=== PATIENT | male | born 1935 | race Caucasian/White ===

== ENCOUNTER → 2016-11-14 | Outpatient (CLI) | payer OTHER ==
[2016-11-14 12:20] LABS: HEMATOCRIT 32.1 % (42-52); MEAN CELL VOLUME 99.1 fL (80-100); MEAN CORPUSCULAR HEMOGLOBIN 32.1 pg (25-34); MEAN CORPUSCULAR HGB CONC 32.4 g/dl (32-36); PLATELET COUNT 110 K/uL (130-400); RED BLOOD COUNT 3.24 M/uL (4.7-6.1); WHITE BLOOD COUNT 4.08 K/uL (4.8-10.8)
[2016-11-14 12:29] LABS: BLOOD UREA NITROGEN 24 mg/dl (7-18); BUN/CREATININE RATIO 16.1 (10-20); CALCIUM 9.3 mg/dl (8.5-10.1); CARBON DIOXIDE 28 mmol/L (21-32); CHLORIDE 106 mmol/L (98-107); GLUCOSE 85 mg/dl (70-99); POTASSIUM 4.7 mmol/L (3.5-5.1); SODIUM 139 mmol/L (136-145)
== END | disposition home or self-care (01) ==
LOC: C.LAB 10:05
PROVIDERS: ATTEND Internal Medicine
DX: N18.9 Chronic kidney disease, unspecified (principal); D61.818 Other pancytopenia

== ENCOUNTER 2016-12-13 19:00 | Emergency (ER) | payer OTHER ==
[~2016-12-13] VITALS: Ht 172.7 cm; Wt 84.0 kg
[2016-12-13 19:04] VITALS: TEMP 36.8; Ht 172.7 cm; Wt 84.0 kg
[2016-12-13] MEDS ORDERED: ONDANSETRON INJ 2 MG/ML 2 ML VIAL IV STA (20:17)
[2016-12-13] MEDS ORDERED: MoRPHine SULFATE 4 MG/ML 1 ML CARP\\VIAL IV PRN (20:30)
[2016-12-13 20:33] LABS: URINE APPEARANCE CLEAR (CLEAR); URINE BILIRUBIN NEG (NEG); URINE COLOR YELLOW; URINE NITRITE NEG (NEG); URINE SPECIFIC GRAVITY 1.012 (1.000-1.030); UROBILINOGEN NEG (NEG)
[2016-12-13 20:42] LABS: MANUAL MICROSCOPIC REQUIRED? NO; REVIEW REQ? NO
[2016-12-13 20:43] LABS: HEMATOCRIT 29.3 % (42-52); MEAN CELL VOLUME 96.7 fL (80-100); MEAN CORPUSCULAR HEMOGLOBIN 32.7 pg (25-34); MEAN CORPUSCULAR HGB CONC 33.8 g/dl (32-36); RED BLOOD COUNT 3.03 M/uL (4.7-6.1); WHITE BLOOD COUNT 3.53 K/uL (4.8-10.8)
--- NOTE | 2016-12-13 20:50 | EMERGENCY ROOM VISIT NOTE ---
History Report prepared by Desmond: Sudeep lCoud Under the Supervision of: Dr. Flynn Atkinson D.O. First contact with patient: 19:53 Chief Complaint: ABDOMINAL PAIN Stated Complaint: SEVERE ABDOMINAL PAIN Nursing Triage Summary: Patient presents to triage via wheelchair, states "I have abdominal pain on the left side that started at 0300 this morning. I saw my PCP this morning. He sent me here for blood work, an xray and a CT scan. I have been constipated for three days until today. I have had two BMs since the CT scan. My pain has gotten worse since then. My doctor called and said that the xrays showed constipation." History of Present Illness The patient is a 81 year old male who presents to the Emergency Room with complaints of constant left lower quadrant abdominal pain that started at 0300. He rates his pain as a 7/10 in severity. He admits that the pain is worsened with movement. The patient states that he has been constipated for three days. He reports that he woke up with his abdominal pain, which caused him to go to his doctors today. The patient states that he had blood work, an x-ray, and a CT scan done. He reports that the results showed a lot of fecal matter and historic diverticulitis. He states that his doctor told him that he had retention of fluid in his ankles and diagnosed him with constipation. The patient states that since his appointment he had three small bowel movements. He admits that he had soup tonight and has not eaten since yesterday. The patient states that he has a history of stents, bypass surgery, A-fib, CHF, a hernia, a back surgery, and prostate cancer. He denies nausea, vomiting, back pain, tobacco or alcohol use in the last 15 years, and a history of shingles. Source of History: patient Onset: 0300 Position: abdomen (LLQ) Symptom Intensity: 7/10 Timing: constant Modifying Factors (Worsening): movement Associated Symptoms: No nausea, No vomiting, No back pain Review of Systems See HPI for pertinent positives & negatives. A total of 10 systems reviewed and were otherwise negative. Past Medical & Surgical Medical Problems: (1) CHF (congestive heart failure) (2) Hernia Surgical Problems: (1) Stented coronary artery Family History Patient reports no known family medical history. Social History Smoking Status: Former Smoker Smokeless Tobacco Use: No Alcohol Use: none Drug Use: none Occupation Status: retired Current/Historical Medications Scheduled Aspirin (Aspirin Ec), 81 MG PO DAILY Carvedilol (Coreg), 3.125 MG PO BID Niacin Ext Rel (Niaspan Ext Rel), 1,000 MG PO QPM Pravastatin Sodium (Pravastatin Sodium), 1 TAB PO DAILY Ramipril (Ramipril), 1 CAP PO QPM Tamsulosin Hcl (Flomax), 0.4 MG PO DAILY Warfarin Sod (Jantoven), 2 MG PO 4XWK Warfarin Sod (Jantoven), 1 MG PO 3XWK Allergies Coded Allergies: No Known Allergies (Unverified , 12/13/16) Physical Exam Vital Signs Date Time Temp Pulse Resp B/P (MAP) Pulse Ox O2 Delivery O2 Flow Rate FiO2 12/13/16 22:21 59 16 136/69 95 Room Air 12/13/16 21:18 58 16 107/63 94 Room Air 12/13/16 20:43 64 16 148/71 97 Room Air 12/13/16 20:36 58 12/13/16 19:04 36.8 70 20 145/66 96 Room Air Physical Exam GENERAL: Patient is awake, alert, and in no acute distress. Patient is resting comfortably and showing no signs of anxiety EYES: The conjunctivae are clear. The pupils are round and reactive. EARS, NOSE, MOUTH AND THROAT: The nose is without any evidence of any deformity. Mucous membranes are moist tongue is midline NECK: The neck is nontender and supple. RESPIRATORY: Normal respiratory effort is noted there is no evidence of wheezing rhonchi or rales CARDIOVASCULAR: Regular rate and rhythm with a systolic murmur suggested. GASTROINTESTINAL: The abdomen is mildly distended with tenderness to left lower quadrant. PELVIS: The Pelvis is stable. No tenderness to palpation is noted. BACK: No midline tenderness or or step-off noted range of motion in flexion extension as well as rotation no signs of muscle spasm noted MUSCULOSKELETAL/EXTREMITIES: There is no evidence of gross deformity full range of motion is noted in the hips and shoulders SKIN: There is no obvious evidence of any rash. There are no petechiae, pallor or cyanosis noted. NEUROLOGIC: Patient is awake alert and oriented x3. Medical Decision & Procedures Laboratory Results 12/13/16 20:37 Red Blood Count 3.03, Mean Corpuscular Volume 96.7, Mean Corpuscular Hemoglobin 32.7, Mean Corpuscular Hemoglobin Concent 33.8, Mean Platelet Volume 10.9, Neutrophils (%) (Auto) 66.6, Lymphocytes (%) (Auto) 21.2, Monocytes (%) (Auto) 8.8, Eosinophils (%) (Auto) 3.1, Basophils (%) (Auto) 0.3, Neutrophils # (Auto) 2.35, Lymphocytes # (Auto) 0.75, Monocytes # (Auto) 0.31, Eosinophils # (Auto) 0.11, Basophils # (Auto) 0.01 12/13/16 20:37 Test 12/13/16 20:00 12/13/16 20:37 Urine Color YELLOW Urine Appearance CLEAR (CLEAR) Urine pH 7.0 (4.5-7.5) Urine Specific Dumas 1.012 (1.000-1.030) Urine Protein NEG (NEG) Urine Glucose (UA) NEG (NEG) Urine Ketones NEG (NEG) Urine Occult Blood NEG (NEG) Urine Nitrite NEG (NEG) Urine Bilirubin NEG (NEG) Urine Urobilinogen NEG (NEG) Urine Leukocyte Esterase NEG (NEG) White Blood Count 3.53 K/uL (4.8-10.8) Red Blood Count 3.03 M/uL (4.7-6.1) Hemoglobin 9.9 g/dL (14.0-18.0) Hematocrit 29.3 % (42-52) Mean Corpuscular Volume 96.7 fL (80-100) Mean Corpuscular Hemoglobin 32.7 pg (25-34) Mean Corpuscular Hemoglobin Concent 33.8 g/dl (32-36) Platelet Count 75 K/uL (130-400) Mean Platelet Volume 10.9 fL (7.4-10.4) Neutrophils (%) (Auto) 66.6 % Lymphocytes (%) (Auto) 21.2 % Monocytes (%) (Auto) 8.8 % Eosinophils (%) (Auto) 3.1 % Basophils (%) (Auto) 0.3 % Neutrophils # (Auto) 2.35 K/uL (1.4-6.5) Lymphocytes # (Auto) 0.75 K/uL (1.2-3.4) Monocytes # (Auto) 0.31 K/uL (0.11-0.59) Eosinophils # (Auto) 0.11 K/uL (0-0.5) Basophils # (Auto) 0.01 K/uL (0-0.2) RDW Standard Deviation 52.0 fL (36.4-46.3) RDW Coefficient of Variation 14.8 % (11.5-14.5) Immature Granulocyte % (Auto) 0.0 % Immature Granulocyte # (Auto) 0.00 K/uL (0.00-0.02) Platelet Estimate DECREASED Prothrombin Time 34.9 SECONDS (9.0-12.0) Prothromb Time International Ratio 3.1 (0.9-1.1) Activated Partial Thromboplast Time 48.7 SECONDS (21.0-31.0) Partial Thromboplastin Ratio 1.9 Anion Gap 5.0 mmol/L (3-11) Est Creatinine Clear Calc Drug Dose 46.8 ml/min Estimated GFR () 58.1 Estimated GFR (Non- 50.1 BUN/Creatinine Ratio 15.5 (10-20) Calcium Level 8.6 mg/dl (8.5-10.1) Total Bilirubin 1.2 mg/dl (0.2-1) Direct Bilirubin 0.3 mg/dl (0-0.2) Aspartate Amino Transf (AST/SGOT) 17 U/L (15-37) Alanine Aminotransferase (ALT/SGPT) 28 U/L (12-78) Alkaline Phosphatase 90 U/L (45-117) Total Protein 7.2 gm/dl (6.4-8.2) Albumin 4.0 gm/dl (3.4-5.0) Lipase 81 U/L (73-393) Laboratory results per my review. Medications Administered Medications (Trade) Dose Ordered Sig/Cezar Route Start Time Stop Time Status Last Admin Dose Admin Ondansetron HCl (Zofran Inj) 4 mg NOW STAT IV 12/13/16 20:17 12/13/16 20:19 DC 12/13/16 20:42 4 MG Morphine Sulfate (MoRPHine SULFATE INJ) 4 mg Q15M PRN IV 12/13/16 20:30 12/13/16 23:18 DC 12/13/16 20:43 4 MG Oxycodone HCl (Roxicodone Immediate Rel 5MG Home Pack) 1 homepack UD ONCE PO 12/13/16 22:45 12/13/16 22:46 DC 12/13/16 22:48 1 [facility] ED Course 2011: The patient was evaluated in room A10. A complete history and physical examination were performed. 2017: Ordered Zofran Injection 4 mg IV. 2029: Ordered Morphine Sulfate 4 mg IV. 2233: Upon reevaluation, the patient is resting comfortably. I discussed the results and treatment plan with him. The patient verbalized agreement of the treatment plan. He was discharged home. 2244: Ordered Oxycodone HCl 1 [facility] PO Medical Decision Prior records/ancillary studies reviewed. Triage Nursing notes reviewed. Additional history obtained from patient. The patient's history was concerning for abdominal pain. Differential diagnosis: Etiologies such as appendicitis, diverticulitis, PUD, biliary pathology, UTI, pancreatitis, obstruction, mesenteric ischemia, aortic pathology, infections, inflammatory bowel disease, renal colic, as well as others were entertained. The patient is an 81-year-old male who presented to the emergency department for an evaluation of left-sided abdominal pain. The patient was noted to have left-sided abdominal pain with even light touch. He was sent to the hospital for outpatient testing by his family doctor. He had a CT scan of the abdomen which did not show any acute intra-abdominal pathology but did show a large amount of diverticulosis without diverticulitis. Given the patient's pain it would correlate with diverticulitis but without radiographic findings for fever I would be reluctant to treat him for diverticulitis at this time. He had a KUB that showed a moderate amount of stool earlier in the day but he did not have any signs of constipation on the CT. I discussed the patient's laboratory radiographic studies with him and his daughter. My other thought with this patient could be early shingles given the amount of pain with even light touch. He was encouraged to call his family doctor to schedule follow-up appointment. He was also encouraged to rest and avoid any strenuous activity. He was also encouraged to drink plenty clear liquids and follow-up with his family doctor within the next couple days. Otherwise she was encouraged to return to the emergency department immediately if symptoms change worsen or the need arises. Medication Reconcilliation Current Medication List: was personally reviewed by me Blood Pressure Screening Patient's blood pressure: Elevated blood pressure Blood pressure disposition: Elevated BP felt to be situational Impression Primary Impression: LLQ abdominal pain Additional Impression: Diverticulosis Scribe Attestation The scribe's documentation has been prepared under my direction and personally reviewed by me in its entirety. I confirm that the note above accurately reflects all work, treatment, procedures, and medical decision making performed by me. Departure Information Dispostion Home / Self-Care Referrals Yonny Carvalho D.O. (PCP) Forms Call Back Authorization, HOME CARE DOCUMENTATION FORM, IMPORTANT VISIT INFORMATION Patient Instructions ED Abdominal Pain Unkn Cause Male, My [facility] Additional Instructions Call your family doctor in the morning to schedule a follow-up appointment. Continue all medications as prescribed. Rest and avoid any strenuous activity. Return to the emergency department immediately if symptoms change worsen or if the need arises. Problem Qualifiers Additional Impression: Diverticulosis Diverticulosis site: unspecified location Diverticulosis bleeding: diverticulosis without bleeding Qualified Codes: K57.90 - Diverticulosis of intestine, part unspecified, without perforation or abscess without bleeding
[2016-12-13 21:02] LABS: INR 3.1 (0.9-1.1); PARTIAL THROMBOPLASTIN RATIO 1.9; PROTHROMBIN TIME (PATIENT) 34.9 SECONDS (9.0-12.0)
[2016-12-13 21:04] LABS: BASO % 0.3 %; BASO ABS # 0.01 K/uL (0-0.2); COMPLETE YES; EOS % 3.1 %; LYMPH % 21.2 %; LYMPH ABS # 0.75 K/uL (1.2-3.4); MEAN PLATELET VOLUME 10.9 fL (7.4-10.4); MONO % 8.8 %; NEUT % 66.6 %; PLATELET COUNT 75 K/uL (130-400); PLT ESTIMATE DECREASED
[2016-12-13] MEDS ORDERED: RAMI2.5C PO (21:05)
[2016-12-13] MEDS ORDERED: CARV3.122 PO (21:05)
[2016-12-13] MEDS ORDERED: NSP500 PO (21:05)
[2016-12-13] MEDS ORDERED: TAMS0.4C38 PO (21:05)
[2016-12-13] MEDS ORDERED: ASPI81TA28 PO (21:05)
[2016-12-13] MEDS ORDERED: WARF2TAB8 PO ×2 (21:05)
[2016-12-13] MEDS ORDERED: PRAV40TA2 PO (21:05)
[2016-12-13 21:14] LABS: BUN/CREATININE RATIO 15.5 (10-20); CALCIUM 8.6 mg/dl (8.5-10.1); CREATININE 1.33 mg/dl (0.60-1.40); POTASSIUM 4.1 mmol/L (3.5-5.1)
[2016-12-13 22:21] VITALS: BP 136/69; PULSE 59; O2SAT 95
[2016-12-13] MEDS ORDERED: OXYCODONE IR HOME PACK PO ONE (22:45)
== END 2016-12-13 23:00 | disposition home or self-care (01) ==
LOC: C.EDB 19:02 → C.EDA 23:00
DX: R10.32 Left lower quadrant pain (principal); K57.90 Diverticulosis of intestine, part unspecified, without perforation or abscess without bleeding; I48.91 Unspecified atrial fibrillation; I50.9 Heart failure, unspecified; Z95.1 Presence of aortocoronary bypass graft; Z95.5 Presence of coronary angioplasty implant and graft; Z85.46 Personal history of malignant neoplasm of prostate; Z79.82 Long term (current) use of aspirin; Z79.01 Long term (current) use of anticoagulants; Z87.891 Personal history of nicotine dependence

== ENCOUNTER → 2016-12-13 | Outpatient (CLI) | payer OTHER ==
[~2016-12-13] MED LIST: ASPI81TA28 PO; CARV3.122 PO; NSP500 PO; PRAV40TA2 PO; RAMI2.5C PO; TAMS0.4C38 PO; WARF2TAB8 PO
--- NOTE | 2016-12-13 11:49 | DIAGNOSTIC IMAGING REPORT ---
CT SCAN OF THE ABDOMEN AND PELVIS WITHOUT CONTRAST CLINICAL HISTORY: Left-sided abdominal pain. Possible diverticulitis. COMPARISON STUDY: No previous studies for comparison. TECHNIQUE: CT scan of the abdomen and pelvis was performed from the lung bases to the proximal femurs. Images are reviewed in the axial, sagittal, and coronal planes. IV contrast was not administered for this examination. A dose lowering technique was utilized adhering to the principles of ALARA. CT DOSE: 854.62 mGycm FINDINGS: Lower chest: There are pericardial calcifications present. There are coronary artery calcifications. There is mild basilar interstitial thickening. Liver: The unenhanced liver is normal in size, contour, and attenuation. There is no intrahepatic biliary ductal dilatation. Gallbladder: Unremarkable. Spleen: Top normal in size Pancreas: Unremarkable. Adrenal glands: Unremarkable. Kidneys: The unenhanced kidneys are normal in size without hydronephrosis. There is no contour deforming renal mass lesion. No renal calculi are identified. Bowel: There are no transition zones indicate bowel obstruction. There is pandiverticulosis. There are no acute peridiverticular inflammatory changes. There is no evidence of acute appendicitis. Peritoneum: There is no intraperitoneal free air or abdominal ascites. 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 Adenopathy: None. Pelvic viscera: Prostate patient therapy implant seeds are visualized. Skeletal structures: There are bilateral L5 pars defects. There is a grade 2/4 spondylolisthesis of L5 on S1. IMPRESSION: 1. No acute intra-abdominal or pelvic findings 2. Moderately extensive pandiverticulosis. No evidence of acute peridiverticular inflammatory change 3. No evidence of acute appendicitis 4. No evidence of bowel obstruction. No evidence of free air Electronically signed by: Vj Gutierrez M.D. 12/13/2016 11:47 AM Dictated Date/Time: 12/13/2016 11:43 AM
[2016-12-13 12:18] LABS: HEMATOCRIT 30.6 % (42-52); MEAN CELL VOLUME 98.4 fL (80-100); MEAN CORPUSCULAR HEMOGLOBIN 32.5 pg (25-34); RED BLOOD COUNT 3.11 M/uL (4.7-6.1); WHITE BLOOD COUNT 4.17 K/uL (4.8-10.8)
--- NOTE | 2016-12-13 12:30 | DIAGNOSTIC IMAGING REPORT ---
KUB HISTORY: Acute left upper quadrant pain with history of diverticulitis. Constipation for 3 days. LUQ PAIN,LLQ PAIN COMPARISON: CT 12/13/2016. FINDINGS: The bowel gas pattern is non-obstructive. Moderate stool burden suggests constipation. There is no organomegaly. No renal calculi. No ureteral calculi. Calcifications of the upper abdomen are compatible with renal vascular calcifications as noted on comparison CT. No pneumoperitoneum or pneumatosis. No fracture. Brachytherapy seeding of the prostate. Prior median sternotomy. Moderate osteoarthritis of the bilateral hips. IMPRESSION: 1. Moderate stool burden suggests constipation. Bowel gas pattern is nonobstructive. Electronically signed by: Abel Peoples M.D. 12/13/2016 12:29 PM Dictated Date/Time: 12/13/2016 12:26 PM
[2016-12-13 12:37] LABS: MEAN PLATELET VOLUME 11.4 fL (7.4-10.4); PLATELET COUNT 81 K/uL (130-400); PLT ESTIMATE DECREASED
== END | disposition home or self-care (01) ==
LOC: C.CTS 11:14
PROVIDERS: ATTEND Internal Medicine
DX: K57.90 Diverticulosis of intestine, part unspecified, without perforation or abscess without bleeding (principal)

== ENCOUNTER 2023-04-06 12:03 | Observation (INO) ==
--- NOTE | 2023-04-06 13:50 | XRay Report ---
SINGLE VIEW CHEST CLINICAL HISTORY: Atypical chest pain. FINDINGS: A PA chest radiograph is compared to study dated 03/22/2023. The patient is status post midl ine sternotomy. Pericardial calcifications are again noted. The heart is enlarged noting atherosclero tic calcification of the thoracic aorta. There is pulmonary vascular congestion. Chronic interstitial thickening is similar to previous. There is bibasilar scarring/atelectasis. No large pleural effusio n or pneumothorax is seen. The bony thorax is grossly intact. IMPRESSION: Cardiomegaly with evidence of congestive failure. Radiographic follow-up to resolution is recommended. ACT 112: Negative or not required by law. Electronically signed by: Elvin Young M.D. 04/06/2023 1:49 PM
--- NOTE | 2023-04-06 14:01 | Emergency Department Note ---
History of Present Illness General Chief complaint: Shortness of Breath/Dyspnea Stated complaint: DIFFICULTY BREATHING, EXHAUSTION - S/P SURGERY Time Seen by Provider: 04/06/23 13:50 History of Present Illness 88-year-old male presents emergency department complaint of shortness of breath for the past 2 days. Patient states dyspnea on exertion. Patient states orthopnea. Patient of note had a urethral stricture surgery on Saturday with Dr. Kendrick. Patient had been doing well he had a Laureano catheter removed yesterday in the office. At the time he stated to Dr. Kendrick that he was feeling short of breath. Dr. Kendrick wanted this complaint to be monitored for 24 hours. Patient has increased shortness of breath currently complains of dyspnea on exertion states that he has not been able to urinate since 10 AM this morning. Patient denies any chest pain. Patient had a prior history of CHF was on a diuretic until last fall 2022 in which that was discontinued. Patient has no other complaints. There are no other mitigating or alleviating factors Home Medications Medication Instructions Recorded Confirmed Type acetaminophen 650 mg 650 mg PO Q8H PRN Pain 06/26/22 04/06/23 History tablet,extended release (Tylenol 8 Hour) aspirin 81 mg tablet,delayed 81 mg PO QAM 06/26/22 04/06/23 History release meclizine 25 mg tablet (Dramamine 25 mg PO TID PRN Vertigo 06/26/22 04/06/23 History (meclizine)) mecobalamin (vitamin B12) 500 mcg 500 mcg PO QAM 06/26/22 04/06/23 History chewable tablet nitroglycerin 0.4 mg sublingual 0.4 mg sublingual Q5M PRN Chest 06/26/22 04/06/23 History tablet Pain buspirone 10 mg tablet 10 mg PO BID PRN anxiety 07/03/22 04/06/23 History clonazepam 1 mg tablet 1 mg PO HS 03/27/23 04/06/23 History pantoprazole 40 mg tablet,delayed 40 mg PO QAM 03/27/23 04/06/23 History release pravastatin 40 mg tablet 40 mg PO HS 03/27/23 04/06/23 History spironolactone 25 mg tablet 12.5 mg PO HS 03/27/23 04/06/23 History tamsulosin 0.4 mg capsule 0.4 mg PO HS 03/27/23 04/06/23 History oxybutynin chloride 5 mg tablet 5 mg PO BID #180 tabs 04/02/23 04/06/23 Rx sulfamethoxazole 800 1 tab PO BID #6 tabs 04/02/23 04/06/23 Rx mg-trimethoprim 160 mg tablet (Bactrim DS) Allergies Allergy/AdvReac Type Severity Reaction Status Date / Time doxycycline Allergy Vomiting Verified 04/05/23 11:37 pregabalin Allergy Vomiting Verified 04/05/23 11:37 Past Med/Surg History Medical History Hx of brachytherapy initial tx for prostate ca Hyperlipidemia GERD (gastroesophageal reflux disease) 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 Vitamin D deficiency History of prostate cancer 1999, brachy therapy and sx tx Chronic diastolic heart failure Persistent atrial fibrillation Coronary artery disease s/p 2 stents in 1999 and CABG x 1 1978 Surgical History History of esophagogastroduodenoscopy (EGD) Hx of colonoscopy Hx of tonsillectomy Hx of bilateral cataract extraction History of coronary artery bypass graft 1978, single bypass, [facility] in [place] History of heart artery stent ~1999, angina, [place], [place]; x2 stents; f/u amy huerta History of cardiac cath ~1999, ang[place], [place]; x2 stents; f/u amy huerta S/P TURP Family History Father Heart disease Hypertension Mother Seizure Denies family history of Ovarian cancer Prostate cancer Myocardial infarction Breast cancer Colorectal cancer Social History Smoking Status: Former smoker Tobacco Type: Cigarettes Age Started Using Tobacco: 26; Age Quit Using Tobacco: 61; packs per day: 1; Second Hand Exposure: No; Do You Dip or Chew Tobacco: No; Hx Alcohol Use: Yes Alcohol type: beer, wine and hard liquor Alcohol Intake Frequency: Monthly or Less Hx Substance Use: No Preferred Language: Montenegrin Communication Ability: Effective Visual Impairment: No Limitations Hearing Ability: Normal Medical Claims Representative Required: No Beliefs That Will Affect Care: None marital status: / marital status details: LIVES WITH FREDI AND SON IN LAW Current Living Situation: Family current occupational status: retired How many Children do You have: 3 Feels Safe at Home: Yes Childhood Exposure to Second-Hand Smoke: No Diet: regular caffeine: Yes during the past year weight has: remained stable Dental Care, Regularly: No Physical Activity Frequency: 1-2 Times per Week Seatbelt Use: always Sunscreen Use: Yes Assistive Devices: Denture - Upper and Denture - Lower Review of Systems A total of 10 systems reviewed and were otherwise negative Cardiovascular: + dyspnea and + orthopnea Physical Exam Vital Signs Vital Signs - 24 hr 04/06/23 12:39 04/06/23 13:40 04/06/23 14:15 Temperature 36.5 C Temperature Source Temporal Artery Scan Pulse Rate 68 59 L Pulse Rate [Left Finger] Pulse Rhythm Regular Pulse Strength Normal Respiratory Rate 22 Respiratory Effort / Characteristics Non-Labored Spontaneous Respiratory Depth Normal Respiratory Pattern Regular Blood Pressure 111/66 Blood Pressure [Right Arm] Blood Pressure Mean 81 Blood Pressure Mean [Right Arm] Blood Pressure Position Sitting Blood Pressure Position [Right Arm] Pulse Oximetry 98 99 Oxygen Delivery Method Room Air Room Air Sepsis Recent Fever Within 48 Hours No Sepsis New/Unexplained Change in Mental Status No Sepsis Action Taken by Nursing No Action Required 04/06/23 14:35 04/06/23 15:21 04/06/23 15:21 Temperature Temperature Source Pulse Rate Pulse Rate [Left Finger] 77 Pulse Rhythm Pulse Strength Respiratory Rate 20 Respiratory Effort / Characteristics Respiratory Depth Respiratory Pattern Blood Pressure Blood Pressure [Right Arm] 155/57 H Blood Pressure Mean Blood Pressure Mean [Right Arm] 89 Blood Pressure Position Blood Pressure Position [Right Arm] Sitting Pulse Oximetry 98 97 Oxygen Delivery Method Room Air Room Air Sepsis Recent Fever Within 48 Hours Sepsis New/Unexplained Change in Mental Status Sepsis Action Taken by Nursing GENERAL: Patient is awake alert in no acute distress patient is resting comfortably and showing no signs of anxiety EYES: The conjunctivae are clear. The pupils are round and reactive. EARS, NOSE, MOUTH AND THROAT: The nose is without any evidence of any deformity. Mucous membranes are moist. Tongue is midline. NECK: The neck is nontender and supple. RESPIRATORY: Normal respiratory effort is noted there is crackles noted bilaterally CARDIOVASCULAR: Regular rate and rhythm noted there no murmurs rubs or gallops normal S1 normal S2. GASTROINTESTINAL: The abdomen is soft. Abdomen is nontender. Nondistended nontender over the suprapubic region BACK: No midline tenderness or or step-off noted range of motion in flexion extension as well as rotation no signs of muscle spasm noted MUSCULOSKELETAL/EXTREMITIES: There is no evidence of gross deformity full range of motion is noted in the hips and shoulders. SKIN: There is no obvious evidence of any rash. There are no petechiae, pallor or cyanosis noted. NEUROLOGIC: Patient is awake alert and oriented x3 strength is symmetric Course Reevaluation(s) Reevaluation #1: Patient was started on IV Lasix. Patient had 78 mL on bladder scanner and his bladder Time: 14:18 Consultations Consultation #1: Case was discussed with Dr. Harrington from [facility] for admission for CHF Time: 14:19 Administered Medications Discontinued Medications Furosemide (Furosemide 40 Mg/4 Ml Vial) 40 mg IV ONE ONE Stop: 04/06/23 13:59 Last Admin: 04/06/23 14:14 Dose: 40 mg Documented By: CHAD Medical Decision Making Medical Records Attestation: I reviewed the patient's medical records. Home Medications Current Medication List: was personally reviewed by me Laboratory Data Attestation: I reviewed the patient's lab results. 04/06/23 13:28 04/06/23 13:28 Lab Results 04/06/23 Range/Units 13:28 WBC 2.59 L (4.8-10.8) K/ul RBC 2.58 L (4.70-6.10) M/uL Hgb 8.7 L (14.0-18.0) g/dl Hct 27.2 L (42.0-52.0) % MCV 105.4 H (80.0-100.0) fL MCH 33.7 (25.0-34.0) pg MCHC 32.0 (32.0-36.0) g/dL RDW Std Deviation 56.4 H (36.4-46.3) fL RDW Coeff of Salena 14.6 H (11.5-14.5) % Plt Count 66 L (130-400) K/uL MPV 11.8 (9.4-12.4) fL Immature Gran % (Auto) 0.4 % Neut % (Auto) 83.4 % Lymph % (Auto) 8.9 % Person % (Auto) 4.6 % Eos % (Auto) 1.9 % Baso % (Auto) 0.8 % Neut # (Auto) 2.16 (1.40-6.50) K/uL Lymph # (Auto) 0.23 L (1.20-3.40) K/uL Person # (Auto) 0.12 (0.11-0.59) K/uL Eos # (Auto) 0.05 (0.00-0.50) K/uL Baso # (Auto) 0.02 (0.00-0.20) K/uL Immature Gran # (Auto) 0.01 (0.01-0.20) K/uL PT 11.8 (9.0-12.0) Seconds INR 1.1 (0.9-1.1) APTT 30 (21-31) Seconds PTT Ratio 1.1 Sodium 137 (136-145) mmol/L Potassium 4.4 (3.5-5.1) mmol/L Chloride 107 (98-107) mmol/L Carbon Dioxide 25 (21-32) mmol/L Anion Gap 5 (3-11) BUN 31 H (6-23) mg/dl Creatinine 2.24 H (0.6-1.4) mg/dl Est Cr Clr Drug Dosing 23.6 ml/min Est GFR ( Amer) 29.5 ml/min Est GFR (Non-Af Amer) 25.4 ml/min BUN/Creatinine Ratio 13.8 (10-20) Glucose 106 H (70-99(Fasting)) mg/dl Calcium 8.9 (8.6-10.3) mg/dl Total Bilirubin 1.0 (0.2-1.0) mg/dl AST 11 L (13-39) U/L ALT 9 (7-52) U/L Alkaline Phosphatase 107 H (34-104) U/L Troponin I High Sens 17.1 (0-20) pg/ml B-Natriuretic Peptide 216 H (0-100) pg/ml Total Protein 6.7 (6.0-8.3) gm/dl Albumin 4.4 (3.4-5.0) gm/dl Globulin 2.3 L (2.5-4.0) gm/dl Albumin/Globulin Ratio 1.9 (0.9-2) Adenovirus (PCR) Not Detected (NotDetected) B. pertussis DNA (PCR) Not Detected (NotDetected) B.parapertussis DNA PCR Not Detected (NotDetected) C. pneumoniae DNA (PCR) Not Detected (NotDetected) Coronavirus OC43 (PCR) Not Detected (NotDetected) Coronavirus HKU1 (PCR) Not Detected (NotDetected) Coronavirus 229E (PCR) Not Detected (NotDetected) SARS-CoV-2 (PCR) Not Detected (NotDetected) Coronavirus NL63 (PCR) Not Detected (NotDetected) Human Metapneumovir PCR Not Detected (NotDetected) Influenza Type A (PCR) Not Detected (NotDetected) Influenza Type B (PCR) Not Detected (NotDetected) M. pneumoniae (PCR) Not Detected (NotDetected) Parainfluenza 1 (PCR) Not Detected (NotDetected) Parainfluenza 2 (PCR) Not Detected (NotDetected) Parainfluenza 3 (PCR) Not Detected (NotDetected) Parainfluenza 4 (PCR) Not Detected (NotDetected) RSV (PCR) Not Detected (NotDetected) Entero/Rhino (PCR) Not Detected (NotDetected) Imaging Data Attestation: I personally reviewed and interpreted this imaging study as follows: My Impression: Chest x-ray interpreted by wv calckwasi aorta, CHF Radiologist's Impression: Chest X-Ray 04/06/23 12:44 SINGLE VIEW CHEST CLINICAL HISTORY: Atypical chest pain. FINDINGS: A PA chest radiograph is compared to study dated 03/22/2023. The patient is status post midline sternotomy. Pericardial calcifications are again noted. The heart is enlarged noting atherosclerotic calcification of the thoracic aorta. There is pulmonary vascular congestion. Chronic interstitial thickening is similar to previous. There is bibasilar scarring/atelectasis. No large pleural effusion or pneumothorax is seen. The bony thorax is grossly intact. IMPRESSION: Cardiomegaly with evidence of congestive failure. Radiographic follow-up to resolution is recommended. ACT 112: Negative or not required by law. Electronically signed by: Elvin Young M.D. 04/06/2023 1:49 PM ECG Data Attestation: I personally reviewed and interpreted this ECG as follows: Additional Comments: EKG interpreted by me atrial fibrillation rate of 59, poor R wave progression the precordium, nonspecific ST-T change poor baseline in the lateral leads no obvious ST segment elevation or depression Telemetry was ordered by me, interpreted as atrial fibrillation rate of 59 MDM Narrative Medical decision making differential diagnosis includes CHF, pneumonia, upper respiratory tract infection, cardiac dysrhythmia, urinary retention Plan is to check labs, EKG, chest x-ray, COVID swab. These labs were initiated and the provider in triage process prior to me evaluating the patient Patient's family at bedside is provided me history of him having a prior history of CHF off of diuretics since fall 2022 and a recent surgery with urology. Impression & Plan CHF (congestive heart failure) Discharge Plan Visit Data Chief Complaint: Shortness of Breath/Dyspnea Stated Complaint: DIFFICULTY BREATHING, EXHAUSTION - S/P SURGERY ED Provider: Mando Sierra Discharge Problem: CHF (congestive heart failure) Patient Disposition: Admitted As Inpatient Forms Stand Alone Forms: My [facility] [employer] Prescriptions Prescriptions: No Action oxybutynin chloride 5 mg tablet 5 mg PO BID Qty: 180 3RF buspirone 10 mg tablet 10 mg PO BID PRN (Reason: anxiety) acetaminophen [Tylenol 8 Hour] 650 mg tablet extended release 650 mg PO Q8H PRN (Reason: Pain) aspirin 81 mg tablet,delayed release (DR/EC) 81 mg PO QAM mecobalamin (vitamin B12) 500 mcg tablet,chewable 500 mcg PO QAM meclizine [Dramamine (meclizine)] 25 mg tablet 25 mg PO TID PRN (Reason: Vertigo) nitroglycerin 0.4 mg tablet, sublingual 0.4 mg sublingual Q5M PRN (Reason: Chest Pain) Patient Comments: has not used any for 20 years Rx Instructions: do not exceed 3 doses per episode pravastatin 40 mg tablet 40 mg PO HS clonazepam 1 mg tablet 1 mg PO HS spironolactone 25 mg tablet 12.5 mg PO HS tamsulosin 0.4 mg capsule 0.4 mg PO HS pantoprazole 40 mg tablet,delayed release (DR/EC) 40 mg PO QAM sulfamethoxazole-trimethoprim [Bactrim DS] 800-160 mg tablet 1 tab PO BID Qty: 6 0RF Referrals Referrals: Osbaldo Sellers DO [Primary Care Provider] -
[2023-04-06 14:02] LABS: Basophils # (auto) 0.02 K/uL (0.00-0.20); Basophils % (auto) 0.8 %; Eosinophils # (auto) 0.05 K/uL (0.00-0.50); Eosinophils % (auto) 1.9 %; Hematocrit (blood only) 27.2 % (42.0-52.0); Hemoglobin 8.7 g/dl (14.0-18.0); Immature Granulocytes # (auto) 0.01 K/uL (0.01-0.20); Immature Granulocytes % (auto) 0.4 %; Lymphocytes # (auto) 0.23 K/uL (1.20-3.40); Lymphocytes % (auto) 8.9 %; Mean Corpuscular Hemoglobin 33.7 pg (25.0-34.0); Mean Corpuscular Volume 105.4 fL (80.0-100.0); Mean Platelet Volume 11.8 fL (9.4-12.4); Monocytes # (auto) 0.12 K/uL (0.11-0.59); Monocytes % (auto) 4.6 %; Neutrophils # (auto) 2.16 K/uL (1.40-6.50); Neutrophils % (auto) 83.4 %; Platelet Count 66 K/uL (130-400); RDW Coefficient of Variation 14.6 % (11.5-14.5); RDW Standard Deviation 56.4 fL (36.4-46.3); Red Blood Count 2.58 M/uL (4.70-6.10); White Blood Count 2.59 K/ul (4.8-10.8)
[2023-04-06 14:08] LABS: Albumin Globulin Ratio 1.9 (0.9-2); Albumin Level 4.4 gm/dl (3.4-5.0); BUN Creatinine Ratio 13.8 (10-20); Calcium 8.9 mg/dl (8.6-10.3); Creatinine Clr Calc Pharmacy 23.6 ml/min; Est GFR (African American) 29.5 ml/min; Est GFR (Non-African American) 25.4 ml/min; Globulin 2.3 gm/dl (2.5-4.0); Potassium 4.4 mmol/L (3.5-5.1); Total Protein 6.7 gm/dl (6.0-8.3)
[2023-04-06 14:14] LABS: Troponin I High Sensitivity 17.1 pg/ml (0-20)
[2023-04-06] MEDS: FUROSEMIDE 40 MG/4 ML VIAL IV ONE (14:14)
[2023-04-06 14:29] LABS: INR 1.1 (0.9-1.1); Partial Thromboplastin Ratio 1.1; Partial Thromboplastin Time 30 Seconds (21-31); Prothrombin Time 11.8 Seconds (9.0-12.0)
--- NOTE | 2023-04-06 14:35 | History & Physical Report ---
Date of Service April 06, 2023 Assessment & Plan (1) Acute heart failure: Plan: Unknown ejection fraction Suspect chronic kidney disease also contributing towards hypervolemic state - awaiting urinalysis to assess proteinuria Possibly exacerbated by temporary urine retention following surgery (current bladder scan normal) +/- IV fluids during operation - suspect he may only need PRN dosing at home Lasix 40mg IV, ordered daily but given significant urine output since given this may need to reduce tomorrows dose depending on I&Os I&Os Daily weight Low Na diet TTE (2) Urethral stricture: Plan: s/p Cystoscopy, Urethral Dilation 04/02/[address] Kendrick Bladder scan unremarkable Finished Bactrim prophylaxis - can discontinue this, of note probably not the best choice for prophylaxis with his CKD Ua to assess for infection (3) Kidney disease, chronic, stage IV (GFR 15-29 ml/min): Plan: UA pending to assess for proteinuria Monitor Cr with AM labs (4) GERD (gastroesophageal reflux disease): Plan: Continue pantoprazole (5) Myelodysplastic syndrome: Plan: Noted reason for anemia, elevated MCV, thrombocytopenia and leukopenia - stable Consider giving his usual procrit if dose can be confirmed with hematology since he missed this weeks (6) Benign essential hypertension: Plan: Continue spironolactone with additional lasix as above (7) Coronary artery disease: Plan: Continue aspirin, pravastatin (8) Persistent atrial fibrillation: Plan: No anticoagulation due to watchman Rate controlled without AV radha blockers Plan VTE Prophylaxis - low risk Diet - low Na, heart healthy Disposition - observation to med/tele Admission and Anticipated Discharge Date Admission Date: Apr 06, 2023 History of Present Illness Chief Complaint: Shortness of breath Primary Care Provider: DO Maged Garsia Star is an 88 year old male who presents to the ER with shortness of breath for the last 2 days. Worse on lying down and similar to prior hospitalization when he was admitted for congestive heart failure 2 years ago in [place]. He does not routinely make Lasix but is on spironolactone at night. This started after cystoscopy and urethral dilation performed by Dr Kendrick 2 days ago. He felt well prior ot this procedure and afterwards he went home and could not urinate for a long time as well as it was painful. He was given a 3 day course of Bactrim for prophyalxis. He felt generally weak initially which started to improved. His urinary flow today significantly improved but he felt weak again and was short of breath on minimal movements therefore decided to come to the ER. He denies any chest pain, presyncope, leg swelling or palpitations. 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 He thinks he gets 40,000 units. Missed this weeks dose due to the operation. Allergies Allergy/AdvReac Type Severity Reaction Status Date / Time doxycycline Allergy Vomiting Verified 04/05/23 11:37 pregabalin Allergy Vomiting Verified 04/05/23 11:37 Home Medications Medication Instructions Recorded Confirmed Type acetaminophen 650 mg 650 mg PO Q8H PRN Pain 06/26/22 04/06/23 History tablet,extended release (Tylenol 8 Hour) aspirin 81 mg tablet,delayed 81 mg PO QAM 06/26/22 04/06/23 History release meclizine 25 mg tablet (Dramamine 25 mg PO TID PRN Vertigo 06/26/22 04/06/23 History (meclizine)) mecobalamin (vitamin B12) 500 mcg 500 mcg PO QAM 06/26/22 04/06/23 History chewable tablet nitroglycerin 0.4 mg sublingual 0.4 mg sublingual Q5M PRN Chest 06/26/22 0 04/06/23 History tablet Pain buspirone 10 mg tablet 10 mg PO BID PRN anxiety 07/03/22 04/06/23 History clonazepam 1 mg tablet 1 mg PO HS 03/27/23 04/06/23 History pantoprazole 40 mg tablet,delayed 40 mg PO QAM 03/27/23 04/06/23 History release pravastatin 40 mg tablet 40 mg PO HS 03/27/23 04/06/23 History spironolactone 25 mg tablet 12.5 mg PO HS 03/27/23 04/06/23 History tamsulosin 0.4 mg capsule 0.4 mg PO HS 03/27/23 04/06/23 History oxybutynin chloride 5 mg tablet 5 mg PO BID #180 tabs 04/02/23 04/06/23 Rx sulfamethoxazole 800 1 tab PO BID #6 tabs 04/02/23 04/06/23 Rx mg-trimethoprim 160 mg tablet (Bactrim DS) Past Med/Surg History Medical History Hx of brachytherapy initial tx for prostate ca Hyperlipidemia GERD (gastroesophageal reflux disease) 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 Vitamin D deficiency History of prostate cancer 1999, brachy therapy and sx tx Chronic diastolic heart failure Persistent atrial fibrillation Coronary artery disease s/p 2 stents in 1999 and CABG x 1 1978 Surgical History History of esophagogastroduodenoscopy (EGD) Hx of colonoscopy Hx of tonsillectomy Hx of bilateral cataract extraction History of coronary artery bypass graft 1978, single bypass, [facility] in [place] History of heart artery stent ~1999, [place], [place]; x2 stents; f/u amy huerta History of cardiac cath ~1999, [facility], [place], [place]; x2 stents; f/u amy huerta S/P TURP Family History Father Heart disease Hypertension Mother Seizure Denies family history of Ovarian cancer Prostate cancer Myocardial infarction Breast cancer Colorectal cancer Social History Smoking Status: Never smoker Tobacco Type: Cigarettes Age Started Using Tobacco: 26; Age Quit Using Tobacco: 61; packs per day: 1; Second Hand Exposure: No; Do You Dip or Chew Tobacco: No; Hx Alcohol Use: Yes Alcohol type: beer, wine and hard liquor Alcohol Intake Frequency: Monthly or Less Hx Substance Use: No Preferred Language: [place]guill[place] Communication Ability: Effective Visual Impairment: No Limitations Hearing Ability: Normal Master Ship Required: No Beliefs That Will Affect Care: None marital status: / marital status details: LIVES WITH DAUTHER AND SON IN LAW Current Living Situation: Family current occupational status: retired How many Children do You have: 3 Other Information That Helps Us Care for You: No Feels Safe at Home: Yes Childhood Exposure to Second-Hand Smoke: No Diet: regular caffeine: Yes during the past year weight has: remained stable Dental Care, Regularly: No Physical Activity Frequency: 1-2 Times per Week Seatbelt Use: always Sunscreen Use: Yes Assistive Devices: Denture - Upper and Denture - Lower Review of Systems Review of Systems: All systems reviewed & are unremarkable except as noted in HPI & below Physical Exam Constitutional: WD/WN, vitals as above Eyes: + anicteric sclerae; normal pupil size ENMT: external ear and nose normal, oropharynx normal Respiratory: normal respiratory effort; no respiratory distress Auscultation: + diminished lung sounds (bibasal); no crackles, no rales and no rhonchi Cardiovascular: Rate/Rhythm: regular rate and + irregularly irregular Heart Sounds: no murmur Extremities: normal capillary refill and + pedal edema (trace); no calf tenderness Gastrointestinal (Abdomen): normal bowel sounds, soft, nontender, no hepatosplenomegaly Skin: no rashes, warm and dry Neurologic: moves all extremities and awake; not confused Psychiatric: A+Ox3, euthymic affect Genitourinary: no CVA tenderness Results & Data Results & Data Vital Signs (Past 12 Hours) Vital Signs Temp Pulse Resp BP Pulse Ox O2 Del Method 04/06/23 14:15 59 L 04/06/23 13:40 99 Room Air 04/06/23 12:39 36.5 C 68 22 111/66 98 Room Air Laboratory Results Abnormal lab results 04/06/23 Range/Units 13:28 WBC 2.59 L (4.8-10.8) K/ul RBC 2.58 L (4.70-6.10) M/uL Hgb 8.7 L (14.0-18.0) g/dl Hct 27.2 L (42.0-52.0) % MCV 105.4 H (80.0-100.0) fL RDW Std Deviation 56.4 H (36.4-46.3) fL RDW Coeff of Salena 14.6 H (11.5-14.5) % Plt Count 66 L (130-400) K/uL Lymph # (Auto) 0.23 L (1.20-3.40) K/uL BUN 31 H (6-23) mg/dl Creatinine 2.24 H (0.6-1.4) mg/dl Glucose 106 H (70-99(Fasting)) mg/dl AST 11 L (13-39) U/L Alkaline Phosphatase 107 H (34-104) U/L Globulin 2.3 L (2.5-4.0) gm/dl Diagnostic Findings SINGLE VIEW CHEST CLINICAL HISTORY: Atypical chest pain. FINDINGS: A PA chest radiograph is compared to study dated 03/22/2023. The patient is status post midline sternotomy. Pericardial calcifications are again noted. The heart is enlarged noting atherosclerotic calcification of the thoracic aorta. There is pulmonary vascular congestion. Chronic interstitial thickening is similar to previous. There is bibasilar scarring/atelectasis. No large pleural effusion or pneumothorax is seen. The bony thorax is grossly intact. IMPRESSION: Cardiomegaly with evidence of congestive failure. Radiographic follow-up to resolution is recommended. Medications Administered ER Medications Given: Lasix 40mg IV ECG Rate (beats per minute): 59 Rhythm: atrial fibrillation Findings: + nonspecific-ST abn (Lateral) Comparison ECG Date: from (July 03, 2022) Change: the following changes noted (T wave flattening now presents in inferior leads) Code Status & VTE Plan Code Status Full VTE Prophylaxis Plan VTE Prophylaxis will be ordered: No PG Care Time/CCT Total # of Minutes Spent Total Time Spent with Patient: Total time spent is greater than 50% in coordination of care (as documented) at patient's floor/unit and/or counseling patient: Coding Level of Care Code 59061 INT INP/OBS CARE 3/75MIN Diagnoses Acute heart failure I50.9 Urethral stricture N35.919 Kidney disease, chronic, stage IV (GFR 15-29 ml/min) N18.4 GERD (gastroesophageal reflux disease) K21.9 Myelodysplastic syndrome D46.9 Benign essential hypertension I10 Coronary artery disease I25.10 Persistent atrial fibrillation I48.19
[2023-04-06 14:41] LABS: Adenovirus PCR Not Detected (NotDetected); Bordetella parapertussis PCR Not Detected (NotDetected); Bordetella pertussis PCR Not Detected (NotDetected); Chlamydia pneumoniae PCR Not Detected (NotDetected); Coronavirus 229E PCR Not Detected (NotDetected); Coronavirus CoV-2 (COVID19)PCR Not Detected (NotDetected); Coronavirus HKU1 PCR Not Detected (NotDetected); Coronavirus NL63 PCR Not Detected (NotDetected); Coronavirus OC43PCR Not Detected (NotDetected); Human Metapneumovirus PCR Not Detected (NotDetected); Influenza A PCR Not Detected (NotDetected); Influenza B PCR Not Detected (NotDetected); Mycoplasma pneumoniae PCR Not Detected (NotDetected); Parainfluenza Virus 1 PCR Not Detected (NotDetected); Parainfluenza Virus 2 PCR Not Detected (NotDetected); Parainfluenza Virus 3 PCR Not Detected (NotDetected); Parainfluenza Virus 4 PCR Not Detected (NotDetected); Respiratory Syncytial VirusPCR Not Detected (NotDetected); Rhinovirus/Enterovirus PCR Not Detected (NotDetected)
[2023-04-06 17:22] LABS: Appearance Urine Clear (Clear); Bacteria Urine Automated Negative (Negative); Bilirubin Urine Negative (Negative); Blood Urine Trace (Negative); Cast Urine Automated 0 /lpf (0-5); Color Urine Yellow; Epithelial Cell Urine Auto 0-5 /lpf (0-5); Glucose Urine UA Negative (Negative); Ketones Urine Negative (Negative); Leukocyte Esterase Urine Negative (Negative); Nitrite Urine Negative (Negative); Protein Urine Negative (Negative); RBC Urine Automated 0-4 /hpf (0-4); Specific Gravity Urine 1.008 (1.000-1.030); Urobilinogen Urine Negative (Negative); WBC Urine Automated 0 /hpf (0-5); pH Urine 6.5 (4.5-7.5)
[2023-04-06] MEDS ORDERED: busPIRone 5 MG TAB PO PRN (17:47)
[2023-04-06] MEDS: TAMSULOSIN HCL 0.4 MG CAP PO SCH (20:59)
[2023-04-06] MEDS: SPIRONOLACTONE 12.5 MG TAB PO SCH (20:59)
[2023-04-06] MEDS: clonazePAM 1 MG TAB PO SCH (20:59)
[2023-04-06] MEDS: oxyBUTYnin chloride 5 MG TAB PO SCH (21:00)
[2023-04-06] MEDS: PRAVASTATIN SOD 40 MG TAB PO SCH (21:00)
[2023-04-06] MEDS ORDERED: SULFAMETHOXAZOLE/TRIMETHOPRIM DS 800/160MG TAB PO SCH (21:00)
--- NOTE | 2023-04-07 07:06 | Electrocardiogram Report ---
Test Reason : Blood Pressure : / mmHG Vent. Rate : 059 BPM Atrial Rate : 000 BPM P-R Int : 000 ms QRS Dur : 090 ms QT Int : 416 ms P-R-T Axes : 000 056 185 degrees QTc Int : 411 ms Atrial fibrillation with slow ventricular response Cannot rule out Anterior infarct (cited on or before 03-JUL-2022) Abnormal ECG When compared with ECG of 03-JUL-2022 09:38, (unconfirmed) Nonspecific T wave abnormality now evident in Inferior leads Confirmed by Frederick Mckeon ([id number]) on 04/07/2023 7:06:15 AM Referred By: Confirmed By:Lalit Mckeon
[2023-04-07] MEDS: FUROSEMIDE 40 MG/4 ML VIAL IV SCH (08:40)
[2023-04-07] MEDS: CYANOCOBALAMIN (B-12) 500 MCG TABLET PO SCH (08:40)
[2023-04-07] MEDS: ASPIRIN 81 MG ECTAB PO SCH (08:40)
[2023-04-07] MEDS: PANTOprazole 40 MG TAB PO SCH (08:40)
--- NOTE | 2023-04-07 13:55 | Discharge Summary ---
Date of Service April 07, 2023 Admission HPI Per Admitting Provider Maged Graves is an 88 year old male who presents to the ER with shortness of breath for the last 2 days. Worse on lying down and similar to prior hospitalization when he was admitted for congestive heart failure 2 years ago in [place]. He does not routinely make Lasix but is on spironolactone at night. This started after cystoscopy and urethral dilation performed by Dr Kendrick 2 days ago. He felt well prior ot this procedure and afterwards he went home and could not urinate for a long time as well as it was painful. He was given a 3 day course of Bactrim for prophyalxis. He felt generally weak initially which started to improved. His urinary flow today significantly improved but he felt weak again and was short of breath on minimal movements therefore decided to come to the ER. He denies any chest pain, presyncope, leg swelling or palpitations. 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 He thinks he gets 40,000 units. Missed this weeks dose due to the operation. Discharge Data Allergies Allergy/AdvReac Type Severity Reaction Status Date / Time doxycycline Allergy Vomiting Verified 04/05/23 11:37 pregabalin Allergy Vomiting Verified 04/05/23 11:37 Consultations 04/06/23 14:17 ED Decision to Admit Stat Hospital Course (1) Acute heart failure: Unknown ejection fraction Suspect chronic kidney disease also contributing towards hypervolemic state - awaiting urinalysis to assess proteinuria Possibly exacerbated by temporary urine retention following surgery (current bladder scan normal) +/- IV fluids during operation - suspect he may only need PRN dosing at home Lasix 40mg IV, ordered daily but given significant urine output since given this may need to reduce tomorrows dose depending on I&Os I&Os Daily weight Low Na diet TTE (2) Urethral stricture: s/p Cystoscopy, Urethral Dilation 04/02/[address] Kendrick Bladder scan unremarkable Finished Bactrim prophylaxis - can discontinue this, of note probably not the best choice for prophylaxis with his CKD Ua to assess for infection (3) Kidney disease, chronic, stage IV (GFR 15-29 ml/min): UA pending to assess for proteinuria Monitor Cr with AM labs (4) GERD (gastroesophageal reflux disease): Continue pantoprazole (5) Myelodysplastic syndrome: Noted reason for anemia, elevated MCV, thrombocytopenia and leukopenia - stable Consider giving his usual procrit if dose can be confirmed with hematology since he missed this weeks (6) Benign essential hypertension: Continue spironolactone with additional lasix as above (7) Coronary artery disease: Continue aspirin, pravastatin (8) Persistent atrial fibrillation: No anticoagulation due to watchman Rate controlled without AV radha blockers Plan VTE Prophylaxis - low risk Diet - low Na, heart healthy Disposition - observation to med/tele Discharge Plan Discharge Items Reason For Visit: ACUTE CHF Follow-up/Referrals: Osbaldo Sellers, [Primary Care Provider] - Medications and DC Order Prescriptions: No Action oxybutynin chloride 5 mg tablet 5 mg PO BID Qty: 180 3RF buspirone 10 mg tablet 10 mg PO BID PRN (Reason: anxiety) acetaminophen [Tylenol 8 Hour] 650 mg tablet extended release 650 mg PO Q8H PRN (Reason: Pain) aspirin 81 mg tablet,delayed release (DR/EC) 81 mg PO QAM mecobalamin (vitamin B12) 500 mcg tablet,chewable 500 mcg PO QAM meclizine [Dramamine (meclizine)] 25 mg tablet 25 mg PO TID PRN (Reason: Vertigo) nitroglycerin 0.4 mg tablet, sublingual 0.4 mg sublingual Q5M PRN (Reason: Chest Pain) Patient Comments: has not used any for 20 years Rx Instructions: do not exceed 3 doses per episode pravastatin 40 mg tablet 40 mg PO HS clonazepam 1 mg tablet 1 mg PO HS spironolactone 25 mg tablet 12.5 mg PO HS tamsulosin 0.4 mg capsule 0.4 mg PO HS pantoprazole 40 mg tablet,delayed release (DR/EC) 40 mg PO QAM sulfamethoxazole-trimethoprim [Bactrim DS] 800-160 mg tablet 1 tab PO BID Qty: 6 0RF Admission Data Admit Date/Time: 04/06/23 14:33 Attending Provider: Umair Schmid Admit Provider: Jeet Harrington Primary Care Provider: Osbaldo Sellers Other Providers: Jeet Harrington Coding Diagnoses Acute heart failure I50.9 Urethral stricture N35.919 Kidney disease, chronic, stage IV (GFR 15-29 ml/min) N18.4 GERD (gastroesophageal reflux disease) K21.9 Myelodysplastic syndrome D46.9 Benign essential hypertension I10 Coronary artery disease I25.10 Persistent atrial fibrillation I48.19
--- NOTE | 2023-04-07 14:03 | XCELERA ---
[id number]
[2023-04-07 14:30] LABS: Hematocrit (blood only) 27.6 % (42.0-52.0); Hemoglobin 8.9 g/dl (14.0-18.0); Mean Corpuscular Hemoglobin 33.8 pg (25.0-34.0); Mean Corpuscular Hgb Conc 32.2 g/dL (32.0-36.0); Mean Corpuscular Volume 104.9 fL (80.0-100.0); Mean Platelet Volume 11.9 fL (9.4-12.4); Platelet Count 71 K/uL (130-400); RDW Coefficient of Variation 14.6 % (11.5-14.5); RDW Standard Deviation 55.9 fL (36.4-46.3); Red Blood Count 2.63 M/uL (4.70-6.10); White Blood Count 2.18 K/ul (4.8-10.8)
[2023-04-07 14:50] LABS: BUN Creatinine Ratio 15.7 (10-20); Calcium 9.2 mg/dl (8.6-10.3); Creatinine Clr Calc Pharmacy 23.4 ml/min; Est GFR (African American) 29.6 ml/min; Est GFR (Non-African American) 25.6 ml/min; Potassium 4.2 mmol/L (3.5-5.1)
== END 2023-04-07 15:38 | disposition home or self-care (01) ==
LOC: 2W 12:03 → ED 12:03 → SUATTDRO 14:33 → 2W 17:37

== ENCOUNTER 2023-11-15 12:05 | Observation (INO) ==
[2023-11-15] MEDS ORDERED: SODIUM CHLORIDE 0.9% 250 ML IV PRN ×2 (12:32→18:17)
[2023-11-15 12:43] LABS: Basophils # (auto) 0.03 K/uL (0.00-0.20); Basophils % (auto) 0.6 %; Eosinophils # (auto) 0.06 K/uL (0.00-0.50); Eosinophils % (auto) 1.1 %; Hemoglobin 8.1 g/dl (14.0-18.0); Immature Granulocytes # (auto) 0.03 K/uL (0.01-0.20); Immature Granulocytes % (auto) 0.6 %; Lymphocytes # (auto) 0.37 K/uL (1.20-3.40); Lymphocytes % (auto) 6.8 %; Mean Corpuscular Hemoglobin 33.5 pg (25.0-34.0); Mean Corpuscular Hgb Conc 32.4 g/dL (32.0-36.0); Mean Corpuscular Volume 103.3 fL (80.0-100.0); Mean Platelet Volume 11.3 fL (9.4-12.4); Monocytes # (auto) 0.38 K/uL (0.11-0.59); Neutrophils # (auto) 4.55 K/uL (1.40-6.50); Neutrophils % (auto) 83.9 %; Platelet Count 124 K/uL (130-400); RDW Coefficient of Variation 14.1 % (11.5-14.5); RDW Standard Deviation 53.5 fL (36.4-46.3); Red Blood Count 2.42 M/uL (4.70-6.10); White Blood Count 5.42 K/ul (4.8-10.8)
[2023-11-15 12:57] LABS: Albumin Globulin Ratio 1.4 (0.9-2); Albumin Level 4.2 gm/dl (3.4-5.0); BUN Creatinine Ratio 14.6 (10-20); Bilirubin,Total 1.4 mg/dl (0.2-1.0); Calcium 9.1 mg/dl (8.6-10.3); Creatinine Clr Calc Pharmacy 24.1 ml/min; Est GFR (African American) 31.5 ml/min; Est GFR (Non-African American) 27.2 ml/min; Globulin 3.1 gm/dl (2.5-4.0); Potassium 3.9 mmol/L (3.5-5.1); Total Protein 7.3 gm/dl (6.0-8.3)
[2023-11-15 13:09] LABS: INR 1.1 (0.9-1.1); Partial Thromboplastin Ratio 1.3; Partial Thromboplastin Time 35 Seconds (21-31); Prothrombin Time 12.1 Seconds (9.0-12.0)
--- NOTE | 2023-11-15 13:23 | Electrocardiogram Report ---
Test Reason : Blood Pressure : */* mmHG Vent. Rate : 75 BPM Atrial Rate : * BPM P-R Int : * ms QRS Dur : 92 ms QT Int : 384 ms P-R-T Axes : * 14 167 degrees QTcB Int : 428 ms Atrial fibrillation Cannot rule out Anterior infarct (cited on or before 03-Jul-2022) Abnormal ECG When compared with ECG of 06-Apr-2023 13:22, No significant change was found Confirmed by Genaro Welsh ([id number]) on 11/15/2023 1:22:48 PM Referred By: Confirmed By: Genaro Welsh
[2023-11-15 13:50] LABS: Troponin I High Sensitivity 120.2 pg/ml (0-20)
--- NOTE | 2023-11-15 13:54 | Emergency Department Note ---
Impression & Plan Weakness, CHF (congestive heart failure), MDS (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), Anemia, SOB (shortness of breath), Elevated troponin ED Provider Note NAME: NORA HARRELL AGE: 88 SEX: M : 1935 ARRIVES VIA: Walk-In INFORMANT: [Patient][family] ED PROVIDER(S): [Elvin St MD] CHIEF COMPLAINT: Dr. Referred HISTORY OF PRESENT ILLNESS: The patient is an 88-year-old male who was referred from the cancer center for a low hemoglobin. His value was around 7. He typically runs around 9. He last received a packed red blood cell transfusion around 6 months ago. He has a 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. Patient has noticed some increasing shortness of breath and fatigue. He is weaker. He is coughing up more phlegm. There has been no fever, no chest pain, no abdominal pain. Of note, the patient did receive a Procrit shot today at the [facility] before arriving at this ER. PMHx/PSHx/Social Hx: See Below PHYSICAL EXAM: GENERAL: Patient is in no acute distress. HEENT: No acute trauma, normocephalic atraumatic, mucous membranes moist, no nasal congestion. NECK: No stridor, no adenopathy, no meningismus, trachea is midline. LUNGS: Clear to auscultation bilaterally, no wheeze, no rhonchi, breath sounds equal. HEART: Irregular rhythm, subtle systolic murmur. Normal rate. ABDOMEN: Soft, nontender, no peritonitis. EXTREMITIES: No cyanosis, full range of motion of all the joints without pain or difficulty. NEUROLOGIC: Oriented x 3, no acute motor or sensory deficits, no focal weakness. SKIN: No jaundice, no diaphoresis. Pale. DIFFERENTIAL DIAGNOSIS: Anemia, CHF, KS, electrolyte imbalance, viral illness, among others. EMERGENCY DEPARTMENT PROCEDURES: MEDICAL DECISION MAKING: There is no leukocytosis. The patient is anemic with a hemoglobin of 8.1. This is below his typical baseline. Platelet count was low at 124. No concerning coagulopathy. Creatinine was elevated, this is baseline looking back at previous testing. No electrolyte abnormality in need of emergent correction. There were some subtle liver enzyme elevations. Chest x-ray does suggest heart failure, no pneumonia. BNP is elevated consistent with fluid overload. ECG shows atrial fibrillation, no obvious acute ischemia. Cardiac enzyme testing x 1 is elevated at 120. This troponin elevation could be secondary to cardiac injury or just mismatch from his anemia and weakness. Urinalysis did not show infection. Respiratory bio fire was negative. On exam, the patient appeared pale, he was not toxic or febrile. I did speak with hematology, the patient is being hospitalized for his dyspnea and weakness. He will likely be transfused slowly as the transfusion could worsen his heart failure. I spoke with the patient, I did speak with case management, the on-call hospitalist was consulted. Prior/Outside records/notes reviewed: None ECG per my interpretation: Indication was weakness. The ECG shows atrial fibrillation with a rate of 75. There are some ST depressions laterally. No acute ST elevation. There is an old anterior infarct. No PVCs. The QTc is 428. Continuous Cardiac Monitoring per my interpretation: An order was placed for continuous cardiac monitoring. The monitor shows a rate of 73 with atrial fibrillation. Imaging/x-ray results per my interpretation: Chest x-ray shows some potential CHF. There is no pneumonia. Chronic Medical/Social conditions affecting care: Advanced age. Care/Management discussed with: Case management, the on-call hospitalist. Hematology-Dr. Mendoza. Level of care consideration(s): After review of the information above and other included data: --I believe the patient requires escalation of care to admission DISPOSITION: Admission Past Med/Surg History Problem List (Updated 11/15/23 @ 20:[address] MD) Elevated troponin (Acute) SOB (shortness of breath) (Acute) Anemia (Acute) MDS (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) (Acute) CHF (congestive heart failure) (Acute) Weakness (Acute) Anemia Acute on chronic heart failure with preserved ejection fraction Acute heart failure 04/06/23 Encounter for pre-operative examination Urethral 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 Prostate cancer Stage 3b chronic kidney disease Vitamin D deficiency Acute kidney injury 08/08/22 Kidney disease, chronic, stage IV (GFR 15-29 ml/min) (Acute) GERD (gastroesophageal reflux disease) Peripheral vascular disease Myelodysplastic syndrome (Acute) Atherogenic dyslipidemia Benign essential hypertension Chronic diastolic heart failure Persistent atrial fibrillation Coronary artery disease s/p 2 stents in 1999 and CABG x 1 1978 LLQ abdominal pain (Acute) 12/14/16 Diverticulosis (Acute) Stented coronary artery TWO PER PT Hernia CHF (congestive heart failure) (Acute) Medical History History of recent blood transfusion (08/2023) [facility] Kidney disease, chronic, stage IV (GFR 15-29 ml/min) Diverticulosis CAD (coronary artery disease) s/p 2 stents in 1999 and CABG x 1 1978 Chronic diastolic heart failure HTN (hypertension) Dyslipidemia PVD (peripheral vascular disease) Chronic cough History of Mohs micrographic surgery for skin cancer nose History of skin cancer Presence of Watchman left atrial appendage closure device (2020) Atrial fibrillation follows w/ Dr Shravan Huerta Hx of brachytherapy initial tx for prostate ca Hyperlipidemia GERD (gastroesophageal reflux disease) MDS (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) f/u negative cutter, [facility] History of prostate cancer 1999, brachy therapy and sx tx Surgical History History of cardiac cath ~1999, [place], [place]; x2 stents; f/u shravan huerat History of coronary artery bypass graft 1978, single bypass, [facility] in [place] History of esophagogastroduodenoscopy (EGD) History of heart artery stent ~1999, [place], [place]; x2 stents; f/u shravan huerta Hx of bilateral cataract extraction Hx of colonoscopy Hx of tonsillectomy S/P TURP Family History Father Heart disease Hypertension Mother Seizure Denies family history of Ovarian cancer Prostate cancer Myocardial infarction Breast cancer Colorectal cancer Social History Smoking Status: Never smoker Tobacco Type: Cigarettes Age Started Using Tobacco: 26; Age Quit Using Tobacco: 61; packs per day: 1; Second Hand Exposure: No; Do You Dip or Chew Tobacco: No; Hx Alcohol Use: Yes Alcohol type: beer, wine and hard liquor Alcohol Intake Frequency: Monthly or Less Hx Substance Use: No Preferred Language: Nicaraguan Communication Ability: Effective Communication Ability Comment: short term memory impairment Visual Impairment: No Limitations Hearing Ability: Normal Locomotive Mechanic Required: No Beliefs That Will Affect Care: None marital status: / marital status details: LIVES WITH FREDI AND SON IN LAW Current Living Situation: Family Current Living Situation Comment: lives with daughter Becca current occupational status: retired How many Children do You have: 3 Feels Safe at Home: Yes Childhood Exposure to Second-Hand Smoke: No Diet: regular caffeine: Yes during the past year weight has: remained stable Dental Care, Regularly: No Physical Activity Frequency: 1-2 Times per Week Seatbelt Use: always Sunscreen Use: Yes Assistive Devices: Denture - Upper and Denture - Lower Allergies Allergies Allergy/AdvReac Type Severity Reaction Status Date / Time doxycycline AdvReac Vomiting Verified 11/15/23 15:16 pregabalin AdvReac Vomiting Verified 11/15/23 15:16 Home Meds Home Medications Medication Instructions Recorded Confirmed acetaminophen 650 mg 650 mg PO Q8H PRN Pain 06/26/22 11/15/23 tablet,extended release (Tylenol 8 Hour) aspirin 81 mg tablet,delayed 81 mg PO QAM 06/26/22 11/15/23 release meclizine 25 mg tablet (Dramamine 25 mg PO TID PRN Vertigo 06/26/22 11/15/23 (meclizine)) mecobalamin (vitamin B12) 500 mcg 500 mcg PO QAM 06/26/22 11/15/23 chewable tablet buspirone 10 mg tablet 0 mg PO TID anxiety 11/15/23 11/15/23 clonazepam 0.5 mg tablet 0.5 mg PO HS 11/15/23 11/15/23 Previous Rx's Medication Instructions Recorded pantoprazole 40 mg tablet,delayed 40 mg PO QAM #90 tabs 05/17/23 release pravastatin 40 mg tablet 40 mg PO HS #90 tabs 05/31/23 furosemide 20 mg tablet 40 mg (2 x 20 mg) PO Q OTHER DAY 07/16/23 #90 tabs vibegron 75 mg tablet (Gemtesa) 75 mg PO DAILY #90 tabs 07/28/23 nitroglycerin 0.4 mg sublingual 0.4 mg sublingual Q5M PRN Chest 08/19/23 tablet Pain #25 tabs spironolactone 25 mg tablet 12.5 mg (1/2 x 25 mg) PO HS #45 09/10/23 tabs oxybutynin chloride 5 mg tablet 5 mg PO BID #180 tabs 11/12/23 tamsulosin 0.4 mg capsule 0.4 mg PO HS #90 caps 11/12/23 Results & Data (ED) Vital Signs Vital Signs - 24 hr 11/15/23 12:08 11/15/23 12:55 11/15/23 13:00 Temperature 36.7 C Temperature Source Temporal Artery Scan Pulse Rate 86 73 Pulse Rate from SpO2 Sensor Respiratory Rate 16 Respiratory Effort / Characteristics Non-Labored Spontaneous Respiratory Depth Normal Respiratory Pattern Regular Blood Pressure 101/60 109/50 L Blood Pressure Mean 73 72 Blood Pressure Position Sitting Pulse Oximetry 94 Oxygen Delivery Method Room Air Sepsis Recent Fever Within 48 Hours No Sepsis New/Unexplained Change in Mental Status N/A Sepsis Action Taken by Nursing No Action Required 11/15/23 13:03 11/15/23 13:15 11/15/23 13:30 Temperature Temperature Source Pulse Rate 73 72 Pulse Rate from SpO2 Sensor 73 70 Respiratory Rate 14 17 Respiratory Effort / Characteristics Respiratory Depth Respiratory Pattern Blood Pressure 116/50 L Blood Pressure Mean 82 Blood Pressure Position Pulse Oximetry 99 95 Oxygen Delivery Method Sepsis Recent Fever Within 48 Hours Sepsis New/Unexplained Change in Mental Status Sepsis Action Taken by Nursing 11/15/23 13:39 11/15/23 14:00 11/15/23 14:00 Temperature Temperature Source Pulse Rate 70 72 Pulse Rate from SpO2 Sensor 68 72 Respiratory Rate 16 22 Respiratory Effort / Characteristics Respiratory Depth Respiratory Pattern Blood Pressure 121/62 Blood Pressure Mean 93 Blood Pressure Position Pulse Oximetry 96 97 Oxygen Delivery Method Sepsis Recent Fever Within 48 Hours Sepsis New/Unexplained Change in Mental Status Sepsis Action Taken by Nursing 11/15/23 14:30 11/15/23 14:30 11/15/23 14:30 Temperature Temperature Source Pulse Rate 70 Pulse Rate from SpO2 Sensor 66 Respiratory Rate 22 Respiratory Effort / Characteristics Respiratory Depth Respiratory Pattern Blood Pressure 113/55 L 113/55 L Blood Pressure Mean 62 62 Blood Pressure Position Pulse Oximetry 94 Oxygen Delivery Method Sepsis Recent Fever Within 48 Hours Sepsis New/Unexplained Change in Mental Status Sepsis Action Taken by Prison Medications Current Medication List: was personally reviewed by me Laboratory Data Attestation: I reviewed the patient's lab results. 11/15/23 12:20 11/15/23 12:20 Lab Results 11/15/23 11/15/23 11/15/23 Range/Units 12:20 12:25 12:28 WBC 5.42 (4.8-10.8) K/ul RBC 2.42 L (4.70-6.10) M/uL Hgb 8.1 L (14.0-18.0) g/dl Hct 25.0 L (42.0-52.0) % MCV 103.3 H (80.0-100.0) fL MCH 33.5 (25.0-34.0) pg MCHC 32.4 (32.0-36.0) g/dL RDW Std Deviation 53.5 H (36.4-46.3) fL RDW Coeff of Salena 14.1 (11.5-14.5) % Plt Count 124 L (130-400) K/uL MPV 11.3 (9.4-12.4) fL Immature Gran % (Auto) 0.6 % Neut % (Auto) 83.9 % Lymph % (Auto) 6.8 % [place] % (Auto) 7.0 % Eos % (Auto) 1.1 % Baso % (Auto) 0.6 % Neut # (Auto) 4.55 (1.40-6.50) K/uL Lymph # (Auto) 0.37 L (1.20-3.40) K/uL [place] # (Auto) 0.38 (0.11-0.59) K/uL Eos # (Auto) 0.06 (0.00-0.50) K/uL Baso # (Auto) 0.03 (0.00-0.20) K/uL Immature Gran # (Auto) 0.03 (0.01-0.20) K/uL PT 12.1 H (9.0-12.0) Seconds INR 1.1 (0.9-1.1) APTT 35 H (21-31) Seconds PTT Ratio 1.3 Sodium 134 L (136-145) mmol/L Potassium 3.9 (3.5-5.1) mmol/L Chloride 101 (98-107) mmol/L Carbon Dioxide 24 (21-32) mmol/L Anion Gap 9 (3-11) BUN 31 H (6-23) mg/dl Creatinine 2.12 H (0.6-1.4) mg/dl Est Cr Clr Drug Dosing 24.1 ml/min Est GFR ( Amer) 31.5 ml/min Est GFR (Non-Af Amer) 27.2 ml/min BUN/Creatinine Ratio 14.6 (10-20) Glucose 122 H (70-99(Fasting)) mg/dl Calcium 9.1 (8.6-10.3) mg/dl Magnesium 2.0 (1.7-2.4) mg/dl Total Bilirubin 1.4 H (0.2-1.0) mg/dl AST 18 (13-39) U/L ALT 26 (7-52) U/L Alkaline Phosphatase 195 H (34-104) U/L Troponin I High Sens 120.2 H* (0-20) pg/ml B-Natriuretic Peptide 402 H (0-100) pg/ml Total Protein 7.3 (6.0-8.3) gm/dl Albumin 4.2 (3.4-5.0) gm/dl Globulin 3.1 (2.5-4.0) gm/dl Albumin/Globulin Ratio 1.4 (0.9-2) Urine Color Yellow Urine Appearance Clear (Clear) Urine pH 5.0 (4.5-7.5) Ur Specific [place] 1.010 (1.000-1.030) Urine Protein Negative (Negative) Urine Glucose (UA) Negative (Negative) Urine Ketones Negative (Negative) Urine Blood Negative (Negative) Urine Nitrite Negative (Negative) Urine Bilirubin Negative (Negative) Urine Urobilinogen Negative (Negative) Ur Leukocyte Esterase Negative (Negative) Adenovirus (PCR) (NotDetected) B. pertussis DNA (PCR) (NotDetected) B.parapertussis DNA PCR (NotDetected) C. pneumoniae DNA (PCR) (NotDetected) Coronavirus OC43 (PCR) (NotDetected) Coronavirus HKU1 (PCR) (NotDetected) Coronavirus 229E (PCR) (NotDetected) SARS-CoV-2 (PCR) (NotDetected) Coronavirus NL63 (PCR) (NotDetected) Human Metapneumovir PCR (NotDetected) Influenza Type A (PCR) (NotDetected) Influenza Type B (PCR) (NotDetected) M. pneumoniae (PCR) (NotDetected) Parainfluenza 1 (PCR) (NotDetected) Parainfluenza 2 (PCR) (NotDetected) Parainfluenza 3 (PCR) (NotDetected) Parainfluenza 4 (PCR) (NotDetected) RSV (PCR) (NotDetected) Entero/Rhino (PCR) (NotDetected) Blood Type O Positive Antibody Screen NEGATIVE Crossmatch See Detail 11/15/23 Range/Units 13:23 WBC (4.8-10.8) K/ul RBC (4.70-6.10) M/uL Hgb (14.0-18.0) g/dl Hct (42.0-52.0) % MCV (80.0-100.0) fL MCH (25.0-34.0) pg MCHC (32.0-36.0) g/dL RDW Std Deviation (36.4-46.3) fL RDW Coeff of Salena (11.5-14.5) % Plt Count (130-400) K/uL MPV (9.4-12.4) fL Immature Gran % (Auto) % Neut % (Auto) % Lymph % (Auto) % [place] % (Auto) % Eos % (Auto) % Baso % (Auto) % Neut # (Auto) (1.40-6.50) K/uL Lymph # (Auto) (1.20-3.40) K/uL [place] # (Auto) (0.11-0.59) K/uL Eos # (Auto) (0.00-0.50) K/uL Baso # (Auto) (0.00-0.20) K/uL Immature Gran # (Auto) (0.01-0.20) K/uL PT (9.0-12.0) Seconds INR (0.9-1.1) APTT (21-31) Seconds PTT Ratio Sodium (136-145) mmol/L Potassium (3.5-5.1) mmol/L Chloride (98-107) mmol/L Carbon Dioxide (21-32) mmol/L Anion Gap (3-11) BUN (6-23) mg/dl Creatinine (0.6-1.4) mg/dl Est Cr Clr Drug Dosing ml/min Est GFR ( Amer) ml/min Est GFR (Non-Af Amer) ml/min BUN/Creatinine Ratio (10-20) Glucose (70-99(Fasting)) mg/dl Calcium (8.6-10.3) mg/dl Magnesium (1.7-2.4) mg/dl Total Bilirubin (0.2-1.0) mg/dl AST (13-39) U/L ALT (7-52) U/L Alkaline Phosphatase (34-104) U/L Troponin I High Sens (0-20) pg/ml B-Natriuretic Peptide (0-100) pg/ml Total Protein (6.0-8.3) gm/dl Albumin (3.4-5.0) gm/dl Globulin (2.5-4.0) gm/dl Albumin/Globulin Ratio (0.9-2) Urine Color Urine Appearance (Clear) Urine pH (4.5-7.5) Ur Specific [place] (1.000-1.030) Urine Protein (Negative) Urine Glucose (UA) (Negative) Urine Ketones (Negative) Urine Blood (Negative) Urine Nitrite (Negative) Urine Bilirubin (Negative) Urine Urobilinogen (Negative) Ur Leukocyte Esterase (Negative) Adenovirus (PCR) Not Detected (NotDetected) B. pertussis DNA (PCR) Not Detected (NotDetected) B.parapertussis DNA PCR Not Detected (NotDetected) C. pneumoniae DNA (PCR) Not Detected (NotDetected) Coronavirus OC43 (PCR) Not Detected (NotDetected) Coronavirus HKU1 (PCR) Not Detected (NotDetected) Coronavirus 229E (PCR) Not Detected (NotDetected) SARS-CoV-2 (PCR) Not Detected (NotDetected) Coronavirus NL63 (PCR) Not Detected (NotDetected) Human Metapneumovir PCR Not Detected (NotDetected) Influenza Type A (PCR) Not Detected (NotDetected) Influenza Type B (PCR) Not Detected (NotDetected) M. pneumoniae (PCR) Not Detected (NotDetected) Parainfluenza 1 (PCR) Not Detected (NotDetected) Parainfluenza 2 (PCR) Not Detected (NotDetected) Parainfluenza 3 (PCR) Not Detected (NotDetected) Parainfluenza 4 (PCR) Not Detected (NotDetected) RSV (PCR) Not Detected (NotDetected) Entero/Rhino (PCR) Not Detected (NotDetected) Blood Type Antibody Screen Crossmatch Administered Medications Buspirone HCl (Buspirone 5 Mg Tab) 10 mg PO DAILY NORAH Stop: 12/15/23 20:59 Last Admin: 11/15/23 20:22 Dose: Not Given Documented By: ЮЛИЯ Oxybutynin Chloride (Oxybutynin Chloride 5 Mg Tab) 5 mg PO BID NORAH Stop: 12/15/23 20:59 Last Admin: 11/15/23 20:21 Dose: 5 mg Documented By: ЮЛИЯ Pravastatin Sodium (Pravastatin Sod 40 Mg Tab) 40 mg PO HS NORAH Stop: 12/15/23 20:59 Last Admin: 11/15/23 20:21 Dose: 40 mg Documented By: ЮЛИЯ Spironolactone (Spironolactone 12.5 Mg Tab) 12.5 mg PO HS NORAH Stop: 12/15/23 20:59 Last Admin: 11/15/23 20:21 Dose: 12.5 mg Documented By: ЮЛИЯ Tamsulosin HCl (Tamsulosin Hcl 0.4 Mg Cap) 0.4 mg PO HS NORAH Stop: 12/15/23 20:59 Last Admin: 11/15/23 20:21 Dose: 0.4 mg Documented By: ЮЛИЯ Discontinued Medications Furosemide (Furosemide 40 Mg/4 Ml Vial) 40 mg IV ONE STA Stop: 11/15/23 14:52 Last Admin: 11/15/23 15:15 Dose: 40 mg Documented By: AY Imaging Data Radiologist's Impression: Chest X-Ray 11/15/23 13:11 XR chest 1V portable HISTORY: 88 years-old Male sob acute shortness of breath COMPARISON: 04/06/2023 TECHNIQUE: AP view of the chest FINDINGS: Cardiac silhouette is enlarged. Pulmonary vascular congestion with interstitial coarsening. Atherosclerosis of the aorta. Small pleural effusions with mild bibasilar atelectasis. No pneumothorax. Bones are grossly intact. IMPRESSION: 1. Cardiomegaly with interstitial pulmonary edema. 2. Small pleural effusions with mild bibasilar atelectasis. ACT 112: Negative or not required by law. The above report was generated using voice recognition software. It may contain grammatical, syntax or spelling errors. Electronically signed by: Rd Peoples M.D. 11/15/2023 1:59 PM Discharge Plan Visit Data Chief Complaint: Referred by Doctor Stated Complaint: BLOOD TRANSFUSION, [facility] Provider: Elvin St Discharge Problem: Weakness, CHF (congestive heart failure), MDS (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), Anemia, SOB (shortness of breath), Elevated troponin Patient Disposition: Admitted As Inpatient Condition: Fair Discharge Instructions Interventions: ED Discharge Assessment Last Done: 11/15/23 17:17 Discharge Problem: CHF (congestive heart failure) Qualifiers: Heart failure type: unspecified Heart failure chronicity: acute on chronic Q ualified Code(s): I50.9 - Heart failure, unspecified Anemia Qualifiers: Anemia type: unspecified type Qualified Code(s): D64.9 - Anemia, unspecified
--- NOTE | 2023-11-15 14:01 | XRay Report ---
XR chest 1V portable HISTORY: 88 years-old Male sob acute shortness of breath COMPARISON: 04/06/2023 TECHNIQUE: AP view of the chest FINDINGS: Cardiac silhouette is enlarged. Pulmonary vascular congestion with interstitial coarsening. Atheroscl erosis of the aorta. Small pleural effusions with mild bibasilar atelectasis. No pneumothorax. Bones are grossly intact. IMPRESSION: 1. Cardiomegaly with interstitial pulmonary edema. 2. Small pleural effusions with mild bibasilar atelectasis. ACT 112: Negative or not required by law. The above report was generated using voice recognition software. It may contain grammatical, syntax o r spelling errors. Electronically signed by: Rd Peoples M.D. 11/15/2023 1:59 PM
[2023-11-15 14:44] LABS: Adenovirus PCR Not Detected (NotDetected); Bordetella parapertussis PCR Not Detected (NotDetected); Bordetella pertussis PCR Not Detected (NotDetected); Chlamydia pneumoniae PCR Not Detected (NotDetected); Coronavirus 229E PCR Not Detected (NotDetected); Coronavirus CoV-2 (COVID19)PCR Not Detected (NotDetected); Coronavirus HKU1 PCR Not Detected (NotDetected); Coronavirus NL63 PCR Not Detected (NotDetected); Coronavirus OC43PCR Not Detected (NotDetected); Human Metapneumovirus PCR Not Detected (NotDetected); Influenza A PCR Not Detected (NotDetected); Influenza B PCR Not Detected (NotDetected); Mycoplasma pneumoniae PCR Not Detected (NotDetected); Parainfluenza Virus 1 PCR Not Detected (NotDetected); Parainfluenza Virus 2 PCR Not Detected (NotDetected); Parainfluenza Virus 3 PCR Not Detected (NotDetected); Parainfluenza Virus 4 PCR Not Detected (NotDetected); Respiratory Syncytial VirusPCR Not Detected (NotDetected); Rhinovirus/Enterovirus PCR Not Detected (NotDetected)
--- NOTE | 2023-11-15 15:02 | History & Physical Report ---
Date of Service November 15, 2023 Assessment & Plan (1) Acute on chronic heart failure with preserved ejection fraction: Plan: Exacerbation likely from diet with eating out over the last 3 weeks No urine retention on bladder scan POCUS Lung US with diffuse B lines except in RUL Lasix 40mg IV now, repeat doses depending on clinical course Strict I&Os Daily weights (2) Elevated troponin: Plan: Very low suspicion of ACS give lack of chest pain or any symptoms at rest or EKG changes Trend troponin (3) Anemia: Plan: Secondary to myelodysplasia - plan to transfuse 1 unit and reassess although symptoms appear much more likely HF related (4) MDS (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): (5) Persistent atrial fibrillation: Plan: No anticoagulation due to watchman Rate controlled without AV radha blockers Plan VTE prophylaxis - low risk for suspected overnight admission, consider if patient stays longer Diet - low Na, heart healthy Disposition - observation to med/tele Admission and Anticipated Discharge Date Admission Date: November 15, 2023 History of Present Illness Chief Complaint: Anemia Primary Care Provider: DO Maged Garsia Star is an 88 year old male who presents to the ER referred from the cancer care center due to low hemoglobin of 7 with shortness of breath on exertion for the last 3-4 days - 2 weeks. Associated productive cough and generalized fatigue. No hematemesis, hematuria, melena or hematochezia. He has known MDS with last transfusion in July. Further workup in the ER was concerning for acute on chronic congestive heart failure. He reports eating in restaurants a lot the last 3 weeks. No recent changes to his medications. No recent or current chest pains, leg swelling or known weight gain. No fever, or chills. Allergies Allergy/AdvReac Type Severity Reaction Status Date / Time doxycycline AdvReac Vomiting Verified 11/15/23 15:16 pregabalin AdvReac Vomiting Verified 11/15/23 15:16 Home Medications Medication Instructions Recorded Confirmed Type acetaminophen 650 mg 650 mg PO Q8H PRN Pain 06/26/22 11/15/23 History tablet,extended release (Tylenol 8 Hour) aspirin 81 mg tablet,delayed 81 mg PO QAM 06/26/22 11/15/23 History release meclizine 25 mg tablet (Dramamine 25 mg PO TID PRN Vertigo 06/26/22 11/15/23 History (meclizine)) mecobalamin (vitamin B12) 500 mcg 500 mcg PO QAM 06/26/22 11/15/23 History chewable tablet pantoprazole 40 mg tablet,delayed 40 mg PO QAM #90 tabs 05/17/23 11/15/23 Rx release pravastatin 40 mg tablet 40 mg PO HS #90 tabs 05/31/23 11/15/23 Rx furosemide 20 mg tablet 40 mg (2 x 20 mg) PO Q OTHER DAY 07/16/23 11/15/23 Rx #90 tabs vibegron 75 mg tablet (Gemtesa) 75 mg PO DAILY #90 tabs 07/28/23 11/15/23 Rx nitroglycerin 0.4 mg sublingual 0.4 mg sublingual Q5M PRN Chest 08/19/23 11/15/23 Rx tablet Pain #25 tabs spironolactone 25 mg tablet 12.5 mg (1/2 x 25 mg) PO HS #45 09/10/23 11/15/23 Rx tabs oxybutynin chloride 5 mg tablet 5 mg PO BID #180 tabs 11/12/23 11/15/23 Rx tamsulosin 0.4 mg capsule 0.4 mg PO HS #90 caps 11/12/23 11/15/23 Rx buspirone 10 mg tablet 0 mg PO TID anxiety 11/15/23 11/15/23 History clonazepam 0.5 mg tablet 0.5 mg PO HS 11/15/23 11/15/23 History Past Med/Surg History Problem List (Updated 11/16/23 @ 00:04 by Jeet Harrington MD) Elevated troponin (Acute) SOB (shortness of breath) (Acute) Anemia (Acute) MDS (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) (Acute) Weakness (Acute) Anemia Acute on chronic heart failure with preserved ejection fraction Urethral 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 Prostate cancer Stage 3b chronic kidney disease Vitamin D deficiency Acute kidney injury 08/08/22 Kidney disease, chronic, stage IV (GFR 15-29 ml/min) (Acute) GERD (gastroesophageal reflux disease) Peripheral vascular disease Myelodysplastic syndrome (Acute) Atherogenic dyslipidemia Benign essential hypertension Chronic diastolic heart failure Persistent atrial fibrillation Coronary artery disease s/p 2 stents in 1999 and CABG x 1 1978 LLQ abdominal pain (Acute) 12/14/16 Diverticulosis (Acute) Stented coronary artery TWO PER PT Hernia CHF (congestive heart failure) (Acute) Medical History History of recent blood transfusion (08/2023) [facility] Kidney disease, chronic, stage IV (GFR 15-29 ml/min) Diverticulosis CAD (coronary artery disease) s/p 2 stents in 1999 and CABG x 1 1978 Chronic diastolic heart failure HTN (hypertension) Dyslipidemia PVD (peripheral vascular disease) Chronic cough History of Mohs micrographic surgery for skin cancer nose History of skin cancer Presence of Watchman left atrial appendage closure device (2020) Atrial fibrillation follows w/ Dr Shravan Huerta Hx of brachytherapy initial tx for prostate ca Hyperlipidemia GERD (gastroesophageal reflux disease) 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, [facility] History of prostate cancer 1999, brachy therapy and sx tx Surgical History History of cardiac cath ~1999, [place], [place]; x2 stents; f/u shravan huerta History of coronary artery bypass graft 1978, single bypass, [facility] in [place] History of esophagogastroduodenoscopy (EGD) History of heart artery stent ~1999, [place]; x2 stents; f/u shravan huerta Hx of bilateral cataract extraction Hx of colonoscopy Hx of tonsillectomy S/P TURP Family History Father Heart disease Hypertension Mother Seizure Denies family history of Ovarian cancer Prostate cancer Myocardial infarction Breast cancer Colorectal cancer Social History Smoking Status: Never smoker Tobacco Type: Cigarettes Age Started Using Tobacco: 26; Age Quit Using Tobacco: 61; packs per day: 1; Second Hand Exposure: No; Do You Dip or Chew Tobacco: No; Hx Alcohol Use: Yes Alcohol type: beer, wine and hard liquor Alcohol Intake Frequency: Monthly or Less Hx Substance Use: No Preferred Language: Finnish Communication Ability: Effective Communication Ability Comment: short term memory impairment Visual Impairment: No Limitations Hearing Ability: Normal Post Acute Care Nurse Required: No Beliefs That Will Affect Care: None marital status: / marital status details: LIVES WITH FREDI AND SON IN LAW Current Living Situation: Family Current Living Situation Comment: lives with daughter Becca current occupational status: retired How many Children do You have: 3 Feels Safe at Home: Yes Childhood Exposure to Second-Hand Smoke: No Diet: regular caffeine: Yes during the past year weight has: remained stable Dental Care, Regularly: No Physical Activity Frequency: 1-2 Times per Week Seatbelt Use: always Sunscreen Use: Yes Assistive Devices: Denture - Upper and Denture - Lower Review of Systems Review of Systems: All systems reviewed & are unremarkable except as noted in HPI & below Physical Exam Constitutional: WD/WN, vitals as above ENMT: Mouth: oral mucous membranes not dry Respiratory: normal respiratory effort; no respiratory distress Auscultation: lungs clear to auscultation bilaterally and + crackles (bibasal) Cardiovascular: Rate/Rhythm: regular rate and + irregularly irregular Heart Sounds: no murmur Extremities: normal capillary refill and + pedal edema (trace b/l equal); no calf tenderness Gastrointestinal (Abdomen): normal bowel sounds, soft, nontender, no hepatosplenomegaly Skin: no rashes, warm and dry Neurologic: moves all extremities and awake; not confused Psychiatric: A+Ox3, euthymic affect Results & Data Results & Data Vital Signs (Past 12 Hours) Vital Signs Temp Pulse Resp BP Pulse Ox O2 Del Method 11/15/23 14:30 113/55 L 11/15/23 14:30 70 22 94 11/15/23 14:00 121/62 11/15/23 14:00 72 22 97 11/15/23 13:39 70 16 96 11/15/23 13:30 116/50 L 11/15/23 13:15 72 17 95 11/15/23 13:03 73 14 99 11/15/23 13:00 109/50 L 11/15/23 12:55 73 11/15/23 12:08 36.7 C 86 16 101/60 94 Room Air Laboratory Results Abnormal lab results 11/15/23 11/15/23 Range/Units 12:20 12:25 RBC 2.42 L (4.70-6.10) M/uL Hgb 8.1 L (14.0-18.0) g/dl Hct 25.0 L (42.0-52.0) % MCV 103.3 H (80.0-100.0) fL RDW Std Deviation 53.5 H (36.4-46.3) fL Plt Count 124 L (130-400) K/uL Lymph # (Auto) 0.37 L (1.20-3.40) K/uL PT 12.1 H (9.0-12.0) Seconds APTT 35 H (21-31) Seconds Sodium 134 L (136-145) mmol/L BUN 31 H (6-23) mg/dl Creatinine 2.12 H (0.6-1.4) mg/dl Glucose 122 H (70-99(Fasting)) mg/dl Total Bilirubin 1.4 H (0.2-1.0) mg/dl Alkaline Phosphatase 195 H (34-104) U/L Troponin I High Sens 120.2 H* (0-20) pg/ml B-Natriuretic Peptide 402 H (0-100) pg/ml Crossmatch See Detail Diagnostic Findings XR chest 1V portable HISTORY: 88 years-old Male sob acute shortness of breath COMPARISON: 04/06/2023 TECHNIQUE: AP view of the chest FINDINGS: Cardiac silhouette is enlarged. Pulmonary vascular congestion with interstitial coarsening. Atherosclerosis of the aorta. Small pleural effusions with mild bibasilar atelectasis. No pneumothorax. Bones are grossly intact. IMPRESSION: 1. Cardiomegaly with interstitial pulmonary edema. 2. Small pleural effusions with mild bibasilar atelectasis. Medications Administered ER medications given: None ECG Rate (beats per minute): 75 Rhythm: atrial fibrillation Findings: no acute ischemic change Comparison ECG Date: from (Apr 06, 2023) Change: no significant change Code Status & VTE Plan Code Status DNR - all other treatment requested outside of a cardiac arrest including intubation and artificial ventilation VTE Prophylaxis Plan VTE Prophylaxis will be ordered: Yes PG Care Time/CCT Total # of Minutes Spent Total Time Spent with Patient: Total time spent is greater than 50% in coordination of care (as documented) at patient's floor/unit and/or counseling patient: Coding Level of Care Code 80900 INT INP/OBS CARE 3/75MIN Diagnoses Acute on chronic heart failure with preserved ejection fraction I50.33 Elevated troponin R79.89 Anemia D64.9 MDS (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) D46.9 Persistent atrial fibrillation I48.19
[2023-11-15] MEDS: FUROSEMIDE 40 MG/4 ML VIAL IV STA (15:15)
[2023-11-15 16:54] LABS: Appearance Urine Clear (Clear); Bilirubin Urine Negative (Negative); Blood Urine Negative (Negative); Color Urine Yellow; Glucose Urine UA Negative (Negative); Ketones Urine Negative (Negative); Leukocyte Esterase Urine Negative (Negative); Nitrite Urine Negative (Negative); Protein Urine Negative (Negative); Urobilinogen Urine Negative (Negative)
[2023-11-15] MEDS ORDERED: busPIRone 5 MG TAB PO PRN (18:55)
[2023-11-15] MEDS: SPIRONOLACTONE 12.5 MG TAB PO SCH (20:21)
[2023-11-15] MEDS: TAMSULOSIN HCL 0.4 MG CAP PO SCH (20:21)
[2023-11-15] MEDS: PRAVASTATIN SOD 40 MG TAB PO SCH (20:21)
[2023-11-15] MEDS: oxyBUTYnin chloride 5 MG TAB PO SCH (20:21)
[2023-11-15] MEDS: busPIRone 5 MG TAB PO SCH (20:22)
[2023-11-15] MEDS: clonazePAM 0.5 MG TAB PO SCH (23:22)
[2023-11-16] MEDS: PANTOprazole 40 MG TAB PO SCH (08:43)
[2023-11-16] MEDS: CYANOCOBALAMIN (B-12) 500 MCG TABLET PO SCH (08:43)
[2023-11-16] MEDS: VIBEGRON 75 MG TAB PO SCH (08:44)
[2023-11-16 08:55] LABS: BUN Creatinine Ratio 16.6 (10-20); Calcium 8.6 mg/dl (8.6-10.3); Creatinine Clr Calc Pharmacy 21.6 ml/min; Est GFR (African American) 30.6 ml/min; Est GFR (Non-African American) 26.4 ml/min; Potassium 3.8 mmol/L (3.5-5.1)
[2023-11-16 08:56] LABS: Hematocrit (blood only) 25.5 % (42.0-52.0); Mean Corpuscular Hemoglobin 31.7 pg (25.0-34.0); Mean Corpuscular Hgb Conc 31.4 g/dL (32.0-36.0); Mean Corpuscular Volume 101.2 fL (80.0-100.0); Mean Platelet Volume 11.6 fL (9.4-12.4); Platelet Count 101 K/uL (130-400); RDW Standard Deviation 59.4 fL (36.4-46.3); Red Blood Count 2.52 M/uL (4.70-6.10)
--- NOTE | 2023-11-16 10:45 | XCELERA ---
[id number]
[2023-11-16] MEDS: POTASSIUM CHLORIDE CRTAB 20 MEQ TABCR PO ONE (11:43)
[2023-11-16] MEDS: FUROSEMIDE 40 MG/4 ML VIAL IV ONE (11:43)
--- NOTE | 2023-11-16 16:45 | Hospitalist Progress Note ---
<Statement entered by Siobhan Cochran MD - 11/16/23 16:56> I have reviewed vital signs, chart notes, labs and imaging. I have personally seen, evaluated and examined the patient. I have also discussed the management of the patient with the MISHEL and I agree with the exam findings documented in the history and physical examination and the documented assessment and plan unless otherwise stated below. I saw Mr. Graves this afternoon after second dose of Lasix 40 mg IV. Currently he appears euvolemic JVP is between 5 and 8 his lungs are clear no peripheral edema he does appear to have slightly increased work of breathing with talking. his hemoglobin increased appropriately after transfusion is now around 8. He has not been out of bed yet we will evaluate his response to diuresis and PT and OT I anticipate he may be able to return home tomorrow morning he has mild troponin elevation with flat trend, no chest pain and no acute EKG changes not consistent with acute coronary syndrome rather this is myocardial demand ischemia related to acute on chronic HFpEF Date of Service November 16, 2023 Assessment & Plan (1) Acute on chronic heart failure with preserved ejection fraction: Plan: Exacerbation likely from diet with eating out over the last 6 weeks POCUS Lung US with diffuse B lines except in RUL in ER Will dose with another 40mg Lasix IV due to continued dyspnea on exertion. ECHO not showing fluid overload. Will re-assess after lasix dose. Strict I&Os Daily weights BMP tomorrow. (2) Elevated troponin: Plan: Very low suspicion of ACS give lack of chest pain or any symptoms at rest or EKG changes Troponin 120.2 --> 162.6 --> 120 BNP 402 (3) Anemia: Plan: Secondary to myelodysplasia - Transfused 1 unit HGB 7.3 --> 8.1 --> 8.0. His HGB is generally 7-9. Repeat CBC tomorrow (4) MDS (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): Plan: See Above (5) Persistent atrial fibrillation: Plan: No anticoagulation due to watchman Rate controlled without AV radha blockers Plan If he is not discharged tomorrow, would consider starting VTE prophylaxis. Diet - low Na, heart healthy Disposition - observation to med/tele Admission and Anticipated Discharge Date Admission Date: November 15, 2023 Maria Del Carmen Graves is an 88 year old male who presented to the ER referred from the cancer care center due to low hemoglobin of 7 with shortness of breath on exertion for the last 3-4 days - 2 weeks. Associated productive cough and generalized fatigue. No hematemesis, hematuria, melena or hematochezia. He has known MDS with last transfusion in July. Further workup in the ER was concerning for acute on chronic congestive heart failure. He reports eating in restaurants a lot the last 6 weeks. No recent changes to his medications. No recent or current chest pains, leg swelling or known weight gain. No fever, or chills. Maged got one dose of Lasix 40mg yesterday. He is on spironolactone and Lasix (q other day) outpatient. ECHO performed today - shows EF of 55-60% and no sign ificant change since his last one in 03/2023. Hx of Afib but not currently on any blood thinners, has watchman. He is resting in bed comfortably. Reports improvement of SOB, but daughter at the bedside reports that he was getting SOB with movement in the bed (which is not his normal). He states that he was out of town visiting his other daughter for the last 6 weeks and that they ate out every evening. He weighs himself daily at home. Denies any swelling in his lower extremities and abdomen. States he only noticed that his SOB was worsening. He used to follow with the outpatient CHF clinic, but stopped in Mar 2023 because he felt his CHF was well controlled. He expresses and interest of re- establishing with the CHF clinic. He would like to get out of bed today. Review of Systems Constitutional: no fever, no chills and no fatigue Respiratory: + dyspnea on exertion; no cough, no ches t congestion and no change in sputum Cardiovascular: + dyspnea on exertion; no chest pain and no dyspnea at rest Gastrointestinal: no abdominal pain, no nausea and no vomiting Genitourinary: no dysuria Musculoskeletal: no back pain Integumentary: no rash Neurologic: no falls Psychiatric: no behavioral changes and no confusion Physical Exam Constitutional: WD/WN, vitals as above Eyes: PERRL, conjunctivae normal, anicteric sclerae Neck: normal visual inspection and trachea midline Respiratory: normal respiratory effort (Mild Bilateral Lower Lobe crackles noted); no respiratory distress and no labored breathing Cardiovascular: Rate/Rhythm: regular rate and + irregularly irregular Gastrointestinal (Abdomen): normal bowel sounds, soft, nontender, no hepatosplenomegaly Skin: no rashes, warm and dry Neurologic: awake Psychiatric: A+Ox3, euthymic affect Results & Data Results & Data Vital Signs (Past 12 Hours) Vital Signs Temp Pulse Pulse Resp BP Pulse Ox O2 Del Method 11/16/23 15:45 91 H 11/16/23 15:28 36.8 C 77 18 134/65 91 Room Air 11/16/23 11:34 37.2 C 89 20 111/63 95 Room Air 11/16/23 08:10 37.3 C 75 20 121/66 91 Room Air 11/16/23 07:15 68 Laboratory Results 11/16/23 11/16/23 11/16/23 Range/Units 06:10 06:07 00:35 WBC 3.80 L (4.8-10.8) K/ul RBC 2.52 L (4.70-6.10) M/uL Hgb 8.0 L (14.0-18.0) g/dl Hct 25.5 L (42.0-52.0) % MCV 101.2 H (80.0-100.0) fL MCH 31.7 (25.0-34.0) pg MCHC 31.4 L (32.0-36.0) g/dL RDW Std Deviation 59.4 H (36.4-46.3) fL RDW Coeff of Salena 16.0 H (11.5-14.5) % Plt Count 101 L (130-400) K/uL MPV 11.6 (9.4-12.4) fL Sodium 136 (136-145) mmol/L Potassium 3.8 (3.5-5.1) mmol/L Chloride 103 (98-107) mmol/L Carbon Dioxide 20 L (21-32) mmol/L Anion Gap 13 H (3-11) BUN 36 H (6-23) mg/dl Creatinine 2.17 H (0.6-1.4) mg/dl Est Cr Clr Drug Dosing 21.6 ml/min Est GFR ( Amer) 30.6 ml/min Est GFR (Non-Af Amer) 26.4 ml/min BUN/Creatinine Ratio 16.6 (10-20) Glucose 95 (70-99(Fasting)) mg/dl Calcium 8.6 (8.6-10.3) mg/dl Magnesium 2.0 (1.7-2.4) mg/dl Troponin I High Sens 120.0 H* D 162.6 H* D (0-20) pg/ml Urine Color Urine Appearance (Clear) Urine pH (4.5-7.5) Ur Specific [place] (1.000-1.030) Urine Protein (Negative) Urine Glucose (UA) (Negative) Urine Ketones (Negative) Urine Blood (Negative) Urine Nitrite (Negative) Urine Bilirubin (Negative) Urine Urobilinogen (Negative) Ur Leukocyte Esterase (Negative) Blood Type Antibody Screen Crossmatch 11/15/23 11/15/23 Range/Units 12:28 12:25 WBC (4.8-10.8) K/ul RBC (4.70-6.10) M/uL Hgb (14.0-18.0) g/dl Hct (42.0-52.0) % MCV (80.0-100.0) fL MCH (25.0-34.0) pg MCHC (32.0-36.0) g/dL RDW Std Deviation (36.4-46.3) fL RDW Coeff of Salena (11.5-14.5) % Plt Count (130-400) K/uL MPV (9.4-12.4) fL Sodium (136-145) mmol/L Potassium (3.5-5.1) mmol/L Chloride (98-107) mmol/L Carbon Dioxide (21-32) mmol/L Anion Gap (3-11) BUN (6-23) mg/dl Creatinine (0.6-1.4) mg/dl Est Cr Clr Drug Dosing ml/min Est GFR ( Amer) ml/min Est GFR (Non-Af Amer) ml/min BUN/Creatinine Ratio (10-20) Glucose (70-99(Fasting)) mg/dl Calcium (8.6-10.3) mg/dl Magnesium (1.7-2.4) mg/dl Troponin I High Sens (0-20) pg/ml Urine Color Yellow Urine Appearance Clear (Clear) Urine pH 5.0 (4.5-7.5) Ur Specific [place] 1.010 (1.000-1.030) Urine Protein Negative (Negative) Urine Glucose (UA) Negative (Negative) Urine Ketones Negative (Negative) Urine Blood Negative (Negative) Urine Nitrite Negative (Negative) Urine Bilirubin Negative (Negative) Urine Urobilinogen Negative (Negative) Ur Leukocyte Esterase Negative (Negative) Blood Type O Positive Antibody Screen NEGATIVE Crossmatch See Detail PG Care Time/CCT Total # of Minutes Spent Total Time Spent with Patient: Total time spent is greater than 50% in coordination of care (as documented) at patient's floor/unit and/or counseling patient: Coding [place] [address] SUB INP/OBS CARE 2/35MIN Patient Type Established History Expanded Problem Focused Exam Expanded Problem Focused Medical Decision Making Moderate Complexity Diagnoses Acute on chronic heart failure with preserved ejection fraction I50.33 Elevated troponin R79.89 Anemia D64.9 MDS (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) D46.9 Persistent atrial fibrillation I48.19
[2023-11-16] MEDS: SENNA 8.6 MG TAB PO PRN (20:08)
[2023-11-17 07:03] LABS: Basophils # (auto) 0.02 K/uL (0.00-0.20); Basophils % (auto) 0.6 %; Eosinophils # (auto) 0.14 K/uL (0.00-0.50); Eosinophils % (auto) 4.1 %; Hematocrit (blood only) 23.8 % (42.0-52.0); Hemoglobin 7.8 g/dl (14.0-18.0); Immature Granulocytes # (auto) 0.02 K/uL (0.01-0.20); Immature Granulocytes % (auto) 0.6 %; Lymphocytes % (auto) 8.7 %; Mean Corpuscular Hemoglobin 31.7 pg (25.0-34.0); Mean Corpuscular Hgb Conc 32.8 g/dL (32.0-36.0); Mean Corpuscular Volume 96.7 fL (80.0-100.0); Mean Platelet Volume 11.5 fL (9.4-12.4); Monocytes # (auto) 0.29 K/uL (0.11-0.59); Monocytes % (auto) 8.5 %; Neutrophils # (auto) 2.66 K/uL (1.40-6.50); Neutrophils % (auto) 77.5 %; Platelet Count 111 K/uL (130-400); RDW Coefficient of Variation 15.8 % (11.5-14.5); RDW Standard Deviation 55.9 fL (36.4-46.3); Red Blood Count 2.46 M/uL (4.70-6.10); White Blood Count 3.43 K/ul (4.8-10.8)
[2023-11-17 07:23] LABS: Polychromasia 1+; Tear Drop Cells 1+
[2023-11-17 07:25] LABS: BUN Creatinine Ratio 18.6 (10-20); Calcium 8.6 mg/dl (8.6-10.3); Creatinine Clr Calc Pharmacy 22.4 ml/min; Est GFR (African American) 31.8 ml/min; Est GFR (Non-African American) 27.5 ml/min; Potassium 3.7 mmol/L (3.5-5.1)
[2023-11-17] MEDS: AZITHROMYCIN 250 MG TAB PO SCH (08:54)
[2023-11-17] MEDS ORDERED: SODIUM CHLORIDE 0.9% 250 ML IV PRN (10:14)
[2023-11-17] MEDS: POTASSIUM CHLORIDE CRTAB 20 MEQ TABCR PO STA (10:30)
[2023-11-17] MEDS: FUROSEMIDE INJ 20 MG/2 ML VIAL IV ONE (10:30)
[2023-11-17] MEDS: ACETAMINOPHEN 325 MG TAB PO PRN (11:43)
[2023-11-17 12:12] VITALS: RESP 16
[2023-11-17 13:56] VITALS: O2SAT 96
[2023-11-17 14:22] VITALS: TEMP 98.8
--- NOTE | 2023-11-17 14:25 | Hospitalist Progress Note ---
Date of Service November 17, 2023 Assessment & Plan (1) Acute on chronic heart failure with preserved ejection fraction: Plan: Exacerbation likely from diet with eating out over the last 6 weeks POCUS Lung US with diffuse B lines except in RUL in ER ECHO not showing fluid overload. Strict I&Os Daily weights One dose Lasix with K replacement given today d/t 1unit PRBC transfusion. 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 Lasix and potassium supplmentation given as well. HGB 7.3 --> 8.1 --> 8.0 --> 7.8. Per his cancer physician, Dr. Mendoza, recommend HGB be above 8. Repeat CBC once transfusion complete. Will try to discharge patient today if able, if not today probably tomorrow. (4) MDS (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): Plan: See Above (5) Persistent atrial fibrillation: Plan: No anticoagulation due to watchman Rate controlled without AV radha blockers (6) Bronchitis: Plan: - Azithromycin 500 x 3 days. Plan PT Diet - low Na, heart healthy Disposition - observation to med/tele Daughter at the bedside. Discussed labs and plan for today. Admission and Anticipated Discharge Date Admission Date: November 15, 2023 Maria Del Carmen Graves is an 88 year old male who presented to the ER referred from the cancer care center due to low hemoglobin of 7 with shortness of breath on exertion for the last 3-4 days - 2 weeks. Associated productive cough and generalized fatigue. No hematemesis, hematuria, melena or hematochezia. He has known MDS with last transfusion in July. Further workup in the ER was concerning for acute on chronic congestive heart failure. He reports eating in restaurants a lot the last 6 weeks. No recent changes to his medications. No recent or current chest pains, leg swelling or known weight gain. No fever, or chills. e is on spironolactone and Lasix (q other day) outpatient. ECHO performed today - shows EF of 55-60% and no significant change since his last one in 03/2023. Hx of Afib but not currently on any blood thinners, has watchman. He is resting in bed comfortably. Reports improvement of SOB. Daughter at the bedside. He weighs himself daily at home. Denies any swelling in his lower extremities and abdomen. States he only noticed that his SOB was worsening. He used to follow with the outpatient CHF clinic, but stopped in Mar 2023 because he felt his CHF was well controlled. He expresses and interest of re-establishing with the CHF clinic. He was able to get out of bed to the chair yesterday. He expresses an interest in trying to walk today. PT has been consulted. Hgb dropped from 8 --> 7.8. Per Dr. Mendoza, would like to keep his hemoglobin >8. Daughter reported that patient has had a cough over the past couple of days. Review of Systems Constitutional: no fever, no chills and no fatigue Respiratory: + dyspnea on exertion (Improved); no cou gh, no chest congestion and no change in sputum Cardiovascular: no chest pain and no dyspnea at rest Gastrointestinal: no abdominal pain, no nausea and no vomiting Genitourinary: no dysuria Musculoskeletal: no back pain Integumentary: no rash Neurologic: no falls Psychiatric: no behavioral changes and no confusion Physical Exam Constitutional: WD/WN, vitals as above Eyes: PERRL, conjunctivae normal, anicteric sclerae Neck: normal visual inspection and trachea midline Respiratory: normal respiratory effort; no respiratory distress and no labored breathing Auscultation: lungs clear to auscultation bilaterally Cardiovascular: RRR, no murmur, no edema Rate/Rhythm: regular rate and + irregularly irregular Gastrointestinal (Abdomen): normal bowel sounds, soft, nontender, no hepatosplenomegaly Skin: no rashes, warm and dry Neurologic: awake Psychiatric: A+Ox3, euthymic affect Results & Data Results & Data Vital Signs (Past 12 Hours) Vital Signs Temp Pulse Pulse Resp BP BP BP 11/17/23 13:55 36.6 C 81 16 110/68 11/17/23 13:41 84 11/17/23 12:55 37.2 C 80 16 121/64 11/17/23 12:25 37.3 C 85 16 114/64 11/17/23 12:15 11/17/23 12:10 37.1 C 87 16 114/67 11/17/23 11:54 37.6 C H 89 107/63 11/17/23 11:42 37.7 C H 85 107/63 11/17/23 11:31 36.9 C 88 17 111/67 11/17/23 09:18 63 11/17/23 08:20 11/17/23 08:17 37.1 C 84 16 102/63 11/17/23 05:00 82 11/17/23 02:55 36.7 C 106 H 18 108/49 L Pulse Ox O2 Del Method O2 Flow Rate 11/17/23 13:55 96 2 11/17/23 13:41 11/17/23 12:55 95 11/17/23 12:25 95 1 11/17/23 12:15 95 1 11/17/23 12:10 91 11/17/23 11:54 91 11/17/23 11:42 90 Room Air 11/17/23 11:31 92 Room Air 11/17/23 09:18 11/17/23 08:20 Room Air 11/17/23 08:17 93 Room Air 11/17/23 05:00 11/17/23 02:55 91 Room Air PG Care Time/CCT Total # of Minutes Spent Total Time Spent with Patient: Total time spent is greater than 50% in coordination of care (as documented) at patient's floor/unit and/or counseling patient: C[place] [address] SUB INP/OBS CARE 2/35MIN Patient Type Established History Expanded Problem Focused Exam Expanded Problem Focused Medical Decision Making Moderate Complexity Diagnoses Acute on chronic heart failure with preserved ejection fraction I50.33 Elevated troponin R79.89 Anemia D64.9 MDS (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) D46.9 Persistent atrial fibrillation I48.19 Bronchitis J40
[2023-11-17 15:08] LABS: Hematocrit (blood only) 26.7 % (42.0-52.0); Hemoglobin 8.8 g/dl (14.0-18.0); Mean Corpuscular Hemoglobin 31.7 pg (25.0-34.0); Mean Platelet Volume 11.2 fL (9.4-12.4); Platelet Count 115 K/uL (130-400); RDW Coefficient of Variation 16.2 % (11.5-14.5); RDW Standard Deviation 57.5 fL (36.4-46.3); Red Blood Count 2.78 M/uL (4.70-6.10); White Blood Count 3.11 K/ul (4.8-10.8)
--- NOTE | 2023-11-17 15:17 | Discharge Summary ---
<Statement entered by Siobhan Cochran MD - 11/17/23 15:21> Diuresed with IV lasix now euvolemic. Continue same diuretics on discharge as he's back home on his daughter's healthy diet. Transfused a second unit today for Hg<8 patient with MDS and cardiac disease. Post-transfusion Hg close to 9. Home with home health PT and OT Made referral for follow up in heart failure clinic I updated his daughter by phone last night Discharge Summary Date of Service November 17, 2023 Principal Dx & Hospital Course #1 = Principal Diagnosis (1) Acute on chronic heart failure with preserved ejection fraction: Exacerbation likely from diet with eating out over the last 6 weeks POCUS Lung US with diffuse B lines except in RUL in ER ECHO not showing fluid overload. Strict I&Os Daily weights One dose Lasix with K replacement given today d/t 1unit PRBC transfusion. Continue previous HF regimen. Referral for outpatient HF clinic placed. (2) Elevated troponin: Very low suspicion of ACS give lack of chest pain or any symptoms at rest or EKG changes Troponin 120.2 --> 162.6 --> 120 BNP 402 (3) Anemia: Secondary to myelodysplasia - Transfused 1 unit on 11/14, will transfuse an additional unit today. Lasix and potassium supplmentation given as well. HGB 7.3 --> 8.1 --> 8.0 --> 7.8. Per his cancer physician, Dr. Mendoza, recommend HGB be above 8. Repeat CBC once transfusion complete. Will try to discharge patient today (4) MDS (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): See Above (5) Persistent atrial fibrillation: No anticoagulation due to watchman Rate controlled without AV radha blockers (6) Bronchitis: - Azithromycin 500 x 3 days. Plan PT Diet - low Na, heart healthy Disposition - observation to med/tele Daughter at the bedside. Discussed labs and plan for today. Admission HPI Per Admitting Provider Maged Graves is an 88 year old male who presents to the ER referred from the cancer care center due to low hemoglobin of 7 with shortness of breath on exertion for the last 3-4 days - 2 weeks. Associated productive cough and generalized fatigue. No hematemesis, hematuria, melena or hematochezia. He has known MDS with last transfusion in July. Further workup in the ER was concerning for acute on chronic congestive heart failure. He reports eating in restaurants a lot the last 3 weeks. No recent changes to his medications. No recent or current chest pains, leg swelling or known weight gain. No fever, or chills. Discharge Exam Constitutional WD/WN, vitals as above Eyes PERRL, conjunctivae normal, anicteric sclerae Neck normal visual inspection and trachea midline Respiratory normal respiratory effort; no respiratory distress and no labored breathing Auscultation: lungs clear to auscultation bilaterally Cardiovascular RRR, no murmur, no edema Rate/Rhythm: regular rate and + irregularly irregular Gastrointestinal (Abdomen) normal bowel sounds, soft, nontender, no hepatosplenomegaly Skin no rashes, warm and dry Neurologic awake Psychiatric A+Ox3, euthymic affect Discharge Plan Discharge Items Patient Disposition: Home - Home Health Services Reason For Visit: Heart Failure Discharge Diagnosis: Heart Failure Activity: Resume your previous activity Non-emergency contact: Primary Care Provider Call non-emergency contact if: your symptoms worsen Follow-up/Referrals: Osbaldo Sellers DO [Primary Care Provider] - Valentina Caldera PA-C [Physician [employer]] - Diet: Low Sodium (2gm) Addtl Attending Provider Instructions: Call 911 and go to the Emergency Room if: * You have tightness or pain in your chest that does not go away with rest or Nitroglycerin * You are very short of breath even with rest Call your doctor if any of the following symptoms or problems start or get worse: * Shortness of breath or difficulty breathing * Wake up at night short of breath * Chest pain * Cough * Swelling of your hands, fee, or legs * More fatigued or tired with your normal activity * Palpitations - sudden fast heart beats WEIGHT * Weigh yourself every morning after using the bathroom. * Use the same scale. * Wear the same amount of clothing. * Write your weight down on your chart. * Call your doctor if you gain more than 2-3 pounds in 1-2 days. MEDICATIONS * Use this discharge instruction sheet for instructions. * Take your medications at the time your doctor ordered. * Do not skip a dose of your medicines. * If you miss a dose of medicine, take as soon as possible, but DO NOT DOUBLE A DOSE. * Read your medicine information when you get home. * Know all of the side effects of your medicine. * Call your doctor's office if you have any side effects. * Be sure all of your doctors know what medicine and herbs you take (including cold, flu, and herbal medicine). * Pain Medicine: If you do not get relief from your pain, please call your doctor for help. Take the following with you to your follow-up doctor appointments: * Weight Chart * Medication List * List of questions Do not drink excessive alcohol, beer or wine. Pending Studies at Discharge: No Stand-Alone Forms: [facility], Smoking Cessation Medications and DC Order Prescriptions: New azithromycin 250 mg Tablet 500 mg PO QAM Qty: 4 0RF Continued pantoprazole 40 mg tablet,delayed release (DR/EC) 40 mg PO QAM Qty: 90 3RF pravastatin 40 mg tablet 40 mg PO HS Qty: 90 3RF furosemide 20 mg tablet 40 mg PO Q OTHER DAY Qty: 90 3RF Rx Instructions: May increase to 40 mg as needed for weight gain, shortness of breath, or edema. - Pt unable to confirm how he takes this medication. Called pharmacy and directions listed is what they have. Gemtesa 75 mg tablet 75 mg PO DAILY Qty: 90 3RF spironolactone 25 mg tablet 12.5 mg PO HS Qty: 45 3RF oxybutynin chloride 5 mg tablet 5 mg PO BID Qty: 180 3RF tamsulosin 0.4 mg capsule 0.4 mg PO HS Qty: 90 3RF nitroglycerin 0.4 mg tablet, sublingual 0.4 mg sublingual Q5M PRN (Reason: Chest Pain) Qty: 25 5RF Rx Instructions: do not exceed 3 doses per episode acetaminophen [Tylenol 8 Hour] 650 mg tablet extended release 650 mg PO Q8H PRN (Reason: Pain) aspirin 81 mg tablet,delayed release (DR/EC) 81 mg PO QAM mecobalamin (vitamin B12) 500 mcg tablet,chewable 500 mcg PO QAM meclizine [Dramamine (meclizine)] 25 mg tablet 25 mg PO TID PRN (Reason: Vertigo) clonazepam 0.5 mg tablet 0.5 mg PO HS buspirone 10 mg tablet 0 mg PO TID Rx Instructions: Per patient: Takes 10mg by mouth once daily but can take 20mg by mouth 3 Times a day Admission Data Admit Date/Time: 11/15/23 15:00 Attending Provider: Siobhan Cochran Admit Provider: Jeet Harrington Primary Care Provider: Osbaldo Sellers Other Providers: Jeet Harrington; Valentina Caldera Hospital Stay Data Consultations 11/15/23 14:33 ED Decision to Admit Stat 11/16/23 11:42 [facility] Referral Routine Pending Results Patient Have Any Pending Studies at Discharge: No Discharge Instructions Given to Patient (Per Discharging Provider) Call 911 and go to the Emergency Room if: * You have tightness or pain in your chest that does not go away with rest or Nitroglycerin * You are very short of breath even with rest Call your doctor if any of the following symptoms or problems start or get worse: * Shortness of breath or difficulty breathing * Wake up at night short of breath * Chest pain * Cough * Swelling of your hands, fee, or legs * More fatigued or tired with your normal activity * Palpitations - sudden fast heart beats WEIGHT * Weigh yourself every morning after using the bathroom. * Use the same scale. * Wear the same amount of clothing. * Write your weight down on your chart. * Call your doctor if you gain more than 2-3 pounds in 1-2 days. MEDICATIONS * Use this discharge instruction sheet for instructions. * Take your medications at the time your doctor ordered. * Do not skip a dose of your medicines. * If you miss a dose of medicine, take as soon as possible, but DO NOT DOUBLE A DOSE. * Read your medicine information when you get home. * Know all of the side effects of your medicine. * Call your doctor's office if you have any side effects. * Be sure all of your doctors know what medicine and herbs you take (including cold, flu, and herbal medicine). * Pain Medicine: If you do not get relief from your pain, please call your doctor for help. Take the following with you to your follow-up doctor appointments: * Weight Chart * Medication List * List of questions Do not drink excessive alcohol, beer or wine. Total Time Total Time Spent Total Time Spent (In Minutes): 30 C[place] [address] IN/OBS DISCH 30 MIN/LESS Patient Type Established History Expanded Problem Focused Exam Expanded Problem Focused Diagnoses Acute on chronic heart failure with preserved ejection fraction I50.33 Elevated troponin R79.89 Anemia D64.9 MDS (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) D46.9 Persistent atrial fibrillation I48.19 Bronchitis J40
[2023-11-17 15:36] VITALS: BP 111/67; PULSE 85
== END 2023-11-17 16:44 | disposition home health service (06) ==
LOC: 2N 12:05 → ED 12:05 → SUATTDRO 15:00 → 2N 17:17

== ENCOUNTER 2024-05-02 13:39 | Observation (INO) ==
[2024-05-02] MEDS: ASPIRIN CHEW 324 MG PO STA (13:59)
[2024-05-02 14:10] LABS: Basophils # (auto) 0.03 K/uL (0.00-0.20); Basophils % (auto) 0.6 %; Eosinophils # (auto) 0.07 K/uL (0.00-0.50); Eosinophils % (auto) 1.5 %; Hematocrit (blood only) 30.5 % (42.0-52.0); Hemoglobin 9.5 g/dl (14.0-18.0); Immature Granulocytes # (auto) 0.03 K/uL (0.01-0.20); Immature Granulocytes % (auto) 0.6 %; Lymphocytes % (auto) 6.4 %; Mean Corpuscular Hemoglobin 32.1 pg (25.0-34.0); Mean Corpuscular Hgb Conc 31.1 g/dL (32.0-36.0); Monocytes # (auto) 0.21 K/uL (0.11-0.59); Monocytes % (auto) 4.5 %; Neutrophils # (auto) 4.06 K/uL (1.40-6.50); Neutrophils % (auto) 86.4 %; Platelet Count 76 K/uL (130-400); RDW Coefficient of Variation 14.3 % (11.5-14.5); RDW Standard Deviation 53.4 fL (36.4-46.3); Red Blood Count 2.96 M/uL (4.70-6.10)
--- NOTE | 2024-05-02 14:19 | XRay Report ---
HISTORY: Chest pain TECHNIQUE: Portable AP radiograph of the chest. COMPARISON: Chest radiograph dated 11/15/2023. FINDINGS: Small right pleural effusion. Pulmonary vascular congestion. Right basilar airspace opacity. No pneumothorax. Cardiomegaly. 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 Left-sided aortic arch contains atherosclerotic calcification. Midline trachea. Degenerative changes of the spine and shoulders. The included upper abdomen is unremarkable. IMPRESSION: 1. Findings of CHF with cardiomegaly, pulmonary vascular congestion, and mild interstitial pulmonary edema. 2. Small right pleural effusion with adjacent right basilar opacity, which could represent compressive atelectasis or pneumonia. Electronically signed by Jose Claros 05-02-2024 2:18 PM
[2024-05-02 14:22] LABS: BUN Creatinine Ratio 17.5 (10-20); Calcium 9.3 mg/dl (8.6-10.3); Creatinine Clr Calc Pharmacy 27.8 ml/min; Potassium 4.3 mmol/L (3.5-5.1)
[2024-05-02 14:29] LABS: Troponin I High Sensitivity 10.1 pg/ml (0-20)
[2024-05-02 14:34] LABS: INR 1.1 (0.9-1.1); Partial Thromboplastin Time 26 Seconds (21-31); Prothrombin Time 11.4 Seconds (9.0-12.0)
[2024-05-02] MEDS: FUROSEMIDE 40 MG/4 ML VIAL IV ONE (15:22)
[2024-05-02] MEDS ORDERED: ONDANSETRON INJ 2 MG/ML 2 ML VIAL IV PRN (15:53)
[2024-05-02] MEDS ORDERED: POLYETHYLENE (MIRALAX) 17 GM PACK PO PRN (15:53)
[2024-05-02] MEDS ORDERED: ACETAMINOPHEN 325 MG TAB PO PRN (15:53)
[2024-05-02] MEDS ORDERED: ALUMINUM/MAGNESIUM SUSP 30 ML UDC PO PRN (15:53)
--- NOTE | 2024-05-02 16:10 | History & Physical Report ---
Date of Service May 02, 2024 Assessment & Plan (1) Acute on chronic heart failure with preserved ejection fraction: (2) Anemia due to chronic kidney disease: (3) Persistent atrial fibrillation: (4) Chronic diastolic heart failure: (5) Chest pain: Plan This is an 89 year old pleasant gentleman with past medical history of HTN, MDS, PVD, GERD, CKD stage IV, CHF who presented to the ED on 05/02 for a chief complaint of chest pain. #Chest pain/acute on chronic diastolic CHF. 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 s/p nitro and went down to 5/10. At time of admission no CP. Episode was associated w/ nausea but no vomiting. Patient has been off Lasix for ~ 3 months due to continued wt loss. Daughter reports baseline wt ~150. On admission 158. CXR: CHF w/ cardiomegaly, pulmonary vascular congestion & mild interstitial pulmonary edema. Small R pleural effusion w/ adjacent right basilar opacity which could represent compressive atelectasis vs pneumonia. EKG w/ bradycardic, a fib unchanged from previous. Repeat prn if CP reoccurs. Troponin 10, repeat pending - addendum, negative at 12 BNP 145 Procal added - normal. Recheck in AM, doubt pneumonia, possible RLL infiltrate vs atelectasis on CXR s/p 40mg IV Lasix in ED -> monitor pt response. Daily weights, monitor I&O's. Continue PPI in the event this was related to an esophageal spasm. Continue ASA. #CKD stage IV Follows w/ nephrology outpatient. Creatinine @ baseline 1.66 (range 1.5-1.7) Electrolytes stable. AM BMP #Anemia Anemia of Chronic disease secondary to CKD, also pancytopenia due to 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 followed by [facility] with weekly epo Hgb 9.5 @ baseline. (range 9-10) AM CBC Chronic conditions: BPH: Tamsulosin, Oxybutynin HLD: statin Mental Health: Buspirone, Clonazepam DVT prophylaxis: hold in setting of thrombocytopenia. SCD's Code: DNR/DNI Anticipate discharge home 05/03 pending patient continues w/o CP overnight. Updated daughter at bedside 05/02. Case discussed w/ Dr. Cochran at time of admission. History of Present Illness Primary Care Provider: Osbaldo Sellers DO This is an 89 year old pleasant gentleman with past medical history of HTN, MDS, PVD, GERD, CKD stage IV, CHF who presented to the ED on 05/02 for a chief complaint of chest pain. Patient seen and examined this afternoon w/ his daughter at bedside. Patient reports that earlier today he experienced a sudden onset of chest pain that was 8/10 in nature. It was associated with nausea but denied vomiting. Patient's daughter reports her said patient was gasping for air but the patient denied SOB, dizziness, or weakness at time of encounter. He had taken a prn dose of nitro and it reduced the CP to 5/10. Episode lasted apx 90 minutes, resolved by time in ED. Presently he is without symptoms. He reported earlier he was experiencing tenderness to palpation of his abdomen when he felt his abdomen. Daughter reports that over the last few weeks up to a month patient has been having a cough, she says it can be exertional. patient reports he will get into coughing spells because he is unable to get his mucus up. He has been off his Lasix for ~3 months as recommended by the HF clinic because he was losing too much weight. Patient's daughter reports he has little appetite and his recent weight has been around ~150-153. Patient denied any lower extremity edema. He does have a hx of GERD for which he takes pantoprazole for. Denies any indigestion type symptoms. He is compliant with his medications at home and follows a strict diet for his medical comorbidities. No LE pain or swelling, no hx DVT/PE, no pain in midback Code discussion w/ patient and he is a DNR/DNI. Allergies Allergy/AdvReac Type Severity Reaction Status Date / Time doxycycline AdvReac Vomiting Verified 05/02/24 16:46 pregabalin AdvReac Vomiting Verified 05/02/24 16:46 Home Medications Medication Instructions Recorded Confirmed Type acetaminophen 650 mg 650 mg PO Q8H PRN Pain 06/26/22 05/02/24 History tablet,extended release (Tylenol 8 Hour) aspirin 81 mg tablet,delayed 81 mg PO QAM 06/26/22 05/02/24 History release mecobalamin (vitamin B12) 500 mcg 500 mcg PO QAM 06/26/22 05/02/24 History chewable tablet oxybutynin chloride 5 mg tablet 5 mg PO BID #180 tabs 02/17/24 05/02/24 Rx tamsulosin 0.4 mg capsule 0.4 mg PO HS #90 caps 02/17/24 05/02/24 Rx buspirone 10 mg tablet 10 mg PO TID PRN anxiety 02/24/24 05/02/24 History nitroglycerin 0.4 mg sublingual 0.4 mg sublingual Q5M PRN Chest 03/10/24 05/02/24 Rx tablet Pain #25 tabs pravastatin 40 mg tablet 40 mg PO HS #90 tabs 04/06/24 05/02/24 Rx clonazepam 0.5 mg tablet 0.5 mg PO HS #30 tabs 04/17/24 05/02/24 Rx pantoprazole 40 mg tablet,delayed 40 mg PO QAM #90 tabs 04/17/24 05/02/24 Rx release epoetin ilana-epbx 2,000 unit/mL 0 unit IV .Q2W PRN .ANEMIA 05/02/24 05/02/24 History injection solution (Retacrit) Past Med/Surg History Problem List (Updated 05/02/24 @ 16:08 by Lizzy Ellison PA-C) Chest pain Bronchitis Anemia (Acute) MDS (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) (Acute) Weakness (Acute) Acute on chronic heart failure with preserved ejection fraction Urethral 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 Prostate cancer Stage 3b chronic kidney disease Vitamin D deficiency Acute kidney injury 08/08/22 Kidney disease, chronic, stage IV (GFR 15-29 ml/min) (Acute) GERD (gastroesophageal reflux disease) Peripheral vascular disease Myelodysplastic syndrome (Acute) Atherogenic dyslipidemia Benign essential hypertension Chronic diastolic heart failure Persistent atrial fibrillation Coronary artery disease s/p 2 stents in 1999 and CABG x 1 1978 LLQ abdominal pain (Acute) 12/14/16 Diverticulosis (Acute) Stented coronary artery TWO PER PT Hernia CHF (congestive heart failure) (Acute) Medical History Elevated troponin SOB (shortness of breath) History of recent blood transfusion (08/2023) Kidney disease, chronic, stage IV (GFR 15-29 ml/min) Diverticulosis CAD (coronary artery disease) Chronic diastolic heart failure HTN (hypertension) Dyslipidemia PVD (peripheral vascular disease) Chronic cough History of Mohs micrographic surgery for skin cancer History of skin cancer Presence of Watchman left atrial appendage closure device (2020) Atrial fibrillation Hx of brachytherapy Hyperlipidemia GERD (gastroesophageal reflux disease) MDS (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) Anxiety History of prostate cancer Surgical History History of esophagogastroduodenoscopy (EGD) Hx of colonoscopy Hx of tonsillectomy Hx of bilateral cataract extraction History of coronary artery bypass graft History of heart artery stent History of cardiac cath S/P TURP Family History Father Heart disease Hypertension Mother Seizure Denies family history of Ovarian cancer Prostate cancer Myocardial infarction Breast cancer Colorectal cancer Social History Smoking Status: Former smoker Tobacco Type: Cigarettes Age Started Using Tobacco: 26; Age Quit Using Tobacco: 61; packs per day: 1; Cigarettes Per Day: 20; Second Hand Exposure: No; Do You Dip or Chew Tobacco: No; Hx Alcohol Use: Yes Alcohol type: beer, wine and hard liquor Alcohol Intake Frequency: Monthly or Less Hx Substance Use: No Preferred Language: Swedish Communication Ability: Effective Communication Ability Comment: short term memory impairment Visual Impairment: No Limitations Hearing Ability: Normal 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 Beliefs That Will Affect Care: None marital status: / marital status details: LIVES WITH FREDI AND SON IN LAW Current Living Situation: Family Current Living Situation Comment: lives with daughter Becca current occupational status: retired How many Children do You have: 3 Feels Safe at Home: Yes Childhood Exposure to Second-Hand Smoke: No Diet: regular caffeine: Yes during the past year weight has: remained stable Dental Care, Regularly: No Physical Activity Frequency: Does not Exercise Seatbelt Use: always Sunscreen Use: Yes Assistive Devices: Denture - Upper, Denture - Lower and Glasses Physical Exam Constitutional: WD/WN, vitals as above Eyes: PERRL, conjunctivae normal, anicteric sclerae Respiratory: diminished lung sounds throughout but clear Cardiovascular: irregular, bradycardic. no LE edema Results & Data Results & Data Vital Signs (Past 12 Hours) Vital Signs Temp Pulse Resp BP Pulse Ox O2 Del Method 05/02/24 15:00 51 L 18 134/65 99 Room Air 05/02/24 14:30 53 L 21 124/57 L 97 Room Air 05/02/24 14:05 56 L 05/02/24 14:00 54 L 16 112/52 L 96 Room Air 05/02/24 13:45 36.7 C 55 L 16 122/60 99 Room Air Supervising Physician Co-Signing Physician Notes I have reviewed vital signs, chart notes, labs and imaging. I have personally seen, evaluated and examined the patient. I have also discussed the management of the patient with the MISHEL and I agree with the exam findings documented in the history and physical examination and the documented assessment and plan unless otherwise stated below. I personally reviewed the EKG changing when shows Bradycardic A-fib but no acute ischemic changes. serial troponin has been completely negative today and he is chest pain-free on my exam he does appear volume overloaded and his JVP is 15 cm his lung exam has very distant breath sounds but slight basilar crackles, no peripheral edema. he has not checked his weight at home since mid February sounds like he is having exertional dyspnea and cough. he is having no tenderness to palpation of his chest wall or his abdomen he does have a ventral abdominal wall hernia which is wide open, nontender and not incarcerated. he has not had any falls and does not have any mid back pain his story sounds like potential gastrointestinal pain however he is very clear that this chest pain is exactly like angina episodes he had had in the past so he may be in fact having angina. He has not had any anginal pain in years. There is no evidence of acute coronary syndrome. He does have coronary disease we will monitor him for symptoms and obtain a TTE since he has not had 1 recently. He has a mild heart failure exacerbation we will see how he responds to the Lasix 40 mg IV given by the ED physician. He may need a strategy of as needed Lasix based on his weight. I will discuss his care with associate principal tomorrow antianginals will be complicated with him because he is chronically hypotensive, has not tolerated beta-blockers due to bradycardia hypotension, has not tolerated Entresto because of hypotension, not on spironolactone or AC E/ARB because of hypotension and advanced CKD, not on SGLT2 because of baseline hypotension PG Care Time/CCT Total # of Minutes Spent Total Time Spent with Patient: Total time spent is greater than 50% in coordination of care (as documented) at patient's floor/unit and/or counseling patient: Coding Level of Care Code 64566 INT INP/OBS CARE 3/75MIN Diagnoses Acute on chronic heart failure with preserved ejection fraction I50.33 Anemia due to stage 4 chronic kidney disease N18.4; D63.1 Chronic kidney disease stage: stage 4 (severe) Persistent atrial fibrillation I48.19 Chronic diastolic heart failure I50.32 Chest pain R07.9 (2) Anemia due to chronic kidney disease Chronic kidney disease stage: stage 4 (severe) Qualified Code(s): N18.4 - Chronic kidney disease, stage 4 (severe); D63.1 - Anemia in chronic kidney disease
[2024-05-02] MEDS ORDERED: busPIRone 5 MG TAB PO PRN (18:07)
--- NOTE | 2024-05-02 20:00 | Emergency Department Note ---
History of Present Illness General Chief Complaint: Cardiac Assessment Time Seen by Provider: 05/02/24 13:43 History of Present Illness Provider Complaint: chest pain Time: 12:00 Duration: now resolved Onset: during rest Pain Location: substernal and left chest Pain Radiation: none Severity: mild Current Pain Intensity: 0 Quality: + heaviness Relieved By: + nitroglycerin Exacerbated By: + nothing Context: no recent illness, no recent surgery, no recent immobilization, no recent travel, no trauma/injury or no new medications Associated symptoms: no nausea, no vomiting, no dyspnea, no syncope, no palpitations, no fever or no cough Home Medications Medication Instructions Recorded Confirmed Type acetaminophen 650 mg 650 mg PO Q8H PRN Pain 06/26/22 05/02/24 History tablet,extended release (Tylenol 8 Hour) aspirin 81 mg tablet,delayed 81 mg PO QAM 06/26/22 05/02/24 History release mecobalamin (vitamin B12) 500 mcg 500 mcg PO QAM 06/26/22 05/02/24 History chewable tablet oxybutynin chloride 5 mg tablet 5 mg PO BID #180 tabs 02/17/24 05/02/24 Rx tamsulosin 0.4 mg capsule 0.4 mg PO HS #90 caps 02/17/24 05/02/24 Rx buspirone 10 mg tablet 10 mg PO TID PRN anxiety 02/24/24 05/02/24 History nitroglycerin 0.4 mg sublingual 0.4 mg sublingual Q5M PRN Chest 03/10/24 05/02/24 Rx tablet Pain #25 tabs pravastatin 40 mg tablet 40 mg PO HS #90 tabs 04/06/24 05/02/24 Rx clonazepam 0.5 mg tablet 0.5 mg PO HS #30 tabs 04/17/24 05/02/24 Rx pantoprazole 40 mg tablet,delayed 40 mg PO QAM #90 tabs 04/17/24 05/02/24 Rx release epoetin ilana-epbx 2,000 unit/mL 0 unit IV .Q2W PRN .ANEMIA 05/02/24 05/02/24 History injection solution (Retacrit) Allergies Allergy/AdvReac Type Severity Reaction Status Date / Time doxycycline AdvReac Vomiting Verified 05/02/24 16:46 pregabalin AdvReac Vomiting Verified 05/02/24 16:46 Past Med/Surg History Problem List (Updated 05/02/24 @ 20:00 by Jae Dominguez MD) Chest pain (Acute) Chest pain Bronchitis Anemia (Acute) MDS (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) (Acute) Weakness (Acute) Acute on chronic heart failure with preserved ejection fraction Urethral 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 Prostate cancer Stage 3b chronic kidney disease Vitamin D deficiency Acute kidney injury 08/08/22 Kidney disease, chronic, stage IV (GFR 15-29 ml/min) (Acute) GERD (gastroesophageal reflux disease) Peripheral vascular disease Myelodysplastic syndrome (Acute) Atherogenic dyslipidemia Benign essential hypertension Chronic diastolic heart failure Persistent atrial fibrillation Coronary artery disease s/p 2 stents in 1999 and CABG x 1 1978 LLQ abdominal pain (Acute) 12/14/16 Diverticulosis (Acute) Stented coronary artery TWO PER PT Hernia CHF (congestive heart failure) (Acute) Medical History Elevated troponin SOB (shortness of breath) History of recent blood transfusion (08/2023) [facility] Kidney disease, chronic, stage IV (GFR 15-29 ml/min) Diverticulosis CAD (coronary artery disease) s/p 2 stents in 1999 and CABG x 1 1978 Chronic diastolic heart failure HTN (hypertension) Dyslipidemia PVD (peripheral vascular disease) Chronic cough History of Mohs micrographic surgery for skin cancer nose History of skin cancer Presence of Watchman left atrial appendage closure device (2020) Atrial fibrillation follows w/ Dr Shravan Huerta Hx of brachytherapy initial tx for prostate ca Hyperlipidemia GERD (gastroesophageal reflux disease) MDS (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) 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, [facility] History of prostate cancer 1999, brachy therapy and sx tx Surgical History History of esophagogastroduodenoscopy (EGD) Hx of colonoscopy Hx of tonsillectomy Hx of bilateral cataract extraction History of coronary artery bypass graft 1978, single bypass, [facility] in [place] History of heart artery stent ~1999, angina, [place]; x2 stents; f/u shravan huerta History of cardiac cath ~1999, angina, [place]; x2 stents; f/u shravan deanna S/P TURP Family History Father Heart disease Hypertension Mother Seizure Denies family history of Ovarian cancer Prostate cancer Myocardial infarction Breast cancer Colorectal cancer Social History Smoking Status: Former smoker Tobacco Type: Cigarettes Age Started Using Tobacco: 26; Age Quit Using Tobacco: 61; packs per day: 1; Cigarettes Per Day: 1/2 PPD; Smoking End Date: 1999; Second Hand Exposure: No; Do You Dip or Chew Tobacco: No; Hx Alcohol Use: Yes Alcohol type: wine Alcohol Intake Frequency: Monthly or Less Hx Substance Use: No Preferred Language: Slovak Communication Ability: Effective Communication Ability Comment: short term memory impairment Visual Impairment: No Limitations Hearing Ability: Normal [facility] Required: No Beliefs That Will Affect Care: None marital status: / marital status details: LIVES WITH DAUTHER AND SON IN LAW Current Living Situation: Family Current Living Situation Comment: lives with daughter and son in law current occupational status: retired How many Children do You have: 3 Other Information That Helps Us Care for You: No Feels Safe at Home: Yes Safety Concerns: Feels Safe At This Time Childhood Exposure to Second-Hand Smoke: No Diet: regular caffeine: Yes during the past year weight has: remained stable Dental Care, Regularly: No Physical Activity Frequency: Does not Exercise Seatbelt Use: always Sunscreen Use: Yes Assistive Devices: Denture - Upper, Denture - Lower and Glasses Physical Exam Vital Signs Vital Signs - 24 hr 05/02/24 13:45 05/02/24 14:00 05/02/24 14:05 Temperature 36.7 C Temperature Source Temporal Artery Scan Pulse Rate 55 L 54 L 56 L Respiratory Rate 16 16 Respiratory Effort / Characteristics Non-Labored Spontaneous Respiratory Depth Normal Blood Pressure 122/60 112/52 L Blood Pressure Mean 80 82 Pulse Oximetry 99 96 Oxygen Delivery Method Room Air Room Air Sepsis Recent Fever Within 48 Hours No Sepsis New/Unexplained Change in Mental Status N/A Sepsis Action Taken by Nursing No Action Required 05/02/24 14:30 05/02/24 15:00 05/02/24 15:30 Temperature Temperature Source Pulse Rate 53 L 51 L 55 L Respiratory Rate 21 18 16 Respiratory Effort / Characteristics Respiratory Depth Blood Pressure 124/57 L 134/65 131/71 Blood Pressure Mean 79 88 91 Pulse Oximetry 97 99 99 Oxygen Delivery Method Room Air Room Air Room Air Sepsis Recent Fever Within 48 Hours Sepsis New/Unexplained Change in Mental Status Sepsis Action Taken by Nursing Physical Exam GENERAL: oriented to person, place, and time. appears well-developed and well- nourished. HENT: Exam performed. - Head: Normocephalic and atraumatic. EYES: Conjunctivae and EOM are normal. Right eye exhibits no discharge. Left eye exhibits no discharge. No scleral icterus. NECK: Normal range of motion. Neck supple. No JVD present. CV: Normal rate, regular rhythm, normal heart sounds and intact distal pulses. There is no peripheral edema. Palpable radial pulses bue. PULM/CHEST: Effort normal and breath sounds normal. No respiratory distress. No stridor. no wheezes. no rales. ABD: The abdomen is soft. There is no tenderness. NEURO: Motor and sensation grossly intact. SKIN: Skin is warm and dry. He is not diaphoretic. PSYCH: normal mood and affect. Behavior is normal. Judgment and thought content normal. Course Course 1343: The patient was evaluated in room B9. A complete history and physical exam was performed Cardiac monitoring: An order was placed for continuous cardiac monitoring. The monitor shows a rate of 60 with atrial fibrilation rhythm interpreted by me 1505: Vital signs stable. Labs show normal high-sensitivity troponin, stable hemoglobin and creatinine. Imaging shows pulmonary vascular congestion. Patient be treated with Lasix admitted to the [facility] for CHF exacerbation and chest pain rule out ACS. Administered Medications Discontinued Medications Aspirin (Aspirin Chew 324 Mg) 324 mg PO NOW STA Stop: 05/02/24 13:44 Last Admin: 05/02/24 13:59 Dose: Not Given Documented By: JAMAL Furosemide (Furosemide 40 Mg/4 Ml Vial) 40 mg IV ONE ONE Stop: 05/02/24 15:09 Last Admin: 05/02/24 15:22 Dose: 40 mg Documented By: JAMAL Medical Decision Making Laboratory Data Attestation: I reviewed the patient's lab results. 05/02/24 13:49 05/02/24 13:49 Labs: Lab Results 05/02/24 05/02/24 Range/Units 13:49 13:54 WBC 4.70 L (4.8-10.8) K/ul RBC 2.96 L (4.70-6.10) M/uL Hgb 9.5 L (14.0-18.0) g/dl Hct 30.5 L (42.0-52.0) % MCV 103.0 H (80.0-100.0) fL MCH 32.1 (25.0-34.0) pg MCHC 31.1 L (32.0-36.0) g/dL RDW Std Deviation 53.4 H (36.4-46.3) fL RDW Coeff of [place] 14.3 (11.5-14.5) % Plt Count 76 L (130-400) K/uL MPV 12.0 (9.4-12.4) fL Immature Gran % (Auto) 0.6 % Neut % (Auto) 86.4 % Lymph % (Auto) 6.4 % [place] % (Auto) 4.5 % Eos % (Auto) 1.5 % Baso % (Auto) 0.6 % Neut # (Auto) 4.06 (1.40-6.50) K/uL Lymph # (Auto) 0.30 L (1.20-3.40) K/uL [place] # (Auto) 0.21 (0.11-0.59) K/uL Eos # (Auto) 0.07 (0.00-0.50) K/uL Baso # (Auto) 0.03 (0.00-0.20) K/uL Immature Gran # (Auto) 0.03 (0.01-0.20) K/uL PT 11.4 (9.0-12.0) Seconds INR 1.1 (0.9-1.1) APTT 26 (21-31) Seconds PTT Ratio 1.0 Sodium 137 (136-145) mmol/L Potassium 4.3 (3.5-5.1) mmol/L Chloride 104 (98-107) mmol/L Carbon Dioxide 26 (21-32) mmol/L Anion Gap 7 (3-11) BUN 29 H (6-23) mg/dl Creatinine 1.66 H (0.6-1.4) mg/dl Est Cr Clr Drug Dosing 27.8 ml/min eGFR 39.41 BUN/Creatinine Ratio 17.5 (10-20) Glucose 159 H (70-99(Fasting)) mg/dl Calcium 9.3 (8.6-10.3) mg/dl Troponin I High Sens 10.1 (0-20) pg/ml B-Natriuretic Peptide 145 H (0-100) pg/ml Lipase 8 L (11-82) U/L Procalcitonin 0.26 (0-0.5) ng/ml ECG Data Attestation: I personally reviewed and interpreted this ECG as follows: Rate (beats per minute): 55 Rhythm: atrial fibrillation Findings: + PVC; no ST depression, no ST elevation or no prolonged QT MDM Narrative 1343: The patient was evaluated in room B9. A complete history and physical exam was performed Cardiac monitoring: An order was placed for continuous cardiac monitoring. The monitor shows a rate of 60 with atrial fibrilation rhythm interpreted by me 1505: Vital signs stable. Labs show normal high-sensitivity troponin, stable hemoglobin and creatinine. Imaging shows pulmonary vascular congestion. Patient be treated with Lasix admitted to the [facility] for CHF exacerbation and chest pain rule out ACS. Impression & Plan CHF (congestive heart failure), Chest pain Discharge Plan Visit Data Chief Complaint: Cardiac Assessment ED Provider: Jae Dominguez Discharge Problem: CHF (congestive heart failure), Chest pain Patient Disposition: Admitted As Inpatient
[2024-05-02] MEDS: oxyBUTYnin chloride 5 MG TAB PO SCH (21:24)
[2024-05-02] MEDS: TAMSULOSIN HCL 0.4 MG CAP PO SCH (21:24)
[2024-05-02] MEDS: PRAVASTATIN SOD 40 MG TAB PO SCH (21:24)
[2024-05-02] MEDS: clonazePAM 0.5 MG TAB PO SCH (21:24)
--- NOTE | 2024-05-02 23:00 | Electrocardiogram Report ---
Test Reason : Blood Pressure : */* mmHG Vent. 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
[2024-05-03 04:28] VITALS: RESP 18
[2024-05-03 07:14] LABS: Hematocrit (blood only) 29.5 % (42.0-52.0); Hemoglobin 9.5 g/dl (14.0-18.0); Mean Corpuscular Hemoglobin 32.3 pg (25.0-34.0); Mean Corpuscular Hgb Conc 32.2 g/dL (32.0-36.0); Mean Corpuscular Volume 100.3 fL (80.0-100.0); Platelet Count 61 K/uL (130-400); RDW Coefficient of Variation 14.1 % (11.5-14.5); RDW Standard Deviation 51.7 fL (36.4-46.3); Red Blood Count 2.94 M/uL (4.70-6.10); White Blood Count 2.56 K/ul (4.8-10.8)
[2024-05-03 07:29] LABS: BUN Creatinine Ratio 17.1 (10-20); Calcium 9.4 mg/dl (8.6-10.3); Creatinine Clr Calc Pharmacy 27.1 ml/min; Potassium 4.4 mmol/L (3.5-5.1)
[2024-05-03] MEDS: PANTOprazole 40 MG TAB PO SCH (08:43)
[2024-05-03] MEDS: ASPIRIN 81 MG ECTAB PO SCH (08:43)
[2024-05-03] MEDS: CYANOCOBALAMIN (B-12) 500 MCG TABLET PO SCH (08:43)
--- NOTE | 2024-05-03 09:31 | Cardiology Consultation ---
Date of Consultation May 03, 2024 Assessment & Plan (1) Chest pain: (2) Coronary artery disease: (3) Stented coronary artery: (4) Chronic heart failure with preserved ejection fraction: (5) Benign essential hypertension: (6) Persistent atrial fibrillation: Plan ASSESSMENT/PLAN: 1. Chest pain: Etiology uncertain. Chest pain lasted approximately 1 hour with negative high-sensitivity troponin, normal wall motion on echo and no significant change on ECG. We discussed potential etiologies, including CAD, however seems less likely given above. Could trial isosorbide mononitrate to see if it offers benefit in the future at 30 mg daily. He would like to start nitrate therapy. We also discussed other options such as noninvasive ischemic evaluation in the form of a pharmacologic stress. He declines. He would prefer conservative management, referring to his advanced age. 2. CAD s/p CABG and PCI x 3: Chest pain, not clearly angina but reminiscent of prior angina. Nitrate therapy as above. He does not wish to undergo ischemic evaluation, which is quite reasonable. Continue aspirin 81 mg daily indefinitely. Continue statin therapy. No beta-darryn given bradycardia. 3. Atrial fibrillation: Permanent. Rate controlled. Watchman device for stroke risk reduction as he did not wish to remain on anticoagulation therapy. 4. Chronic heart failure with preserved EF: He appears euvolemic. Uses Lasix every other day according to heart failure program note. Low-sodium diet. Daily weights. 5. Hypertension: Blood pressure normotensive to mildly hypertensive at times. 6. Disposition: Follow-up with primary client renewal specialist (Dr. Huerta) [facility]. Patient care communicated with Lizzy Ellison PA-C of the primary hospitalist service. Today's visit was 45 minutes in duration, which includes [id number] time, counseling patient, coordinating care, reviewing records, and completing documentation. Thank you for allowing me to participate in the care of your patient. Please call for any other questions or concerns. Sincerely, Lencho Coffman M.D. History of Present Illness Reason for Consultation: "angina" Requesting Physician: Lizzy Ellison PA-C Attending Physician: Siobhan Cochran MD History of Present Illness Mr. Graves is a very pleasant 89-year-old gentleman with a history significant for CAD s/p CABG (1978) and PCI (1989 x 1 and 1999 x 2), 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, hypertension, dyslipidemia, CKD, atrial fibrillation s/p Watchman, and heart failure with preserved EF. His primary client renewal specialist is Dr. Huerta. He was hospitalized on 05/02/2024 after presenting with chest discomfort. It was a sensation across his chest, of tightness. It is similar to prior angina that he had 1978, 1989, and 1999. It occurred at approximately noon on 05/02/2024. 30 minutes later he took nitroglycerin and it resolved approximately 30 minutes after that while in the ambulance. He then received aspirin in the ambulance. The chest discomfort occurred while he was sitting, watching TV. There was no radiation of the pain and he denies associated shortness of breath or diaphoresis. He has not had any further chest pain. He also denies orthopnea, syncope, near syncope, palpitations, edema, bleeding, melena, hematochezia, hematuria, nausea, vomiting, diarrhea, or fever. His daughter participated via speaker phone (Becca). Review of systems: As above. Family history: Noncontributory. Social history: He quit smoking near the age of 61 after approximately 35 pack years. Occasional alcohol. Lives at home with his daughter, Becca. He has 3 daughters, as well as grandchildren and great-grandchildren. Allergies Allergy/AdvReac Type Severity Reaction Status Date / Time doxycycline AdvReac Vomiting Verified 05/02/24 16:46 pregabalin AdvReac Vomiting Verified 05/02/24 16:46 Home Medications Medication Instructions Recorded Confirmed Type acetaminophen 650 mg 650 mg PO Q8H PRN Pain 06/26/22 05/02/24 History tablet,extended release (Tylenol 8 Hour) aspirin 81 mg tablet,delayed 81 mg PO QAM 06/26/22 05/02/24 History release mecobalamin (vitamin B12) 500 mcg 500 mcg PO QAM 06/26/22 05/02/24 History chewable tablet oxybutynin chloride 5 mg tablet 5 mg PO BID #180 tabs 02/17/24 05/02/24 Rx tamsulosin 0.4 mg capsule 0.4 mg PO HS #90 caps 02/17/24 05/02/24 Rx buspirone 10 mg tablet 10 mg PO TID PRN anxiety 02/24/24 05/02/24 History nitroglycerin 0.4 mg sublingual 0.4 mg sublingual Q5M PRN Chest 03/10/24 05/02/24 Rx tablet Pain #25 tabs pravastatin 40 mg tablet 40 mg PO HS #90 tabs 04/06/24 05/02/24 Rx clonazepam 0.5 mg tablet 0.5 mg PO HS #30 tabs 04/17/24 05/02/24 Rx pantoprazole 40 mg tablet,delayed 40 mg PO QAM #90 tabs 04/17/24 05/02/24 Rx release epoetin ilana-epbx 2,000 unit/mL 0 unit IV .Q2W PRN .ANEMIA 05/02/24 05/02/24 History injection solution (Retacrit) doxycycline hyclate 100 mg tablet 100 mg PO BID 7 days #14 tabs 05/03/24 Rx furosemide 40 mg tablet (Lasix) 40 mg PO DAILY PRN weight gain #20 05/03/24 Rx tabs isosorbide mononitrate 30 mg 30 mg PO QAM #30 tabs 05/03/24 Rx tablet,extended release 24 hr Problem List (Updated 05/03/24 @ 17:35 by Ilya Coffman MD) Chronic heart failure with preserved ejection fraction Chest pain (Acute) Chest pain Bronchitis Anemia (Acute) MDS (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) (Acute) Weakness (Acute) Acute on chronic heart failure with preserved ejection fraction Urethral 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 Prostate cancer Stage 3b chronic kidney disease Vitamin D deficiency Acute kidney injury 08/08/22 Kidney disease, chronic, stage IV (GFR 15-29 ml/min) (Acute) GERD (gastroesophageal reflux disease) Peripheral vascular disease Myelodysplastic syndrome (Acute) Atherogenic dyslipidemia Benign essential hypertension Chronic diastolic heart failure Persistent atrial fibrillation Coronary artery disease s/p 2 stents in 1999 and CABG x 1 1978 LLQ abdominal pain (Acute) 12/14/16 Diverticulosis (Acute) Stented coronary artery TWO PER PT Hernia CHF (congestive heart failure) (Acute) Patient History Medical History Elevated troponin SOB (shortness of breath) History of recent blood transfusion (08/2023) [facility] Kidney disease, chronic, stage IV (GFR 15-29 ml/min) Diverticulosis CAD (coronary artery disease) s/p 2 stents in 1999 and CABG x 1 1978 Chronic diastolic heart failure HTN (hypertension) Dyslipidemia PVD (peripheral vascular disease) Chronic cough History of Mohs micrographic surgery for skin cancer nose History of skin cancer Presence of Watchman left atrial appendage closure device (2020) Atrial fibrillation follows w/ Dr Shravan Huerta Hx of brachytherapy initial tx for prostate ca Hyperlipidemia GERD (gastroesophageal reflux disease) MDS (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) 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, [facility] History of prostate cancer 1999, brachy therapy and sx tx Surgical History History of esophagogastroduodenoscopy (EGD) Hx of colonoscopy Hx of tonsillectomy Hx of bilateral cataract extraction History of coronary artery bypass graft 1978, single bypass, [facility] in [place] History of heart artery stent ~1999, [place], [place]; x2 stents; f/u shravan huerta History of cardiac cath ~1999, [facility], [place], [place]; x2 stents; f/u shravan huerta S/P TURP Family History Father Heart disease Hypertension Mother Seizure Denies family history of Ovarian cancer Prostate cancer Myocardial infarction Breast cancer Colorectal cancer Social History Smoking Status: Former smoker Tobacco Type: Cigarettes Age Started Using Tobacco: 26; Age Quit Using Tobacco: 61; packs per day: 1; Cigarettes Per Day: 1/2 PPD; Second Hand Exposure: No; Do You Dip or Chew Tobacco: No; Hx Alcohol Use: Yes Alcohol type: wine Alcohol Intake Frequency: Monthly or Less Hx Substance Use: No Preferred Language: Indonesian Communication Ability: Effective Communication Ability Comment: short term memory impairment Visual Impairment: No Limitations Hearing 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: Normal 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 Beliefs That Will Affect Care: None marital status: / marital status details: LIVES WITH DAUTHER AND SON IN LAW Current Living Situation: Family Current Living Situation Comment: lives with daughter and son in law current occupational status: retired How many Children do You have: 3 Feels Safe at Home: Yes Childhood Exposure to Second-Hand Smoke: No Diet: regular caffeine: Yes during the past year weight has: remained stable Dental Care, Regularly: No Physical Activity Frequency: Does not Exercise Seatbelt Use: always Sunscreen Use: Yes Assistive Devices: Denture - Upper, Denture - Lower and Glasses Physical Exam Physical Exam: Gen.: No acute distress. Alert. HEENT: Anicteric sclera. Neck: No JVD. No bruits. Normal carotid upstrokes bilaterally. Cardiac: Irregularly irregular near 60 bpm. Normal S1-S2. 1/6 systolic murmur. Pulmonary: Clear to auscultation bilaterally without wheezes, rales, or rhonchi. Abdomen: Soft, nontender, nondistended, with normoactive bowel sounds. No bruits noted. Extremities: 2+ radial pulses bilaterally. 1+ posterior tibialis pulses bilaterally. No edema or cyanosis. Psychiatric: Affect appears appropriate. Results & Data Vital Signs (Past 12 Hours) Vital Signs Temp Pulse Pulse Resp BP Pulse Ox O2 Del Method 05/03/24 08:18 36.7 C 54 L 18 120/64 96 Room Air 05/03/24 07:07 58 L 05/03/24 04:27 36.6 C 59 L 18 123/64 95 Room Air 05/02/24 23:41 36.5 C 58 L 20 125/61 94 Room Air 05/02/24 21:47 56 L Intake & Output 05/01/24 05/02/24 05/03/24 05/04/24 05:59 05:59 06:59 06:59 Intake Total Output Total Balance Weight Laboratory Results Laboratory Results - last 24 hr 05/02/24 05/02/24 05/02/24 13:49 13:54 17:11 WBC 4.70 L RBC 2.96 L Hgb 9.5 L Hct 30.5 L MCV 103.0 H MCH 32.1 MCHC 31.1 L RDW Std Deviation 53.4 H RDW Coeff of [place] 14.3 Plt Count 76 L MPV 12.0 Immature Gran % (Auto) 0.6 Neut % (Auto) 86.4 Lymph % (Auto) 6.4 [place] % (Auto) 4.5 Eos % (Auto) 1.5 Baso % (Auto) 0.6 Neut # (Auto) 4.06 Lymph # (Auto) 0.30 L [place] # (Auto) 0.21 Eos # (Auto) 0.07 Baso # (Auto) 0.03 Immature Gran # (Auto) 0.03 PT 11.4 INR 1.1 APTT 26 PTT Ratio 1.0 Sodium 137 Potassium 4.3 Chloride 104 Carbon Dioxide 26 Anion Gap 7 BUN 29 H Creatinine 1.66 H Est Cr Clr Drug Dosing 27.8 eGFR 39.41 BUN/Creatinine Ratio 17.5 Glucose 159 H Calcium 9.3 Troponin I High Sens 10.1 12.3 B-Natriuretic Peptide 145 H Lipase 8 L Procalcitonin 0.26 05/03/24 06:31 WBC 2.56 L RBC 2.94 L Hgb 9.5 L Hct 29.5 L MCV 100.3 H MCH 32.3 MCHC 32.2 RDW Std Deviation 51.7 H RDW Coeff of [place] 14.1 Plt Count 61 L MPV 13.0 H Immature Gran % (Auto) Neut % (Auto) Lymph % (Auto) [place] % (Auto) Eos % (Auto) Baso % (Auto) Neut # (Auto) Lymph # (Auto) [place] # (Auto) Eos # (Auto) Baso # (Auto) Immature Gran # (Auto) PT INR APTT PTT Ratio Sodium 137 Potassium 4.4 Chloride 103 Carbon Dioxide 27 Anion Gap 7 BUN 29 H Creatinine 1.70 H Est Cr Clr Drug Dosing 27.1 eGFR 38.30 BUN/Creatinine Ratio 17.1 Glucose 98 Calcium 9.4 Troponin I High Sens B-Natriuretic Peptide Lipase Procalcitonin Pending Diagnostic Findings Labs reviewed and notable for mildly elevated BNP, within his usual baseline, normal high-sensitivity troponin x 2, normal potassium, abnormal but stable renal function, chronic leukopenia, chronic and stable anemia, chronic and stable thrombocytopenia. History and physical report reviewed. ECG personally reviewed 325: Atrial fibrillation with slow ventricular response 55 bpm. PVC versus aberrantly conducted complex. Possible anterior infarct. Lateral T wave inversion. No significant change from 11/15/2023 ECG. Echo report reviewed from 11/16/2023: Normal LV size, wall motion, systolic function. EF 55-60%. Mild LVH. Mild MR. Outpatient cardiology note reviewed from 02/24/2024. Chest x-ray 05/02/2024: Pulmonary vascular congestion per radiology. Small right pleural effusion. Adjacent right basilar opacity which could represent atelectasis versus pneumonia per radiology. Chest x-ray image personally reviewed. Prominent pulmonary vasculature. Right pleural effusion. ECHO 05/03/2024: 1. Normal left ventricular size and systolic function. EF 60-65%. No regional wall motion abnormalities. No left ventricular hypertrophy. 2. Left atrial dilation. 3. Mild aortic regurgitation. 4. Severe mitral annular calcification involving the posterior annulus. 5. Mild mitral regurgitation. 6. Mild pulmonary hypertension. Estimated RVSP 42 mmHg. 7. Technically difficult study, enhanced with IV Definity. 8. Compared to prior study on 11/15/2023, LV systolic function remains stable. Medications Administered Current Inpatient Medications Acetaminophen (Acetaminophen 325 Mg Tab) 650 mg PO Q4H PRN PRN Reason: Pain or Fever Stop: 06/01/24 15:52 Al Hydrox/Mg Hydrox/Simethicone (Aluminum/Magnesium Susp 30 Ml Udc) 15 ml PO Q4H PRN PRN Reason: Dyspepsia Stop: 06/01/24 15:52 Aspirin (Aspirin 81 Mg Ectab) 81 mg PO QAM NORAH Stop: 06/02/24 08:59 Last Admin: 05/03/24 08:43 Dose: 81 mg Buspirone HCl (Buspirone 5 Mg Tab) 10 mg PO TID PRN PRN Reason: anxiety Stop: 06/01/24 18:06 Clonazepam (Clonazepam 0.5 Mg Tab) 0.5 mg PO HS [facility] Stop: 06/01/24 20:59 Last Admin: 05/02/24 21:24 Dose: 0.5 mg Cyanocobalamin (Cyanocobalamin (B-12) 500 Mcg Tablet) 500 mcg PO QAM NORAH Stop: 06/02/24 08:59 Last Admin: 05/03/24 08:43 Dose: 500 mcg Ondansetron HCl (Ondansetron Inj 2 Mg/Ml 2 Ml Vial) 4 mg IV Q6H PRN PRN Reason: Nausea Stop: 06/01/24 15:52 Oxybutynin Chloride (Oxybutynin Chloride 5 Mg Tab) 5 mg PO BID NORAH Stop: 06/01/24 20:59 Last Admin: 05/03/24 08:43 Dose: 5 mg Pantoprazole Sodium (Pantoprazole 40 Mg Tab) 40 mg PO QAM NORAH Stop: 06/02/24 08:59 Last Admin: 05/03/24 08:43 Dose: 40 mg Polyethylene Glycol (Polyethylene (Miralax) 17 Gm Pack) 17 gm PO DAILY PRN PRN Reason: Constipation Stop: 06/01/24 15:52 Pravastatin Sodium (Pravastatin Sod 40 Mg Tab) 40 mg PO [facility] Stop: 06/01/24 20:59 Last Admin: 05/02/24 21:24 Dose: 40 mg Tamsulosin HCl (Tamsulosin Hcl 0.4 Mg Cap) 0.4 mg PO [facility] Stop: 06/01/24 20:59 Last Admin: 05/02/24 21:24 Dose: 0.4 mg PG Care Time/CCT Total # of Minutes Spent Total Time Spent with Patient: Total time spent is greater than 50% in coordination of care (as documented) at patient's floor/unit and/or counseling patient: Coding Level of Care Code 67915 INT INP/OBS CARE 2/55MIN Diagnoses Chest pain R07.9 Coronary artery disease involving lummi coronary artery of lummi heart without angina pectoris I25.10 Coronary Disease-Associated Artery/Lesion type: lummi artery [place] vs. transplanted heart: lummi heart Associated angina: without angina Stented coronary artery Z95.5 Chronic heart failure with preserved ejection fraction I50.32 Benign essential hypertension I10 Persistent atrial fibrillation I48.19 (2) Coronary artery disease Coronary Disease-Associated Artery/Lesion type: lummi artery [place] vs. transplanted heart: lummi heart Associated angina: without angina Qualified Code(s): I25.10 - Atherosclerotic heart disease of lummi coronary artery without angina pectoris
[2024-05-03 13:47] VITALS: PULSE 65
[2024-05-03 15:27] VITALS: BP 147/68; TEMP 99.5; O2SAT 93
--- NOTE | 2024-05-03 16:53 | Discharge Summary ---
<Statement entered by Siobhan Cochran MD - 05/03/24 18:35> I have reviewed vital signs, chart notes, labs and imaging. I have personally seen, evaluated and examined the patient. I have also discussed the management of the patient with the MISHEL and I agree with the exam findings documented in the history and physical examination and the documented assessment and plan unless otherwise stated below. Mr. Graves was admitted with a bandlike bilateral lower chest pain that was very similar to his remote previous episodes of angina. EKG without ischemic changes and serial troponin was normal. Pain had resolved by the time he was in the ED and did improve after nitroglycerin he took at home. He did appear volume overloaded in the ED with JVP of at least 15 and some faint/distant crackles in bases and mid yoon bilaterally. This improved after Lasix 40 mg IV on admission. My repeat exam today notable for JVP around 12, fine bibasilar crackles. He does not have any dyspnea and has had no more chest pain. TTE was obtained today and was stable from his previous study EF 60-65% with no regional wall motion abnormalities, mild AR and MR and mild pulmonary hypertension. 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 BP has been robust this admission. Historically he has not tolerated GDMT including B-darryn, CHITRA/ARB, SNRI, spironolactone, or SGLT-2 because of hypotension and CKD-4 - defer to the outpatient setting whether any of these can be started in the future regarding acute on chronic HFpEF he responded well to diuresis, we added 40 mg Lasix as needed weight gain and he will follow-up in CHF clinic Discharge Summary Date of Service May 03, 2024 Principal Dx & Hospital Course #1 = Principal Diagnosis (1) Acute on chronic heart failure with preserved ejection fraction: (2) Anemia due to chronic kidney disease: (3) Persistent atrial fibrillation: (4) Chronic diastolic heart failure: (5) Chest pain: Plan This is an 89 year old pleasant gentleman with past medical history of HTN, MDS, PVD, GERD, CKD stage IV, CHF who presented to the ED on 05/02 for a chief complaint of chest pain. #Chest pain/acute on chronic diastolic CHF. 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 s/p nitro and went down to 5/10. At time of admission no CP. Episode was associated w/ nausea but no vomiting. Patient has been off Lasix for ~ 3 months due to continued wt loss. Pt at baseline following 1 dose of IV Lasix. CXR: CHF w/ cardiomegaly, pulmonary vascular congestion & mild interstitial pulmonary edema. Small R pleural effusion w/ adjacent right basilar opacity which could represent compressive atelectasis vs pneumonia. EKG w/ bradycardic, a fib unchanged from previous. Troponin 10, repeat 12. BNP 145 Procal repeat 0.91 --> discharged on doxycycline BID x 7 days in the event the cough could be related to bronchitis. Unlikely pneumonia Lasix 40mg PO prn on discharge if weight gain greater than 2 pounds in 3 days or 4 pounds in one week. Daily weights at home Cardiology consulted, discussed via tiger - > recommend starting Imdur 30mg once daily and close follow up w/ patient's egg factory worker in clinic on discharge. echo read is pending on discharge. Continue PPI and ASA #CKD stage IV Follows w/ nephrology outpatient. Creatinine @ baseline 1.70 (range 1.5-1.7) Electrolytes stable. 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 (range 9-10) Chronic conditions: BPH: Tamsulosin, Oxybutynin HLD: statin Mental Health: Buspirone, Clonazepam Updated daughter at time of discharge 05/03 Discussed w/ cardiology 05/03 Admission HPI Per Admitting Provider This is an 89 year old pleasant gentleman with past medical history of HTN, MDS, PVD, GERD, CKD stage IV, CHF who presented to the ED on 05/02 for a chief complaint of chest pain. Patient seen and examined this afternoon w/ his daughter at bedside. Patient reports that earlier today he experienced a sudden onset of chest pain that was 8/10 in nature. It was associated with nausea but denied vomiting. Patient's daughter reports her said patient was gasping for air but the patient denied SOB, dizziness, or weakness at time of encounter. He had taken a prn dose of nitro and it reduced the CP to 5/10. Episode lasted apx 90 minutes, resolved by time in ED. Presently he is without symptoms. He reported earlier he was experiencing tenderness to palpation of his abdomen when he felt his abdomen. Daughter reports that over the last few weeks up to a month patient has been having a cough, she says it can be exertional. patient reports he will get into coughing spells because he is unable to get his mucus up. He has been off his Lasix for ~3 months as recommended by the HF clinic because he was losing too much weight. Patient's daughter reports he has little appetite and his recent weight has been around ~150-153. Patient denied any lower extremity edema. He does have a hx of GERD for which he takes pantoprazole for. Denies any indigestion type symptoms. He is compliant with his medications at home and follows a strict diet for his medical comorbidities. No LE pain or swelling, no hx DVT/PE, no pain in midback Code discussion w/ patient and he is a DNR/DNI. Discharge Exam Constitutional WD/WN, vitals as above Eyes PERRL, conjunctivae normal, anicteric sclerae Respiratory normal respiratory effort, lungs clear to auscultation Cardiovascular irregularly irregular. no LE edema Psychiatric A+Ox3, euthymic affect Discharge Plan Discharge Items Patient Disposition: Home - Self-Care Reason For Visit: CHEST PAIN Discharge Diagnosis: Chest pain Activity: Resume your previous activity Non-emergency contact: Primary Care Provider and Farm Machinery Mechanic Call non-emergency contact if: you have any medication questions, your symptoms worsen and your pain is not controlled Follow-up/Referrals: Shravan Mobley MD, PhD [Physician] - Osbaldo Sellers DO [Primary Care Provider] - Valentina Caldera PA-C [Physician Divisional Human Resources Director] - Diet: Heart Healthy Addtl Attending Provider Instructions: Mr. Graves, You were recently hospitalized for an episode of chest pain. You were monitored overnight and were also given a dose of Lasix. Please see recommendations below regarding your discharge. Please take Imdur 30mg once daily starting 05/04. Please take doxycycline twice daily for 7 days. You may start your first dose this evening 05/03. You may want to take with food to avoid GI upset. Please use Lasix 40mg as needed if you experience a 2 lb weight gain over 3 days or a 4 pound weight gain in a week. Please have a close follow up with your egg factory worker. Please follow up with the heart failure clinic on discharge. The remainder of your medications you may resume. Pending Studies at Discharge: Yes Studies:: Echocardiogram read by cardiology Stand-Alone Forms: My [facility], Smoking Cessation Medications and DC Order Prescriptions: New isosorbide mononitrate 30 mg tablet extended release 24 hr 30 mg PO QAM Qty: 30 0RF furosemide [Lasix] 40 mg tablet 40 mg PO DAILY PRN (Reason: weight gain) Qty: 20 0RF Rx Instructions: Please take if you gain greater than 2 pounds over 3 days OR greater than 4 pounds in one week doxycycline hyclate 100 mg tablet 100 mg PO BID 7 Days Qty: 14 0RF Continued oxybutynin chloride 5 mg tablet 5 mg PO BID Qty: 180 3RF tamsulosin 0.4 mg capsule 0.4 mg PO HS Qty: 90 3RF pravastatin 40 mg tablet 40 mg PO HS Qty: 90 3RF clonazepam 0.5 mg tablet 0.5 mg PO HS Qty: 30 0RF pantoprazole 40 mg tablet,delayed release (DR/EC) 40 mg PO QAM Qty: 90 3RF nitroglycerin 0.4 mg tablet, sublingual 0.4 mg sublingual Q5M PRN (Reason: Chest Pain) Qty: 25 5RF Rx Instructions: do not exceed 3 doses per episode acetaminophen [Tylenol 8 Hour] 650 mg tablet extended release 650 mg PO Q8H PRN (Reason: Pain) aspirin 81 mg tablet,delayed release (DR/EC) 81 mg PO QAM mecobalamin (vitamin B12) 500 mcg tablet,chewable 500 mcg PO QAM Retacrit 2,000 unit/mL Solution 0 unit IV .Q2W PRN (Reason: .ANEMIA) Rx Instructions: 05/02/24 : EVERY TWO WEEK INJECTION GIVEN AT [facility] FOR Hgb < 10. buspirone 10 mg tablet 10 mg PO TID PRN (Reason: anxiety) Hold Instructions: Pt no longer taking Discharge Orders: Discharge Order- CHF (Routine); Ordered 05/03/24 Ordered By: Lizzy Ellison Admission Data Admit Date/Time: 05/02/24 15:53 Attending Provider: Siobhan Cochran Admit Provider: Siobhan Cochran Primary Care Provider: Osbaldo Sellers Other Providers: Siobhan Cochran; Ilya Coffman Hospital Stay Data Consultations 05/02/24 15:05 ED Decision to Admit Stat 05/03/24 08:06 Consult Cardiology Routine Pending Results Patient Have Any Pending Studies at Discharge: Yes Discharge Instructions Given to Patient (Per Discharging Provider) Mr. Graves, You were recently hospitalized for an episode of chest pain. You were monitored overnight and were also given a dose of Lasix. Please see recommendations below regarding your discharge. Please take Imdur 30mg once daily starting 05/04. Please take doxycycline twice daily for 7 days. You may start your first dose this evening 05/03. You may want to take with food to avoid GI upset. Please use Lasix 40mg as needed if you experience a 2 lb weight gain over 3 days or a 4 pound weight gain in a week. Please have a close follow up with your egg factory worker. Please follow up with the heart failure clinic on discharge. The remainder of your medications you may resume. Total Time Total Time Spent Total Time Spent (In Minutes): 50 Total Time Includes: Examination of the Patient, Discharge Planning, Medication Reconciliation and Communication With Other Providers Coding Level of Care Code 91463 INP/OBS DISCH >30 MIN Diagnoses Acute on chronic heart failure with preserved ejection fraction I50.33 Anemia due to stage 4 chronic kidney disease N18.4; D63.1 Chronic kidney disease stage: stage 4 (severe) Persistent atrial fibrillation I48.19 Chronic diastolic heart failure I50.32 Chest pain R07.9
--- NOTE | 2024-05-03 17:19 | XCELERA ---
[id number] \\[email or web address]\[id number]
== END 2024-05-03 17:40 | disposition home or self-care (01) | DRG 291 ==
LOC: SUATTDRO → ED 13:39 → 2N 15:53 → INTOOBSV 15:53 → 2N 18:07

== ENCOUNTER 2024-11-21 10:47 | Inpatient (IN) ==
--- NOTE | 2024-11-21 11:04 | Emergency Department Note ---
Impression & Plan Pneumonia, Hypoxia, Post-operative pain, Pancytopenia ED Provider Note NAME: NORA HARRELL III AGE: 89 SEX: M : 1935 ARRIVES VIA: Ambulance INFORMANT: Patient, EMS ED PROVIDER(S): Flynn Atkinson DO CHIEF COMPLAINT: Abdominal pain HPI: The patient is an 89-year-old male who presented to the emergency department from home. The patient was status post cholecystectomy on . The patient was seen in our facility and diagnosed with biliary colic. He was transferred to [facility] for surgical intervention. He was felt to be high risk. The patient presents emerged from today because of difficulty breathing. He is also noticed ongoing worsening abdominal pain. He said no vomiting. He denies having any rectal bleeding. The patient has been compliant with outpatient medications. ROS: See above HPI for pertinent positives & negatives. A total of 10 systems reviewed and were otherwise negative. PAST MEDICAL HISTORY: See Below PAST SURGICAL HISTORY: See Below FAMILY HISTORY: See Below SOCIAL HISTORY: See Below HOME MEDICATIONS: See Below ALLERGIES: See Below VITALS: See Below PHYSICAL EXAMINATION: GENERAL: The patient is awake and alert. He is very anxious and appears uncomfortable. EYES: The conjunctivae are clear. The pupils are constricted bilaterally. EARS, NOSE, MOUTH AND THROAT: The nose is without any evidence of any deformity. NECK: The neck is nontender and supple. RESPIRATORY: Diminished breath sounds are noted throughout. There is no tachypnea or conversational dyspnea. CARDIOVASCULAR: Regular rate and rhythm noted there no murmurs rubs or gallops normal S1 normal S2. GASTROINTESTINAL: The abdomen is mildly distended. There is diffuse tenderness to palpation especially in the right upper quadrant. Surgical sites are evaluated. There is ecchymosis but no erythema drainage or dehiscence. MUSCULOSKELETAL/EXTREMITIES: There is no evidence of gross deformity full range of motion is noted in the hips and shoulders. SKIN: Skin is warm and dry. There is no significant pedal edema. NEUROLOGIC: Patient is awake alert and oriented x3 MEDICAL DECISION MAKING: The patient is an 89-year-old male who presented to the emergency department with multiple complaints. The patient has not been feeling well. Has been having trouble breathing but also having abdominal pain. The patient is status post cholecystectomy. The patient has multiple medical issues including pancytopenia. He was not felt to be a good candidate for surgery. Ultimately the patient was forced to go to a tertiary center to have surgery. He had surgery 2 days ago. He states his abdominal pain is not new and has had ongoing pain since the surgery. He does have pancytopenia which include thrombocytopenia. He does have some ecchymosis over the surgical site especially in the right lower quadrant. The surgical sites themselves do not have any obvious signs of infection noted it is ecchymotic. The patient was found to have pneumonia on radiographic studies. He was treated with a small fluid bolus given his cardiac history but also treated with IV antibiotics. I discussed the patient's condition with his primary surgical group. After review the patient's laboratory and radiographic studies they do not feel this is consistent with the patient's postoperative state. I discussed his condition with the on-call [facility] hospitalist. They have agreed to evaluate the patient in the emergency department for further management and disposition. Triage Nursing notes reviewed. Prior medical records reviewed Vital Signs: reviewed and remarkable for no significant abnormalities Differential diagnosis: Etiologies such as appendicitis, diverticulitis, obstruction, inflammatory bowel disease, renal colic, PUD, biliary pathology, pancreatitis, mesenteric ischemia, aortic pathology, infections, genitourinary, UTI, perforated viscus, as well as others were entertained. ER treatment provided: See below Diagnostics interpreted by me: ECG: EKG was obtained in the emergency department. My interpretation is atrial fibrillation at 71 bpm. No PVCs were noted. Nonspecific ST depressions were noted as well as T wave abnormalities. This was compared to tracing from October 09, 2014. The ST segment abnormalities appear increased compared to previous otherwise no changes were noted. Still Cardiac Monitoring: An order was placed for continuous cardiac monitoring. The monitor shows a rate of 68 bpm with atrial fibrillation. Laboratory studies: As stated above and show below. Imaging studies: See below. Radiographic imaging was reviewed by myself Consultation(s): I discussed this case with Dr. Matthews who is the patient's general surgeon at [facility]. I discussed this case with Dr. Oleary who is on for the [facility] Hospitalist group. Past Med/Surg History Problem List (Updated 11/21/24 @ 13:13 by Flynn Atkinson DO) Pancytopenia (Acute) Post-operative pain (Acute) Hypoxia (Acute) Pneumonia (Acute) Pancytopenia (Acute) Biliary colic (Acute) Bilateral high frequency sensorineural hearing loss Recurrent epistaxis Pancytopenia (Acute) Depression Hypoxia Bilateral pleural effusion Chronic heart failure with preserved ejection fraction Chest pain Bronchitis Urethral 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 Prostate cancer Stage 3b chronic kidney disease Vitamin D deficiency Kidney disease, chronic, stage IV (GFR 15-29 ml/min) (Acute) GERD (gastroesophageal reflux disease) Peripheral vascular disease Myelodysplastic syndrome (Acute) Atherogenic dyslipidemia Benign essential hypertension Chronic diastolic heart failure Persistent atrial fibrillation Coronary artery disease s/p 2 stents in 1999 and CABG x 1 1978 Diverticulosis (Acute) Stented coronary artery TWO PER PT Hernia Medical History Acute cholecystitis NSTEMI (non-ST elevated myocardial infarction) Acute on chronic heart failure with preserved ejection fraction Acute kidney injury 08/08/22 Hx of bronchitis 10/2023 Depression Congestive heart failure Anemia blood transfusion [place]06[place]16/[place] [facility] Pancytopenia Bilateral pleural effusion 05/2024 Dysphagia Acute cholecystitis 06/14/24 admitted to DC and transferred to [facility] History of non-ST elevation myocardial infarction (NSTEMI) 06/14/24- transferred from [facility] to [facility] Elevated troponin 06/14/24 SOB (shortness of breath) History of recent blood transfusion 05/2024 [facility] Kidney disease, chronic, stage IV (GFR 15-29 ml/min) Diverticulosis CAD (coronary artery disease) s/p 2 stents in 1999 and CABG x 1 1978 Chronic diastolic heart failure HTN (hypertension) Dyslipidemia PVD (peripheral vascular disease) Chronic cough History of Mohs micrographic surgery for skin cancer nose History of skin cancer Presence of Watchman left atrial appendage closure device (2020) Atrial fibrillation follows w/ Dr Shravan Huerta Hx of brachytherapy initial tx for prostate ca Hyperlipidemia GERD (gastroesophageal reflux disease) MDS (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) f/u elephant tamer, [facility] in [facility] History of prostate cancer 1999, brachy therapy and sx tx Surgical History History of esophagogastroduodenoscopy (EGD) Hx of colonoscopy Hx of tonsillectomy Hx of bilateral cataract extraction History of coronary artery bypass graft 1978, single bypass, [facility] in [place] History of heart artery stent ~1999, angina, [place]; x2 stents; f/u shravan huerta History of cardiac cath ~1999, angina, [place]; x2 stents; f/u shravan huerta S/P TURP Family History Father Heart disease Hypertension Mother Seizure Denies family history of Ovarian cancer Prostate cancer Myocardial infarction Breast cancer Colorectal cancer Social History Smoking Status: Never smoker Tobacco Type: Cigarettes Age Started Using Tobacco: 26; Age Quit Using Tobacco: 61; packs per day: 1; Cigarettes Per Day: 1/2 PPD; Second Hand Exposure: No; Do You Dip or Chew Tobacco: No; Hx Alcohol Use: Yes Alcohol type: beer and wine Alcohol Intake Frequency: Monthly or Less Hx Substance Use: No Preferred Language: Swazi Communication Ability: Impaired Communication Ability Comment: short term memory impairment; can answer yes/no questions appropriately Visual Impairment: No Limitations Hearing Ability: Normal Merchandise Clerk Required: No Beliefs That Will Affect Care: None marital status: / marital status details: LIVES WITH DAUTHER AND SON IN LAW Current Living Situation: Family Current Living Situation Comment: home with daughter and son in law current occupational status: retired How many Children do You have: 3 Feels Safe at Home: Yes Childhood Exposure to Second-Hand Smoke: No Diet: regular caffeine: Yes during the past year weight has: remained stable Dental Care, Regularly: No Physical Activity Frequency: Does not Exercise Seatbelt Use: always Sunscreen Use: Yes Assistive Devices: Denture - Upper, Denture - Lower and Walker Allergies Allergies Allergy/AdvReac Type Severity Reaction Status Date / Time doxycycline AdvReac Intermediate Vomiting Verified 11/21/24 14:09 pregabalin AdvReac Intermediate Vomiting Verified 11/21/24 14:09 Home Meds Home Medications Medication Instructions Recorded Confirmed epoetin ilana-epbx 2,000 unit/mL 0 unit IV DIRECTED PRN Anemia 05/02/24 11/21/24 injection solution (Retacrit) aspirin 81 mg tablet,delayed 81 mg PO DAILY 09/08/24 11/21/24 release sennosides 8.6 mg tablet (Senokot) 8.6 mg PO HS 09/08/24 11/21/24 tamsulosin 0.4 mg capsule 0.4 mg PO HS 09/08/24 11/21/24 silver sulfadiazine 1 % topical 0 applic topical DAILY 10/09/24 11/21/24 cream (Silvadene) Previous Rx's Medication Instructions Recorded oxybutynin chloride 5 mg tablet 5 mg PO BID #180 tabs 02/17/24 nitroglycerin 0.4 mg sublingual 0.4 mg sublingual Q5M PRN Chest 03/10/24 tablet Pain #25 tabs hydrocortisone 2.5 % topical cream 1 applic [place] DAILY PRN hemorrhoids 06/24/24 with perineal applicator #30 grams (Proctozone-HC) clonazepam 0.5 mg tablet 0.5 mg PO HS #30 tabs 10/30/24 pantoprazole 40 mg tablet,delayed 40 mg PO QAM #90 tabs 11/02/24 release pravastatin 40 mg tablet 40 mg PO HS #90 tabs 11/02/24 oxycodone 5 mg tablet 2.5 mg (1/2 x 5 mg) PO Q8H PRN 11/14/24 pain #6 tabs Results & Data (ED) Vital Signs Vital Signs - 24 hr 11/21/24 10:39 11/21/24 10:54 11/21/24 10:54 Temperature 36.7 C Temperature Source Oral Pulse Rate 76 Pulse Rate [Right Finger] Pulse Rate from SpO2 Sensor Respiratory Rate 18 16 Blood Pressure 109/59 L Blood Pressure [Right Arm] Blood Pressure Mean 75 Blood Pressure Mean [Right Arm] Pulse Oximetry 88 L 88 L Oxygen Delivery Method Room Air Room Air Nasal Cannula Oxygen Flow Rate 2 0 Sepsis Recent Fever Within 48 Hours No Sepsis New/Unexplained Change in Mental Status N/A Sepsis Action Taken by Nursing No Action Required Oxygen Flow Rate - Titration 2 Pulse Oximetry Post Tiitration 98 11/21/24 10:59 11/21/24 10:59 11/21/24 11:00 Temperature Temperature Source Pulse Rate Pulse Rate [Right Finger] Pulse Rate from SpO2 Sensor Respiratory Rate 16 Blood Pressure 100/55 L Blood Pressure [Right Arm] Blood Pressure Mean 87 Blood Pressure Mean [Right Arm] Pulse Oximetry 98 Oxygen Delivery Method Nasal Cannula Oxygen Flow Rate 2 Sepsis Recent Fever Within 48 Hours Sepsis New/Unexplained Change in Mental Status Sepsis Action Taken by Nursing Oxygen Flow Rate - Titration Pulse Oximetry Post Tiitration 11/21/24 11:09 11/21/24 11:14 11/21/24 11:18 Temperature Temperature Source Pulse Rate 76 65 Pulse Rate [Right Finger] 70 Pulse Rate from SpO2 Sensor 72 65 Respiratory Rate 20 18 15 Blood Pressure Blood Pressure [Right Arm] 100/55 L Blood Pressure Mean Blood Pressure Mean [Right Arm] 70 Pulse Oximetry 99 97 98 Oxygen Delivery Method Nasal Cannula Oxygen Flow Rate 2 Sepsis Recent Fever Within 48 Hours Sepsis New/Unexplained Change in Mental Status Sepsis Action Taken by Nursing Oxygen Flow Rate - Titration Pulse Oximetry Post Tiitration 11/21/24 11:27 11/21/24 11:30 11/21/24 11:30 Temperature Temperature Source Pulse Rate 70 Pulse Rate [Right Finger] Pulse Rate from SpO2 Sensor 74 Respiratory Rate 27 H Blood Pressure 96/52 L 96/52 L Blood Pressure [Right Arm] Blood Pressure Mean 60 60 Blood Pressure Mean [Right Arm] Pulse Oximetry 97 Oxygen Delivery Method Oxygen Flow Rate Sepsis Recent Fever Within 48 Hours Sepsis New/Unexplained Change in Mental Status Sepsis Action Taken by Nursing Oxygen Flow Rate - Titration Pulse Oximetry Post Tiitration 11/21/24 11:39 11/21/24 11:48 11/21/24 11:54 Temperature Temperature Source Pulse Rate 72 89 64 Pulse Rate [Right Finger] Pulse Rate from SpO2 Sensor 72 72 65 Respiratory Rate 18 18 20 Blood Pressure Blood Pressure [Right Arm] Blood Pressure Mean Blood Pressure Mean [Right Arm] Pulse Oximetry 97 94 98 Oxygen Delivery Method Oxygen Flow Rate Sepsis Recent Fever Within 48 Hours Sepsis New/Unexplained Change in Mental Status Sepsis Action Taken by Nursing Oxygen Flow Rate - Titration Pulse Oximetry Post Tiitration 11/21/24 12:10 11/21/24 12:12 11/21/24 12:18 Temperature Temperature Source Pulse Rate 67 64 Pulse Rate [Right Finger] Pulse Rate from SpO2 Sensor 69 Respiratory Rate 15 Blood Pressure 103/53 L Blood Pressure [Right Arm] Blood Pressure Mean 78 Blood Pressure Mean [Right Arm] Pulse Oximetry 98 Oxygen Delivery Method Oxygen Flow Rate Sepsis Recent Fever Within 48 Hours Sepsis New/Unexplained Change in Mental Status Sepsis Action Taken by Nursing Oxygen Flow Rate - Titration Pulse Oximetry Post Tiitration 11/21/24 12:18 11/21/24 12:30 11/21/24 12:30 Temperature Temperature Source Pulse Rate Pulse Rate [Right Finger] Pulse Rate from SpO2 Sensor Respiratory Rate Blood Pressure 103/53 L 104/56 L 104/56 L Blood Pressure [Right Arm] Blood Pressure Mean 78 89 89 Blood Pressure Mean [Right Arm] Pulse Oximetry Oxygen Delivery Method Oxygen Flow Rate Sepsis Recent Fever Within 48 Hours Sepsis New/Unexplained Change in Mental Status Sepsis Action Taken by Nursing Oxygen Flow Rate - Titration Pulse Oximetry Post Tiitration 11/21/24 12:54 11/21/24 12:57 11/21/24 13:00 Temperature Temperature Source Pulse Rate 66 Pulse Rate [Right Finger] 69 Pulse Rate from SpO2 Sensor 68 Respiratory Rate 16 17 Blood Pressure 92/57 L Blood Pressure [Right Arm] 92/57 L Blood Pressure Mean 65 Blood Pressure Mean [Right Arm] 68 Pulse Oximetry 96 95 Oxygen Delivery Method Nasal Cannula Oxygen Flow Rate 2 Sepsis Recent Fever Within 48 Hours Sepsis New/Unexplained Change in Mental Status Sepsis Action Taken by Nursing Oxygen Flow Rate - Titration Pulse Oximetry Post Tiitration 11/21/24 13:06 11/21/24 13:40 11/21/24 14:41 Temperature Temperature Source Pulse Rate 62 Pulse Rate [Right Finger] 64 68 Pulse Rate from SpO2 Sensor 61 Respiratory Rate 21 18 14 Blood Pressure Blood Pressure [Right Arm] 105/50 L 100/57 L Blood Pressure Mean Blood Pressure Mean [Right Arm] 68 71 Pulse Oximetry 98 98 95 Oxygen Delivery Method Nasal Cannula Nasal Cannula Oxygen Flow Rate 2 2 Sepsis Recent Fever Within 48 Hours Sepsis New/Unexplained Change in Mental Status Sepsis Action Taken by Nursing Oxygen Flow Rate - Titration Pulse Oximetry Post Tiitration 11/21/24 14:50 Temperature Temperature Source Pulse Rate Pulse Rate [Right Finger] Pulse Rate from SpO2 Sensor Respiratory Rate Blood Pressure Blood Pressure [Right Arm] Blood Pressure Mean Blood Pressure Mean [Right Arm] Pulse Oximetry Oxygen Delivery Method Nasal Cannula Oxygen Flow Rate 2 Sepsis Recent Fever Within 48 Hours Sepsis New/Unexplained Change in Mental Status Sepsis Action Taken by Nursing Oxygen Flow Rate - Titration Pulse Oximetry Post Tiitration Home Medications Current Medication List: was personally reviewed by me Laboratory Data Attestation: I reviewed the patient's lab results. 11/21/24 11:06 11/21/24 11:06 Lab Results 11/21/24 11/21/24 11/21/24 Range/Units 11:06 11:15 11:28 WBC 4.56 L (4.8-10.8) K/ul RBC 2.38 L (4.70-6.10) M/uL Hgb 7.6 L (14.0-18.0) g/dl POC Hgb 7.5 L (14.0-18.0) g/dl Hct 24.3 L (42.0-52.0) % POC Hct 22 L (42-52) % MCV 102.1 H (80.0-100.0) fL MCH 31.9 (25.0-34.0) pg MCHC 31.3 L (32.0-36.0) g/dL RDW Std Deviation 69.2 H (36.4-46.3) fL RDW Coeff of Salena 18.9 H (11.5-14.5) % Plt Count 58 L (130-400) K/uL MPV 12.5 H (9.4-12.4) fL Immature Gran % (Auto) 0.7 % Neut % (Auto) 82.6 % Lymph % (Auto) 7.7 % [place] % (Auto) 7.7 % Eos % (Auto) 0.9 % Baso % (Auto) 0.4 % Neut # (Auto) 3.77 (1.40-6.50) K/uL Lymph # (Auto) 0.35 L (1.20-3.40) K/uL [place] # (Auto) 0.35 (0.11-0.59) K/uL Eos # (Auto) 0.04 (0.00-0.50) K/uL Baso # (Auto) 0.02 (0.00-0.20) K/uL Immature Gran # (Auto) 0.03 (0.01-0.20) K/uL Polychromasia 1+ Tear Drop Cells 1+ Ovalocytes 1+ PT 12.3 H (9.0-12.0) Seconds INR 1.1 (0.9-1.1) APTT 32 H (21-31) Seconds PTT Ratio 1.2 VBG pH (7.36-7.41) VBG pCO2 (38-50) mmHg VBG pO2 mmHg VBG HCO3 mmol/L VBG O2 Saturation % VBG Base Excess mEq/L POC Sodium 132 L (135-144) mmol/L Sodium 132 L (136-145) mmol/L POC Potassium 4.8 (3.3-5.0) mmol/L Potassium 4.8 (3.5-5.1) mmol/L POC Chloride 99 L (101-112) mmol/L Chloride 100 (98-107) mmol/L Carbon Dioxide 25 (21-32) mmol/L POC Total CO2 24 (24-31) mmol/L Anion Gap 7 (3-11) POC Anion Gap 15.0 L (16-25) mmol/L POC BUN 48 H (7-18) mg/dl BUN 52 H (6-23) mg/dl Creatinine 2.21 H (0.6-1.4) mg/dl POC Creatinine 2.6 H (0.6-1.3) mg/dl Est Cr Clr Drug Dosing 21.6 ml/min eGFR 27.95 BUN/Creatinine Ratio 23.5 H (10-20) Glucose 100 H (70-99(Fasting)) mg/dl POC Glucose (other) 98 (70-99) mg/dl Lactate 0.8 (0.4-2.0) mmol/L Calcium 8.1 L (8.6-10.3) mg/dl POC Ioniz Calcium Christina 1.04 L (1.12-1.32) mmol/l Magnesium 2.1 (1.7-2.4) mg/dl Total Bilirubin 2.1 H (0.2-1.0) mg/dl Direct Bilirubin 0.9 H (0-0.2) mg/dl AST 14 (13-39) U/L ALT 12 (7-52) U/L Alkaline Phosphatase 213 H (34-104) U/L Troponin I High Sens 123.4 H* (0-20) pg/ml B-Natriuretic Peptide 389 H (0-100) pg/ml Total Protein 5.9 L (6.0-8.3) gm/dl Albumin 3.4 (3.4-5.0) gm/dl Procalcitonin 17.20 H (0-0.5) ng/ml SARS-CoV-2 (PCR) NEGATIVE (Negative) Influenza Type A (PCR) Negative (Neg) Influenza Type B (PCR) Negative (Neg) RSV (RT-PCR) Negative (Neg) Blood Type Antibody Screen 11/21/24 11/21/24 11/21/24 Range/Units 11:29 11:54 13:16 WBC (4.8-10.8) K/ul RBC (4.70-6.10) M/uL Hgb (14.0-18.0) g/dl POC Hgb (14.0-18.0) g/dl Hct (42.0-52.0) % POC Hct (42-52) % MCV (80.0-100.0) fL MCH (25.0-34.0) pg MCHC (32.0-36.0) g/dL RDW Std Deviation (36.4-46.3) fL RDW Coeff of Salena (11.5-14.5) % Plt Count (130-400) K/uL MPV (9.4-12.4) fL Immature Gran % (Auto) % Neut % (Auto) % Lymph % (Auto) % [place] % (Auto) % Eos % (Auto) % Baso % (Auto) % Neut # (Auto) (1.40-6.50) K/uL Lymph # (Auto) (1.20-3.40) K/uL [place] # (Auto) (0.11-0.59) K/uL Eos # (Auto) (0.00-0.50) K/uL Baso # (Auto) (0.00-0.20) K/uL Immature Gran # (Auto) (0.01-0.20) K/uL Polychromasia Tear Drop Cells Ovalocytes PT (9.0-12.0) Seconds INR (0.9-1.1) APTT (21-31) Seconds PTT Ratio VBG pH 7.34 L (7.36-7.41) VBG pCO2 47 (38-50) mmHg VBG pO2 33 mmHg VBG HCO3 25 mmol/L VBG O2 Saturation < 60.0 % VBG Base Excess -0.8 mEq/L POC Sodium (135-144) mmol/L Sodium (136-145) mmol/L POC Potassium (3.3-5.0) mmol/L Potassium (3.5-5.1) mmol/L POC Chloride (101-112) mmol/L Chloride (98-107) mmol/L Carbon Dioxide (21-32) mmol/L POC Total CO2 (24-31) mmol/L Anion Gap (3-11) POC Anion Gap (16-25) mmol/L POC BUN (7-18) mg/dl BUN (6-23) mg/dl Creatinine (0.6-1.4) mg/dl POC Creatinine (0.6-1.3) mg/dl Est Cr Clr Drug Dosing ml/min eGFR BUN/Creatinine Ratio (10-20) Glucose (70-99(Fasting)) mg/dl POC Glucose (other) (70-99) mg/dl Lactate (0.4-2.0) mmol/L Calcium (8.6-10.3) mg/dl POC Ioniz Calcium Christina (1.12-1.32) mmol/l Magnesium (1.7-2.4) mg/dl Total Bilirubin (0.2-1.0) mg/dl Direct Bilirubin (0-0.2) mg/dl AST (13-39) U/L ALT (7-52) U/L Alkaline Phosphatase (34-104) U/L Troponin I High Sens 150.6 H* D (0-20) pg/ml B-Natriuretic Peptide (0-100) pg/ml Total Protein (6.0-8.3) gm/dl Albumin (3.4-5.0) gm/dl Procalcitonin (0-0.5) ng/ml SARS-CoV-2 (PCR) (Negative) Influenza Type A (PCR) (Neg) Influenza Type B (PCR) (Neg) RSV (RT-PCR) (Neg) Blood Type O Positive Antibody Screen NEGATIVE 11/21/24 Range/Units 14:27 WBC (4.8-10.8) K/ul RBC (4.70-6.10) M/uL Hgb (14.0-18.0) g/dl POC Hgb (14.0-18.0) g/dl Hct (42.0-52.0) % POC Hct (42-52) % MCV (80.0-100.0) fL MCH (25.0-34.0) pg MCHC (32.0-36.0) g/dL RDW Std Deviation (36.4-46.3) fL RDW Coeff of Salena (11.5-14.5) % Plt Count (130-400) K/uL MPV (9.4-12.4) fL Immature Gran % (Auto) % Neut % (Auto) % Lymph % (Auto) % [place] % (Auto) % Eos % (Auto) % Baso % (Auto) % Neut # (Auto) (1.40-6.50) K/uL Lymph # (Auto) (1.20-3.40) K/uL [place] # (Auto) (0.11-0.59) K/uL Eos # (Auto) (0.00-0.50) K/uL Baso # (Auto) (0.00-0.20) K/uL Immature Gran # (Auto) (0.01-0.20) K/uL Polychromasia Tear Drop Cells Ovalocytes PT (9.0-12.0) Seconds INR (0.9-1.1) APTT (21-31) Seconds PTT Ratio VBG pH (7.36-7.41) VBG pCO2 (38-50) mmHg VBG pO2 mmHg VBG HCO3 mmol/L VBG O2 Saturation % VBG Base Excess mEq/L POC Sodium (135-144) mmol/L Sodium (136-145) mmol/L POC Potassium (3.3-5.0) mmol/L Potassium (3.5-5.1) mmol/L POC Chloride (101-112) mmol/L Chloride (98-107) mmol/L Carbon Dioxide (21-32) mmol/L POC Total CO2 (24-31) mmol/L Anion Gap (3-11) POC Anion Gap (16-25) mmol/L POC BUN (7-18) mg/dl BUN (6-23) mg/dl Creatinine (0.6-1.4) mg/dl POC Creatinine (0.6-1.3) mg/dl Est Cr Clr Drug Dosing ml/min eGFR BUN/Creatinine Ratio (10-20) Glucose (70-99(Fasting)) mg/dl POC Glucose (other) (70-99) mg/dl Lactate 0.7 (0.4-2.0) mmol/L Calcium (8.6-10.3) mg/dl POC Ioniz Calcium Christina (1.12-1.32) mmol/l Magnesium (1.7-2.4) mg/dl Total Bilirubin (0.2-1.0) mg/dl Direct Bilirubin (0-0.2) mg/dl AST (13-39) U/L ALT (7-52) U/L Alkaline Phosphatase (34-104) U/L Troponin I High Sens (0-20) pg/ml B-Natriuretic Peptide (0-100) pg/ml Total Protein (6.0-8.3) gm/dl Albumin (3.4-5.0) gm/dl Procalcitonin (0-0.5) ng/ml SARS-CoV-2 (PCR) (Negative) Influenza Type A (PCR) (Neg) Influenza Type B (PCR) (Neg) RSV (RT-PCR) (Neg) Blood Type Antibody Screen Administered Medications Discontinued Medications Sodium Chloride (Nss) 500 mls @ 999 mls/hr IV .Q31M ONE Stop: 11/21/24 11:28 Last Infusion: 11/21/24 12:40 Dose: Infused Documented By: lul Admin: 11/21/24 11:45 Dose: 999 mls/hr Documented By: lul Piperacillin Sod/Tazobactam Sod (Zosyn) 4.5 gm in 100 mls @ 200 mls/hr IV NOW ONE; Protocol Stop: 11/21/24 13:01 Last Infusion: 11/21/24 13:41 Dose: Infused Documented By: Admin: 11/21/24 12:59 Dose: 200 mls/hr Documented By: lul Morphine Sulfate (Morphine Sulfate 4 Mg/Ml 1 Ml Carp\Vial) 4 mg IV NOW STA Stop: 11/21/24 10:59 Last Admin: 11/21/24 11:37 Dose: 4 mg Documented By: lul Ondansetron HCl (Ondansetron Inj 2 Mg/Ml 2 Ml Vial) 4 mg IV NOW STA Stop: 11/21/24 10:59 Last Admin: 11/21/24 11:37 Dose: 4 mg Documented By: lul Imaging Data Attestation: I personally reviewed and interpreted this imaging study as follows: My Impression: 1 view chest x-ray was obtained in the emergency department. My interpretation is right sided pneumonia, final report below. Radiologist's Impression: Chest X-Ray 11/21/24 10:59 EXAM: Radiograph of the Chest 1 View INDICATION: Sepsis TECHNIQUE: Frontal view of the chest. COMPARISON: 03/11/2024 FINDINGS: Lungs and pleural spaces: Grossly stable airspace consolidation in the right lung base and slight distribution of small right pleural effusion into the fissure. Underlying interstitial changes stable with superimposed ground glass infiltrate in the right upper lobe. Heart: Shape and configuration within normal limits allowing for technique. Mediastinum: Normal contour. Bones/joints: No fracture, erosion or dislocation. Soft tissues: No abnormality noted. No radiopaque foreign body noted. Upper abdomen: No abnormality noted. IMPRESSION: 1. New right upper lobe infiltrate. 2. Stable right basilar airspace consolidation with small amounts of existing pleural fluid extending into the fissure. ACT 112: N/A Electronically signed by Jaimee North 11-21-2024 12:14 PM Abdomen/Pelvis CT 11/21/24 11:33 EXAM: CT Abdomen and Pelvis Without Intravenous Contrast INDICATION: Postoperative pain. TECHNIQUE: Axial computed tomography images of the abdomen and pelvis without intravenous contrast. Sagittal and coronal reformatted images were created and reviewed. This CT exam was performed using one or more of the following dose reduction techniques: automated exposure control, adjustment of the mA and/or kV according to patient size, and/or use of iterative reconstruction technique. COMPARISON: 06/13/2024 FINDINGS: Limitations: None. Lower thorax: Stable dense pericardial calcification. Watchman device in place. Coronary bypass changes noted. Increased bilateral pleural effusions right greater than left. There is dependent consolidation in the right lower and middle lobes and to a lesser degree in the left lower lobe. There are multiple clogged subsegmental airways. Heart: No abnormality noted. Mediastinum: No abnormality noted. ABDOMEN: Liver: Lack of intravenous contrast limits detection of some masses. No abnormality noted. Gallbladder and bile ducts: Postoperative fluid and probable small amounts of blood in the gallbladder fossa. No organized collection. No visible ductal stone or distention. Pancreas: No pancreatic mass, calcification, inflammation or ductal dilation noted. Spleen: The spleen is enlarged measuring 16.2 cm long and stable. Adrenals: No significant abnormality noted. Kidneys and ureters: No abnormality noted. No stones. No hydronephrosis. No significant perinephric fluid. Stomach and bowel: Moderate amounts of colonic stool present. There is extensive diverticulosis. No diverticulitis. PELVIS: Appendix: No findings to suggest acute appendicitis. Bladder: Appears normal for the degree of filling. No stones or inflammation. No large mass. Masses may not be detected in the absence of opacification. 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 ABDOMEN and PELVIS: Intraperitoneal space: There is free intraperitoneal air which is not unusual following intra-abdominal procedure. Bones/joints: No acute changes. Soft tissues: There is a right inguinal hernia containing fluid with a fluid/fluid level. Vasculature: Dense atherosclerosis of the aorta and branches noted. Lymph nodes: No pathologically enlarged lymph nodes. Tubes, lines and devices: IMPRESSION: 1. There is a small amount of probable operative contusion in the operative bed and a small amount of fluid fluid layering in the right inguinal hernia. These findings are most likely related to mildly hemorrhagic ascites which can be typical postcholecystectomy particularly if there was irrigation. 2. There is no organized or drainable collection. 3. Worsening pleural effusions with mucous plugging and significant consolidation in the right lung base. 4. Extensive diverticulosis of the colon without diverticulitis. ACT 112: N/A Electronically signed by Jaimee North 11-21-2024 12:30 PM Discharge Plan Visit Data Chief Complaint: Hypotension Stated Complaint: WEAKNESS, HYPOXIA, HYPOTENSION ED Provider: Flynn Atkinson Discharge Problem: Pneumonia, Hypoxia, Post-operative pain, Pancytopenia Patient Disposition: Being Evaluated by Hospitalist Condition: Fair Discharge Instructions Interventions: ED Discharge Assessment Last Done: 11/21/24 14:50 Forms Stand Alone Forms: [facility] [employer] Prescriptions Prescriptions: No Action oxybutynin chloride 5 mg tablet 5 mg PO BID Qty: 180 3RF clonazepam 0.5 mg tablet 0.5 mg PO HS Qty: 30 0RF pantoprazole 40 mg tablet,delayed release (DR/EC) 40 mg PO QAM Qty: 90 3RF pravastatin 40 mg tablet 40 mg PO HS Qty: 90 3RF nitroglycerin 0.4 mg tablet, sublingual 0.4 mg sublingual Q5M PRN (Reason: Chest Pain) Qty: 25 5RF Rx Instructions: do not exceed 3 doses per episode hydrocortisone [Proctozone-HC] 2.5 % cream with perineal applicator 1 applic TX DAILY PRN (Reason: hemorrhoids) Qty: 30 1RF Patient Comments: 10/09-Last filled 06/24/24 15 day supply Retacrit 2,000 unit/mL Solution 0 unit IV DIRECTED PRN (Reason: Anemia) Rx Instructions: 05/02/24 : EVERY TWO WEEK INJECTION GIVEN AT [facility] FOR Hgb < 10. sennosides [Senokot] 8.6 mg Tablet 8.6 mg PO HS aspirin 81 mg Tablet,Delayed Release (Dr/Ec) 81 mg PO DAILY tamsulosin 0.4 mg capsule 0.4 mg PO HS silver sulfadiazine [Silvadene] 1 % cream 0 applic topical DAILY Rx Instructions: apply a 1.5 mm thickness oxycodone 5 mg tablet 2.5 mg PO Q8H PRN (Reason: pain) Qty: 6 0RF Referrals Referrals: Osbaldo Sellers DO [Primary Care Provider] -
[2024-11-21 11:21] LABS: Hematocrit (blood only) 24.3 % (42.0-52.0); Hemoglobin 7.6 g/dl (14.0-18.0); Immature Granulocytes # (auto) 0.03 K/uL (0.01-0.20); Immature Granulocytes % (auto) 0.7 %; Mean Corpuscular Hemoglobin 31.9 pg (25.0-34.0); Mean Corpuscular Volume 102.1 fL (80.0-100.0); Platelet Count 58 K/uL (130-400); RDW Standard Deviation 69.2 fL (36.4-46.3); Red Blood Count 2.38 M/uL (4.70-6.10); White Blood Count 4.56 K/ul (4.8-10.8)
[2024-11-21] MEDS: ONDANSETRON INJ 2 MG/ML 2 ML VIAL IV STA (11:37)
[2024-11-21] MEDS: MoRPHine SULFATE 4 MG/ML 1 ML CARP\\VIAL IV STA (11:37)
[2024-11-21] MEDS: SODIUM CHLORIDE 0.9% 500 ML IV ONE ×2 (11:45→16:52)
[2024-11-21 11:46] LABS: Alanine Aminotransferase 12.0 U/L (7-52); Albumin Level 3.4 gm/dl (3.4-5.0); Alkaline Phosphatase 213.0 U/L (34-104); Anion Gap 7.0 (3-11); Bilirubin,Total 2.1 mg/dl (0.2-1.0); Blood Urea Nitrogen 52.0 mg/dl (6-23); Calcium 8.1 mg/dl (8.6-10.3); Carbon Dioxide 25.0 mmol/L (21-32); Chloride 100.0 mmol/L (98-107); Creatinine Clr Calc Pharmacy 21.6 ml/min; Glucose 100.0 mg/dl (70-99(Fasting)); Magnesium 2.1 mg/dl (1.7-2.4); Potassium 4.8 mmol/L (3.5-5.1); Sodium 132.0 mmol/L (136-145); Total Protein 5.9 gm/dl (6.0-8.3)
[2024-11-21 11:46] LABS: Base Excess VBG -0.8 mEq/L; HCO3 VBG 25 mmol/L; Oxygen Saturation VBG < 60.0 %; PCO2 VBG 47 mmHg (38-50); PO2 VBG 33 mmHg; pH VBG 7.34 (7.36-7.41)
[2024-11-21 11:48] LABS: Ovalocytes 1+; Polychromasia 1+; Tear Drop Cells 1+
[2024-11-21 11:53] LABS: INR 1.1 (0.9-1.1); Partial Thromboplastin Time 32 Seconds (21-31); Prothrombin Time 12.3 Seconds (9.0-12.0)
--- NOTE | 2024-11-21 12:14 | XRay Report ---
EXAM: Radiograph of the Chest 1 View INDICATION: Sepsis TECHNIQUE: Frontal view of the chest. COMPARISON: 03/11/2024 FINDINGS: Lungs and pleural spaces: Grossly stable airspace consolidation in the right lung base and slight distribution of small right pleural effusion into the fissure. Underlying interstitial changes stable with superimposed ground glass infiltrate in the right upper lobe. Heart: Shape and configuration within normal limits allowing for technique. Mediastinum: Normal contour. Bones/joints: No fracture, erosion or dislocation. Soft tissues: No abnormality noted. No radiopaque foreign body noted. Upper abdomen: No abnormality noted. IMPRESSION: 1. New right upper lobe infiltrate. 2. Stable right basilar airspace consolidation with small amounts of existing pleural fluid extending into the fissure. ACT 112: N/A Electronically signed by Jaimee North 11-21-2024 12:14 PM
--- NOTE | 2024-11-21 12:30 | CT Scan Report ---
EXAM: CT Abdomen and Pelvis Without Intravenous Contrast INDICATION: Postoperative pain. TECHNIQUE: Axial computed tomography images of the abdomen and pelvis without intravenous contrast. Sagittal and coronal reformatted images were created and reviewed. This CT exam was performed using one or more of the following dose reduction techniques: automated exposure control, adjustment of the mA and/or kV according to patient size, and/or use of iterative reconstruction technique. COMPARISON: 06/13/2024 FINDINGS: Limitations: None. Lower thorax: Stable dense pericardial calcification. Watchman device in place. Coronary bypass changes noted. Increased bilateral pleural effusions right greater than left. There is dependent consolidation in the right lower and middle lobes and to a lesser degree in the left lower lobe. There are multiple clogged subsegmental airways. Heart: No abnormality noted. Mediastinum: No abnormality noted. ABDOMEN: Liver: Lack of intravenous contrast limits detection of some masses. No abnormality noted. Gallbladder and bile ducts: Postoperative fluid and probable small amounts of blood in the gallbladder fossa. No organized collection. No visible ductal stone or distention. Pancreas: No pancreatic mass, calcification, inflammation or ductal dilation noted. Spleen: The spleen is enlarged measuring 16.2 cm long and stable. Adrenals: No significant abnormality noted. Kidneys and ureters: No abnormality noted. No stones. No hydronephrosis. No significant perinephric fluid. Stomach and bowel: Moderate amounts of colonic stool present. There is extensive diverticulosis. No diverticulitis. PELVIS: Appendix: No findings to suggest acute appendicitis. Bladder: Appears normal for the degree of filling. No stones or inflammation. No large mass. Masses may not be detected in the absence of opacification. 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 ABDOMEN and PELVIS: Intraperitoneal space: There is free intraperitoneal air which is not unusual following intra-abdominal procedure. Bones/joints: No acute changes. Soft tissues: There is a right inguinal hernia containing fluid with a fluid/fluid level. Vasculature: Dense atherosclerosis of the aorta and branches noted. Lymph nodes: No pathologically enlarged lymph nodes. Tubes, lines and devices: IMPRESSION: 1. There is a small amount of probable operative contusion in the operative bed and a small amount of fluid fluid layering in the right inguinal hernia. These findings are most likely related to mildly hemorrhagic ascites which can be typical postcholecystectomy particularly if there was irrigation. 2. There is no organized or drainable collection. 3. Worsening pleural effusions with mucous plugging and significant consolidation in the right lung base. 4. Extensive diverticulosis of the colon without diverticulitis. ACT 112: N/A Electronically signed by Jaimee North 11-21-2024 12:30 PM
[2024-11-21 12:36] LABS: Influenza A virus by PCR Negative (Neg); Influenza B virus by PCR Negative (Neg); SARS CoV2 RNA(COVID-19) Ceph NEGATIVE (Negative)
[2024-11-21] MEDS: PIPERACILLIN/TAZOBACTAM 4.5 GM/100 ML BAG IV ONE (12:59)
[2024-11-21] MEDS ORDERED: VANCOMYCIN CONSULT ACTIVE PRN ×2 (14:28)
--- NOTE | 2024-11-21 15:16 | History & Physical Report ---
Date of Service November 21, 2024 Assessment & Plan (1) Acute hypoxic respiratory failure: Plan: As above in the History of Present Illness. (2) Acute kidney injury (LEEROY) with acute tubular necrosis (ATN): Plan: As above in the History of Present Illness. (3) Acute hyponatremia: Plan: As above in the History of Present Illness. (4) Cellulitis of right abdominal wall: Plan: As above in the History of Present Illness. (5) MDS (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): Plan: As above in the History of Present Illness. (6) Demand ischemia: Plan: As above in the History of Present Illness. Admission and Anticipated Discharge Date Admission Date: November 21, 2024 History of Present Illness Chief Complaint: "I was sleepy and weak this morning; my daughter Becca Aguirre ([phone]) said my oxygen level was low at 80% and my blood pressure was also low at 82/57 (11/21/2024, 9:15am). I remember having so much phlegm in my throat yesterday morning (11/20/2024, 9:00am) at [facility] and I was coughing up so much mucus and a little bit of blood in the mucus, too. I left that hospital yesterday afternoon (11/20/2024, 3:30pm) to go back home, and I was still coughing a lot of mucus up and a little bit of blood. I did not feel hot or feverish, and I was not feeling short of breath or having any chest pain. Oh, and yes, my right side of the belly where I had my gallbladder taken out on 11/19/2024 @ [facility] with General Surgeon Dr. Oneal Matthews hurts a little and it's red and swollen, too. My daughter Becca then called the ambulance and I arrived to the ER here @ [facility] around 10:00am this morning (11/21/2024)." Primary Care Provider: Osbaldo Sellers DO 89 years old right-hand dominant male with PMH of FULL CODE @ patient's daughter's home (Ms. Becca Aguirre, ), ambulatory dysfunction utilizing walker @ patient's daughter's home (Ms. Becca Aguirre, ), anxiety disorder on clonazepam 0.5mg PO qhs, GERD on protonix 40mg PO daily, former tobacco abuse with no subsequent diagnosis of COPD, not on home O2 or home steroids, CAD s/p 1 vessel CABG (1978, [facility], [place], [place]), s/p stent #1 (1979, [facility], [place], [place]), s/p stents #2 and #3 (1980, [place], [place])chronic/persistent chronic RV systolic CHF with reduced RV systolic function and preserved LVEF 60-65% (as noted on 06/15/2024 TTE, [facility] CARDS Dr. Arpan Chicas) with dry baseline weight of 151-152 pounds @ patient's daughter's home (Ms. Becca Aguirre, ), leading to chronic [id number] cirrhosis, chronic/persistent AFIB s/p Watchman procedure (2021, [facility], [place], [place]), BPH s/p TURP, on tamsulosin 0.4mg PO daily, chronic urinary incontinence on oxybutynin 5mg PO bid, CKD stage III with baseline creatinine range, 1.48-1.65 mg/dL (01/17/2024 - 11/14/2024), 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 with pancytopenia (diagnosed several years ago) on Retacrit (epoetin ilana-epbx) q2 weeks, with patient having received 2 units of packed RBC transfusion and 1 unit of platelet transfusion @ [facility] on 11/19/2024, after having undergone elective laparoscopic cho lecystectomy @ [facility] on 11/19/2024, followed by discharge back to patient's daughter's home (Ms. Becca Aguirre, ), on 11/20/2024, 3:30pm, who reports: "I was sleepy and weak this morning; my daughter Becca Aguirre ( ) said my oxygen level was low at 80% and my blood pressure was also low at 82/57 (11/21/2024, 9:15am). I remember having so much phlegm in my throat yesterday morning (11/20/2024, 9:00am) at [facility] and I was coughing up so much mucus and a little bit of blood in the mucus, too. I left that hospital yesterday afternoon (11/20/2024, 3:30pm) to go back home, and I was still coughing a lot of mucus up and a little bit of blood. I did not feel hot or feverish, and I was not feeling short of breath or having any chest pain. Oh, and yes, my right side where I had my gallbladder taken out on 11/19/2024 @ [facility] with General Surgeon Dr. Oneal Matthews hurts a little and it's red and swollen, too. My daughter Becca then called the ambulance and I arrived to the ER here @ [facility] around 10:00am this morning (11/21/2024)." Patient denies antecedent/coincident fevers, chills, diaphoresis, wheeze, sore throat, shortness of breath, dyspnea on exertion, chest pains, palpitations, pleurisy, nausea, vomiting, diarrhea, pelvic pain, hematemesis, hematochezia, melena, hematuria, dysuria, frequency, urgency, flank pain, headaches, dizziness, lightheadedness, visual changes, hearing changes, falls, syncope, trauma, travel history, sick contacts, or food/drug ingestions novel or new. All other review of systems are reported as negative by the patient on admission date 11/21/2024. In [facility] ER, patient was afebrile @ 36.7 degrees Celsius, HR 76 (irregularly irregular rhythm), RR 18, O2 sat 88% on 2 liters/minute O2 via nasal cannula, and BP 109/59 (11/21/2024, 10:39am). Exam was noted for a few specks of hemoptysis in patient's sputum. In addition, patient's RLQ was noted for 3 incisional wounds corresponding to laparoscopic cholecystectomy @ [facility] on 11/19/[address] Oneal Matthews, and from each wound radiated erythema, induration, warmth, slight tenderness, but no crepitus, fluctuance, discharge (sanguineous, serous, suppurative), malodor, ulceration, wound dehiscence, or lymphangitic streaking. Labs in [facility] ER bed #B5 included: WBC 4.56, N83 L8 M8 E1, Hb 7.6, MCV 102.1, MCHC 31.3, platelet 58 (11/21/2024, 11:06am). Procalcitonin #1 17.2 ng/mL (11/21/2024, 11:06am). Procalcitonin #2 14.7 ng/mL (11/21/2024, 2:27pm). Lactic acid #1 0.8 mmol/L (11/21/2024, 11:28am). Lactic acid #2 0.7 mmol/L (11/21/2024, 2:27pm). Influenza A- B-, RSV-, COVID- (11/21/2024, 11:06am). INR 1.1 (11/21/2024, 11:06am). VBG 7.34 / 47 / 33 / 25 / O2 sat < 60% (11/21/2024, 11:29am). Na 132, K 4.8, BUN 52, creatinine 2.21, GFR 23.5, glucose 199, Ca 8.1, albumin 3.4, Ca corrected 8.6 (11/21/2024, 11:06am). AST 14, ALT 12, ALK PHOS 213, total bilirubin 2.1, direct bilirubin 0.9, indirect bilirubin 1.2 (11/21/2024, 11:06am). Troponin-I #1 123.4 pg/mL (11/21/2024, 11:06am). Troponin-I #2 150.6 pg/mL (11/21/2024, 1:16pm). Troponin-I #3 (11/21/2024, 5:16pm). Additional testing in [facility] ER bed #B5 included: Portable CXR (11/21/2024, 10:59am): 1. New RUL infiltrate when compared to 09/08/2024, 7:35am portable CXR. 2. Stable RLL infiltrate with small amounts of existing pleural fluid extending into the fissure. 3. No cardiomegaly, pulmonary vascular congestion or pneumothorax. (by my review). CT abd/pelvis with IV contrast (11/21/2024, 11:33am): 1. Small amount of probable operative contusion in operative bed and small amount of fluid fluid layering in R inguinal hernia, most likely related to mildly hemorrhagic ascites which can be typical postcholecystectomy particularly if there was irrigation. 2. No organized or drainable collection. 3. Worsening pleural effusions with mucous plugging and significant consolidation in RLL. 4. Extensive diverticulosis of the colon without diverticulitis. EKG (11/21/2024, 11:07am): AFIB @ 71, QTC 428, no q; TWI in I, aVL, II, and V6; no acute ST depressions/elevations (by my review). EKG (10/09/2024, 2:20pm): AFIB @ 62, QTC 414, q in V1, V2; TWI in I, aVL, II, and V6; no acute ST depressions/elevations (by my review). Patient was subsequently admitted to the inpatient hospitalist service @ [facility] on 11/21/2024 with the following diagnoses: 1. Acute hypoxic respiratory failure with resting O2 saturation 80% on room air at patient's daughter's home, Ms. Becca Aguirre ( ); cf., adm itting O2 sat 88% on 2 liters/minute O2 via nasal cannula, and BP 109/59 (11/21/2024, 10:39am), due to incipient sepsis, due to acute RUL CAP. 2. Acute kidney injury with admission creatinine 2.21 mg/dL, GFR 23.5 mL/min (11/21/2024, 11:06am), superimposed on CKD stage III with baseline creatinine range, 1.48-1.65 mg/dL (01/17/2024 - 11/14/2024). 3. Acute hypovolemic hyponatremia with admission Na 132 mmol/L (11/21/2024, 11:06am), superimposed on normal baseline Na range, 136-140 mmol/L (11/14/2016 - 11/14/2024). 4. Acute RUQ cellulitis @ RUQ elective laparoscopic cholecystectomy (11/19/2024, [facility], General Surgeon Dr. Oneal Matthews) incisional sites x 3. 5. Chronic pancytopenia with admission WBC 4.56, N83 L8 M8 E1, Hb 7.6, MCV 102.1, MCHC 31.3, platelet 58 (11/21/2024, 11:06am), superimposed on baseline WBC range, 1.94 - 4.33 (11/14/2016 - 11/14/2024), baseline Hb range, 8.5 - 0.6 g/dL (07/10/2022 - 11/14/2024), baseline platelet count range, 55-72 (12/13/2016 - 11/14/2024). 6. Acute type II NSTEMI with troponin-I #1 123.4 pg/mL (11/21/2024, 11:06am), troponin-I #2 150.6 pg/mL (11/21/2024, 1:16pm). To address #1, patient was maintained on 2 liters/minute O2 via nasal cannula to maintain O2 sat > 90% at all times in this patient with a former history of tobacco abuse (e.g., smoked 1 pack of cigarettes per day for 25 years, before quitting smoking 25 years ago). Patient also received zosyn 4.5g IV x 1 dose (11/21/2024, 12:59pm) in [facility] ER bed #B5; patient will continue with cefepime 1g IV q12 (day #1/5 on 11/21/2024, 9:00pm) and vancomycin 1.5g IV x 1 dose (11/21/2024, 2:30pm) in [facility] Med-Surg bed #E307-1 as patient awaits MRSA swab testing of left nares (and not right nares, where patient has a history of exposed blood vessel prone to epistaxis if prodded/poked in the right nares) on 11/21/2024, 3:14pm). If MRSA swab testing of left nares is negative/normal, I will discontinue vancomycin. Of note, etiology of acute hypoxic respiratory failure is due to incipient sepsis, which in turn, is due to acute RUL CAP. Patient also awaits BIOFIRE respiratory pathogen panel PCR testing (11/21/2024, 3:14pm) to rule out concomitant acute viral infection(s). To address #2, patient received 1 liter of 0.9% NS @ 999 mL/hr (11/21/2024, 11:45am) in [facility] ER bed #B5; patient will continue with 1 liter of 0.9% NS @ 70 mL/hr (11/21/2024, 4:32pm), based on a delivery rate of 1 mL of 0.9% NS per kg of body weight per hour, and a body weight of 70.3 kg. I will check repeat creatinine level in the 11/22/2024 am. In the interim, I have opted to hold off patient's home-scheduled ASA 81mg PO daily, given potential for this medication to cause further renal embarrassment. Of note, etiology of acute kidney injury is due to acute tubular necrosis, which in turn, is due to incipient sepsis, which in turn, is due to acute RUL CAP. To address #3, patient received 1 liter of 0.9% NS @ 999 mL/hr (11/21/2024, 11:45am) in [facility] ER bed #B5; patient will continue with 1 liter of 0.9% NS @ 70 mL/hr (11/21/2024, 4:32pm), based on a delivery rate of 1 mL of 0.9% NS per kg of body weight per hour, and a body weight of 70.3 kg. I will check repeat Na level in the 11/22/2024 am. Of note, etiology of acute hypovolemic hyponatremia is due to acute dehydration, which in turn, is due to increased insensible losses of water vapor due to acute RUL CAP. To address #4, patient received zosyn 4.5g IV x 1 dose (11/21/2024, 12:59pm) in [facility] ER bed #B5; patient will continue with cefepime 1g IV q12 (day #1/5 on 11/21/2024, 9:00pm) and vancomycin 1.5g IV x 1 dose (11/21/2024, 2:30pm) in [facility] Med-Surg bed #E307-1 as patient awaits MRSA swab testing of left nares (and not right nares, where patient has a history of exposed blood vessel prone to epistaxis if prodded/poked in the right nares) on 11/21/2024, 3:14pm). If MRSA swab testing of left nares is negative/normal, I will discontinue vancomycin. I will check vitals, repeat RUQ incisional sites x 3, WBC w/differential, lactic acid, and procalcitonin level in the 11/22/2024 am. Of note, etiology of acute RUQ cellulitis remains unclear, but may be due to aseptic technique used to prepare RUQ site for laparoscopic cholecystectomy on 11/19/2024 @ [facility] with General Surgeon Dr. Oneal Mcneil. To address #5, patient awaits repeat CBC with differential in the 11/22/2024 am. I will reserve packed RBC transfusion for Hb level less than 7 g/dL or if patient becomes orthostatic despite Hb level > 7 g/dL. I will reserve platelet transfusion for platelet count < 10. Of note, etiology of chronic pancytopenia is due to chronic 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. To address #6, patient awaits troponin-I #3 (11/21/2024, 5:16pm). Of note, etiology of acute type II NSTEMI is due to demand ischemia, which in turn, is due to (a) incipient sepsis, which in turn, is due to acute RUL CAP; (b) acute kidney injury with admission creatinine 2.21 mg/dL, GFR 23.5 mL/min (11/21/2024, 11:06am); and (c) chronic/persistent AFIB s/p Watchman procedure (2021, [facility], [place], [place]). Hence, I have not started patient on heparin infusion or active anticoagulation with lovenox 1mg / kg SQ daily. Allergies Allergy/AdvReac Type Severity Reaction Status Date / Time doxycycline AdvReac Intermediate Vomiting Verified 11/21/24 14:09 pregabalin AdvReac Intermediate Vomiting Verified 11/21/24 14:09 Home Medications Medication Instructions Recorded Confirmed Type oxybutynin chloride 5 mg tablet 5 mg PO BID #180 tabs 02/17/24 11/21/24 Rx nitroglycerin 0.4 mg sublingual 0.4 mg sublingual Q5M PRN Chest 03/10/24 11/21/24 Rx tablet Pain #25 tabs epoetin ilana-epbx 2,000 unit/mL 0 unit IV DIRECTED PRN Anemia 05/02/24 11/21/24 History injection solution (Retacrit) hydrocortisone 2.5 % topical cream 1 applic VT DAILY PRN hemorrhoids 06/24/24 11/21/24 Rx with perineal applicator #30 grams (Proctozone-HC) aspirin 81 mg tablet,delayed 81 mg PO DAILY 09/08/24 11/21/24 History release sennosides 8.6 mg tablet (Senokot) 8.6 mg PO HS 09/08/24 11/21/24 History tamsulosin 0.4 mg capsule 0.4 mg PO HS 09/08/24 11/21/24 History silver sulfadiazine 1 % topical 0 applic topical DAILY 10/09/24 11/21/24 History cream (Silvadene) clonazepam 0.5 mg tablet 0.5 mg PO HS #30 tabs 10/30/24 11/21/24 Rx pantoprazole 40 mg tablet,delayed 40 mg PO QAM #90 tabs 11/02/24 11/21/24 Rx release pravastatin 40 mg tablet 40 mg PO HS #90 tabs 11/02/24 11/21/24 Rx oxycodone 5 mg tablet 2.5 mg (1/2 x 5 mg) PO Q8H PRN 11/14/24 11/21/24 Rx pain #6 tabs Past Med/Surg History Problem List (Updated 11/21/24 @ 17:01 by Benito Oleary MD, PhD) Demand ischemia MDS (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) Cellulitis of right abdominal wall Acute hyponatremia Acute kidney injury (LEEROY) with acute tubular necrosis (ATN) Acute hypoxic respiratory failure Pancytopenia (Acute) Post-operative pain (Acute) Hypoxia (Acute) Pneumonia (Acute) Pancytopenia (Acute) Biliary colic (Acute) Bilateral high frequency sensorineural hearing loss Recurrent epistaxis Pancytopenia (Acute) Depression Hypoxia Bilateral pleural effusion Chronic heart failure with preserved ejection fraction Chest pain Bronchitis Urethral 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 Prostate cancer Stage 3b chronic kidney disease Vitamin D deficiency Kidney disease, chronic, stage IV (GFR 15-29 ml/min) (Acute) GERD (gastroesophageal reflux disease) Peripheral vascular disease Myelodysplastic syndrome (Acute) Atherogenic dyslipidemia Benign essential hypertension Chronic diastolic heart failure Persistent atrial fibrillation Coronary artery disease s/p 2 stents in 1999 and CABG x 1 1978 Diverticulosis (Acute) Stented coronary artery TWO PER PT Hernia Medical History Acute cholecystitis NSTEMI (non-ST elevated myocardial infarction) Acute on chronic heart failure with preserved ejection fraction Acute kidney injury 08/08/22 Hx of bronchitis 10/2023 Depression Congestive heart failure Anemia blood transfusion ~06/16/24- [facility] [place] Pancytopenia Bilateral pleural effusion 05/2024 Dysphagia Acute cholecystitis 06/14/24 admitted to [facility] and transferred to [facility] History of non-ST elevation myocardial infarction (NSTEMI) 06/14/24- transferred from [facility] to [facility] [place] Elevated troponin 06/14/24 SOB (shortness of breath) History of recent blood transfusion 05/2024 [facility] [place] Kidney disease, chronic, stage IV (GFR 15-29 ml/min) Diverticulosis CAD (coronary artery disease) s/p 2 stents in 1999 and CABG x 1 1978 Chronic diastolic heart failure HTN (hypertension) Dyslipidemia PVD (peripheral vascular disease) Chronic cough History of Mohs micrographic surgery for skin cancer nose History of skin cancer Presence of Watchman left atrial appendage closure device (2020) Atrial fibrillation follows w/ Dr Shravan Huerta Hx of brachytherapy initial tx for prostate ca Hyperlipidemia GERD (gastroesophageal reflux disease) MDS (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) 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 [place]; x2 stents; f/u shravan huerta History of cardiac cath ~2000, [place], [place]; x2 stents; f/u shravan deanna S/P TURP Family History (Updated 11/21/24 @ 16:48 by Benito Oleary MD, PhD) Father , at 91 years of age from natural causes. Heart disease Hypertension Mother , Diet at 90 years of age from natural causes. Seizure Denies family history of Ovarian cancer Prostate cancer Myocardial infarction Breast cancer Colorectal cancer Social History (Updated 11/21/24 @ 16:56 by Benito Oleary MD, PhD) Smoking Status: Former smoker Tobacco Type: Cigarettes Age Started Using Tobacco: 26; Age Quit Using Tobacco: 61; packs per day: 1; Cigarettes Per Day: 20; Second Hand Exposure: No; Do You Dip or Chew Tobacco: No; Hx Alcohol Use: Yes Alcohol type: beer and wine Alcohol Intake Frequency: Monthly or Less Hx Substance Use: No Preferred Language: Slovak Communication Ability: Impaired Communication Ability Comment: short term memory impairment; can answer yes/no questions appropriately Visual Impairment: No Limitations 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 How many Children do You have: 3 How many Children do You have Comment: 3 daughters, all alive and well other: [employer], [facility]. Feels Safe at Home: Yes Childhood Exposure to Second-Hand Smoke: No Diet: regular caffeine: Yes during the past year weight has: remained stable Dental Care, Regularly: No Physical Activity Frequency: Does not Exercise Seatbelt Use: always Sunscreen Use: Yes Assistive Devices: Denture - Upper, Denture - Lower and Walker Review of Systems Review of Systems: As above in the History of Present Illness. Physical Exam Constitutional: General: Comfortable, cooperative, coherent. Wide awake and alert. Not confused, lethargic, or obtunded. Patient speaks in complete, fluent, and articulate sentences without pause, interruption, cough, or wheeze. HEENT: Normocephalic, atraumatic. Extra-ocular muscles intact. Pupils equally round and reactive to light. No nystagmus, gaze paresis, anisocoria, miosis, mydriasis, hyphema, chemosis, scleral injection, conjunctivitis, or pterygium. No otorrhea or rhinorrhea. No pharyngeal discharge or exudate. Neck: Supple, no stridor or bruit. Jugular venous pressure is estimated to be 3 cm above the sternal angle of Ronald, which is, by definition, 5 cm above the level of the right atrium. Hence, jugular venous pressure of 8 cm is not elevated on admission date 11/21/2024. Lymphatics: No anterior/posterior cervical, infraclavicular, supraclavicular, axillary, epitrochlear, or inguinal adenopathy. Chest: Symmetric rise and fall with respirations. Non-tender to palpation. Few specks of hemoptysis in patient's sputum. Lungs: Clear to auscultation and percussion. No audible expiratory wheeze, egophony, pectoriloquy, increase in tactile fremitus, or flatness/dullness to percussion at the bases. Heart: Regular rate. Irregularly irregular rhythm. S1 and S2 noted. No S3 or S4 summation gallop. No tripartite friction rub. Grade II/ early systolic murmur at left lower sternal border without radiation to the carotids, axilla, or back, and which remains invariant in regards to the respiratory cycle. Abdomen: Soft, non-distended. RLQ noted for 3 incisional wounds corresponding to laparoscopic cholecystectomy @ [facility] on 11/19/[address] Oneal Matthews, and from each wound radiated erythema, induration, warmth, slight tenderness, but no crepitus, fluctuance, discharge (sanguineous, serous, suppurative), malodor, ulceration, wound dehiscence, or lymphangitic streaking. No rebound, guarding, Frost's sign, or organomegaly. Bowel sounds auscultated in all 4 quadrants. Extremities: No clubbing, cyanosis, or edema. 2+ pedal pulses bilaterally. Skin: No decubitus ulcer or enanthem. Exanthem as noted in abdominal exam above. Urology: No grimes catheter. No purewick. No urethral discharge. Neurology: Alert and oriented in regards to person, place, time, and situation. DTR+. 5/5 motor strength in all 4 extremities, both proximally and distally. Psychiatry: No flat affect. No monotone voice. Smiles appropriately. Results & Data Results & Data Vital Signs (Past 12 Hours) Vital Signs Temp Pulse Pulse Resp BP BP Pulse Ox 11/21/24 14:50 11/21/24 14:41 68 14 100/57 L 95 11/21/24 13:40 64 18 105/50 L 98 11/21/24 13:06 62 21 98 11/21/24 13:00 92/57 L 11/21/24 12:57 66 17 95 11/21/24 12:54 69 16 92/57 L 96 11/21/24 12:30 104/56 L 11/21/24 12:30 104/56 L 11/21/24 12:18 103/53 L 11/21/24 12:18 103/53 L 11/21/24 12:12 64 15 98 11/21/24 12:10 67 11/21/24 11:54 64 20 98 11/21/24 11:48 89 18 94 11/21/24 11:39 72 18 97 11/21/24 11:30 96/52 L 11/21/24 11:30 96/52 L 11/21/24 11:27 70 27 H 97 11/21/24 11:18 65 15 98 11/21/24 11:14 70 18 100/55 L 97 11/21/24 11:09 76 20 99 11/21/24 11:00 100/55 L 11/21/24 10:59 16 11/21/24 10:59 98 11/21/24 10:54 16 11/21/24 10:54 88 L 11/21/24 10:39 36.7 C 76 18 109/59 L 88 L O2 Del Method O2 Flow Rate 11/21/24 14:50 Nasal Cannula 2 11/21/24 14:41 Nasal Cannula 2 11/21/24 13:40 Nasal Cannula 2 11/21/24 13:06 11/21/24 13:00 11/21/24 12:57 11/21/24 12:54 Nasal Cannula 2 11/21/24 12:30 11/21/24 12:30 11/21/24 12:18 11/21/24 12:18 11/21/24 12:12 11/21/24 12:10 11/21/24 11:54 11/21/24 11:48 11/21/24 11:39 11/21/24 11:30 11/21/24 11:30 11/21/24 11:27 11/21/24 11:18 11/21/24 11:14 Nasal Cannula 2 11/21/24 11:09 11/21/24 11:00 11/21/24 10:59 11/21/24 10:59 Nasal Cannula 2 11/21/24 10:54 11/21/24 10:54 Room Air, Nasal Cannula 0 11/21/24 10:39 Room Air 2 Laboratory Results As above in the History of Present Illness. Diagnostic Findings As above in the History of Present Illness. Code Status & VTE Plan VTE Prophylaxis Plan VTE Prophylaxis will be ordered: No Reason for no VTE drug order: Contraindicated and Treatment not tolerated PG Care Time/CCT Total # of Minutes Spent Total Time Spent with Patient: Total time spent is greater than 50% in coordination of care (as documented) at patient's floor/unit and/or counseling patient: Coding Level of Care Code 83737 INT INP/OBS CARE 3/75MIN Diagnoses Acute hypoxic respiratory failure J96.01 Acute kidney injury (LEEROY) with acute tubular necrosis (ATN) N17.0 Acute hyponatremia E87.1 Cellulitis of right abdominal wall L03.311 MDS (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) D46.9 Demand ischemia I24.89
[2024-11-21] MEDS: CEFEPIME 1000MG 1,000 MG/10 ML SYR IV SCH ×2 (16:24→21:32)
--- NOTE | 2024-11-21 16:37 | Pharmacy Report ---
Pharmacy PK ABX Note - Date of Service November 21, 2024 - Assessment and Plan Assessment 89 year old M receiving vancomycin and cefepime for treatment of pulmonary infection. Recent lap cholecystectomy on 11/19. Blood cultures pending. MRSA nasal (-). (+) acute on chronic kidney injury (SCr 2.21, baseline ~ 1.6mg/dL). Day #1 of antimicrobial therapy. Plan Vancomycin * Loading dose: 1500 mg IV x 1 * Given elevated SCr, will obtain a random level in the AM to guide further dosing Pharmacy will continue to follow and will adjust dose/frequency as necessary. Thank you. Pharmacy has transitioned to AUC monitoring for vancomycin. AUC/SHAHANA is the pr eferred PK/PD target and is associated with decreased risk of nephrotoxicity compared to traditional trough targets.
[2024-11-21] MEDS: TAMSULOSIN HCL 0.4 MG CAP PO ONE (16:38)
[2024-11-21] MEDS: VANCOMYCIN HCL 1,500 MG in SODIUM CHLORIDE 0.9% 500 ML IV ONE (16:52)
[2024-11-21 19:09] LABS: Chlamydia pneumoniae PCR Not Detected (NotDetected); Coronavirus 229E PCR Not Detected (NotDetected); Coronavirus CoV-2 (COVID19)PCR Not Detected (NotDetected); Coronavirus HKU1 PCR Not Detected (NotDetected); Coronavirus NL63 PCR Not Detected (NotDetected); Coronavirus OC43PCR Not Detected (NotDetected); Human Metapneumovirus PCR Not Detected (NotDetected); Parainfluenza Virus 1 PCR Not Detected (NotDetected); Parainfluenza Virus 2 PCR Not Detected (NotDetected); Parainfluenza Virus 3 PCR Not Detected (NotDetected); Parainfluenza Virus 4 PCR Not Detected (NotDetected); Respiratory Syncytial VirusPCR Not Detected (NotDetected); Rhinovirus/Enterovirus PCR Not Detected (NotDetected)
[2024-11-21] MEDS: ACETAMINOPHEN 325 MG TAB PO PRN (19:50)
[2024-11-21] MEDS: TAMSULOSIN HCL 0.4 MG CAP PO SCH (21:32)
[2024-11-21] MEDS: clonazePAM 0.5 MG TAB PO SCH (21:32)
[2024-11-22 06:19] LABS: Hematocrit (blood only) 23.1 % (42.0-52.0); Hemoglobin 7.4 g/dl (14.0-18.0); Immature Granulocytes # (auto) 0.03 K/uL (0.01-0.20); Immature Granulocytes % (auto) 0.9 %; Mean Corpuscular Hemoglobin 32.6 pg (25.0-34.0); Mean Corpuscular Volume 101.8 fL (80.0-100.0); Platelet Count 58 K/uL (130-400); RDW Standard Deviation 67.4 fL (36.4-46.3); Red Blood Count 2.27 M/uL (4.70-6.10); White Blood Count 3.41 K/ul (4.8-10.8)
[2024-11-22 06:35] LABS: Alanine Aminotransferase 8.0 U/L (7-52); Albumin Globulin Ratio 1.3 (0.9-2); Albumin Level 3.1 gm/dl (3.4-5.0); Alkaline Phosphatase 204.0 U/L (34-104); Anion Gap 6.0 (3-11); Bilirubin,Total 1.6 mg/dl (0.2-1.0); Blood Urea Nitrogen 48.0 mg/dl (6-23); Calcium 7.9 mg/dl (8.6-10.3); Carbon Dioxide 24.0 mmol/L (21-32); Chloride 103.0 mmol/L (98-107); Creatinine Clr Calc Pharmacy 23.8 ml/min; Globulin 2.4 gm/dl (2.5-4.0); Glucose 91.0 mg/dl (70-99(Fasting)); Potassium 4.7 mmol/L (3.5-5.1); Sodium 133.0 mmol/L (136-145); Total Protein 5.5 gm/dl (6.0-8.3)
[2024-11-22 06:48] LABS: RBC Morphology Unremarkable
[2024-11-22] MEDS: ASPIRIN 81 MG ECTAB PO SCH (08:56)
[2024-11-22 09:24] LABS: Appearance Urine Clear (Clear); Glucose Urine UA Negative (Negative)
[2024-11-22] MEDS: VANCOMYCIN 750 MG in SODIUM CHLORIDE 0.9% 250 ML IV SCH (09:38)
--- NOTE | 2024-11-22 11:07 | Pharmacy Report ---
Pharmacy PK ABX Note - Date of Service November 22, 2024 - Assessment and Plan Assessment 11/22: Day #2 vancomycin + cefepime. Blood cultures pending. MRSA nasal (-). SCr 2.21--> 2.01. Random vancomycin level this AM (~13h level), 12.4mcg/mL. 11/21: 89 year old M receiving vancomycin and cefepime for treatment of pulmonary infection. Recent lap cholecystectomy on 11/19. Blood cultures pending. MRSA nasal (-). (+) acute on chronic kidney injury (SCr 2.21, baseline ~ 1.6mg/dL). Day #1 of antimicrobial therapy. Plan Vancomycin * S/p vancomycin 1500mg IV X 1 * Random level this AM, 12.4mcg/mL - therapeutic and safe to re-dose. SCr still elevated from baseline although downtrending. Will begin vancomycin 750mg IV q24h with close monitoring of renal function. * Repeat level tomorrow AM given therapeutic level today and LEEROY on CKD. Pharmacy will continue to follow and will adjust dose/frequency as necessary. Thank you. Pharmacy has transitioned to AUC monitoring for vancomycin. AUC/SHAHANA is the preferred PK/PD target and is associated with decreased risk of nephrotoxicity compared to traditional trough targets.
[2024-11-22] MEDS ORDERED: SODIUM CHLORIDE 0.9% 100 ML IV PRN ×2 (12:24→13:21)
--- NOTE | 2024-11-22 19:14 | Hospitalist Progress Note ---
Date of Service November 22, 2024 Assessment & Plan (1) Acute hypoxic respiratory failure: Plan: As discussed below in Plan. (2) Acute kidney injury (LEEROY) with acute tubular necrosis (ATN): Plan: As discussed below in Plan. (3) Acute hyponatremia: Plan: As discussed below in Plan. (4) Cellulitis of right abdominal wall: Plan: As discussed below in Plan. (5) MDS (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): Plan: As discussed below in Plan. (6) Demand ischemia: Plan: As discussed below in Plan. Plan 89 years old right-hand dominant male with PMH of FULL CODE @ patient's daughter's home (Ms. Becca Aguirre, ), ambulatory dysfunction utilizing walker @ patient's daughter's home (Ms. Becca Aguirre, ), anxiety disorder on clonazepam 0.5mg PO qhs, GERD on protonix 40mg PO daily, former tobacco abuse with no subsequent diagnosis of COPD, not on home O2 or home steroids, CAD s/p 1 vessel CABG (1978, [facility], [place], [place]), s/p stent #1 (1979, [facility], [place], [place]), s/p stents #2 and #3 (1980, [place], [place])chronic/persistent chronic RV systolic CHF with reduced RV systolic function and preserved LVEF 60-65% (as noted on 06/15/2024 TTE, [facility] CARDS Dr. Arpan Chicas) with dry baseline weight of 151-152 pounds @ patient's daughter's home (Ms. 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 on 11/19/2024, after having undergone elective laparoscopic cholecystectomy @ [facility] on 11/19/2024, followed by discharge back to patient's daughter's home (Ms. Becca Aguirre, ), on 11/20/2024, 3:30pm, who reports: "I was sleepy and weak this morning; my daughter Becca Aguirre ( ) said my oxygen level was low at 80% and my blood pressure was also low at 82/57 (11/21/2024, 9:15am). I remember having so much phlegm in my throat yesterday morning (11/20/2024, 9:00am) at [facility] and I was coughing up so much mucus and a little bit of blood in the mucus, too. I left that hospital yesterday afternoon (11/20/2024, 3:30pm) to go back home, and I was still coughing a lot of mucus up and a little bit of blood. I did not feel hot or feverish, and I was not feeling short of breath or having any chest pain. Oh, and yes, my right side where I had my gallbladder taken out on 11/19/[address] [facility] with General Surgeon Dr. Oneal Matthews hurts a little and it's red and swollen, too. My daughter Becca then called the ambulance and I arrived to the ER here @ [facility] around 10:00am this morning (11/21/2024)." Patient was subsequently admitted to the inpatient hospitalist service @ [facility] on 11/21/2024 with the following diagnoses: 1. Acute hypoxic respiratory failure with resting O2 saturation 80% on room air at patient's daughter's home, Ms. Becca Aguirre ( ); cf., admitting O2 sat 88% on 2 liters/minute O2 via nasal cannula, and BP 109/59 (11/21/2024, 10:39am), due to incipient sepsis, due to acute RUL CAP. 2. Acute kidney injury with admission creatinine 2.21 mg/dL, GFR 23.5 mL/min (11/21/2024, 11:06am), superimposed on CKD stage III with baseline creatinine range, 1.48-1.65 mg/dL (01/17/2024 - 11/14/2024). 3. Acute hypovolemic hyponatremia with admission Na 132 mmol/L (11/21/2024, 11:06am), superimposed on normal baseline Na range, 136-140 mmol/L (11/14/2016 - 11/14/2024). 4. Acute RUQ cellulitis @ RUQ elective laparoscopic cholecystectomy (11/19/2024, [facility], General Surgeon Dr. Oneal Matthews) incisional sites x 3. 5. Chronic pancytopenia with admission WBC 4.56, N83 L8 M8 E1, Hb 7.6, MCV 102.1, MCHC 31.3, platelet 58 (11/21/2024, 11:06am), superimposed on baseline WBC range, 1.94 - 4.33 (11/14/2016 - 11/14/2024), baseline Hb range, 8.5 - 0.6 g/dL (07/10/2022 - 11/14/2024), baseline platelet count range, 55-72 (12/13/2016 - 11/14/2024). 6. Acute type II NSTEMI with troponin-I #1 123.4 pg/mL (11/21/2024, 11:06am), troponin-I #2 150.6 pg/mL (11/21/2024, 1:16pm). To address #1, patient was maintained on 2 liters/minute O2 via nasal cannula to maintain O2 sat > 90% at all times in this patient with a former history of tobacco abuse (e.g., smoked 1 pack of cigarettes per day for 25 years, before quitting smoking 25 years ago). Patient also received zosyn 4.5g IV x 1 dose (11/21/2024, 12:59pm) in [facility] ER bed #B5; patient will continue with cefepime 1g IV q12 (day #1/5 on 11/21/2024, 9:00pm) and vancomycin 1.5g IV x 1 dose (11/21/2024, 4:52pm) in [facility] MedSurg bed #E307-1, followed by vancomycin 750mg IV x 1 dose (11/22/2024, 9:38am) in [facility] MedSurg bed #E307-1. Of note, etiology of acute hypoxic respiratory failure is due to incipient sepsis, which in turn, is due to acute RUL CAP. Of final note, DLSE respiratory pathogen panel PCR testing (11/21/2024, 3:14pm) ruled out concomitant acute viral infection(s) involving adenovirus, coronaviruses OC43, HKU1, 229E, NL 63, Covid, human metapneumovirus, influenza A/B, parainfluenza 1,2,3,4, RSV, and enterovirus/rhinovirus. To address #2, patient received 1 liter of 0.9% NS @ 999 mL/hr (11/21/2024, 11:45am) in [facility] ER bed #B5; patient received 500 mL of 0.9% NS @ 70 mL/hr (11/21/2024, 4:52pm), based on a delivery rate of 1 mL of 0.9% NS per kg of body weight per hour, and a body weight of 70.3 kg. Patient will continue with 1 liter of 0.9% NS @ 70 mL/hr (11[facility]22/2024, 7:03pm[facility] I will check repeat creatinine level in the 11/23/2024 am. In the interim, I have opted to hold off patient's home-scheduled ASA 81mg PO daily, given potential for this medication to cause further renal embarrassment. Of note, etiology of acute kidney injury is due to (a) acute tubular necrosis, which in turn, is due to incipient sepsis, which in turn, is due to acute RUL CAP, and/or (b) chronic anemia due to chronic 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. To address #3, patient received 1 liter of 0.9% NS @ 999 mL/hr (11/21/2024, 11:45am) in [facility] ER bed #B5; patient received 500 mL of 0.9% NS @ 70 mL/hr (11/21/2024, 4:52pm), based on a delivery rate of 1 mL of 0.9% NS per kg of body weight per hour, and a body weight of 70.3 kg. Patient will continue with 1 liter of 0.9% NS @ 70 mL/hr (11/22/2024, 7:03pm) in [facility] Med-Surg bed #E307-1. I will check repeat Na level in the 11/23/2024 am. Of note, etiology of acute hypovolemic hyponatremia is due to acute dehydration, which in turn, is due to increased insensible losses of water vapor due to acute RUL CAP. To address #4, patient received zosyn 4.5g IV x 1 dose (11/21/2024, 12:59pm) in [facility] ER bed #B5; patient will continue with cefepime 1g IV q12 (day #1/5 on 11/21/2024, 9:00pm) and vancomycin 1.5g IV x 1 dose (11/21/2024, 4:52pm) in [facility] Med-Surg bed #E307-1, followed by vancomycin 750mg IV x 1 dose (11/22/2024, 9:38am) in [facility] Med-Surg bed #E307-1. I will check vitals, repeat RUQ incisional sites x 3, WBC w/differential, lactic acid, and procalcitonin level in the 11/23/2024 am. Of note, etiology of acute RUQ cellulitis remains unclear, but may be due to aseptic technique used to prepare RUQ site for laparoscopic cholecystectomy on 11/19/[address] [facility] with General Surgeon Dr. Oneal Mcneil. To address #5, patient awaits repeat CBC with differential in the 11/23/2024 am. Despite patient's Hb level being greater than 7.0 g/dL on admission date 11/21/2024 and on current date 11/22/2024, patient's anemia, due to chronic 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 is contributing to patient's acute kidney injury. In addition, patient's [facility] Heme-Onc Dr. Enrrique Mendoza has recommended that patient maintain Hb levels greater than 8.0 g/dL at all times in order to mitigate asthenia. Hence, I have opted to transfuse 1 unit of packed RBC on 11/22/2024, and I will check repeat Hb level in the 11/23/2024 am. In addition, I will reserve platelet transfusion for platelet count < 10. Of note, etiology of chronic pancytopenia is due to chronic 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. To address #6, patient is being observed without further evaluation or intervention. Of note, etiology of acute type II NSTEMI is due to demand ischemia, which in turn, is due to (a) incipient sepsis, which in turn, is due to acute RUL CAP; (b) acute kidney injury with admission creatinine 2.21 mg/dL, GFR 23.5 mL/min (11/21/2024, 11:06am); and (c) chronic/persistent AFIB s/p Watchman procedure (2021, [place], [place]). Hence, I have not started patient on heparin infusion or active anticoagulation with lovenox 1mg / kg SQ daily. Instead, I have opted to observe this laboratory phenomenon. Admission and Anticipated Discharge Date Admission Date: November 21, 2024 Subjective "I feel 50% better today (11/22/2024), then when I saw you yesterday (11/21/2024) in the ER. It still hurts a little on my right side where I had the gallbladder surgery, and the redness is still there a little. Can I go home tomorrow?" Review of Systems Constitutional: Positive for cough productive of clear phlegm with flecks/specks of bright red blood. Negative for antecedent/coincident fevers, chills, diaphoresis, wheeze, sore throat, shortness of breath, dyspnea on exertion, chest pains, palpitations, pleurisy, nausea, vomiting, diarrhea, abdominal pain, pelvic pain, hematemesis, hematochezia, melena, hematuria, dysuria, frequency, urgency, headaches, dizziness, lightheadedness, visual changes, hearing changes, weakness, falls, syncope, trauma, travel history, sick contacts, or food/drug ingestions novel or new. All other review of systems are reported as negative by the patient on 11/22/2024. Physical Exam Constitutional: General: Comfortable, cooperative, coherent. Wide awake and alert. Not confused, lethargic, or obtunded. Patient speaks in complete, fluent, and articulate sentences without pause, interruption, cough, or wheeze. HEENT: Normocephalic, atraumatic. Extra-ocular muscles intact. Pupils equally round and reactive to light. No nystagmus, gaze paresis, anisocoria, miosis, mydriasis, hyphema, chemosis, scleral injection, conjunctivitis, or pterygium. No otorrhea or rhinorrhea. No pharyngeal discharge or exudate. Neck: Supple, no stridor or bruit. Jugular venous pressure is estimated to be 3 cm above the sternal angle of Ronald, which is, by definition, 5 cm above the level of the right atrium. Hence, jugular venous pressure of 8 cm is not elevated on admission date 11/21/2024. Lymphatics: No anterior/posterior cervical, infraclavicular, supraclavicular, axillary, epitrochlear, or inguinal adenopathy. Chest: Symmetric rise and fall with respirations. Non-tender to palpation. Few specks of hemoptysis in patient's sputum. Lungs: Clear to auscultation and percussion. No audible expiratory wheeze, egophony, pectoriloquy, increase in tactile fremitus, or flatness/dullness to percussion at the bases. Heart: Regular rate. Irregularly irregular rhythm. S1 and S2 noted. No S3 or S4 summation gallop. No tripartite friction rub. Grade II/ early systolic murmur at left lower sternal border without radiation to the carotids, axilla, or back, and which remains invariant in regards to the respiratory cycle. Abdomen: Soft, non-distended. RLQ noted for 3 incisional wounds corresponding to laparoscopic cholecystectomy @ [facility] on 11/19/[address] Oneal Matthews, and from each wound radiated erythema (occupying a rectangular area of approximately 9 cm x 12cm overall), induration, warmth, slight tenderness, but no crepitus, fluctuance, discharge (sanguineous, serous, suppurative), malodor, ulceration, wound dehiscence, or lymphangitic streaking on 11/21/2024 admission exam. cf., 11/22/2024 exam with slight ecchy mosis extending in 2 places beyond the demarcation line drawn by me on 11/21/2024 admission exam. Otherwise, patient's 11/21/2024 admission exam regarding the exanthem appears the same on patient's 11/22/2024 exam. No rebound, guarding, Frost's sign, or organomegaly. Bowel sounds auscultated in all 4 quadrants. Extremities: No clubbing, cyanosis, or edema. 2+ pedal pulses bilaterally. Skin: No decubitus ulcer or enanthem. Exanthem as noted in abdominal exam above. Urology: No grimes catheter. No purewick. No urethral discharge. Neurology: Alert and oriented in regards to person, place, time, and situation. DTR+. 5/5 motor strength in all 4 extremities, both proximally and distally. Psychiatry: No flat affect. No monotone voice. Smiles appropriately. Results & Data Results & Data Vital Signs (Past 12 Hours) Vital Signs Temp Pulse Pulse Resp BP BP BP 11/22/24 17:39 36.8 C 61 16 108/58 L 11/22/24 17:10 36.6 C 70 18 111/55 L 11/22/24 16:10 36.7 C 57 L 18 108/50 L 11/22/24 15:45 36.8 C 65 16 114/62 11/22/24 15:40 36.8 C 67 16 114/62 11/22/24 15:10 36.7 C 63 16 103/62 11/22/24 14:52 36.8 C 59 L 16 107/56 L 11/22/24 08:54 11/22/24 07:21 36.6 C 62 18 92/51 L Pulse Ox O2 Del Method O2 Flow Rate 11/22/24 17:39 93 11/22/24 17:10 94 11/22/24 16:10 94 11/22/24 15:45 97 Room Air 11/22/24 15:40 97 11/22/24 15:10 100 1 11/22/24 14:52 100 2 11/22/24 08:54 Nasal Cannula 2 11/22/24 07:21 98 Nasal Cannula 2 Laboratory Results WBC 4.56, N83 L8 M8 E1, Hb 7.6, MCV 102.1, MCHC 31.3, platelet 58 (11/21/2024, 11:06am). WBC 3.41, N82 L9 M6 E2, Hb 7.4, MCV 101.8, MCHC 32.0, platelet 58 (11/22/2024, 5:58am). Procalcitonin #1 17.2 ng/mL (11/21/2024, 11:06am). Procalcitonin #2 14.7 ng/mL (11/21/2024, 2:27pm). Procalcitonin #3 13.6 ng/mL (11/22/2024, 5:58am). Lactic acid #1 0.8 mmol/L (11/21/2024, 11:28am). Lactic acid #2 0.7 mmol/L (11/21/2024, 2:27pm). Lactic acid #3 0.5 mmol/L (11/22/2024, 5:58am). Blood culture #1 (11/21/2024, 11:06am): Blood culture #2 (11/22/2024, 11:29am): Influenza A- B-, RSV-, COVID- (11/21/2024, 11:06am). INR 1.1 (11/21/2024, 11:06am). VBG 7.34 / 47 / 33 / 25 / O2 sat < 60% (11/21/2024, 11:29am). Na 132, K 4.8, BUN 52, creatinine 2.21, GFR 23.5, glucose 199, Ca 8.1, albumin 3.4, Ca corrected 8.6 (11/21/2024, 11:06am). Na 133, K 4.7, BUN 48, creatinine 2.01, GFR 31.3, glucose 91, Ca 7.9, albumin 3.1, Ca corrected 8.6 (11/22/2024, 5:58am). AST 14, ALT 12, ALK PHOS 213, total bilirubin 2.1, direct bilirubin 0.9, indirect bilirubin 1.2 (11/21/2024, 11:06am). AST 11, ALT 8, ALK PHOS 204, total bilirubin 1.6 (11/22/2024, 5:58am). Troponin-I #1 123.4 pg/mL (11/21/2024, 11:06am). Troponin-I #2 150.6 pg/mL (11/21/2024, 1:16pm). Troponin-I #3 156.2 pg/mL (11/21/2024, 4:54pm). Diagnostic Findings Portable CXR (11/21/2024, 10:59am): 1. New RUL infiltrate when compared to 09/08/2024, 7:35am portable CXR. 2. Stable RLL infiltrate with small amounts of existing pleural fluid extending into the fissure. 3. No cardiomegaly, pulmonary vascular congestion or pneumothorax. (by my review). CT abd/pelvis with IV contrast (11/21/2024, 11:33am): 1. Small amount of probable operative contusion in operative bed and small amount of fluid fluid layering in R inguinal hernia, most likely related to mildly hemorrhagic ascites which can be typical postcholecystectomy particularly if there was irrigation. 2. No organized or drainable collection. 3. Worsening pleural effusions with mucous plugging and significant consolidation in RLL. 4. Extensive diverticulosis of the colon without diverticulitis. EKG (11/21/2024, 11:07am): AFIB @ 71, QTC 428, no q; TWI in I, aVL, II, and V6; no acute ST depressions/elevations (by my review). EKG (10/09/2024, 2:20pm): AFIB @ 62, QTC 414, q in V1, V2; TWI in I, aVL, II, and V6; no acute ST depressions/elevations (by my review). PG Care Time/CCT Total # of Minutes Spent Total Time Spent with Patient: Total time spent is greater than 50% in coordination of care (as documented) at patient's floor/unit and/or counseling patient: Coding Level of Care Code 49200 SUB INP/OBS CARE 3/50MIN Diagnoses Acute hypoxic respiratory failure J96.01 Acute kidney injury (LEEROY) with acute tubular necrosis (ATN) N17.0 Acute hyponatremia E87.1 Cellulitis of right abdominal wall L03.311 MDS (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) D46.9 Demand ischemia I24.89
[2024-11-22] MEDS: SODIUM CHLORIDE 0.9% 1,000 ML IV ONE (21:27)
[2024-11-23 05:18] LABS: Hematocrit (blood only) 24.3 % (42.0-52.0); Hemoglobin 7.8 g/dl (14.0-18.0); Immature Granulocytes # (auto) 0.02 K/uL (0.01-0.20); Immature Granulocytes % (auto) 0.6 %; Mean Corpuscular Hemoglobin 32.4 pg (25.0-34.0); Mean Corpuscular Volume 100.8 fL (80.0-100.0); Platelet Count 68 K/uL (130-400); RDW Standard Deviation 68.4 fL (36.4-46.3); Red Blood Count 2.41 M/uL (4.70-6.10); White Blood Count 3.53 K/ul (4.8-10.8)
[2024-11-23 05:34] LABS: Anion Gap 5.0 (3-11); Blood Urea Nitrogen 41.0 mg/dl (6-23); Calcium 7.9 mg/dl (8.6-10.3); Carbon Dioxide 23.0 mmol/L (21-32); Chloride 105.0 mmol/L (98-107); Creatinine Clr Calc Pharmacy 27.3 ml/min; Glucose 94.0 mg/dl (70-99(Fasting)); Potassium 4.5 mmol/L (3.5-5.1); Sodium 133.0 mmol/L (136-145)
[2024-11-23 05:40] LABS: Polychromasia 2+
--- NOTE | 2024-11-23 06:14 | Electrocardiogram Report ---
Test Reason : Blood Pressure : */* mmHG Vent. Rate : 71 BPM Atrial Rate : * BPM P-R Int : * ms QRS Dur : 90 ms QT Int : 394 ms P-R-T Axes : * 12 166 degrees QTcB Int : 428 ms Atrial fibrillation Anterior infarct (cited on or before 09-Oct-2024) Abnormal ECG When compared with ECG of 09-Oct-2024 14:20, Inverted T waves have replaced nonspecific T wave abnormality in Lateral leads Confirmed by Ilya Coffman ([id number]) on 11/23/2024 6:14:03 AM Referred By: REFERRED SELF Confirmed By: Ilya Coffman
[2024-11-23] MEDS: VANCOMYCIN LEVEL ONE (07:15)
[2024-11-23] MEDS: SENNA 8.6 MG TAB PO SCH (08:27)
[2024-11-23] MEDS: busPIRone 5 MG TAB PO PRN (09:40)
--- NOTE | 2024-11-23 10:21 | Pharmacy Report ---
Pharmacy PK ABX Note - Date of Service November 23, 2024 - Assessment and Plan Assessment 11/23: Day #3 vancomycin and cefepime * Vanco level drawn this morning was 13.3mcg/mL which extrapolates to an AUC in the goal range. To continue current vancomycin regimen. * Blood cultures from 11/21 are no growth to day. * SCr (1.75) and procalcitonin (9.8)are still elevated today, but both are improving. No leukocytosis and afebrile since admit. 11/22: Day #2 vancomycin + cefepime. Blood cultures pending. MRSA nasal (-). SCr 2.21--> 2.01. Random vancomycin level this AM (~13h level), 12.4mcg/mL. 11/21: 89 year old M receiving vancomycin and cefepime for treatment of pulmonary infection. Recent lap cholecystectomy on 11/19. Blood cultures pending. MRSA nasal (-). (+) acute on chronic kidney injury (SCr 2.21, baseline ~ 1.6mg/dL). Plan Vancomycin * Vanco level drawn this morning was 13.3mcg/mL which extrapolates to an AUC of 515 mg/L.hr * Continue maintenance dose of vancomycin 750mg IV q24h with continued close monitoring of renal function. * Will obtain another vancomycin level in the next few days or as clinically necessary. Pharmacy will continue to follow and will adjust dose/frequency as necessary. Thank you. Pharmacy has transitioned to AUC monitoring for vancomycin. AUC/SHAHANA is the preferred PK/PD target and is associated with decreased risk of nephrotoxicity compared to traditional trough targets.
--- NOTE | 2024-11-23 10:57 | Ultrasound Report ---
ABDOMINAL ULTRASOUND, RIGHT UPPER QUADRANT HISTORY: Acute right upper quadrant abdominal pain status post recent cholecystectomy Eval for post-o p RUQ abdominal wall hematoma.. COMPARISON: CT 11/21/2024 FINDINGS: Pancreas: The pancreas demonstrates a normal echotexture, partially obscured by bowel gas. Liver: 19 cm in length with mildly increased parenchymal echogenicity suggestive of mild hepatic stea tosis. No liver lesion identified. Gallbladder: Cholecystectomy. Trace fluid and air again noted within the gretel hepatis. No drainable fluid collection is seen. CBD: 9 mm. No choledocholithiasis identified on this exam. Right pleural effusion again seen. IMPRESSION: 1. Status post cholecystectomy with trace air and fluid again noted within the gretel hepatis, similar to the CT study from 11/21/2024. 2. No drainable fluid collection. 3. Right pleural effusion redemonstrated. ACT 112: Negative or not required by law. Electronically signed by: Rd Peoples M.D. 11/23/2024 10:56 AM
[2024-11-23] MEDS: DOCUSATE SODIUM 100 MG CAP PO SCH (12:24)
--- NOTE | 2024-11-23 20:50 | Hospitalist Progress Note ---
Date of Service November 23, 2024 Assessment & Plan (1) Acute hypoxic respiratory failure: Plan: As discussed below in Plan. (2) Acute kidney injury (LEEROY) with acute tubular necrosis (ATN): Plan: As discussed below in Plan. (3) Acute hyponatremia: Plan: As discussed below in Plan. (4) Cellulitis of right abdominal wall: Plan: As discussed below in Plan. (5) MDS (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): Plan: As discussed below in Plan. (6) Demand ischemia: Plan: As discussed below in Plan. Plan 89 years old right-hand dominant male with PMH of FULL CODE @ patient's daughter's home (Ms. Becca Aguirre, ), ambulatory dysfunction utilizing walker @ patient's daughter's home (Ms. Becca Aguirre, ), anxiety disorder on clonazepam 0.5mg PO qhs, GERD on protonix 40mg PO daily, former tobacco abuse with no subsequent diagnosis of COPD, not on home O2 or home steroids, CAD s/p 1 vessel CABG (1978, [facility], [place], [place]), s/p stent #1 (1979, [facility], [place], [place]), s/p stents #2 and #3 (1980, [place], [place])chronic/persistent chronic RV systolic CHF with reduced RV systolic function and preserved LVEF 60-65% (as noted on 06/15/2024 TTE, [facility] CARDS Dr. Arpan Chicas) with dry baseline weight of 151-152 pounds @ patient's daughter's home (Ms. 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, chronic/persistent AFIB s/p Watchman procedure (2021, [facility], [place], [place]), BPH s/p TURP, on tamsulosin 0.4mg PO daily, chronic urinary incontinence on oxybutynin 5mg PO bid, CKD stage III with baseline creatinine range, 1.48-1.65 mg/dL (01/17/2024 - 11/14/2024), 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 with pancytopenia (diagnosed several years ago) on Retacrit (epoetin ilana-epbx) q2 weeks, with patient having received 2 units of packed RBC transfusion and 1 unit of platelet transfusion @ [facility] on 11/19/2024, after having undergone elective laparoscopic cholecystectomy @ [facility] on 11/19/2024, followed by discharge back to patient's daughter's home (Ms. Becca Aguirre, ), on 11/20/2024, 3:30pm, who reports: "I was sleepy and weak this morning; my daughter Becca Aguirre ( ) said my oxygen level was low at 80% and my blood pressure was also low at 82/57 (11/21/2024, 9:15am). I remember having so much phlegm in my throat yesterday morning (11/20/2024, 9:00am) at [facility] and I was coughing up so much mucus and a little bit of blood in the mucus, too. I left that hospital yesterday afternoon (11/20/2024, 3:30pm) to go back home, and I was still coughing a lot of mucus up and a little bit of blood. I did not feel hot or feverish, and I was not feeling short of breath or having any chest pain. Oh, and yes, my right side where I had my gallbladder taken out on 11/19/2024 @ [facility] with General Surgeon Dr. Oneal Matthews hurts a little and it's red and swollen, too. My daughter Becca then called the ambulance and I arrived to the ER here @ [facility] around 10:00am this morning (11/21/2024)." Patient was subsequently admitted to the inpatient hospitalist service @ [facility] on 11/21/2024 with the following diagnoses: 1. Acute hypoxic respiratory failure with resting O2 saturation 80% on room air at patient's daughter's home, Ms. Becca Aguirre ( ); cf., admitting O2 sat 88% on 2 liters/minute O2 via nasal cannula, and BP 109/59 (11/21/2024, 10:39am), due to incipient sepsis, due to acute RUL CAP. Both acute hypoxic respiratory failure and acute RUL CAP have RESOLVED. 2. Acute kidney injury with admission creatinine 2.21 mg/dL, GFR 23.5 mL/min (11/21/2024, 11:06am), RESOLVING, superimposed on CKD stage III with baseline creatinine range, 1.48-1.65 mg/dL (01/17/2024 - 11/14/2024). 3. Acute hypovolemic hyponatremia with admission Na 132 mmol/L (11/21/2024, 11:06am), PERSISTENT, superimposed on normal baseline Na range, 136-140 mmol/L (11/14/2016 - 11/14/2024). 4. Acute RUQ cellulitis @ RUQ elective laparoscopic cholecystectomy (11/19/2024, [facility], General Surgeon Dr. Oneal Matthews) incisional sites x 3, PERSISTENT. 5. Chronic pancytopenia with admission WBC 4.56, N83 L8 M8 E1, Hb 7.6, MCV 102.1, MCHC 31.3, platelet 58 (11/21/2024, 11:06am), superimposed on baseline WBC range, 1.94 - 4.33 (11/14/2016 - 11/14/2024), baseline Hb range, 8.5 - 0.6 g/dL (07/10/2022 - 11/14/2024), baseline platelet count range, 55-72 (12/13/2016 - 11/14/2024). PERSISTENT. 6. Acute type II NSTEMI with troponin-I #1 123.4 pg/mL (11/21/2024, 11:06am), troponin-I #2 150.6 pg/mL (11/21/2024, 1:16pm). Asymptomatic. PLAN: To address #1, patient was maintained on 2 liters/minute O2 via nasal cannula to maintain O2 sat > 90% at all times in this patient with a former history of tobacco abuse (e.g., smoked 1 pack of cigarettes per day for 25 years, before quitting smoking 25 years ago). Patient also received zosyn 4.5g IV x 1 dose (11/21/2024, 12:59pm) in [facility] ER bed #B5; patient continues with cefepime 1g IV q12 (day #1/5 on 11/21/2024, 9:00pm) and vancomycin 1.5g IV x 1 dose (11/21/2024, 4:52pm) in [facility] Med-Surg bed #E307-1, followed by vancomycin 750mg IV x 2 doses (11/22/2024, 9:38am; 11/23/2024, 8:33am[facility]. Of note, etiology of acute hypoxic respiratory failure was due to incipient sepsis, which in turn, was due to acute RUL CAP. Of final note, Compound Time[employer] respiratory pathogen panel PCR testing (11/21/2024, 3:14pm) ruled out concomitant acute viral infection(s) involving adenovirus, coronaviruses OC43, HKU1, 229E, NL 63, Covid, human metapneumovirus, influenza A/B, parainfluenza 1,2,3,4, RSV, and enterovirus/rhinovirus. Subsequently, both acute hypoxic respiratory failure and acute RUL CAP have RESOLVED as of 11/23/2024. Continuation of empiric antibiotics described above is warranted in treating patient's post laparoscopic cholecystectomy surgical site RUQ cellulitis. To address #2, patient received 1 liter of 0.9% NS @ 999 mL/hr (11/21/2024, 11:45am) in [facility] ER bed #B5; patient received 500 mL of 0.9% NS @ 70 mL/hr (11/21/2024, 4:52pm), based on a delivery rate of 1 mL of 0.9% NS per kg of body weight per hour, and a body weight of 70.3 kg. Patient subsequently received 1 liter of 0.9% NS @ 70 mL/hr (11/22/2024, 7:03pm), followed by a second liter of 0.9% NS @ 80 mL/hr (11/23/2024, 8:50pm) [facility]. I will check repeat creatinine level in the 11/24/2024 am. In the interim, I have opted to hold off patient's home-scheduled ASA 81mg PO daily, given potential for this medication to cause further renal embarrassment. Of note, etiology of acute kidney injury is due to (a) acute tubular necrosis, which in turn, is due to incipient sepsis, which in turn, is due to acute RUL CAP, and/or (b) chronic anemia due to chronic 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. To address #3, patient received 1 liter of 0.9% NS @ 999 mL/hr (11/21/2024, 11:45am) in [facility] ER bed #B5; patient received 500 mL of 0.9% NS @ 70 mL/hr (11/21/2024, 4:52pm), based on a delivery rate of 1 mL of 0.9% NS per kg of body weight per hour, and a body weight of 70.3 kg. Patient subsequently received 1 liter of 0.9% NS @ 70 mL/hr (11/22/2024, 7:03pm), followed by a second liter of 0.9% NS @ 80 mL/hr (11/23/2024, 8:50pm) in [facility] Med-Surg bed #E307-1. I will check repeat Na level in the 11/24/2024 am. Of note, etiology of acute hypovolemic hyponatremia is due to acute dehydration, which in turn, is due to increased insensible losses of water vapor due to acute RUL CAP. To address #4, patient received zosyn 4.5g IV x 1 dose (11/21/2024, 12:59pm) in [facility] ER bed #B5; patient continues with cefepime 1g IV q12 (day #1/5 on 11/21/2024, 9:00pm) and vancomycin 1.5g IV x 1 dose (11/21/2024, 4:52pm) in [facility] MedSurg bed #E307-1, followed by vancomycin 750mg IV x 2 doses (11/22/2024, 9:38am; 11/23/2024, 8:33am) in [facility] MedSurg bed #E307-1. I will check vitals, repeat RUQ incisional sites x 3, WBC w/differential, lactic acid, and procalcitonin level in the 11/24/2024 am. Of note, etiology of acute RUQ cellulitis remains unclear, but may be due to aseptic technique used to prepare RUQ site for laparoscopic cholecystectomy on 11/19/2024 @ [facility] with General Surgeon Dr. Oneal Mcneil. To address #5, patient awaits repeat CBC with differential in the 11/24/2024 am. Despite patient's Hb level being greater than 7.0 g/dL on admission date 11/21/2024 and on subsequent date 11/22/2024, patient's anemia, due to chronic 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 is contributing to patient's acute kidney injury. In addition, patient's [facility] Heme-Onc Dr. Enrrique Mendoza recommended to the patient's family that patient strive to maintain Hb levels greater than 8.0 g/dL at all times in order to mitigate asthenia. Hence, I opted to transfuse 1 unit of packed RBC on 11/22/2024, and patient's Hb level increased nominally from 7.4 g/dL (11/22/2024, 5:58am) to 7.8 g/dL (11/23/2024, 4:48am). I will check repeat Hb level in the 11/24/2024 am, but I am going to hold off further packed RBC transfusion(s) unless patient's Hb level falls below 7 g/dL, as I surmise that indiscriminate packed RBC transfusion in this 89 years old man is more likely to lead to fluid overload with acute cardio-pulmonary embarrassment, even if patient's Hb level falls below 8 g/dL. In addition, I will reserve platelet transfusion for platelet count < 10. Of note, etiology of chronic pancytopenia is due to chronic 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. To address #6, patient is being observed without further evaluation or intervention. Of note, etiology of acute type II NSTEMI is due to demand ischemia, which in turn, is due to (a) incipient sepsis, which in turn, is due to acute RUL CAP; (b) acute kidney injury with admission creatinine 2.21 mg/dL, GFR 23.5 mL/min (11/21/2024, 11:06am); and (c) chronic/persistent AFIB s/p Watchman procedure (2021, [facility], [place], [place]). Hence, I have not started patient on heparin infusion or active anticoagulation with lovenox 1mg / kg SQ daily. Instead, I have opted to observe this laboratory phenomenon. Of final note, patient appears to be completely run-down and worn-out on 11/23/2024. I do not anticipate that this patient will be able to be discharged back to his home, and to this end, I have solicited formal PT/OT Service evaluation(s) on 11/23/2024 to evaluate patient for discharge to SNF for short- term rehab in the next 1-2 days. In addition, the incoming hospitalist may want to confer with Case Management Service to expedite hospital discharge to SNF in the next 1-2 days. Admission and Anticipated Discharge Date Admission Date: November 21, 2024 Subjective "I don't feel any better today (11/23/2024) compared to when I came into the ER (11/21/2024). Mostly because it hurts where I had my gallbladder removed. No open wound, no pus, no bleeding, no fever. Breathing is fine. Oh, I forgot to tell you all this time now; I've had this blood in my spit for several months now, and it is not new. It started when an ENT doctor looked in my right nose and saw that I had an exposed blood vessel, and it bleeds easily, so naturally, a little blood comes into my spit. I am NOT coughing up blood like I told you in the ER (11/21/2024). Sorry about that. The blood is due to my right nose bleeding a little. I just want to make that clear, ok?" Review of Systems 2 Constitutional: Positive for RUQ pains (surface skin pains, NOT intra-abdominal pains) on 11/23/2024. Negative for antecedent/coincident fevers, chills, diaphoresis, wheeze, sore throat, hemoptysis, shortness of breath, dyspnea on exertion, chest pains, palpitations, pleurisy, nausea, vomiting, diarrhea, abdominal pain, pelvic pain, hematemesis, hematochezia, melena, hematuria, dysuria, frequency, urgency, headaches, dizziness, lightheadedness, visual changes, hearing changes, weakness, falls, syncope, trauma, travel history, sick contacts, or food/drug ingestions novel or new. All other review of systems are reported as negative by the patient on 11/23/2024. Physical Exam Constitutional: General: Comfortable, cooperative, coherent. Wide awake and alert. Not confused, lethargic, or obtunded. Patient speaks in complete, fluent, and articulate sentences without pause, interruption, cough, or wheeze. HEENT: Normocephalic, atraumatic. Extra-ocular muscles intact. Pupils equally round and reactive to light. No nystagmus, gaze paresis, anisocoria, miosis, mydriasis, hyphema, chemosis, scleral injection, conjunctivitis, or pterygium. No otorrhea or rhinorrhea. No pharyngeal discharge or exudate. Neck: Supple, no stridor or bruit. Jugular venous pressure is estimated to be 3 cm above the sternal angle of Ronald, which is, by definition, 5 cm above the level of the right atrium. Hence, jugular venous pressure of 8 cm is not elevated on 11/23/2024. Lymphatics: No anterior/posterior cervical, infraclavicular, supraclavicular, axillary, epitrochlear, or inguinal adenopathy. Chest: Symmetric rise and fall with respirations. Non-tender to palpation. Lungs: Clear to auscultation and percussion. No audible expiratory wheeze, egophony, pectoriloquy, increase in tactile fremitus, or flatness/dullness to percussion at the bases. Heart: Regular rate. Irregularly irregular rhythm. S1 and S2 noted. No S3 or S4 summation gallop. No tripartite friction rub. Grade II/ early systolic murmur at left lower sternal border without radiation to the carotids, axilla, or back, and which remains invariant in regards to the respiratory cycle. Abdomen: Soft, non-distended. No rebound, guarding, Frost's sign, or organomegaly. Bowel sounds auscultated in all 4 quadrants. Extremities: No clubbing, cyanosis, or edema. 2+ pedal pulses bilaterally. Skin: No decubitus ulcer or enanthem. Skin: RUQ noted for 3 incisional wounds corresponding to laparoscopic cholecystectomy @ [facility] on 11/19/[address] Oneal Matthews, and from each wound radiated erythema (occupying a rectangular area of approximately 9 cm x 12cm overall), induration, warmth, slight tenderness, but no crepitus, fluctuance, discharge (sanguineous, serous, suppurative), malodor, ulceration, wound dehiscence, or lymphangitic streaking on 11/21/2024 admission exam. Skin: RUQ noted for slight ecchymosis extending in 2 places (today, 11/22/2024) beyond the demarcation line drawn by me on 11/21/2024 admission exam. No other interval change. Skin: RUQ noted for more ecchymosis extending in 2 places (today, 11/23/2024) beyond the demarcation line drawn by me on 11/21/2024 admission exam. No other interval change. Urology: No grimes catheter. No purewick. No urethral discharge. Neurology: Alert and oriented in regards to person, place, time, and situation. DTR+. 5/5 motor strength in all 4 extremities, both proximally and distally. Psychiatry: No flat affect. No monotone voice. Smiles appropriately. Results & Data Results & Data Vital Signs (Past 12 Hours) Vital Signs Temp Pulse Resp BP Pulse Ox O2 Del Method 11/23/24 14:19 96 Room Air 11/23/24 14:13 36.6 C 60 16 104/56 L 60 L Room Air 11/23/24 09:36 71 114/67 Laboratory Results WBC 4.56, N83 L8 M8 E1, Hb 7.6, MCV 102.1, MCHC 31.3, platelet 58 (11/21/2024, 11:06am). WBC 3.41, N82 L9 M6 E2, Hb 7.4, MCV 101.8, MCHC 32.0, platelet 58 (11/22/2024, 5:58am). WBC 3.53, N82 L9 M6 E2, Hb 7.8, MCV 100.8, MCHC 32.1, platelet 68 (11/23/2024, 4:48am). Procalcitonin #1 17.2 ng/mL (11/21/2024, 11:06am). Procalcitonin #2 14.7 ng/mL (11/21/2024, 2:27pm). Procalcitonin #3 13.6 ng/mL (11/22/2024, 5:58am). Procalcotinin #4 9.8 ng/mL (11/23/2024, 4:48am). Lactic acid #1 0.8 mmol/L (11/21/2024, 11:28am). Lactic acid #2 0.7 mmol/L (11/21/2024, 2:27pm). Lactic acid #3 0.5 mmol/L (11/22/2024, 5:58am). Lactic acid #4 0.6 mmol/L (11/23/2024, 4:48am). Blood culture #1 (11/21/2024, 11:06am): Blood culture #2 (11/22/2024, 11:29am): Influenza A- B-, RSV-, COVID- (11/21/2024, 11:06am). INR 1.1 (11/21/2024, 11:06am). VBG 7.34 / 47 / 33 / 25 / O2 sat < 60% (11/21/2024, 11:29am). Na 132, K 4.8, BUN 52, creatinine 2.21, GFR 23.5, glucose 199, Ca 8.1, albumin 3.4, Ca corrected 8.6 (11/21/2024, 11:06am). Na 133, K 4.7, BUN 48, creatinine 2.01, GFR 31.3, glucose 91, Ca 7.9, albumin 3.1, Ca corrected 8.6 (11/22/2024, 5:58am). Na 133, K 4.5, BUN 41, creatinine 1.75, GFR 37.0, glucose 94, Ca 7.9 (11/23/2024, 4:48am). AST 14, ALT 12, ALK PHOS 213, total bilirubin 2.1, direct bilirubin 0.9, indirect bilirubin 1.2 (11/21/2024, 11:06am). AST 11, ALT 8, ALK PHOS 204, total bilirubin 1.6 (11/22/2024, 5:58am). Troponin-I #1 123.4 pg/mL (11/21/2024, 11:06am). Troponin-I #2 150.6 pg/mL (11/21/2024, 1:16pm). Troponin-I #3 156.2 pg/mL (11/21/2024, 4:54pm). Diagnostic Findings Portable CXR (11/21/2024, 10:59am): 1. New RUL infiltrate when compared to 09/08/2024, 7:35am portable CXR. 2. Stable RLL infiltrate with small amounts of existing pleural fluid extending into the fissure. 3. No cardiomegaly, pulmonary vascular congestion or pneumothorax. (by my review). CT abd/pelvis with IV contrast (11/21/2024, 11:33am): 1. Small amount of probable operative contusion in operative bed and small amou nt of fluid fluid layering in R inguinal hernia, most likely related to mildly hemorrhagic ascites which can be typical postcholecystectomy particularly if there was irrigation. 2. No organized or drainable collection. 3. Worsening pleural effusions with mucous plugging and significant consolidation in RLL. 4. Extensive diverticulosis of the colon without diverticulitis. RUQ U/S (11/23/2024, 9:32am): 1. Status post cholecystectomy with trace air and fluid again noted within the gretel hepatis, similar to the CT study from 11/21/2024. 2. No drainable fluid collection. 3. Right pleural effusion re-demonstrated. EKG (11/21/2024, 11:07am): AFIB @ 71, QTC 428, no q; TWI in I, aVL, II, and V6; no acute ST depressions/elevations (by my review). EKG (10/09/2024, 2:20pm): AFIB @ 62, QTC 414, q in V1, V2; TWI in I, aVL, II, and V6; no acute ST depressions/elevations (by my review). PG Care Time/CCT Total # of Minutes Spent Total Time Spent with Patient: Total time spent is greater than 50% in coordination of care (as documented) at patient's floor/unit and/or counseling patient: Coding Level of Care Code 15544 SUB INP/OBS CARE 3/50MIN Diagnoses Acute hypoxic respiratory failure J96.01 Acute kidney injury (LEEROY) with acute tubular necrosis (ATN) N17.0 Acute hyponatremia E87.1 Cellulitis of right abdominal wall L03.311 MDS (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) D46.9 Demand ischemia I24.89
[2024-11-23] MEDS: SODIUM CHLORIDE 0.9% 1,000 ML IV ONE (21:22)
[2024-11-24 07:42] LABS: Hematocrit (blood only) 25.1 % (42.0-52.0); Hemoglobin 8.1 g/dl (14.0-18.0); Immature Granulocytes # (auto) 0.02 K/uL (0.01-0.20); Immature Granulocytes % (auto) 0.6 %; Mean Corpuscular Hemoglobin 32.4 pg (25.0-34.0); Mean Corpuscular Volume 100.4 fL (80.0-100.0); Platelet Count 66 K/uL (130-400); RDW Standard Deviation 64.9 fL (36.4-46.3); Red Blood Count 2.50 M/uL (4.70-6.10); White Blood Count 3.23 K/ul (4.8-10.8)
[2024-11-24 08:01] LABS: Anion Gap 5.0 (3-11); Blood Urea Nitrogen 35.0 mg/dl (6-23); Calcium 8.1 mg/dl (8.6-10.3); Carbon Dioxide 23.0 mmol/L (21-32); Chloride 107.0 mmol/L (98-107); Creatinine Clr Calc Pharmacy 35.6 ml/min; Glucose 96.0 mg/dl (70-99(Fasting)); Potassium 4.4 mmol/L (3.5-5.1); Sodium 135.0 mmol/L (136-145)
--- NOTE | 2024-11-24 10:05 | Hospitalist Progress Note ---
Date of Service November 24, 2024 Assessment & Plan (1) Acute hypoxic respiratory failure: Plan: -2nd to RUL PNA on zosyn -duonebs -resolved (2) Acute kidney injury (LEEROY) with acute tubular necrosis (ATN): Plan: -resolving -cr 1.75 (3) Acute hyponatremia: Plan: -resolved -Na+ 135 (4) Cellulitis of right abdominal wall: Plan: -Acute RUQ cellulitis @ RUQ elective laparoscopic cholecystectomy (11/19/2024, [facility], General Surgeon Dr. Oneal Matthews) incisional sites x 3 -resolving -ID consulted (5) MDS (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): Plan: -Chronic pancytopenia with admission WBC 4.56, N83 L8 M8 E1, Hb 7.6, MCV 102.1, MCHC 31.3, platelet 58 (11/21/2024, 11:06am), superimposed on baseline WBC range, 1.94 - 4.33 (11/14/2016 - 11/14/2024), baseline Hb range, 8.5 - 0.6 g/dL (07/10/2022 - 11/14/2024), baseline platelet count range, 55-72 (12/13/2016 - 11/14/2024). (6) Demand ischemia: Plan: -Acute type II NSTEMI with troponin-I #1 123.4 pg/mL (11/21/2024, 11:06am), troponin-I #2 150.6 pg/mL (11/21/2024, 1:16pm). Asymptomatic. Plan 89 years old right-hand dominant male with PMH of FULL CODE @ patient's daughter's home (Ms. Becca Aguirre, ), ambulatory dysfunction utilizing walker @ patient's daughter's home (Ms. Becca Aguirre, ), anxiety disorder on clonazepam 0.5mg PO qhs, GERD on protonix 40mg PO daily, former tobacco abuse with no subsequent diagnosis of COPD, not on home O2 or home steroids, [place] [facility] [place] s/[place] #1 (1979, [facility], [place], [place]), s/p stents #2 and #3 (1980, [facility], [place], [place])chronic/persistent chronic RV systolic CHF with reduced RV systolic function and preserved LVEF 60-65% (as noted on 06/15/2024 TTE, [facility] CARDS Dr. Arpan Chicas) with dry baseline weight of 151-152 pounds @ patient's daughter's home (Ms. 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, chronic/persistent AFIB s/p Watchman procedure (2021, [facility], [place], [place]), BPH s/p TURP, on tamsulosin 0.4mg PO daily, chronic urinary incontinence on oxybutynin 5mg PO bid, CKD stage III with baseline creatinine range, 1.48-1.65 mg/dL (01/17/2024 - 11/14/2024), 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 with pancytopenia (diagnosed several years ago) on Retacrit (epoetin ilana-epbx) q2 weeks, with patient having received 2 units of packed RBC transfusion and 1 unit of platelet transfusion @ [facility] on 11/19/2024, after having undergone elective laparoscopic cholecystectomy @ [facility] on 11/19/2024, followed by discharge back to patient's daughter's home (Ms. Becca Aguirre, ), on 11/20/2024, 3:30pm, who reports: "I was sleepy and weak this morning; my daughter Becca Aguirre ( ) said my oxygen level was low at 80% and my blood pressure was also low at 82/57 (11/21/2024, 9:15am). I remember having so much phlegm in my throat yesterday morning (11/20/2024, 9:00am) at [facility] and I was coughing up so much mucus and a little bit of blood in the mucus, too. I left that hospital yesterday afternoon (11/20/2024, 3:30pm) to go back home, and I was still coughing a lot of mucus up and a little bit of blood. I did not feel hot or feverish, and I was not feeling short of breath or having any chest pain. Oh, and yes, my right side where I had my gallbladder taken out on 11/19/2024 @ [facility] with General Surgeon Dr. Oneal Matthews hurts a little and it's red and swollen, too. My daughter Becca then called the ambulance and I arrived to the ER here @ [facility] around 10:00am this morning (11/21/2024)." Patient was subsequently admitted to the inpatient hospitalist service @ [facility] on 11/21/2024 with the following diagnoses: 1. Acute hypoxic respiratory failure with resting O2 saturation 80% on room air at patient's daughter's home, Ms. Becca Aguirre ( ); cf., admitting O2 sat 88% on 2 liters/minute O2 via nasal cannula, and BP 109/59 (11/21/2024, 10:39am), due to incipient sepsis, due to acute RUL CAP. Both acute hypoxic respiratory failure and acute RUL CAP have RESOLVED. 2. Acute kidney injury with admission creatinine 2.21 mg/dL, GFR 23.5 mL/min (11/21/2024, 11:06am), RESOLVING, superimposed on CKD stage III with baseline creatinine range, 1.48-1.65 mg/dL (01/17/2024 - 11/14/2024). 3. Acute hypovolemic hyponatremia with admission Na 132 mmol/L (11/21/2024, 11:06am), PERSISTENT, superimposed on normal baseline Na range, 136-140 mmol/L (11/14/2016 - 11/14/2024). 4. Acute RUQ cellulitis @ RUQ elective laparoscopic cholecystectomy (11/19/2024, [facility], General Surgeon Dr. Oneal Matthews) incisional sites x 3, PERSISTENT. 5. Chronic pancytopenia with admission WBC 4.56, N83 L8 M8 E1, Hb 7.6, MCV 102.1, MCHC 31.3, platelet 58 (11/21/2024, 11:06am), superimposed on baseline WBC range, 1.94 - 4.33 (11/14/2016 - 11/14/2024), baseline Hb range, 8.5 - 0.6 g/dL (07/10/2022 - 11/14/2024), baseline platelet count range, 55-72 (12/13/2016 - 11/14/2024). PERSISTENT. 6. Acute type II NSTEMI with troponin-I #1 123.4 pg/mL (11/21/2024, 11:06am), troponin-I #2 150.6 pg/mL (11/21/2024, 1:16pm). Asymptomatic. Plan to D/C home within 24hrs. Admission and Anticipated Discharge Date Admission Date: November 21, 2024 Subjective No events overnight. Pt resting comfortably in bed. Review of Systems Review of Systems: CONST: Negative for fever, body aches and chills. HENT: Negative for neck pain/stiffness, headache, congestion, sore throat, swelling. EYES: Negative for discharge/pain or vision changes. RESP: Negative for cough/hemoptysis and shortness of breath. CV: Negative chest pain, difficulty breathing, palpitations. ABD: Negative pain, nausea, vomiting. : Negative increase frequency, dysuria, blood in urine or stool. MUSC: Negative for muscle aches, edema. SKIN: Negative rash, lesions/sores. NEURO: Negative headache, dizziness, weakness. Physical Exam Physical Exam: GENERAL APPEARANCE NAD, activity normal for age, well developed/ well nourished, no cyanosis, pallor, or diaphoresis. EYES lids/conjunctiva normal. EARS/NOSE/THROAT Mucous membranes moist, nares normal, lips/teeth normal uvula midline without oral pharyngeal erythema, exudate or swelling TMs normal bilaterally. No lymphangitis/lymphedema. HEAD/NECK normocephalic atraumatic, no facial trauma, neck is supple. RESPIRATORY respiratory effort normal, speaks in full sentences, no tripod position, no accessory muscle use. Lungs clear to auscultation without rhonchi, wheezes, rales CARDIAC Regular rate and rhythm, no edema. ABDOMINAL Soft, ND/NT. No evidence of fluid wave. No pulsatile masses on exam, rebound tenderness, Frost sign or pain over Mcburney's point. Right surgical site with receding erythema. MUSCLES/EXTREMITIES No abnormal range of motion, no swelling. SKIN Warm, pink and dry. No rashes, dermatoses, petechiae or lesions. NEUROLOGICAL Speech is clear and appropriate. Normal level of consciousness. Gait and coordination are normal. 5/5 strength in all extremities. PSYCH Normal mood and affect. Judgement/competence is appropriate Results & Data Results & Data Vital Signs (Past 12 Hours) Vital Signs Temp Pulse Resp BP BP Pulse Ox O2 Del Method 11/24/24 08:00 36.8 C 74 18 132/75 96 Room Air 11/24/24 00:32 36.8 C 63 16 96/56 L 96 Room Air PG Care Time/CCT Total # of Minutes Spent Total Time Spent with Patient: Total time spent is greater than 50% in coordination of care (as documented) at patient's floor/unit and/or counseling patient: Coding Level of Care Code 92456 SUB INP/OBS CARE 2/35MIN Diagnoses Acute hypoxic respiratory failure J96.01 Acute kidney injury (LEEROY) with acute tubular necrosis (ATN) N17.0 Acute hyponatremia E87.1 Cellulitis of right abdominal wall L03.311 MDS (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) D46.9 Demand ischemia I24.89
--- NOTE | 2024-11-24 10:07 | Infectious Disease Consult ---
Date of Consultation November 24, 2024 Assessment & Plan (1) Cellulitis of right abdominal wall: (2) Acute hypoxic respiratory failure: (3) Pneumonia: (4) Acute kidney injury (LEEROY) with acute tubular necrosis (ATN): Plan Problems: #Abdominal wall cellulitis #S/p laparoscopic cholecystectomy (11/19/24) #Pneumonia #LEEROY #Doxycycline allergy/intolerance (vomiting) Micro: 11/21 BCx x2: NGTD Abx: Cefepime 11/21 - present Vanc 11/21 - present Pip/tazo 11/21 89 yo M with history of HFpEF, afib, HTN, HLD, CKD, BPH s/p TURP, MDS with pancytopenia, recent elective laparoscopic cholecystectomy (11/19/24) who presented on 11/21 feeling weak, reporting low O2 and BP, and pain and erythema around his abdominal incision. Denied fevers, chills. ID consulted for abd wall cellulitis. On presentation, pt was afebrile, HR 76, BP 109/59, 88% on 2 L NC. Noted to have 3 abdominal incisions, each with erythema, induration, warmth, slight tenderness, without discharge. Labs showed WBC 4.56, Hb 7.6, plt 58 (around baseline), Cr 2.21, normal lactate, Tbili 2.1, alk phos 213, procal 17.2. RVP negative. CXR with new RUL infiltrate, and stable R basilar airspace consolidation with small amounts of existing pleural fluid extending into the fissure. CTAP without contrast showed a small amount of probable operative contusion in the operative bed and a small amount of fluid layering in the R inguinal hernia, findings most likely related to mildly hemorrhagic ascites which can be typical postcholecystectomy particularly if there was irrigation. No organized or drainable collection. Worsening pleural effusions with mucous plugging and significant consolidation in R lung base. He was given Zosyn in the ED, then started on vanc and cefepime on admission. 11/23 RUQ US showed s/p cholecystectomy with trace air and fluid again noted within gretel hepatis similar to CT 11/21, no drainable fluid collection. Recommendations: - Discontinued vancomycin - Continue cefepime - Anticipate total 7 day course of antibiotics through 11/27 if continued improvement. On discharge, can transition to PO antibiotic such as Augmentin Will continue to follow Consultation Information Consultation was provided via telemedicine using two-way real-time interactive telecommunication between the patient and the telemedicine provider. For the duration of the visit, the provider was performing the assessment from a different facility than the patient. This includesuse of bluetooth stethoscope forauscultationperformed by the telepresenter that the telemedicine provider can hear if described in the physical exam. Aerospace Stress Engineer contact information: Please call [facility] [phone]. (Phone Number For Physician Use Only) After establishing a telemedicine visit, patient was: Patient was verified with two unique identifiers, Patient/authorized rep acknowledged consent and understanding and Gave permission to continue telehealth session Time Spent with Patient: Initial => 55 min History of Present Illness Reason for Consultation: abd wall cellulitis postop Attending Physician: Tony Rose MD History of Present Illness 89 yo M with history of HFpEF, afib, HTN, HLD, CKD, BPH s/p TURP, MDS with pancytopenia, recent elective laparoscopic cholecystectomy (11/19/24) who presented on 11/21 feeling weak, reporting low O2 and BP, and pain and erythema around his abdominal incision. Denied fevers, chills. On presentation, pt was afebrile, HR 76, BP 109/59, 88% on 2 L NC. Noted to have 3 abdominal incisions, each with erythema, induration, warmth, slight tenderness, without discharge. Labs showed WBC 4.56, Hb 7.6, plt 58 (around baseline), Cr 2.21, normal lactate, Tbili 2.1, alk phos 213, procal 17.2. RVP negative. CXR with new RUL infiltrate, and stable R basilar airspace consolidation with small amounts of existing pleural fluid extending into the fissure. CTAP without contrast showed a small amount of probable operative contusion in the operative bed and a small amount of fluid layering in the R inguinal hernia, findings most likely related to mildly hemorrhagic ascites which can be typical postcholecystectomy particularly if there was irrigation. No organized or drainable collection. Worsening pleural effusions with mucous plugging and significant consolidation in R lung base. He was given Zosyn in the ED, then started on vanc and cefepime on admission. 11/23 RUQ US showed s/p cholecystectomy with trace air and fluid again noted within gretel hepatis similar to CT 11/21, no drainable fluid collection. ID consulted for abd wall cellulitis. Allergies Allergy/AdvReac Type Severity Reaction Status Date / Time doxycycline AdvReac Intermediate Vomiting Verified 11/21/24 14:09 pregabalin AdvReac Intermediate Vomiting Verified 11/21/24 14:09 Home Medications Medication Instructions Recorded Confirmed Type oxybutynin chloride 5 mg tablet 5 mg PO BID #180 tabs 02/17/24 11/21/24 Rx nitroglycerin 0.4 mg sublingual 0.4 mg sublingual Q5M PRN Chest 03/10/24 11/21/24 Rx tablet Pain #25 tabs epoetin ilana-epbx 2,000 unit/mL 0 unit IV DIRECTED PRN Anemia 05/02/24 11/21/24 History injection solution (Retacrit) hydrocortisone 2.5 % topical cream [address] DAILY PRN hemorrhoids 06/24/24 11/21/24 Rx with perineal applicator #30 grams (Proctozone-HC) aspirin 81 mg tablet,delayed 81 mg PO DAILY 09/08/24 11/21/24 History release sennosides 8.6 mg tablet (Senokot) 8.6 mg PO HS 09/08/24 11/21/24 History tamsulosin 0.4 mg capsule 0.4 mg PO HS 09/08/24 11/21/24 History silver sulfadiazine 1 % topical 0 applic topical DAILY 10/09/24 11/21/24 History cream (Silvadene) clonazepam 0.5 mg tablet 0.5 mg PO HS #30 tabs 10/30/24 11/21/24 Rx pantoprazole 40 mg tablet,delayed 40 mg PO QAM #90 tabs 11/02/24 11/21/24 Rx release pravastatin 40 mg tablet 40 mg PO HS #90 tabs 11/02/24 11/21/24 Rx oxycodone 5 mg tablet 2.5 mg (1/2 x 5 mg) PO Q8H PRN 11/14/24 11/21/24 Rx pain #6 tabs Patient History Medical History Acute cholecystitis NSTEMI (non-ST elevated myocardial infarction) Acute on chronic heart failure with preserved ejection fraction Acute kidney injury 08/08/22 Hx of bronchitis 10/2023 Depression Congestive heart failure Anemia blood transfusion ~06/16/24- [facility] Pancytopenia Bilateral pleural effusion 05/2024 Dysphagia Acute cholecystitis 06/14/24 admitted to [place] and transferred to [facility] History of non-ST elevation myocardial infarction (NSTEMI) 06/14/24- transferred from [facility] to [facility] Elevated troponin 06/14/24 SOB (shortness of breath) History of recent blood transfusion 05/2024 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, [facility] History of prostate cancer 1999, brachy therapy and sx tx Surgical History History of esophagogastroduodenoscopy (EGD) Hx of colonoscopy Hx of tonsillectomy Hx of bilateral cataract extraction History of coronary artery bypass graft 1978, single bypass, [facility] in [place] History of heart artery stent ~1999, angina, [place], [place]; x2 stents; f/u shravan huerta History of cardiac cath ~1999, angina, [place]; x2 stents; f/u shravan huerta S/P TURP Family History (Updated 11/21/24 @ 16:48 by Benito Oleary MD, PhD) Father , at 91 years of age from natural causes. Heart disease Hypertension Mother , Diet at 90 years of age from natural causes. Seizure Denies family history of Ovarian cancer Prostate cancer Myocardial infarction Breast cancer Colorectal cancer Social History (Updated 11/21/24 @ 16:56 by Benito Oleary MD, PhD) Smoking Status: Former smoker Tobacco Type: Cigarettes Age Started Using Tobacco: 26; Age Quit Using Tobacco: 61; packs per day: 1; Cigarettes Per Day: 20; Second Hand Exposure: No; Do You Dip or Chew Tobacco: No; Hx Alcohol Use: Yes Alcohol type: beer and wine Alcohol Intake Frequency: Monthly or Less Hx Substance Use: No Preferred Language: Ukrainian Communication Ability: Effective Communication Ability Comment: short term memory impairment; can answer yes/no questions appropriately Visual Impairment: No Limitations Hearing Ability: Normal Dry Transfer Man Required: No Beliefs That Will Affect Care: None marital status: / marital status details: LIVES WITH DAUGHTER AND SON IN LAW Current Living Situation: Family Current Living Situation Comment: home with daughter and son in law current occupational status: retired 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 How many Children do You have: 3 How many Children do You have Comment: 3 daughters, all alive and well other: [employer], [facility]. Feels Safe at Home: Yes Childhood Exposure to Second-Hand Smoke: No Diet: regular caffeine: Yes during the past year weight has: remained stable Dental Care, Regularly: No Physical Activity Frequency: Does not Exercise Seatbelt Use: always Sunscreen Use: Yes Assistive Devices: Walker and Other Review of System A complete ROS was performed and is negative except as mentioned in the HPI. Physical Exam Physical Exam: GEN: elderly man in NAD. RESP: No increased work of breathing ABD: 3 abdominal incisions with mild surrounding erythema, no warmth, no drainage. Ecchymosis inferior to incisions NEURO: Alert. Answers all questions appropriately. Speech not slurred. PSYCH: Normal mood, affect appropriate. Results & Data Vital Signs (Past 12 Hours) Vital Signs Temp Pulse Resp BP BP Pulse Ox O2 Del Method 11/24/24 08:00 36.8 C 74 18 132/75 96 Room Air 11/24/24 00:32 36.8 C 63 16 96/56 L 96 Room Air Laboratory Results Short CBC 11/24/24 Range/Units 07:27 WBC 3.23 L (4.8-10.8) K/ul Hgb 8.1 L (14.0-18.0) g/dl Hct 25.1 L (42.0-52.0) % Plt Count 66 L (130-400) K/uL BMP 11/24/24 07:17 Sodium 135 L Potassium 4.4 Chloride 107 Carbon Dioxide 23 BUN 35 H Creatinine 1.34 D Glucose 96 Calcium 8.1 L Diagnostic Findings Chest X-Ray 11/21/24 10:59 EXAM: Radiograph of the Chest 1 View INDICATION: Sepsis TECHNIQUE: Frontal view of the chest. COMPARISON: 03/11/2024 FINDINGS: Lungs and pleural spaces: Grossly stable airspace consolidation in the right lung base and slight distribution of small right pleural effusion into the fissure. Underlying interstitial changes stable with superimposed ground glass infiltrate in the right upper lobe. Heart: Shape and configuration within normal limits allowing for technique. Mediastinum: Normal contour. Bones/joints: No fracture, erosion or dislocation. Soft tissues: No abnormality noted. No radiopaque foreign body noted. Upper abdomen: No abnormality noted. IMPRESSION: 1. New right upper lobe infiltrate. 2. Stable right basilar airspace consolidation with small amounts of existing pleural fluid extending into the fissure. ACT 112: N/A Electronically signed by Jaimee North 11-21-2024 12:14 PM Abdomen/Pelvis CT 11/21/24 11:33 EXAM: CT Abdomen and Pelvis Without Intravenous Contrast INDICATION: Postoperative pain. TECHNIQUE: Axial computed tomography images of the abdomen and pelvis without intravenous contrast. Sagittal and coronal reformatted images were created and reviewed. This CT exam was performed using one or more of the following dose reduction techniques: automated exposure control, adjustment of the mA and/or kV according to patient size, and/or use of iterative reconstruction technique. COMPARISON: 06/13/2024 FINDINGS: Limitations: None. Lower thorax: Stable dense pericardial calcification. Watchman device in place. Coronary bypass changes noted. Increased bilateral pleural effusions right greater than left. There is dependent consolidation in the right lower and middle lobes and to a lesser degree in the left lower lobe. There are multiple clogged subsegmental airways. Heart: No abnormality noted. Mediastinum: No abnormality noted. ABDOMEN: Liver: Lack of intravenous contrast limits detection of some masses. No abnormality noted. Gallbladder and bile ducts: Postoperative fluid and probable small amounts of blood in the gallbladder fossa. No organized collection. No visible ductal stone or distention. Pancreas: No pancreatic mass, calcification, inflammation or ductal dilation noted. Spleen: The spleen is enlarged measuring 16.2 cm long and stable. Adrenals: No significant abnormality noted. Kidneys and ureters: No abnormality noted. No stones. No hydronephrosis. No significant perinephric fluid. Stomach and bowel: Moderate amounts of colonic stool present. There is extensive diverticulosis. No diverticulitis. PELVIS: Appendix: No findings to suggest acute appendicitis. Bladder: Appears normal for the degree of filling. No stones or inflammation. No large mass. Masses may not be detected in the absence of opacification. 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 ABDOMEN and PELVIS: Intraperitoneal space: There is free intraperitoneal air which is not unusual following intra-abdominal procedure. Bones/joints: No acute changes. Soft tissues: There is a right inguinal hernia containing fluid with a fluid/fluid level. Vasculature: Dense atherosclerosis of the aorta and branches noted. Lymph nodes: No pathologically enlarged lymph nodes. Tubes, lines and devices: IMPRESSION: 1. There is a small amount of probable operative contusion in the operative bed and a small amount of fluid fluid layering in the right inguinal hernia. These findings are most likely related to mildly hemorrhagic ascites which can be typical postcholecystectomy particularly if there was irrigation. 2. There is no organized or drainable collection. 3. Worsening pleural effusions with mucous plugging and significant consolidation in the right lung base. 4. Extensive diverticulosis of the colon without diverticulitis. ACT 112: N/A Electronically signed by Jaimee North 11-21-2024 12:30 PM Liver Ultrasound 11/23/24 09:32 ABDOMINAL ULTRASOUND, RIGHT UPPER QUADRANT HISTORY: Acute right upper quadrant abdominal pain status post recent chol ecystectomy Eval for post-op RUQ abdominal wall hematoma.. COMPARISON: CT 11/21/2024 FINDINGS: Pancreas: The pancreas demonstrates a normal echotexture, partially obscured by bowel gas. Liver: 19 cm in length with mildly increased parenchymal echogenicity suggestive of mild hepatic steatosis. No liver lesion identified. Gallbladder: Cholecystectomy. Trace fluid and air again noted within the gretel hepatis. No drainable fluid collection is seen. CBD: 9 mm. No choledocholithiasis identified on this exam. Right pleural effusion again seen. IMPRESSION: 1. Status post cholecystectomy with trace air and fluid again noted within the gretel hepatis, similar to the CT study from 11/21/2024. 2. No drainable fluid collection. 3. Right pleural effusion redemonstrated. ACT 112: Negative or not required by law. Electronically signed by: Rd Peoples M.D. 11/23/2024 10:56 AM Medications Administered Current Inpatient Medications Acetaminophen (Acetaminophen 325 Mg Tab) 650 mg PO Q6H PRN PRN Reason: pain/fever/headache Stop: 12/21/24 13:39 Last Admin: 11/24/24 08:30 Dose: 650 mg Aspirin (Aspirin 81 Mg Ectab) 81 mg PO DAILY NORAH Stop: 12/22/24 08:59 Last Admin: 11/24/24 08:19 Dose: 81 mg Bisacodyl (Bisacodyl 10 Mg Supp) [address] DAILY PRN PRN Reason: Constipation Stop: 12/23/24 11:39 Buspirone HCl (Buspirone 5 Mg Tab) 10 mg PO BID PRN PRN Reason: Anxiety Stop: 12/23/24 08:59 Last Admin: 11/23/24 21:21 Dose: 10 mg Clonazepam (Clonazepam 0.5 Mg Tab) 0.5 mg PO HS [facility] Stop: 12/21/24 20:59 Last Admin: 11/23/24 21:21 Dose: 0.5 mg Docusate Sodium (Docusate Sodium 100 Mg Cap) 100 mg PO BID [facility] Stop: 12/23/24 11:44 Last Admin: 11/24/24 08:19 Dose: 100 mg Cefepime HCl (Maxipime 2000mg) 1,000 mg in 10 mls @ 5 mls/min IV Q12H [facility]; Protocol Stop: 11/26/24 09:01 Last Admin: 11/24/24 08:19 Dose: 5 mls/min Vancomycin HCl 750 mg/ Sodium (Chloride) 265 mls @ 200 mls/hr IV Q24H NORAH Stop: 11/29/24 07:59 Last Admin: 11/24/24 08:19 Dose: 200 mls/hr Sodium Chloride (Nss) 1,000 mls @ 70 mls/hr IV .[id number] ONE Stop: 11/24/24 11:07 Last Admin: 11/23/24 21:22 Dose: 70 mls/hr Miscellaneous Information (Vancomycin Consult Active) 1 each N/A UD PRN PRN Reason: Consult Stop: 12/21/24 14:27 Oxycodone HCl (Oxycodone Hcl Ir 5 Mg Tab (Immediate Release)) 5 mg PO Q6 PRN PRN Reason: Pain rated 4 to 10 Stop: 12/07/24 11:39 Sennosides (Senna 8.6 Mg Tab) [facility] Stop: 12/23/24 08:59 Last Admin: 11/24/24 08:19 Dose: 8.6 mg Tamsulosin HCl (Tamsulosin Hcl 0.4 Mg Cap) 0.4 mg PO [facility] Stop: 12/21/24 20:59 Last Admin: 11/23/24 21:22 Dose: 0.4 mg
[2024-11-24] MEDS: PHENYLEPHRINE 0.25% SUPP PR ONE (16:38)
[2024-11-24] MEDS: busPIRone 5 MG TAB PO SCH (20:32)
[2024-11-24] MEDS: CEFEPIME 2000MG 2,000 MG/20 ML SYR IV SCH (20:35)
[2024-11-25 07:20] LABS: Hematocrit (blood only) 26.4 % (42.0-52.0); Hemoglobin 8.5 g/dl (14.0-18.0); Mean Corpuscular Hemoglobin 32.3 pg (25.0-34.0); Mean Corpuscular Volume 100.4 fL (80.0-100.0); Platelet Count 75 K/uL (130-400); RDW Standard Deviation 64.8 fL (36.4-46.3); Red Blood Count 2.63 M/uL (4.70-6.10); White Blood Count 3.88 K/ul (4.8-10.8)
[2024-11-25 07:41] LABS: Anion Gap 6.0 (3-11); Blood Urea Nitrogen 30.0 mg/dl (6-23); Calcium 8.2 mg/dl (8.6-10.3); Carbon Dioxide 22.0 mmol/L (21-32); Chloride 108.0 mmol/L (98-107); Creatinine Clr Calc Pharmacy 38.5 ml/min; Glucose 85.0 mg/dl (70-99(Fasting)); Potassium 4.4 mmol/L (3.5-5.1); Sodium 136.0 mmol/L (136-145)
--- NOTE | 2024-11-25 09:23 | Infectious Disease Progress Nt ---
Date of Service November 25, 2024 Assessment & Plan (1) Cellulitis of right abdominal wall: (2) Acute hypoxic respiratory failure: (3) Pneumonia: (4) Acute kidney injury (LEEROY) with acute tubular necrosis (ATN): Plan Problems: #Abdominal wall cellulitis #S/p laparoscopic cholecystectomy (11/19/24) #Pneumonia #LEEROY #Doxycycline allergy/intolerance (vomiting) Micro: 11/21 BCx x2: NGTD Abx: Cefepime 11/21 - present Vanc 11/21 - present Pip/tazo 11/21 89 yo M with history of HFpEF, afib, HTN, HLD, CKD, BPH s/p TURP, MDS with pancytopenia, recent elective laparoscopic cholecystectomy (11/19/24) who presented on 11/21 feeling weak, reporting low O2 and BP, and pain and erythema around his abdominal incision. Denied fevers, chills. ID consulted for abd wall cellulitis. On presentation, pt was afebrile, HR 76, BP 109/59, 88% on 2 L NC. Noted to have 3 abdominal incisions, each with erythema, induration, warmth, slight tenderness, without discharge. Labs showed WBC 4.56, Hb 7.6, plt 58 (around baseline), Cr 2.21, normal lactate, Tbili 2.1, alk phos 213, procal 17.2. RVP negative. CXR with new RUL infiltrate, and stable R basilar airspace consolidation with small amounts of existing pleural fluid extending into the fissure. CTAP without contrast showed a small amount of probable operative contusion in the operative bed and a small amount of fluid layering in the R inguinal hernia, findings most likely related to mildly hemorrhagic ascites which can be typical postcholecystectomy particularly if there was irrigation. No organized or drainable collection. Worsening pleural effusions with mucous plugging and significant consolidation in R lung base. He was given Zosyn in the ED, then started on vanc and cefepime on admission. 11/23 RUQ US showed s/p cholecystectomy with trace air and fluid again noted within gretel hepatis similar to CT 11/21, no drainable fluid collection. Abdominal wall cellulitis now much improved. Recommendations: - Can transition from cefepime to amox/clav 875 mg PO BID through 11/27 to complete a total 7 day course of antibiotics Will sign off Admission and Anticipated Discharge Date Admission Date: November 21, 2024 Subjective Subsequent visit was provided via telemedicine using two-way real-time interactive telecommunication between the patient and the telemedicine provider. For the duration of the visit, the provider was performing the assessment from a different facility than the patient. This includesuse of bluetooth stethoscope forauscultationperformed by the telepresenter that the telemedicine provider can hear if described in the physical exam. [employer]aa Certified Powerplant Mechanic contact information: Please call [facility] Call Center . (Phone Number For Physician Use Only) After establishing a telemedicine visit, patient was: Patient was verified with two unique identifiers, Patient/authorized rep acknowledged consent and understanding and Gave permission to continue telehealth session Time Spent with Patient: Subsequent => 25 min Pt denies complaints Physical Exam Physical Exam: GEN: elderly man laying in bed in NAD. RESP: No increased work of breathing SKIN: erythema of abdominal wall much improved. Some ecchymosis inferior to marked region Results & Data Vital Signs (Past 12 Hours) Vital Signs Temp Pulse Resp BP Pulse Ox O2 Del Method 11/25/24 08:06 36.8 C 68 16 126/78 94 Room Air 11/24/24 23:46 37 C 62 18 97/60 L 97 Room Air
--- NOTE | 2024-11-25 09:31 | Discharge Summary ---
Discharge Summary Date of Service November 25, 2024 Principal Dx & Hospital Course #1 = Principal Diagnosis (1) Acute hypoxic respiratory failure: -2nd to RUL PNA on zosyn -duonebs -resolved (2) Acute kidney injury (LEEROY) with acute tubular necrosis (ATN): -resolving -cr 1.75 (3) Acute hyponatremia: -resolved -Na+ 135 (4) Cellulitis of right abdominal wall: -Acute RUQ cellulitis @ RUQ elective laparoscopic cholecystectomy (11/19/2024, [facility], General Surgeon Dr. Oneal Matthews) incisional sites x 3 -resolving -ID consulted (5) MDS (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): -Chronic pancytopenia with admission WBC 4.56, N83 L8 M8 E1, Hb 7.6, MCV 102.1, MCHC 31.3, platelet 58 (11/21/2024, 11:06am), superimposed on baseline WBC range, 1.94 - 4.33 (11/14/2016 - 11/14/2024), baseline Hb range, 8.5 - 0.6 g/dL (07/10/2022 - 11/14/2024), baseline platelet count range, 55-72 (12/13/2016 - 11/14/2024). (6) Demand ischemia: -Acute type II NSTEMI with troponin-I #1 123.4 pg/mL (11/21/2024, 11:06am), troponin-I #2 150.6 pg/mL (11/21/2024, 1:16pm). Asymptomatic. Plan 89 years old right-hand dominant male with PMH of FULL CODE @ patient's daughter's home (Ms. Becca Aguirre, ), ambulatory dysfunction utilizing walker @ patient's daughter's home (Ms. Becca Aguirre, ), anxiety disorder on clonazepam 0.5mg PO qhs, GERD on protonix 40mg PO daily, former tobacco abuse with no subsequent diagnosis of COPD, not on home O2 or home steroids, CAD s/p 1 vessel CABG (1978, [facility], [place], [place]), s/p stent #1 (1979, [facility], [place], [place]), s/p stents #2 and #3 (1980, [facility], [place], [place])chronic/persistent chronic RV systolic CHF with reduced RV systolic function and preserved LVEF 60-65% (as noted on 06/15/2024 TTE, [facility] CARDS Dr. Arpan Chicas) with dry baseline weight of 151-152 pounds @ patient's daughter's home (Ms. 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, chronic/persistent AFIB s/p Watchman procedure (2021, [facility], [place], [place]), BPH s/p TURP, on tamsulosin 0.4mg PO daily, chronic urinary incontinence on oxybutynin 5mg PO bid, CKD stage III with baseline creatinine range, 1.48-1.65 mg/dL (01/17/2024 - 11/14/2024), 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 with pancytopenia (diagnosed several years ago) on Retacrit (epoetin ilana-epbx) q2 weeks, with patient having received 2 units of packed RBC transfusion and 1 unit of platelet transfusion @ [facility] on 11/19/2024, after having undergone elective laparoscopic chol ecystectomy @ [facility] on 11/19/2024, followed by discharge back to patient's daughter's home (Ms. Becca Aguirre, ), on 11/20/2024, 3:30pm, who reports: "I was sleepy and weak this morning; my daughter Becca Aguirre ( ) said my oxygen level was low at 80% and my blood pressure was also low at 82/57 (11/21/2024, 9:15am). I remember having so much phlegm in my throat yesterday morning (11/20/2024, 9:00am) at [facility] and I was coughing up so much mucus and a little bit of blood in the mucus, too. I left that hospital yesterday afternoon (11/20/2024, 3:30pm) to go back home, and I was still coughing a lot of mucus up and a little bit of blood. I did not feel hot or feverish, and I was not feeling short of breath or having any chest pain. Oh, and yes, my right side where I had my gallbladder taken out on 11/19/2024 @ [facility] with General Surgeon Dr. Oneal Matthews hurts a little and it's red and swollen, too. My daughter Becca then called the ambulance and I arrived to the ER here @ [facility] around 10:00am this morning (11/21/2024)." Patient was subsequently admitted to the inpatient hospitalist service @ [facility] on 11/21/2024 with the following diagnoses: 1. Acute hypoxic respiratory failure with resting O2 saturation 80% on room air at patient's daughter's home, Ms. Becca Aguirre ( ); cf., admitting O2 sat 88% on 2 liters/minute O2 via nasal cannula, and BP 109/59 (11/21/2024, 10:39am), due to incipient sepsis, due to acute RUL CAP. Both acute hypoxic respiratory failure and acute RUL CAP have RESOLVED. 2. Acute kidney injury with admission creatinine 2.21 mg/dL, GFR 23.5 mL/min (11/21/2024, 11:06am), RESOLVING, superimposed on CKD stage III with baseline creatinine range, 1.48-1.65 mg/dL (01/17/2024 - 11/14/2024). 3. Acute hypovolemic hyponatremia with admission Na 132 mmol/L (11/21/2024, 11:06am), PERSISTENT, superimposed on normal baseline Na range, 136-140 mmol/L (11/14/2016 - 11/14/2024). 4. Acute RUQ cellulitis @ RUQ elective laparoscopic cholecystectomy (11/19/2024, [facility], General Surgeon Dr. Oneal Matthews) incisional sites x 3, PERSISTENT. 5. Chronic pancytopenia with admission WBC 4.56, N83 L8 M8 E1, Hb 7.6, MCV 102.1, MCHC 31.3, platelet 58 (11/21/2024, 11:06am), superimposed on baseline WBC range, 1.94 - 4.33 (11/14/2016 - 11/14/2024), baseline Hb range, 8.5 - 0.6 g/dL (07/10/2022 - 11/14/2024), baseline platelet count range, 55-72 (12/13/2016 - 11/14/2024). PERSISTENT. 6. Acute type II NSTEMI with troponin-I #1 123.4 pg/mL (11/21/2024, 11:06am), troponin-I #2 150.6 pg/mL (11/21/2024, 1:16pm). Asymptomatic. Plan to D/C home within 24hrs. Admission HPI Per Admitting Provider 89 years old right-hand dominant male with PMH of FULL CODE @ patient's daughter's home (Ms. Becca Aguirre, ), ambulatory dysfunction utilizing walker @ patient's daughter's home (Ms. Becca Aguirre, ), anxiety disorder on clonazepam 0.5mg PO qhs, GERD on protonix 40mg PO daily, former tobacco abuse with no subsequent diagnosis of COPD, not on home O2 or home steroids, CAD s/p 1 vessel CABG (1978, [facility], [place], [place]), s/p stent #1 (1979, [facility], [place], [place]), s/p stents #2 and #3 (1980, [place], [place])chronic/persistent chronic RV systolic CHF with reduced RV systolic function and preserved LVEF 60-65% (as noted on 06/15/2024 TTE, [facility] CARDS Dr. Arpan Chicas) with dry baseline weight of 151-152 pounds @ p atient's daughter's home (Ms. 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-CXFC-zolbkgwv cirrhosis, chronic/persistent AFIB s/p Watchman procedure (2021, [facility], [place], [place]), BPH s/p TURP, on tamsulosin 0.4mg PO daily, chronic urinary incontinence on oxybutynin 5mg PO bid, CKD stage III with baseline creatinine range, 1.48-1.65 mg/dL (01/17/2024 - 11/14/2024), 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 with pancytopenia (diagnosed several years ago) on Retacrit (epoetin ilana-epbx) q2 weeks, with patient having received 2 units of packed RBC transfusion and 1 unit of platelet transfusion @ [facility] on 11/19/2024, after having undergone elective laparoscopic cholecystectomy @ [facility] on 11/19/2024, followed by discharge back to patient's daughter's home (Ms. Becca Aguirre, ), on 11/20/2024, 3:30pm, who reports: "I was sleepy and weak this morning; my daughter Becca Aguirre ( ) said my oxygen level was low at 80% and my blood pressure was also low at 82/57 (11/21/2024, 9:15am). I remember having so much phlegm in my throat yesterday morning (11/20/2024, 9:00am) at [facility] and I was coughing up so much mucus and a little bit of blood in the mucus, too. I left that hospital yesterday afternoon (11/20/2024, 3:30pm) to go back home, and I was still coughing a lot of mucus up and a little bit of blood. I did not feel hot or feverish, and I was not feeling short of breath or having any chest pain. Oh, and yes, my right side where I had my gallbladder taken out on 11/19/2024 @ [facility] with General Surgeon Dr. Oneal Matthews hurts a little and it's red and swollen, too. My daughter Becca then called the ambulance and I arrived to the ER here @ [facility] around 10:00am this morning (11/21/2024)." Patient denies antecedent/coincident fevers, chills, diaphoresis, wheeze, sore throat, shortness of breath, dyspnea on exertion, chest pains, palpitations, pleurisy, nausea, vomiting, diarrhea, pelvic pain, hematemesis, hematochezia, melena, hematuria, dysuria, frequency, urgency, flank pain, headaches, dizziness, lightheadedness, visual changes, hearing changes, falls, syncope, trauma, travel history, sick contacts, or food/drug ingestions novel or new. All other review of systems are reported as negative by the patient on admission date 11/21/2024. In [facility] ER, patient was afebrile @ 36.7 degrees Celsius, HR 76 (irregularly irregular rhythm), RR 18, O2 sat 88% on 2 liters/minute O2 via nasal cannula, and BP 109/59 (11/21/2024, 10:39am). Exam was noted for a few specks of hemoptysis in patient's sputum. In addition, patient's RLQ was noted for 3 incisional wounds corresponding to laparoscopic cholecystectomy @ [facility] on 11/19/[address] Oneal Matthews, and from each wound radiated erythema, induration, warmth, slight tenderness, but no crepitus, fluctuance, discharge (sanguineous, serous, suppurative), malodor, ulceration, wound dehiscence, or lymphangitic streaking. Labs in [facility] ER bed #B5 included: WBC 4.56, N83 L8 M8 E1, Hb 7.6, MCV 102.1, MCHC 31.3, platelet 58 (11/21/2024, 11:06am). Procalcitonin #1 17.2 ng/mL (11/21/2024, 11:06am). Procalcitonin #2 14.7 ng/mL (11/21/2024, 2:27pm). Lactic acid #1 0.8 mmol/L (11/21/2024, 11:28am). Lactic acid #2 0.7 mmol/L (11/21/2024, 2:27pm). Influenza A- B-, RSV-, COVID- (11/21/2024, 11:06am). INR 1.1 (11/21/2024, 11:06am). VBG 7.34 / 47 / 33 / 25 / O2 sat < 60% (11/21/2024, 11:29am). Na 132, K 4.8, BUN 52, creatinine 2.21, GFR 23.5, glucose 199, Ca 8.1, albumin 3.4, Ca corrected 8.6 (11/21/2024, 11:06am). AST 14, ALT 12, ALK PHOS 213, total bilirubin 2.1, direct bilirubin 0.9, indirect bilirubin 1.2 (11/21/2024, 11:06am). Troponin-I #1 123.4 pg/mL (11/21/2024, 11:06am). Troponin-I #2 150.6 pg/mL (11/21/2024, 1:16pm). Troponin-I #3 (11/21/2024, 5:16pm). Additional testing in [facility] ER bed #B5 included: Portable CXR (11/21/2024, 10:59am): 1. New RUL infiltrate when compared to 09/08/2024, 7:35am portable CXR. 2. Stable RLL infiltrate with small amounts of existing pleural fluid extending into the fissure. 3. No cardiomegaly, pulmonary vascular congestion or pneumothorax. (by my review). CT abd/pelvis with IV contrast (11/21/2024, 11:33am): 1. Small amount of probable operative contusion in operative bed and small amount of fluid fluid layering in R inguinal hernia, most likely related to mildly hemorrhagic ascites which can be typical postcholecystectomy particularly if there was irrigation. 2. No organized or drainable collection. 3. Worsening pleural effusions with mucous plugging and significant consolidation in RLL. 4. Extensive diverticulosis of the colon without diverticulitis. EKG (11/21/2024, 11:07am): AFIB @ 71, QTC 428, no q; TWI in I, aVL, II, and V6; no acute ST depressions/elevations (by my review). EKG (10/09/2024, 2:20pm): AFIB @ 62, QTC 414, q in V1, V2; TWI in I, aVL, II, and V6; no acute ST depressions/elevations (by my review). Patient was subsequently admitted to the inpatient hospitalist service @ [facility] on 11/21/2024 with the following diagnoses: 1. Acute hypoxic respiratory failure with resting O2 saturation 80% on room air at patient's daughter's home, Ms. Becca Aguirre ( ); cf., admitting O2 sat 88% on 2 liters/minute O2 via nasal cannula, and BP 109/59 (11/21/2024, 10:39am), due to incipient sepsis, due to acute RUL CAP. 2. Acute kidney injury with admission creatinine 2.21 mg/dL, GFR 23.5 mL/min (11/21/2024, 11:06am), superimposed on CKD stage III with baseline creatinine range, 1.48-1.65 mg/dL (01/17/2024 - 11/14/2024). 3. Acute hypovolemic hyponatremia with admission Na 132 mmol/L (11/21/2024, 11:06am), superimposed on normal baseline Na range, 136-140 mmol/L (11/14/2016 - 11/14/2024). 4. Acute RUQ cellulitis @ RUQ elective laparoscopic cholecystectomy (11/19/2024, [facility], General Surgeon Dr. Oneal Matthews) incisional sites x 3. 5. Chronic pancytopenia with admission WBC 4.56, N83 L8 M8 E1, Hb 7.6, MCV 102.1, MCHC 31.3, platelet 58 (11/21/2024, 11:06am), superimposed on baseline WBC range, 1.94 - 4.33 (11/14/2016 - 11/14/2024), baseline Hb range, 8.5 - 0.6 g/dL (07/10/2022 - 11/14/2024), baseline platelet count range, 55-72 (12/13/2016 - 11/14/2024). 6. Acute type II NSTEMI with troponin-I #1 123.4 pg/mL (11/21/2024, 11:06am), troponin-I #2 150.6 pg/mL (11/21/2024, 1:16pm). To address #1, patient was maintained on 2 liters/minute O2 via nasal cannula to maintain O2 sat > 90% at all times in this patient with a former history of tobacco abuse (e.g., smoked 1 pack of cigarettes per day for 25 years, before quitting smoking 25 years ago). Patient also received zosyn 4.5g IV x 1 dose (11/21/2024, 12:59pm) in [facility] ER bed #B5; patient will continue with cefepime 1g IV q12 (day #1/5 on 11/21/2024, 9:00pm) and vancomycin 1.5g IV x 1 dose (11/21/2024, 2:30pm) in [facility] Med-Surg bed #E307-1 as patient awaits MRSA swab testing of left nares (and not right nares, where patient has a history of exposed blood vessel prone to epistaxis if prodded/poked in the right nares) on 11/21/2024, 3:14pm). If MRSA swab testing of left nares is negative/normal, I will discontinue vancomycin. Of note, etiology of acute hypoxic respiratory failure is due to incipient sepsis, which in turn, is due to acute RUL CAP. Patient also awaits [employer] respiratory pathogen panel PCR testing (11/21/2024, 3:14pm) to rule out concomitant acute viral infection(s). To address #2, patient received 1 liter of 0.9% NS @ 999 mL/hr (11/21/2024, 11:45am) in [facility] ER bed #B5; patient will continue with 1 liter of 0.9% NS @ 70 mL/hr (11/21/2024, 4:32pm), based on a delivery rate of 1 mL of 0.9% NS per kg of body weight per hour, and a body weight of 70.3 kg. I will check repeat creatinine level in the 11/22/2024 am. In the interim, I have opted to hold off patient's home-scheduled ASA 81mg PO daily, given potential for this medication to cause further renal embarrassment. Of note, etiology of acute kidney injury is due to acute tubular necrosis, which in turn, is due to incipient sepsis, which in turn, is due to acute RUL CAP. To address #3, patient received 1 liter of 0.9% NS @ 999 mL/hr (11/21/2024, 11:45am) in [facility] ER bed #B5; patient will continue with 1 liter of 0.9% NS @ 70 mL/hr (11/21/2024, 4:32pm), based on a delivery rate of 1 mL of 0.9% NS per kg of body weight per hour, and a body weight of 70.3 kg. I will check repeat Na level in the 11/22/2024 am. Of note, etiology of acute hypovolemic hyponatremia is due to acute dehydration, which in turn, is due to increased insensible losses of water vapor due to acute RUL CAP. To address #4, patient received zosyn 4.5g IV x 1 dose (11/21/2024, 12:59pm) in [facility] ER bed #B5; patient will continue with cefepime 1g IV q12 (day #/5 on 11/21/2024, 9:00pm) and vancomycin 1.5g IV x 1 dose (11/21/2024, 2:30pm) in [facility] Med-Surg bed #E307-1 as patient awaits MRSA swab testing of left nares (and not right nares, where patient has a history of exposed blood vessel prone to epistaxis if prodded/poked in the right nares) on 11/21/2024, 3:14pm). If MRSA swab testing of left nares is negative/normal, I will discontinue vancomycin. I will check vitals, repeat RUQ incisional sites x 3, WBC w/differential, lactic acid, and procalcitonin level in the 11/22/2024 am. Of note, etiology of acute RUQ cellulitis remains unclear, but may be due to aseptic technique used to prepare RUQ site for laparoscopic cholecystectomy on 11/19/2024 @ [facility] with General Surgeon Dr. Oneal Mcneil. To address #5, patient awaits repeat CBC with differential in the 11/22/2024 am. I will reserve packed RBC transfusion for Hb level less than 7 g/dL or if patient becomes orthostatic despite Hb level > 7 g/dL. I will reserve platelet transfusion for platelet count < 10. Of note, etiology of chronic pancytopenia is due to chronic 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. To address #6, patient awaits troponin-I #3 (11/21/2024, 5:16pm). Of note, etiology of acute type II NSTEMI is due to demand ischemia, which in turn, is due to (a) incipient sepsis, which in turn, is due to acute RUL CAP; (b) acute kidney injury with admission creatinine 2.21 mg/dL, GFR 23.5 mL/min (11/21/2024, 11:06am); and (c) chronic/persistent AFIB s/p Watchman procedure (2021, [place], [place]). Hence, I have not started belia ent on heparin infusion or active anticoagulation with lovenox 1mg / kg SQ daily. Discharge Exam GENERAL APPEARANCE NAD, activity normal for age, well developed/ well nourished, no cyanosis, pallor, or diaphoresis. EYES lids/conjunctiva normal. EARS/NOSE/THROAT Mucous membranes moist, nares normal, lips/teeth normal uvula midline without oral pharyngeal erythema, exudate or swelling TMs normal bilaterally. No lymphangitis/lymphedema. HEAD/NECK normocephalic atraumatic, no facial trauma, neck is supple. RESPIRATORY respiratory effort normal, speaks in full sentences, no tripod position, no accessory muscle use. Lungs clear to auscultation without rhonchi, wheezes, rales CARDIAC Regular rate and rhythm, no edema. ABDOMINAL Soft, ND/NT. No evidence of fluid wave. No pulsatile masses on exam, rebound tenderness, Frost sign or pain over Mcburney's point. Right surgical site with receding erythema. MUSCLES/EXTREMITIES No abnormal range of motion, no swelling. SKIN Warm, pink and dry. No rashes, dermatoses, petechiae or lesions. NEUROLOGICAL Speech is clear and appropriate. Normal level of consciousness. Gait and coordination are normal. 5/5 strength in all extremities. PSYCH Normal mood and affect. Judgement/competence is appropriate Discharge Plan Discharge Items Patient Disposition: Home - Self-Care Reason For Visit: ACUTE HYPOXIC RESPIRAORY FAILURE Discharge Diagnosis: PNA, abd cellulitis Condition on Discharge: Fair Activity: Resume your previous activity Non-emergency contact: Primary Care Provider Call non-emergency contact if: you have any medication questions Follow-up/Referrals: Osbaldo Sellers DO [Primary Care Provider] - Diet: Regular Addtl Attending Provider Instructions: Follow up with PMD in 1 week Pending Studies at Discharge: No Stand-Alone Forms: My [facility], Smoking Cessation Medications and DC Order Prescriptions: New buspirone 5 mg Tablet 10 mg PO BID Qty: 60 0RF amoxicillin-pot clavulanate 875-125 mg tablet 1 tab PO BID Qty: 10 0RF Continued oxybutynin chloride 5 mg tablet 5 mg PO BID Qty: 180 3RF clonazepam 0.5 mg tablet 0.5 mg PO HS Qty: 30 0RF pantoprazole 40 mg tablet,delayed release (DR/EC) 40 mg PO QAM Qty: 90 3RF pravastatin 40 mg tablet 40 mg PO HS Qty: 90 3RF nitroglycerin 0.4 mg tablet, sublingual 0.4 mg sublingual Q5M PRN (Reason: Chest Pain) Qty: 25 5RF Rx Instructions: do not exceed 3 doses per episode hydrocortisone [Proctozone-HC] 2.5 % cream with perineal applicator 1 applic CA DAILY PRN (Reason: hemorrhoids) Qty: 30 1RF Patient Comments: 10/09-Last filled 06/24/24 15 day supply Retacrit 2,000 unit/mL Solution 0 unit IV DIRECTED PRN (Reason: Anemia) Rx Instructions: 05/02/24 : EVERY TWO WEEK INJECTION GIVEN AT [facility] FOR Hgb < 10. sennosides [Senokot] 8.6 mg Tablet 8.6 mg PO HS aspirin 81 mg Tablet,Delayed Release (Dr/Ec) 81 mg PO DAILY tamsulosin 0.4 mg capsule 0.4 mg PO HS silver sulfadiazine [Silvadene] 1 % cream 0 applic topical DAILY Rx Instructions: apply a 1.5 mm thickness oxycodone 5 mg tablet 2.5 mg PO Q8H PRN (Reason: pain) Qty: 6 0RF Discharge Orders: Discharge Order (Routine); Ordered 11/25/24 Ordered By: Tony Rose Admission Data Admit Date/Time: 11/21/24 13:41 Attending Provider: Tony Rose Admit Provider: Benito Oleary Primary Care Provider: Osbaldo Sellers Other Providers: Benito Oleary; [facility]; Johanna Vallejo; Nathaly Woodward; Alia Atwood; Roxann Ordaz; Siobhan Aiken; Corrine Almaraz; Liu Cortez at [facility] Stay Data Consultations 11/21/24 13:17 ED Decision to Admit Stat 11/24/24 07:28 Consult Infectious Diseases Routine Diagnostic Imagining Performed 11/21/24 11:33 CT abd pelvis wo con Stat 11/23/24 09:32 US RUQ [US liver] Stat Pending Results Patient Have Any Pending Studies at Discharge: No Discharge Instructions Given to Patient (Per Discharging Provider) Follow up with PMD in 1 week Total Time Total Time Spent Total Time Spent (In Minutes): 50 Coding Level of Care Code 71874 INP/OBS DISCH >30 MIN Diagnoses Acute hypoxic respiratory failure J96.01 Acute kidney injury (LEEROY) with acute tubular necrosis (ATN) N17.0 Acute hyponatremia E87.1 Cellulitis of right abdominal wall L03.311 MDS (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) D46.9 Demand ischemia I24.89
[2024-11-26 06:10] LABS: Hematocrit (blood only) 26.5 % (42.0-52.0); Hemoglobin 8.6 g/dl (14.0-18.0); Mean Corpuscular Hemoglobin 32.7 pg (25.0-34.0); Mean Corpuscular Volume 100.8 fL (80.0-100.0); Platelet Count 74 K/uL (130-400); RDW Standard Deviation 64.8 fL (36.4-46.3); Red Blood Count 2.63 M/uL (4.70-6.10); White Blood Count 4.07 K/ul (4.8-10.8)
[2024-11-26 06:30] LABS: Anion Gap 6.0 (3-11); Blood Urea Nitrogen 29.0 mg/dl (6-23); Calcium 8.2 mg/dl (8.6-10.3); Carbon Dioxide 22.0 mmol/L (21-32); Chloride 108.0 mmol/L (98-107); Creatinine Clr Calc Pharmacy 38.5 ml/min; Glucose 88.0 mg/dl (70-99(Fasting)); Potassium 4.3 mmol/L (3.5-5.1); Sodium 136.0 mmol/L (136-145)
--- NOTE | 2024-11-26 09:51 | Hospitalist Progress Note ---
Date of Service November 26, 2024 Assessment & Plan (1) Acute hypoxic respiratory failure: Plan: -2nd to RUL PNA on zosyn -duonebs -resolved (2) Acute kidney injury (LEEROY) with acute tubular necrosis (ATN): Plan: -resolving -cr 1.25 (3) Acute hyponatremia: Plan: -resolved -Na+ 135 (4) Cellulitis of right abdominal wall: Plan: -Acute RUQ cellulitis @ RUQ elective laparoscopic cholecystectomy (11/19/2024, [facility], General Surgeon Dr. Oneal Matthews) incisional sites x 3 -resolving -ID consulted (5) MDS (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): Plan: -Chronic pancytopenia with admission WBC 4.56, N83 L8 M8 E1, Hb 7.6, MCV 102.1, MCHC 31.3, platelet 58 (11/21/2024, 11:06am), superimposed on baseline WBC range, 1.94 - 4.33 (11/14/2016 - 11/14/2024), baseline Hb range, 8.5 - 0.6 g/dL (07/10/2022 - 11/14/2024), baseline platelet count range, 55-72 (12/13/2016 - 11/14/2024). (6) Demand ischemia: Plan: -Acute type II NSTEMI with troponin-I #1 123.4 pg/mL (11/21/2024, 11:06am), troponin-I #2 150.6 pg/mL (11/21/2024, 1:16pm). Asymptomatic. Plan 89 years old right-hand dominant male with PMH of FULL CODE @ patient's daughter's home (Ms. Becca Aguirre, ), ambulatory dysfunction utilizing walker @ patient's daughter's home (Ms. Becca Aguirre, ), anxiety disorder on clonazepam 0.5mg PO qhs, GERD on protonix 40mg PO daily, former tobacco abuse with no subsequent diagnosis of COPD, not on home O2 or home steroids, CAD s/[place] 1 [place] [facility] s/p stent #1 (1979, [facility], [place], [place]), s/p stents #2 and #3 (1980, [facility], [place], [place])chronic/persistent chronic RV systolic CHF with reduced RV systolic function and preserved LVEF 60-65% (as noted on 06/15/2024 TTE, [facility] CARDS Dr. Arpan Chicas) with dry baseline weight of 151-152 pounds @ patient's daughter's home (Ms. 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, chronic/persistent AFIB s/p Watchman procedure (2021, [facility], [place], [place]), BPH s/p TURP, on tamsulosin 0.4mg PO daily, chronic urinary incontinence on oxybutynin 5mg PO bid, CKD stage III with baseline creatinine range, 1.48-1.65 mg/dL (01/17/2024 - 11/14/2024), 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 with pancytopenia (diagnosed several years ago) on Retacrit (epoetin ilana-epbx) q2 weeks, with patient having received 2 units of packed RBC transfusion and 1 unit of platelet transfusion @ [facility] on 11/19/2024, after having undergone elective laparoscopic cholecystectomy @ [facility] on 11/19/2024, followed by discharge back to patient's daughter's home (Ms. Becca Aguirre, ), on 11/20/2024, 3:30pm, who reports: "I was sleepy and weak this morning; my daughter Becca Aguirre ( ) said my oxygen level was low at 80% and my blood pressure was also low at 82/57 (11/21/2024, 9:15am). I remember having so much phlegm in my throat yesterday morning (11/20/2024, 9:00am) at [facility] and I was coughing up so much mucus and a little bit of blood in the mucus, too. I left that hospital yesterday afternoon (11/20/2024, 3:30pm) to go back home, and I was still coughing a lot of mucus up and a little bit of blood. I did not feel hot or feverish, and I was not feeling short of breath or having any chest pain. Oh, and yes, my right side where I had my gallbladder taken out on 11/19/2024 @ [facility] with General Surgeon Dr. Oneal Matthews hurts a little and it's red and swollen, too. My daughter Becca then called the ambulance and I arrived to the ER here @ [facility] around 10:00am this morning (11/21/2024)." Patient was subsequently admitted to the inpatient hospitalist service @ [facility] on 11/21/2024 with the following diagnoses: 1. Acute hypoxic respiratory failure with resting O2 saturation 80% on room air at patient's daughter's home, Ms. Becca Aguirre ( ); cf., admitting O2 sat 88% on 2 liters/minute O2 via nasal cannula, and BP 109/59 (11/21/2024, 10:39am), due to incipient sepsis, due to acute RUL CAP. Both acute hypoxic respiratory failure and acute RUL CAP have RESOLVED. 2. Acute kidney injury with admission creatinine 2.21 mg/dL, GFR 23.5 mL/min (11/21/2024, 11:06am), RESOLVING, superimposed on CKD stage III with baseline creatinine range, 1.48-1.65 mg/dL (01/17/2024 - 11/14/2024). 3. Acute hypovolemic hyponatremia with admission Na 132 mmol/L (11/21/2024, 11:06am), PERSISTENT, superimposed on normal baseline Na range, 136-140 mmol/L (11/14/2016 - 11/14/2024). 4. Acute RUQ cellulitis @ RUQ elective laparoscopic cholecystectomy (11/19/2024, [facility], General Surgeon Dr. Oneal Matthews) incisional sites x 3, PERSISTENT. 5. Chronic pancytopenia with admission WBC 4.56, N83 L8 M8 E1, Hb 7.6, MCV 102.1, MCHC 31.3, platelet 58 (11/21/2024, 11:06am), superimposed on baseline WBC range, 1.94 - 4.33 (11/14/2016 - 11/14/2024), baseline Hb range, 8.5 - 0.6 g/dL (07/10/2022 - 11/14/2024), baseline platelet count range, 55-72 (12/13/2016 - 11/14/2024). PERSISTENT. 6. Acute type II NSTEMI with troponin-I #1 123.4 pg/mL (11/21/2024, 11:06am), troponin-I #2 150.6 pg/mL (11/21/2024, 1:16pm). Asymptomatic. Awaiting place in SNF vs Home with home health pending approval. Admission and Anticipated Discharge Date Admission Date: November 21, 2024 Subjective No events overnight. Review of Systems Review of Systems: CONST: Negative for fever, body aches and chills. HENT: Negative for neck pain/stiffness, headache, congestion, sore throat, swelling. EYES: Negative for discharge/pain or vision changes. RESP: Negative for cough/hemoptysis and shortness of breath. CV: Negative chest pain, difficulty breathing, palpitations. ABD: Negative pain, nausea, vomiting. : Negative increase frequency, dysuria, blood in urine or stool. MUSC: Negative for muscle aches, edema. SKIN: Negative rash, lesions/sores. NEURO: Negative headache, dizziness, weakness. Physical Exam Physical Exam: GENERAL APPEARANCE NAD, activity normal for age, well developed/ well nourished, no cyanosis, pallor, or diaphoresis. EYES lids/conjunctiva normal. EARS/NOSE/THROAT Mucous membranes moist, nares normal, lips/teeth normal uvula midline without oral pharyngeal erythema, exudate or swelling TMs normal bilaterally. No lymphangitis/lymphedema. HEAD/NECK normocephalic atraumatic, no facial trauma, neck is supple. RESPIRATORY respiratory effort normal, speaks in full sentences, no tripod position, no accessory muscle use. Lungs clear to auscultation without rhonchi, wheezes, rales CARDIAC Regular rate and rhythm, no edema. ABDOMINAL Soft, ND/NT. No evidence of fluid wave. No pulsatile masses on exam, rebound tenderness, Frost sign or pain over Mcburney's point. Right surgical site with receding erythema. MUSCLES/EXTREMITIES No abnormal range of motion, no swelling. SKIN Warm, pink and dry. No rashes, dermatoses, petechiae or lesions. NEUROLOGICAL Speech is clear and appropriate. Normal level of consciousness. Gait and coordination are normal. 5/5 strength in all extremities. PSYCH Normal mood and affect. Judgement/competence is appropriate Results & Data Results & Data Vital Signs (Past 12 Hours) Vital Signs Temp Pulse Resp BP Pulse Ox O2 Del Method 11/26/24 07:20 Room Air 11/26/24 07:13 36.6 C 64 18 113/60 98 Room Air 11/25/24 22:40 37.1 C 65 16 115/61 95 Room Air 11/25/24 22:15 Room Air PG Care Time/CCT Total # of Minutes Spent Total Time Spent with Patient: Total time spent is greater than 50% in coordination of care (as documented) at patient's floor/unit and/or counseling patient: Coding Level of Care Code 88280 SUB INP/OBS CARE 2/35MIN Diagnoses Acute hypoxic respiratory failure J96.01 Acute kidney injury (LEEROY) with acute tubular necrosis (ATN) N17.0 Acute hyponatremia E87.1 Cellulitis of right abdominal wall L03.311 MDS (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) D46.9 Demand ischemia I24.89
[2024-11-27 06:44] LABS: Hematocrit (blood only) 26.2 % (42.0-52.0); Hemoglobin 8.5 g/dl (14.0-18.0); Mean Corpuscular Hemoglobin 32.8 pg (25.0-34.0); Mean Corpuscular Volume 101.2 fL (80.0-100.0); Platelet Count 79 K/uL (130-400); RDW Standard Deviation 63.5 fL (36.4-46.3); Red Blood Count 2.59 M/uL (4.70-6.10); White Blood Count 4.73 K/ul (4.8-10.8)
[2024-11-27 07:14] LABS: Anion Gap 6.0 (3-11); Blood Urea Nitrogen 25.0 mg/dl (6-23); Calcium 8.3 mg/dl (8.6-10.3); Carbon Dioxide 22.0 mmol/L (21-32); Chloride 108.0 mmol/L (98-107); Creatinine Clr Calc Pharmacy 43.0 ml/min; Glucose 90.0 mg/dl (70-99(Fasting)); Potassium 4.3 mmol/L (3.5-5.1); Sodium 136.0 mmol/L (136-145)
[2024-11-27 08:05] VITALS: BP 134/64; PULSE 75; RESP 18; TEMP 98.6; O2SAT 97
--- NOTE | 2024-11-27 10:12 | Hospitalist Progress Note ---
Date of Service November 27, 2024 Assessment & Plan (1) Acute hypoxic respiratory failure: Plan: -2nd to RUL PNA on zosyn -duonebs -resolved (2) Acute kidney injury (LEEROY) with acute tubular necrosis (ATN): Plan: -resolving -cr 1.25 (3) Acute hyponatremia: Plan: -resolved -Na+ 135 (4) Cellulitis of right abdominal wall: Plan: -Acute RUQ cellulitis @ RUQ elective laparoscopic cholecystectomy (11/19/2024, [facility], General Surgeon Dr. Oneal Matthews) incisional sites x 3 -resolving -ID consulted (5) MDS (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): Plan: -Chronic pancytopenia with admission WBC 4.56, N83 L8 M8 E1, Hb 7.6, MCV 102.1, MCHC 31.3, platelet 58 (11/21/2024, 11:06am), superimposed on baseline WBC range, 1.94 - 4.33 (11/14/2016 - 11/14/2024), baseline Hb range, 8.5 - 0.6 g/dL (07/10/2022 - 11/14/2024), baseline platelet count range, 55-72 (12/13/2016 - 11/14/2024). (6) Demand ischemia: Plan: -Acute type II NSTEMI with troponin-I #1 123.4 pg/mL (11/21/2024, 11:06am), troponin-I #2 150.6 pg/mL (11/21/2024, 1:16pm). Asymptomatic. Plan 89 years old right-hand dominant male with PMH of FULL CODE @ patient's daughter's home (Ms. Becca Aguirre, ), ambulatory dysfunction utilizing walker @ patient's daughter's home (Ms. Becca Aguirre, ), anxiety disorder on clonazepam 0.5mg PO qhs, GERD on protonix 40mg PO daily, former tobacco abuse with no subsequent diagnosis of COPD, not on home O2 or home steroids, CAD [place] 1 [place] [facility] s/p stent #1 (1979, [facility], [place], [place]), s/p stents #2 and #3 (1980, [facility], [place], [place])chronic/persistent chronic RV systolic CHF with reduced RV systolic function and preserved LVEF 60-65% (as noted on 06/15/2024 TTE, [facility] CARDS Dr. Arpan Chicas) with dry baseline weight of 151-152 pounds @ patient's daughter's home (Ms. Becca Aguirre, ), leading to chronic [id number] cirrhosis, chronic/persistent AFIB s/p Watchman procedure (2021, [facility], [place], [place]), BPH s/p TURP, on tamsulosin 0.4mg PO daily, chronic urinary incontinence on oxybutynin 5mg PO bid, CKD stage III with baseline creatinine range, 1.48-1.65 mg/dL (01/17/2024 - 11/14/2024), 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 with pancytopenia (diagnosed several years ago) on Retacrit (epoetin ilana-epbx) q2 weeks, with patient having received 2 units of packed RBC transfusion and 1 unit of platelet transfusion @ [facility] on 11/19/2024, after having undergone elective laparoscopic cholecystectomy @ [facility] on 11/19/2024, followed by discharge back to patient's daughter's home (Ms. Becca Aguirre, ), on 11/20/2024, 3:30pm, who reports: "I was sleepy and weak this morning; my daughter Becca Aguirre ( ) said my oxygen level was low at 80% and my blood pressure was also low at 82/57 (11/21/2024, 9:15am). I remember having so much phlegm in my throat yesterday morning (11/20/2024, 9:00am) at [facility] and I was coughing up so much mucus and a little bit of blood in the mucus, too. I left that hospital yesterday afternoon (11/20/2024, 3:30pm) to go back home, and I was still coughing a lot of mucus up and a little bit of blood. I did not feel hot or feverish, and I was not feeling short of breath or having any chest pain. Oh, and yes, my right side where I had my gallbladder taken out on 11/19/2024 @ [facility] with General Surgeon Dr. Oneal Matthews hurts a little and it's red and swollen, too. My daughter Becca then called the ambulance and I arrived to the ER here @ [facility] around 10:00am this morning (11/21/2024)." Patient was subsequently admitted to the inpatient hospitalist service @ [facility] on 11/21/2024 with the following diagnoses: 1. Acute hypoxic respiratory failure with resting O2 saturation 80% on room air at patient's daughter's home, Ms. Becca Aguirre ( ); cf., admitting O2 sat 88% on 2 liters/minute O2 via nasal cannula, and BP 109/59 (11/21/2024, 10:39am), due to incipient sepsis, due to acute RUL CAP. Both acute hypoxic respiratory failure and acute RUL CAP have RESOLVED. 2. Acute kidney injury with admission creatinine 2.21 mg/dL, GFR 23.5 mL/min (11/21/2024, 11:06am), RESOLVING, superimposed on CKD stage III with baseline creatinine range, 1.48-1.65 mg/dL (01/17/2024 - 11/14/2024). 3. Acute hypovolemic hyponatremia with admission Na 132 mmol/L (11/21/2024, 11:06am), PERSISTENT, superimposed on normal baseline Na range, 136-140 mmol/L (11/14/2016 - 11/14/2024). 4. Acute RUQ cellulitis @ RUQ elective laparoscopic cholecystectomy (11/19/2024, [facility], General Surgeon Dr. Oneal Matthews) incisional sites x 3, PERSISTENT. 5. Chronic pancytopenia with admission WBC 4.56, N83 L8 M8 E1, Hb 7.6, MCV 102.1, MCHC 31.3, platelet 58 (11/21/2024, 11:06am), superimposed on baseline WBC range, 1.94 - 4.33 (11/14/2016 - 11/14/2024), baseline Hb range, 8.5 - 0.6 g/dL (07/10/2022 - 11/14/2024), baseline platelet count range, 55-72 (12/13/2016 - 11/14/2024). PERSISTENT. 6. Acute type II NSTEMI with troponin-I #1 123.4 pg/mL (11/21/2024, 11:06am), troponin-I #2 150.6 pg/mL (11/21/2024, 1:16pm). Asymptomatic. PT was denied SNF placement. Daughter agreeing to take him home. Admission and Anticipated Discharge Date Admission Date: November 21, 2024 Subjective No events overnight. Review of Systems Review of Systems: CONST: Negative for fever, body aches and chills. HENT: Negative for neck pain/stiffness, headache, congestion, sore throat, swelling. EYES: Negative for discharge/pain or vision changes. RESP: Negative for cough/hemoptysis and shortness of breath. CV: Negative chest pain, difficulty breathing, palpitations. ABD: Negative pain, nausea, vomiting. : Negative increase frequency, dysuria, blood in urine or stool. MUSC: Negative for muscle aches, edema. SKIN: Negative rash, lesions/sores. NEURO: Negative headache, dizziness, weakness. Physical Exam Physical Exam: GENERAL APPEARANCE NAD, activity normal for age, well developed/ well nourished, no cyanosis, pallor, or diaphoresis. EYES lids/conjunctiva normal. EARS/NOSE/THROAT Mucous membranes moist, nares normal, lips/teeth normal uvula midline without oral pharyngeal erythema, exudate or swelling TMs normal bilaterally. No lymphangitis/lymphedema. HEAD/NECK normocephalic atraumatic, no facial trauma, neck is supple. RESPIRATORY respiratory effort normal, speaks in full sentences, no tripod position, no accessory muscle use. Lungs clear to auscultation without rhonchi, wheezes, rales CARDIAC Regular rate and rhythm, no edema. ABDOMINAL Soft, ND/NT. No evidence of fluid wave. No pulsatile masses on exam, rebound tenderness, Frost sign or pain over Mcburney's point. Right surgical site with receding erythema. MUSCLES/EXTREMITIES No abnormal range of motion, no swelling. SKIN Warm, pink and dry. No rashes, dermatoses, petechiae or lesions. NEUROLOGICAL Speech is clear and appropriate. Normal level of consciousness. Gait and coordination are normal. 5/5 strength in all extremities. PSYCH Normal mood and affect. Judgement/competence is appropriate Results & Data Results & Data Vital Signs (Past 12 Hours) Vital Signs Temp Pulse Resp BP Pulse Ox O2 Del Method 11/27/24 07:28 37.0 C 75 18 134/64 97 Room Air 11/26/24 23:25 36.9 C 69 16 115/60 96 Room Air PG Care Time/CCT Total # of Minutes Spent Total Time Spent with Patient: Total time spent is greater than 50% in coordination of care (as documented) at patient's floor/unit and/or counseling patient: Coding Level of Care Code 20445 SUB INP/OBS CARE 2/35MIN Diagnoses Acute hypoxic respiratory failure J96.01 Acute kidney injury (LEEROY) with acute tubular necrosis (ATN) N17.0 Acute hyponatremia E87.1 Cellulitis of right abdominal wall L03.311 MDS (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) D46.9 Demand ischemia I24.89
== END 2024-11-27 13:09 | disposition home health service (06) | DRG 862 ==
LOC: ED 10:47 → SUATTDRO 13:41 → 3E 13:41

== ENCOUNTER 2024-12-11 08:23 | Inpatient (IN) ==
--- NOTE | 2024-12-11 08:33 | Emergency Department Note ---
Impression & Plan GI bleed, Vomiting, Diarrhea, Anemia, Thrombocytopenia ED Provider Note NAME: NORA HARRELL III AGE: 89 SEX: M : 1935 ARRIVES VIA: Ambulance INFORMANT: Patient ED PROVIDER(S): Emre Traore DO CHIEF COMPLAINT: abdominal pain and vomiting HPI: Patient is an 89-year-old male with a past medical history of demand ischemia, MDS, LEEROY, hyponatremia, heart failure, PAD who presents to the ER following cholecystectomy around November 24. He notes that he had nausea and vomiting started this morning. He threw up several times and had bright red blood in the vomit x 3. He admits to diarrhea which has been present for the past day. Family provides additional history and notes that diarrhea has really been there for the past 3 days. He has pain in his belly from a hematoma from the surgery but no new pain that he is aware of. ADDITIONAL HISTORY OBTAINED: Per HPI Chronic Medical/Social Conditions Affecting Care: Per HPI PAST MEDICAL HISTORY:See Below PAST SURGICAL HISTORY:See Below FAMILY HISTORY:See Below SOCIAL HISTORY:See Below HOME MEDICATIONS:See Below ALLERGIES:See Below VITALS:See Below PHYSICAL EXAMINATION: GENERAL: Sitting up in bed, alert, chronically ill-appearing, disheveled EYE EXAM: normal conjunctiva. PERRL and EOM's grossly intact. OROPHARYNX: mucous membranes are moist NECK: supple, no nuchal rigidity, no adenopathy, non-tender LUNGS: Clear to auscultation. Normal chest wall mechanics HEART: no murmurs, S1 normal and S2 normal ABDOMEN: abdomen soft, non-tender, normo-active bowel sounds, no masses, no rebound or guarding. UPPER EXTREMITIES: upper extremities are grossly normal. LOWER EXTREMITIES: No pitting edema. NEURO EXAM: Normal sensorium, cranial nerves II-XII grossly intact, normal speech, no gross weakness of arms, no gross weakness of legs. MEDICAL DECISION MAKING: Patient is an 89-year-old male who presents ER for the above-stated complaint. Per family who provided additional history he vomited up several times and 3 of his episodes had bright red blood. IV was established and blood work was obtained. Labs show leukopenia of 2.9. Anemia at 8.5 consistent with previous and thrombocytopenia 70 again consistent with previous. BMP with a slightly low CO2 at 20. BUN was elevated consistent with a possible upper GI bleed. LFTs bilirubin unremarkable. No dark or tarry stools. UA was clean. Patient was typed and crossed. Initially blood was ordered but held as the i-STAT showed a hemoglobin of 6 but the CBC came back at 8 consistent with previous. He had no belly pain. CT ab and pelvis showed no acute pathology. Patient was given Protonix drip and bolus. Discussed case with the hospitalist for further evaluation management treatment. Consults/Care Managements Discussions: Per MDM Triage Nursing notes reviewed. Limited review of prior medical records performed Vital Signs: reviewed and remarkable for no significant abnormalities Differential diagnosis: Diverticulosis, AVM, coagulopathy, colitis, inflammatory bowel disease, malignancy, Manjula-Riley tear, esophagitis, peptic ulcer disease, variceal bleed, gastritis, epistaxis, fissure, hemorrhoids, as well as other pathologies. ER treatment provided: See below Diagnostics interpreted by me include EKG and cardiac monitoring as listed below: -Cardiac Monitoring: An order was placed for continuous cardiac monitoring. The monitor shows a rate of 70 with sinus rhythm. -ECG: none -Laboratory studies:Interpreted by me as stated above in MDM and shown below. Imaging studies: Xrays: As interpreted by me:none CTs show: CT abdomen pelvis per my pleurae interpretation showed no obvious bowel obstruction CT Abd/pelvis per radiology shows no acute pathology. Procedures:none Critical Care: None Past Med/Surg History Problem List (Updated 12/11/24 @ 15:32 by Emre Traore DO) Thrombocytopenia (Acute) Anemia (Acute) Diarrhea (Acute) Vomiting (Acute) GI bleed (Acute) Coffee ground emesis Hematochezia Pleural effusion (Acute) Edema of abdominal wall (Acute) Edema of right lower extremity (Acute) Demand ischemia MDS (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) Cellulitis of right abdominal wall Acute hyponatremia Acute kidney injury (LEEROY) with acute tubular necrosis (ATN) Acute hypoxic respiratory failure Pancytopenia (Acute) Post-operative pain (Acute) Hypoxia (Acute) Pneumonia (Acute) Bilateral high frequency sensorineural hearing loss Recurrent epistaxis Pancytopenia (Acute) Depression Hypoxia Bilateral pleural effusion Chronic heart failure with preserved ejection fraction Chest pain Bronchitis Urethral 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 Prostate cancer Stage 3b chronic kidney disease Vitamin D deficiency Kidney disease, chronic, stage IV (GFR 15-29 ml/min) (Acute) GERD (gastroesophageal reflux disease) Peripheral vascular disease Myelodysplastic syndrome (Acute) Atherogenic dyslipidemia Benign essential hypertension Chronic diastolic heart failure Persistent atrial fibrillation Coronary artery disease s/p 2 stents in 1999 and CABG x 1 1978 Diverticulosis (Acute) Stented coronary artery TWO PER PT Hernia Medical History (Updated 12/11/24 @ 15:32 by Emre Traore DO) Encounter for pre-operative examination Acute cholecystitis NSTEMI (non-ST elevated myocardial infarction) Acute on chronic heart failure with preserved ejection fraction Acute kidney injury 08/08/22 Hx of bronchitis 10/2023 Depression Congestive heart failure Anemia blood transfusion ~06/16/24- [facility] Pancytopenia Bilateral pleural effusion 05/2024 Dysphagia Acute cholecystitis 06/14/24 [facility] to [facility] History of non-ST elevation myocardial infarction (NSTEMI) 06/14/24- transferred from [facility] to [facility] Elevated troponin 06/14/24 SOB (shortness of breath) History of recent blood transfusion 05/2024 [facility] Kidney disease, chronic, stage IV (GFR 15-29 ml/min) Diverticulosis CAD (coronary artery disease) s/p 2 stents in 1999 and CABG x 1 1978 Chronic diastolic heart failure HTN (hypertension) Dyslipidemia PVD (peripheral vascular disease) Chronic cough History of Mohs micrographic surgery for skin cancer nose History of skin cancer Presence of Watchman left atrial appendage closure device (2020) Atrial fibrillation follows w/ Dr Shravan Huerta Hx of brachytherapy initial tx for prostate ca Hyperlipidemia GERD (gastroesophageal reflux disease) MDS (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) 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 [place], [place]; x2 stents; f/u shravan huerta History of cardiac cath ~1999, angina, [place], [place]; x2 stents; f/u shravan huerta S/P TURP Family History Father Heart disease Hypertension Mother Seizure Denies family history of Ovarian cancer Prostate cancer Myocardial infarction Breast cancer Colorectal cancer Social History Smoking Status: Former smoker Tobacco Type: Cigarettes Age Started Using Tobacco: 26; Age Quit Using Tobacco: 61; packs per day: 1; Cigarettes Per Day: 20; Second Hand Exposure: No; Do You Dip or Chew Tobacco: No; Hx Alcohol Use: No Hx Substance Use: No Preferred Language: French Communication Ability: Effective Communication Ability Comment: short term memory impairment; can answer yes/no questions appropriately Visual Impairment: No Limitations Hearing Ability: Normal Front Desk Monitor Required: No Beliefs That Will Affect Care: None marital status: / marital status details: LIVES WITH DAUGHTER AND SON IN LAW Current Living Situation: Family Current Living Situation Comment: home with daughter and son in law current occupational status: retired 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 How many Children do You have: 3 How many Children do You have Comment: 3 daughters, all alive and well Other Information That Helps Us Care for You: No other: [employer], [place]. Feels Safe at Home: Yes Safety Concerns: Feels Safe At This Time Childhood Exposure to Second-Hand Smoke: No Diet: regular caffeine: Yes during the past year weight has: remained stable Dental Care, Regularly: No Physical Activity Frequency: Does not Exercise Seatbelt Use: always Sunscreen Use: Yes Assistive Devices: Denture - Upper, Denture - Lower, Glasses and Walker Allergies Allergies Allergy/AdvReac Type Severity Reaction Status Date / Time No Known Allergies Allergy Verified 12/03/24 19:57 Home Meds Home Medications Medication Instructions Recorded Confirmed epoetin ilana-epbx 2,000 unit/mL 0 unit IV DIRECTED PRN Anemia 05/02/24 12/11/24 injection solution (Retacrit) aspirin 81 mg tablet,delayed 81 mg PO DAILY 09/08/24 12/11/24 release sennosides 8.6 mg tablet (Senokot) 8.6 mg PO HS 09/08/24 12/11/24 tamsulosin 0.4 mg capsule 0.4 mg PO HS 09/08/24 12/11/24 silver sulfadiazine 1 % topical 1 applic topical DIRECTED PRN 10/09/24 12/11/24 cream (Silvadene) Wound Care pantoprazole 40 mg tablet,delayed 40 mg PO QAM 12/11/24 12/11/24 release Previous Rx's Medication Instructions Recorded oxybutynin chloride 5 mg tablet 5 mg PO BID #180 tabs 02/17/24 nitroglycerin 0.4 mg sublingual 0.4 mg sublingual Q5M PRN Chest 03/10/24 tablet Pain #25 tabs pravastatin 40 mg tablet 40 mg PO HS #90 tabs 11/02/24 buspirone 5 mg tablet 10 mg (2 x 5 mg) PO BID #60 tabs 11/25/24 clonazepam 0.5 mg tablet 0.5 mg PO HS #30 tabs 12/08/24 Results & Data (ED) Vital Signs Vital Signs - 24 hr 12/11/24 08:24 12/11/24 08:36 12/11/24 09:00 Temperature 36.9 C Temperature Source Oral Pulse Rate 81 77 Pulse Rate from SpO2 Sensor Respiratory Rate 19 Blood Pressure 100/43 L 101/61 Blood Pressure Mean 62 83 Blood Pressure Position Semi-fowlers Pulse Oximetry 94 Oxygen Delivery Method Room Air Sepsis Recent Fever Within 48 Hours No Sepsis New/Unexplained Change in Mental Status No Sepsis Action Taken by Nursing No Action Required 12/11/24 09:05 12/11/24 09:44 12/11/24 10:00 Temperature Temperature Source Pulse Rate 78 74 Pulse Rate from SpO2 Sensor 70 Respiratory Rate 34 H 25 H Blood Pressure 117/56 L 114/49 L Blood Pressure Mean 76 81 Blood Pressure Position Pulse Oximetry 97 Oxygen Delivery Method Sepsis Recent Fever Within 48 Hours Sepsis New/Unexplained Change in Mental Status Sepsis Action Taken by Nursing 12/11/24 10:05 12/11/24 10:08 12/11/24 10:32 Temperature Temperature Source Pulse Rate 72 70 70 Pulse Rate from SpO2 Sensor 74 74 72 Respiratory Rate 21 20 17 Blood Pressure 115/50 L Blood Pressure Mean 71 Blood Pressure Position Pulse Oximetry 96 94 94 Oxygen Delivery Method Sepsis Recent Fever Within 48 Hours Sepsis New/Unexplained Change in Mental Status Sepsis Action Taken by Nursing 12/11/24 10:59 Temperature Temperature Source Pulse Rate 81 Pulse Rate from SpO2 Sensor 80 Respiratory Rate 28 H Blood Pressure 125/55 L Blood Pressure Mean 78 Blood Pressure Position Pulse Oximetry 97 Oxygen Delivery Method Sepsis Recent Fever Within 48 Hours Sepsis New/Unexplained Change in Mental Status Sepsis Action Taken by Nursing Laboratory Data 12/11/24 08:42 12/11/24 08:42 Lab Results 12/11/24 12/11/24 12/11/24 Range/Units 08:42 08:48 08:54 WBC 2.94 L (4.8-10.8) K/ul RBC 2.64 L (4.70-6.10) M/uL Hgb 8.5 L (14.0-18.0) g/dl POC Hgb 6.1 L* (14.0-18.0) g/dl Hct 27.5 L (42.0-52.0) % POC Hct 18 L* (42-52) % MCV 104.2 H (80.0-100.0) fL MCH 32.2 (25.0-34.0) pg MCHC 30.9 L (32.0-36.0) g/dL RDW Std Deviation 65.6 H (36.4-46.3) fL RDW Coeff of Salena 17.6 H (11.5-14.5) % Plt Count 70 L (130-400) K/uL MPV 11.8 (9.4-12.4) fL Immature Gran % (Auto) 0.7 % Neut % (Auto) 84.1 % Lymph % (Auto) 8.5 % [place] % (Auto) 6.1 % Eos % (Auto) 0.3 % Baso % (Auto) 0.3 % Neut # (Auto) 2.47 (1.40-6.50) K/uL Lymph # (Auto) 0.25 L (1.20-3.40) K/uL [place] # (Auto) 0.18 (0.11-0.59) K/uL Eos # (Auto) 0.01 (0.00-0.50) K/uL Baso # (Auto) 0.01 (0.00-0.20) K/uL Immature Gran # (Auto) 0.02 (0.01-0.20) K/uL POC Sodium 138 (135-144) mmol/L Sodium 141 (136-145) mmol/L POC Potassium 5.0 (3.3-5.0) mmol/L Potassium 3.8 (3.5-5.1) mmol/L POC Chloride 104 (101-112) mmol/L Chloride 116 H (98-107) mmol/L Carbon Dioxide 20 L (21-32) mmol/L POC Total CO2 25 (24-31) mmol/L Anion Gap 5 (3-11) POC Anion Gap 15.0 L (16-25) mmol/L POC BUN 44 H (7-18) mg/dl BUN 34 H (6-23) mg/dl Creatinine 0.92 (0.6-1.4) mg/dl POC Creatinine 1.5 H (0.6-1.3) mg/dl Est Cr Clr Drug Dosing 51.9 ml/min eGFR 80.01 BUN/Creatinine Ratio 37.0 H (10-20) Glucose 82 (70-99(Fasting)) mg/dl POC Glucose (other) 104 H (70-99) mg/dl Calcium 6.3 L (8.6-10.3) mg/dl POC Ioniz Calcium Christina 1.12 (1.12-1.32) mmol/l Total Bilirubin 0.9 (0.2-1.0) mg/dl AST 14 (13-39) U/L ALT 11 (7-52) U/L Alkaline Phosphatase 144 H (34-104) U/L Troponin I High Sens (0-20) pg/ml Total Protein 4.5 L (6.0-8.3) gm/dl Albumin 2.5 L (3.4-5.0) gm/dl Globulin 2.0 L (2.5-4.0) gm/dl Albumin/Globulin Ratio 1.3 (0.9-2) Lipase 4 L (11-82) U/L Blood Type O Positive Antibody Screen NEGATIVE Crossmatch See Detail 12/11/24 Range/Units 09:44 WBC (4.8-10.8) K/ul RBC (4.70-6.10) M/uL Hgb (14.0-18.0) g/dl POC Hgb (14.0-18.0) g/dl Hct (42.0-52.0) % POC Hct (42-52) % MCV (80.0-100.0) fL MCH (25.0-34.0) pg MCHC (32.0-36.0) g/dL RDW Std Deviation (36.4-46.3) fL RDW Coeff of Salena (11.5-14.5) % Plt Count (130-400) K/uL MPV (9.4-12.4) fL Immature Gran % (Auto) % Neut % (Auto) % Lymph % (Auto) % [place] % (Auto) % Eos % (Auto) % Baso % (Auto) % Neut # (Auto) (1.40-6.50) K/uL Lymph # (Auto) (1.20-3.40) K/uL [place] # (Auto) (0.11-0.59) K/uL Eos # (Auto) (0.00-0.50) K/uL Baso # (Auto) (0.00-0.20) K/uL Immature Gran # (Auto) (0.01-0.20) K/uL POC Sodium (135-144) mmol/L Sodium (136-145) mmol/L POC Potassium (3.3-5.0) mmol/L Potassium (3.5-5.1) mmol/L POC Chloride (101-112) mmol/L Chloride (98-107) mmol/L Carbon Dioxide (21-32) mmol/L POC Total CO2 (24-31) mmol/L Anion Gap (3-11) POC Anion Gap (16-25) mmol/L POC BUN (7-18) mg/dl BUN (6-23) mg/dl Creatinine (0.6-1.4) mg/dl POC Creatinine (0.6-1.3) mg/dl Est Cr Clr Drug Dosing ml/min eGFR BUN/Creatinine Ratio (10-20) Glucose (70-99(Fasting)) mg/dl POC Glucose (other) (70-99) mg/dl Calcium (8.6-10.3) mg/dl POC Ioniz Calcium Christina (1.12-1.32) mmol/l Total Bilirubin (0.2-1.0) mg/dl AST (13-39) U/L ALT (7-52) U/L Alkaline Phosphatase (34-104) U/L Troponin I High Sens 16.1 (0-20) pg/ml Total Protein (6.0-8.3) gm/dl Albumin (3.4-5.0) gm/dl Globulin (2.5-4.0) gm/dl Albumin/Globulin Ratio (0.9-2) Lipase (11-82) U/L Blood Type Antibody Screen Crossmatch Administered Medications Pantoprazole Sodium 40 mg/ (Dextrose) 100 mls @ 20 mls/hr IV Q5H [facility] Stop: 01/10/25 08:59 Last Admin: 12/11/24 14:49 Dose: 8 mg/hr, 20 mls/hr Documented By: Infusion: 12/11/24 14:24 Dose: Infused Documented By: Admin: 12/11/24 09:24 Dose: 8 mg/hr, 20 mls/hr Documented By: CEF Sodium Chloride (Nss) 1,000 mls @ 80 mls/hr IV .[id number] NORAH Stop: 12/14/24 13:29 Last Admin: 12/11/24 14:22 Dose: 80 mls/hr Documented By: JESUS Discontinued Medications Sodium Chloride (Nss) 500 mls @ 999 mls/hr IV .Q31M ONE Stop: 12/11/24 08:58 Last Infusion: 12/11/24 09:30 Dose: Infused Documented By: Admin: 12/11/24 08:47 Dose: 999 mls/hr Documented By: CEF Pantoprazole Sodium 80 mg/ (Dextrose) 120 mls @ 480 mls/hr IV NOW ONE Stop: 12/11/24 08:49 Last Infusion: 12/11/24 09:24 Dose: Infused Documented By: Admin: 12/11/24 09:08 Dose: 480 mls/hr Documented By: CEF Ioversol (Optiray 320 100ml) 94 ml IV ONCE ONE Stop: 12/11/24 09:33 Last Admin: 12/11/24 09:32 Dose: 94 ml Documented By: DEB Pantoprazole Sodium (Pantoprazole Bolus/Drip) 1 each IV NOW STA Stop: 12/11/24 08:36 Last Admin: 12/11/24 09:08 Dose: Not Given Documented By: CEF Imaging Data Radiologist's Impression: Abdomen/Pelvis CT 12/11/24 08:28 CT SCAN OF THE ABDOMEN AND PELVIS WITH IV CONTRAST CLINICAL HISTORY: Generalized abdominal pain. Vomiting. COMPARISON STUDY: Prior abdominal CT scans, most recently dated 12/03/2024. TECHNIQUE: Following the IV administration of 94 cc of Optiray 320, CT scan of the abdomen and pelvis is performed from the lung bases to the proximal femora. Images are reviewed in the axial, sagittal, and coronal planes. IV contrast was administered without complication. A dose lowering technique was utilized adhering to the principles of ALARA. The examination is degraded by streak artifact from the arms which could not be elevated above the abdomen. CT DOSE: 1283.65 mGy.cm FINDINGS: Lung bases: The patient is status post midline sternotomy. The heart is large and without pericardial effusion. Pericardial calcification is unchanged. The coronary arteries are densely calcified. There is an indeterminant ovoid 4.2 x 3.0 cm low-attenuation structure in the right lower lobe as seen on axial image #14. There is a moderate right pleural effusion with consolidation of the right lower lung. Scarring/atelectasis is seen at the left lung base. Liver: The contrast-enhanced liver is normal in size, contour, and attenuation. There is minimal central intrahepatic biliary ductal dilatation. The hepatic veins and portal veins are patent. Gallbladder: The gallbladder is surgically absent. Mild stranding and fluid is seen in the gallbladder fossa. No organized/drainable fluid collection is identified. Spleen: Normal in size and attenuation. Pancreas: Moderately atrophic and grossly unremarkable. Adrenal glands: Unremarkable. Kidneys: The contrast enhanced kidneys demonstrate cortical atrophy and are without hydronephrosis. The kidneys enhance symmetrically. Small renal cysts measure up to 1.5 cm. Additional subcentimeter cortical hypodensities also likely represent cysts but are too small for definitive characterization. There are renovascular calcifications. No renal calculi are clearly seen. Abdominal vasculature: There is advanced atherosclerotic calcification and ectasia of the abdominal aorta. The abdominal aorta measures up to 2.9 cm. There is a least moderate stenosis at the origin of the celiac artery. High-grade stenosis seen at the origin of the superior mesenteric artery. The vessels are opacified distally. Bowel: There is advanced colonic diverticulosis without CT evidence of acute diverticulitis. No bowel obstruction is seen. There are mildly distended and fluid-filled loops of small bowel. Liquid stool is also seen throughout the colon. The appendix is well-visualized and normal. Mild infiltration around the proximal duodenum is again noted. Peritoneum: No intraperitoneal free air is identified. There is trace pelvic ascites. There is a small fat-containing umbilical hernia. Lymphadenopathy: None. Pelvic viscera: The prostate gland is diminutive and heterogeneous with brachytherapy implants in place. The bladder wall is thickened trabeculated indicating chronic outlet obstruction. There is a fat and fluid containing right groin hernia. Skeletal structures: The skeletal structures are osteopenic. There is mild to moderate lumbosacral spondylosis. Schmorl's node is seen in the superior endplate of L1. There are bilateral pars defects at L5 with severe disc space narrowing and 12 mm of anterolisthesis of L5 and S1. No lytic or blastic lesions are seen. IMPRESSION: 1. There are mildly distended and fluid-filled loops of small bowel with no CT evidence of high-grade obstruction. There is also liquid stool throughout the colon. The appearance favors a nonspecific enterocolitis. Clinical correlation will be essential. 2. There is mild stranding and trace fluid in the gallbladder fossa, as well as mild infiltration around the proximal duodenum. This was also seen on 12/03/2024 and may be related to prior surgery. Correlate clinically for evidence of a nonspecific duodenitis. 3. Cardiomegaly and right pleural effusion. This is similar to previous. 4. There is an approximately 4 x 3 cm ovoid low-attenuation structure seen in the lower lobe of the right lung. This is indeterminant, and suspicious for mass lesion or lymphadenopathy. A nonemergent follow-up contrast-enhanced chest CT is recommended for further assessment. 5. Small volume pelvic ascites. 6. Diverticulosis of the colon without CT evidence of acute diverticulitis. 7. 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 8. Additional findings as above. ACT 112: Negative or not required by law. Electronically signed by: Elvin Young M.D. 12/11/2024 10:07 AM Discharge Plan Visit Data Chief Complaint: GI Bleed Stated Complaint: HEMATEMESIS, HEMATOCHEZIA ED Provider: Emre Traore Discharge Problem: GI bleed, Vomiting, Diarrhea, Anemia, Thrombocytopenia Patient Disposition: Admitted As Inpatient Condition: Fair Discharge Instructions Interventions: ED Discharge Assessment Last Done: 12/11/24 12:44 Discharge Problem: GI bleed Qualifiers: GI bleed type/associated pathology: unspecified gastrointestinal hemorrhage type Qualified Code(s): K92.2 - Gastrointestinal hemorrhage, unspecified Vomiting Qualifiers: Vomiting type: unspecified Nausea presence: unspecified Qualified Code(s): R 11.10 - Vomiting, unspecified Diarrhea Qualifiers: Diarrhea type: unspecified type Qualified Code(s): R19.7 - Diarrhea, unspecified Anemia Qualifiers: Anemia type: unspecified type Qualified Code(s): D64.9 - Anemia, unspecified
[2024-12-11] MEDS: SODIUM CHLORIDE 0.9% 500 ML IV ONE (08:47)
[2024-12-11] MEDS ORDERED: SODIUM CHLORIDE 0.9% 100 ML IV PRN (08:50)
[2024-12-11 08:58] LABS: Hematocrit (blood only) 27.5 % (42.0-52.0); Hemoglobin 8.5 g/dl (14.0-18.0); Immature Granulocytes # (auto) 0.02 K/uL (0.01-0.20); Immature Granulocytes % (auto) 0.7 %; Mean Corpuscular Hemoglobin 32.2 pg (25.0-34.0); Mean Corpuscular Volume 104.2 fL (80.0-100.0); Platelet Count 70 K/uL (130-400); RDW Standard Deviation 65.6 fL (36.4-46.3); Red Blood Count 2.64 M/uL (4.70-6.10); White Blood Count 2.94 K/ul (4.8-10.8)
[2024-12-11] MEDS: PANTOPRAZOLE BOLUS/DRIP IV STA (09:08)
[2024-12-11 09:16] LABS: Alanine Aminotransferase 11.0 U/L (7-52); Albumin Globulin Ratio 1.3 (0.9-2); Albumin Level 2.5 gm/dl (3.4-5.0); Alkaline Phosphatase 144.0 U/L (34-104); Anion Gap 5.0 (3-11); Bilirubin,Total 0.9 mg/dl (0.2-1.0); Blood Urea Nitrogen 34.0 mg/dl (6-23); Calcium 6.3 mg/dl (8.6-10.3); Carbon Dioxide 20.0 mmol/L (21-32); Chloride 116.0 mmol/L (98-107); Creatinine Clr Calc Pharmacy 51.9 ml/min; Globulin 2.0 gm/dl (2.5-4.0); Glucose 82.0 mg/dl (70-99(Fasting)); Lipase 4.0 U/L (11-82); Potassium 3.8 mmol/L (3.5-5.1); Sodium 141.0 mmol/L (136-145); Total Protein 4.5 gm/dl (6.0-8.3)
[2024-12-11] MEDS: PANTOprazole 40 MG in DEXTROSE 5% MINI-B 100 ML IV SCH (09:24)
[2024-12-11] MEDS: OPTIRAY 320 100ml IV ONE (09:32)
--- NOTE | 2024-12-11 10:09 | CT Scan Report ---
CT SCAN OF THE ABDOMEN AND PELVIS WITH IV CONTRAST CLINICAL HISTORY: Generalized abdominal pain. Vomiting. COMPARISON STUDY: Prior abdominal CT scans, most recently dated 12/03/2024. TECHNIQUE: Following the IV administration of 94 cc of Optiray 320, CT scan of the abdomen and pelvi s is performed from the lung bases to the proximal femora. Images are reviewed in the axial, sagittal , and coronal planes. IV contrast was administered without complication. A dose lowering technique wa s utilized adhering to the principles of ALARA. The examination is degraded by streak artifact from t he arms which could not be elevated above the abdomen. CT DOSE: 1283.65 mGy.cm FINDINGS: Lung bases: The patient is status post midline sternotomy. The heart is large and without pericardial effusion. Pericardial calcification is unchanged. The coronary arteries are densely calcified. There is an indeterminant ovoid 4.2 x 3.0 cm low-attenuation structure in the right lower lobe as seen on axial image #14. There is a moderate right pleural effusion with consolidation of the right lower laura g. Scarring/atelectasis is seen at the left lung base. Liver: The contrast-enhanced liver is normal in size, contour, and attenuation. There is minimal cent ral intrahepatic biliary ductal dilatation. The hepatic veins and portal veins are patent. Gallbladder: The gallbladder is surgically absent. Mild stranding and fluid is seen in the gallbladde r fossa. No organized/drainable fluid collection is identified. Spleen: Normal in size and attenuation. Pancreas: Moderately atrophic and grossly unremarkable. Adrenal glands: Unremarkable. Kidneys: The contrast enhanced kidneys demonstrate cortical atrophy and are without hydronephrosis. T he kidneys enhance symmetrically. Small renal cysts measure up to 1.5 cm. Additional subcentimeter co rtical hypodensities also likely represent cysts but are too small for definitive characterization. T here are renovascular calcifications. No renal calculi are clearly seen. Abdominal vasculature: There is advanced atherosclerotic calcification and ectasia of the abdominal a rebeca. The abdominal aorta measures up to 2.9 cm. There is a least moderate stenosis at the origin of the celiac artery. High-grade stenosis seen at the origin of the superior mesenteric artery. The vess els are opacified distally. Bowel: There is advanced colonic diverticulosis without CT evidence of acute diverticulitis. No bowel obstruction is seen. There are mildly distended and fluid-filled loops of small bowel. Liquid stool is also seen throughout the colon. The appendix is well-visualized and normal. Mild infiltration rob und the proximal duodenum is again noted. Peritoneum: No intraperitoneal free air is identified. There is trace pelvic ascites. There is a smal l fat-containing umbilical hernia. Lymphadenopathy: None. Pelvic viscera: The prostate gland is diminutive and heterogeneous with brachytherapy implants in edelmira ce. The bladder wall is thickened trabeculated indicating chronic outlet obstruction. There is a fat and fluid containing right groin hernia. Skeletal structures: The skeletal structures are osteopenic. There is mild to moderate lumbosacral sp ondylosis. Schmorl's node is seen in the superior endplate of L1. There are bilateral pars defects at L5 with severe disc space narrowing and 12 mm of anterolisthesis of L5 and S1. No lytic or blastic l esions are seen. IMPRESSION: 1. There are mildly distended and fluid-filled loops of small bowel with no CT evidence of high-grade obstruction. There is also liquid stool throughout the colon. The appearance favors a nonspecific en terocolitis. Clinical correlation will be essential. 2. There is mild stranding and trace fluid in the gallbladder fossa, as well as mild infiltration rob und the proximal duodenum. This was also seen on 12/03/2024 and may be related to prior surgery. Corre late clinically for evidence of a nonspecific duodenitis. 3. Cardiomegaly and right pleural effusion. This is similar to previous. 4. There is an approximately 4 x 3 cm ovoid low-attenuation structure seen in the lower lobe of the r ight lung. This is indeterminant, and suspicious for mass lesion or lymphadenopathy. A nonemergent fo llow-up contrast-enhanced chest CT is recommended for further assessment. 5. Small volume pelvic ascites. 6. Diverticulosis of the colon without CT evidence of acute diverticulitis. 7. 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 8. Additional findings as above. ACT 112: Negative or not required by law. Electronically signed by: Elvin Young M.D. 12/11/2024 10:07 AM
[2024-12-11] MEDS ORDERED: ONDANSETRON INJ 2 MG/ML 2 ML VIAL IV PRN ×2 (11:17→15:48)
[2024-12-11 12:46] LABS: Appearance Urine Clear (Clear); Glucose Urine UA Negative (Negative)
--- NOTE | 2024-12-11 14:03 | Gastrointestinal Consultation ---
Date of Consultation December 11, 2024 Assessment & Plan (1) Hematochezia: 89 year old male w/ history of HFpEF, afib, CAD s/o CABG and stents, NSTEMI, anxiety, dyslipidemia, HTN, HLD, CKD, BPH s/p TURP, MDS with pancytopenia, laparoscopic cholecystectomy (11/19/24) w/ report of melena for the last 72 hour s, coffee ground emesis today followed by an episode of BRBPR. He is hemodynamically stable w/ BP126/63, HGB 8.5 and BUN 34. Maintain NPO status Will discuss case w/ attending Continue IV PPI Hold ASA Trend H&H Monitor and document GI output Transfuse PRN per primary service I spent a total of 60 minutes on the date of service in review of patient's record, and previously obtained information in person and appropriate medical visit, discussion and education of plan, with patient and/or caregiver, placing orders for tests/referral/procedures as medically necessary and documentation of pertinent clinical information in patient's medical records for their visit today. (2) Coffee ground emesis: Supervising Physician Co-Signing Physician Notes Patient was on pantoprazole till about 2 or 3 weeks ago. Now presents with hematemesis. He said dark stools x 3 days today they are dark with some red. Hemoglobin down in the eights. Currently hemodynamically stable. Suspicious for upper GI bleeding. CT scan does show some fluid loops of bowel question whether this is postsurgical. There is no definite bowel obstruction. Reviewed with the patient and daughter potential for endoscopy to identify source of bleeding with endoscopic intervention. The risks of further bleeding bowel perforation discussed. Because of the fluid-filled loops of bowel aspiration also remains a potential. He will be taken to the OR and intubated. He has a hematoma present on the right side of his abdomen this is not likely playing a source in this current problem. EGD today risk benefits explained informed consent obtained. History of Present Illness Reason for Consultation: GI bleed Requesting Physician: Tony Rose MD Attending Physician: Tony Rose MD History of Present Illness 89 year old male w/ history of HFpEF, afib, CAD s/o CABG and stents, NSTEMI, anxiety, dyslipidemia, HTN, HLD, CKD, BPH s/p TURP, MDS with pancytopenia, laparoscopic cholecystectomy (11/19/24) who presented to the ED w/ abd pain, nausea/vomiting - GI was asked to evaluate for GI bleed. Suggests he started wit h black loose stools three days ago. This AM woke up with abd pain, nausea and emesis. Reports three large bouts of coffee ground appearing emesis. Per daughter at bedside this was follows by an episode of hematochezia. No lightheadedness, dizziness, fever, chills, CP, SOB On ASA No NSAIDs HGB 8.5 PLT 70 INR 1.1 BUN 34 CTAP 2024:There are mildly distended and fluid-filled loops of small bowel with no CT evidence of high-grade obstruction. There is also liquid stool throughout the colon. The appearance favors a nonspecific enterocolitis. Clinical correlation will be essential. There is mild stranding and trace fluid in the gallbladder fossa, as well as mild infiltration around the proximal duodenum. This was also seen on 12/03/2024 and may be related to prior surgery. Correlate clinically for evidence of a nonspecific duodenitis.Cardiomegaly and right pleural effusion. This is similar to previous. There is an approximately 4 x 3 cm ovoid low-attenuation structure seen in the lower lobe of the right lung. This is indeterminant, and suspicious for mass lesion or lymphadenopathy. A nonemergent follow-up contrast-enhanced chest CT is recommended for further assessment. Small volume pelvic ascites. Diverticulosis of the colon without CT evidence of acute diverticulitis.Severe stenosis is seen at the origin of the superior mesenteric artery. EGD 2024: LA Grade B reflux esophagitis with no bleeding. Biopsied. - Benign-appearing esophageal stenosis. Dilated with an 18-19-20 mm balloon (to a maximum balloon size of 20 mm). - Normal stomach. - Normal examined duodenum. Allergies Allergy/AdvReac Type Severity Reaction Status Date / Time No Known Allergies Allergy Verified 12/03/24 19:57 Home Medications Medication Instructions Recorded Confirmed Type oxybutynin chloride 5 mg tablet 5 mg PO BID #180 tabs 02/17/24 12/11/24 Rx nitroglycerin 0.4 mg sublingual 0.4 mg sublingual Q5M PRN Chest 03/10/24 12/11/24 Rx tablet Pain #25 tabs epoetin ilana-epbx 2,000 unit/mL 0 unit IV DIRECTED PRN Anemia 05/02/24 12/11/24 History injection solution (Retacrit) aspirin 81 mg tablet,delayed 81 mg PO DAILY 09/08/24 12/11/24 History release sennosides 8.6 mg tablet (Senokot) 8.6 mg PO HS 09/08/24 12/11/24 History tamsulosin 0.4 mg capsule 0.4 mg PO HS 09/08/24 12/11/24 History silver sulfadiazine 1 % topical 1 applic topical DIRECTED PRN 10/09/24 12/11/24 History cream (Silvadene) Wound Care pravastatin 40 mg tablet 40 mg PO HS #90 tabs 11/02/24 12/11/24 Rx buspirone 5 mg tablet 10 mg (2 x 5 mg) PO BID #60 tabs 11/25/24 12/11/24 Rx clonazepam 0.5 mg tablet 0.5 mg PO HS #30 tabs 12/08/24 12/11/24 Rx pantoprazole 40 mg tablet,delayed 40 mg PO QAM 12/11/24 12/11/24 History release Patient History Medical History (Updated 12/11/24 @ 15:32 by Emre Traore DO) Encounter for pre-operative examination Acute cholecystitis NSTEMI (non-ST elevated myocardial infarction) Acute on chronic heart failure with preserved ejection fraction Acute kidney injury 08/08/22 Hx of bronchitis 10/2023 Depression Congestive heart failure Anemia blood transfusion ~06[place]16/24[place] [facility] Pancytopenia Bilateral pleural effusion 05/2024 Dysphagia Acute cholecystitis 06/14/24 admitted to [facility] and transferred to [facility] History of non-ST elevation myocardial infarction (NSTEMI) 06/14/24- transferred from [facility] Elevated troponin 06/14/24 SOB (shortness of breath) History of recent blood transfusion 05/2024 [facility] Kidney disease, chronic, stage IV (GFR 15-29 ml/min) Diverticulosis CAD (coronary artery disease) s/p 2 stents in 1999 and CABG x 1 1978 Chronic diastolic heart failure HTN (hypertension) Dyslipidemia PVD (peripheral vascular disease) Chronic cough History of Mohs micrographic surgery for skin cancer nose History of skin cancer Presence of Watchman left atrial appendage closure device (2020) Atrial fibrillation follows w/ Dr Shravan Huerta Hx of brachytherapy initial tx for prostate ca Hyperlipidemia GERD (gastroesophageal reflux disease) MDS (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) 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, [place], [place]; x2 stents; f/u shravan huerta S/P TURP Family History Father Heart disease Hypertension Mother Seizure Denies family history of Ovarian cancer Prostate cancer Myocardial infarction Breast cancer Colorectal cancer Social History Smoking Status: Former smoker Tobacco Type: Cigarettes Age Started Using Tobacco: 26; Age Quit Using Tobacco: 61; packs per day: 1; Cigarettes Per Day: 20; Second Hand Exposure: No; Do You Dip or Chew Tobacco: No; Hx Alcohol Use: No Hx Substance Use: No Preferred Language: Dominican Communication Ability: Effective Communication Ability Comment: short term memory impairment; can answer yes/no questions appropriately Visual Impairment: No Limitations Hearing Ability: Normal Poolroom Table Attendant Required: No Beliefs That Will Affect Care: None marital status: / marital status details: LIVES WITH DAUGHTER AND SON IN LAW Current Living Situation: Family Current Living Situation Comment: home with daughter and son in law current occupational status: retired 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 How many Children do You have: 3 How many Children do You have Comment: 3 daughters, all alive and well Other Information That Helps Us Care for You: No other: [employer], [facility]. Feels Safe at Home: Yes Safety Concerns: Feels Safe At This Time Childhood Exposure to Second-Hand Smoke: No Diet: regular caffeine: Yes during the past year weight has: remained stable Dental Care, Regularly: No Physical Activity Frequency: Does not Exercise Seatbelt Use: always Sunscreen Use: Yes Assistive Devices: Denture - Upper, Denture - Lower, Glasses and Walker Review of Systems Review of Systems: All other findings negative except as noted in HPI. Physical Exam Constitutional: WD/WN, vitals as above Respiratory: normal respiratory effort Cardiovascular: Rate/Rhythm: regular rate Gastrointestinal (Abdomen): normal bowel sounds, soft, nontender, no hepatosplenomegaly + right sided hematoma which is stable s /p CCY per family Skin: no rashes, warm and dry Results & Data Vital Signs (Past 12 Hours) Vital Signs Temp Pulse Pulse Resp BP BP Pulse Ox 12/11/24 12:49 98.4 F 84 20 126/63 94 12/11/24 12:45 98.4 F 84 126/63 94 12/11/24 12:11 123/51 L 12/11/24 11:38 81 22 108/49 L 12/11/24 10:59 81 28 H 125/55 L 97 12/11/24 10:32 70 17 115/50 L 94 12/11/24 10:08 70 20 94 12/11/24 10:05 72 21 96 12/11/24 10:00 114/49 L 12/11/24 09:44 74 25 H 117/56 L 97 12/11/24 09:05 78 34 H 12/11/24 09:00 101/61 12/11/24 08:36 77 12/11/24 08:24 98.4 F 81 19 100/43 L 94 O2 Del Method 12/11/24 12:49 Room Air 12/11/24 12:45 Room Air 12/11/24 12:11 12/11/24 11:38 12/11/24 10:59 12/11/24 10:32 12/11/24 10:08 12/11/24 10:05 12/11/24 10:00 12/11/24 09:44 12/11/24 09:05 12/11/24 09:00 12/11/24 08:36 12/11/24 08:24 Room Air Laboratory Results 12/11/24 12/11/24 12/11/24 Range/Units 13:03 12:24 09:44 WBC (4.8-10.8) K/ul RBC (4.70-6.10) M/uL Hgb (14.0-18.0) g/dl POC Hgb (14.0-18.0) g/dl Hct (42.0-52.0) % POC Hct (42-52) % MCV (80.0-100.0) fL MCH (25.0-34.0) pg MCHC (32.0-36.0) g/dL RDW Std Deviation (36.4-46.3) fL RDW Coeff of Salena (11.5-14.5) % Plt Count (130-400) K/uL MPV (9.4-12.4) fL Immature Gran % (Auto) % Neut % (Auto) % Lymph % (Auto) % [place] % (Auto) % Eos % (Auto) % Baso % (Auto) % Neut # (Auto) (1.40-6.50) K/uL Lymph # (Auto) (1.20-3.40) K/uL [place] # (Auto) (0.11-0.59) K/uL Eos # (Auto) (0.00-0.50) K/uL Baso # (Auto) (0.00-0.20) K/uL Immature Gran # (Auto) (0.01-0.20) K/uL POC Sodium (135-144) mmol/L Sodium (136-145) mmol/L POC Potassium (3.3-5.0) mmol/L Potassium (3.5-5.1) mmol/L POC Chloride (101-112) mmol/L Chloride (98-107) mmol/L Carbon Dioxide (21-32) mmol/L POC Total CO2 (24-31) mmol/L Anion Gap (3-11) POC Anion Gap (16-25) mmol/L POC BUN (7-18) mg/dl BUN (6-23) mg/dl Creatinine (0.6-1.4) mg/dl POC Creatinine (0.6-1.3) mg/dl Est Cr Clr Drug Dosing ml/min eGFR BUN/Creatinine Ratio (10-20) Glucose (70-99(Fasting)) mg/dl POC Glucose 109 H (70-99) mg/dl POC Glucose (other) (70-99) mg/dl Calcium (8.6-10.3) mg/dl POC Ioniz Calcium Christina (1.12-1.32) mmol/l Total Bilirubin (0.2-1.0) mg/dl AST (13-39) U/L ALT (7-52) U/L Alkaline Phosphatase (34-104) U/L Troponin I High Sens 16.1 (0-20) pg/ml Total Protein (6.0-8.3) gm/dl Albumin (3.4-5.0) gm/dl Globulin (2.5-4.0) gm/dl Albumin/Globulin Ratio (0.9-2) Lipase (11-82) U/L Urine Color Yellow Urine Appearance Clear (Clear) Urine pH 6.0 (4.5-7.5) Ur Specific Carlton 1.035 H (1.000-1.030) Urine Protein Negative (Negative) Urine Glucose (UA) Negative (Negative) Urine Ketones Negative (Negative) Urine Blood Negative (Negative) Urine Nitrite Negative (Negative) Urine Bilirubin Negative (Negative) Urine Urobilinogen Negative (Negative) Ur Leukocyte Esterase Negative (Negative) Urine Comment Blood Type Antibody Screen Crossmatch 12/11/24 12/11/24 12/11/24 Range/Units 08:54 08:48 08:42 WBC 2.94 L (4.8-10.8) K/ul RBC 2.64 L (4.70-6.10) M/uL Hgb 8.5 L (14.0-18.0) g/dl POC Hgb 6.1 L* (14.0-18.0) g/dl Hct 27.5 L (42.0-52.0) % POC Hct 18 L* (42-52) % MCV 104.2 H (80.0-100.0) fL MCH 32.2 (25.0-34.0) pg MCHC 30.9 L (32.0-36.0) g/dL RDW Std Deviation 65.6 H (36.4-46.3) fL RDW Coeff of Salena 17.6 H (11.5-14.5) % Plt Count 70 L (130-400) K/uL MPV 11.8 (9.4-12.4) fL Immature Gran % (Auto) 0.7 % Neut % (Auto) 84.1 % Lymph % (Auto) 8.5 % [place] % (Auto) 6.1 % Eos % (Auto) 0.3 % Baso % (Auto) 0.3 % Neut # (Auto) 2.47 (1.40-6.50) K/uL Lymph # (Auto) 0.25 L (1.20-3.40) K/uL [place] # (Auto) 0.18 (0.11-0.59) K/uL Eos # (Auto) 0.01 (0.00-0.50) K/uL Baso # (Auto) 0.01 (0.00-0.20) K/uL Immature Gran # (Auto) 0.02 (0.01-0.20) K/uL POC Sodium 138 (135-144) mmol/L Sodium 141 (136-145) mmol/L POC Potassium 5.0 (3.3-5.0) mmol/L Potassium 3.8 (3.5-5.1) mmol/L POC Chloride 104 (101-112) mmol/L Chloride 116 H (98-107) mmol/L Carbon Dioxide 20 L (21-32) mmol/L POC Total CO2 25 (24-31) mmol/L Anion Gap 5 (3-11) POC Anion Gap 15.0 L (16-25) mmol/L POC BUN 44 H (7-18) mg/dl BUN 34 H (6-23) mg/dl Creatinine 0.92 (0.6-1.4) mg/dl POC Creatinine 1.5 H (0.6-1.3) mg/dl Est Cr Clr Drug Dosing 51.9 ml/min eGFR 80.01 BUN/Creatinine Ratio 37.0 H (10-20) Glucose 82 (70-99(Fasting)) mg/dl POC Glucose (70-99) mg/dl POC Glucose (other) 104 H (70-99) mg/dl Calcium 6.3 L (8.6-10.3) mg/dl POC Ioniz Calcium Christina 1.12 (1.12-1.32) mmol/l Total Bilirubin 0.9 (0.2-1.0) mg/dl AST 14 (13-39) U/L ALT 11 (7-52) U/L Alkaline Phosphatase 144 H (34-104) U/L Troponin I High Sens (0-20) pg/ml Total Protein 4.5 L (6.0-8.3) gm/dl Albumin 2.5 L (3.4-5.0) gm/dl Globulin 2.0 L (2.5-4.0) gm/dl Albumin/Globulin Ratio 1.3 (0.9-2) Lipase 4 L (11-82) U/L Urine Color Urine Appearance (Clear) Urine pH (4.5-7.5) Ur Specific Carl[place] (1.000-1.030) Urine Protein (Negative) Urine Glucose (UA) (Negative) Urine Ketones (Negative) Urine Blood (Negative) Urine Nitrite (Negative) Urine Bilirubin (Negative) Urine Urobilinogen (Negative) Ur Leukocyte Esterase (Negative) Urine Comment Blood Type O Positive Antibody Screen NEGATIVE Crossmatch See Detail PG Care Time/CCT Total # of Minutes Spent Total Time Spent with Patient: Total time spent is greater than 50% in coordination of care (as documented) at patient's floor/unit and/or counseling patient: Coding Level of Care Code 11967 INT INP/OBS CARE 2/55MIN Diagnoses Hematochezia K92.1 Coffee ground emesis K92.0
[2024-12-11] MEDS: SODIUM CHLORIDE 0.9% 1,000 ML IV SCH (14:22)
--- NOTE | 2024-12-11 15:11 | Anesthesiology Consultation ---
Date of Service December 11, 2024 Assessment & Plan (1) Encounter for pre-operative examination: Chart Review Chart Review: Acceptable Risk for Surgery and Patient NOT seen in Pre Admission Testing Consults Requested none History Surgery Operation Date: 12/11/24 14:10 Proposed Procedures p Esophagogastroduodenoscopy - Mani Huitron MD Height/Weight Height: 5 ft 7 in Weight: 63.5 kg Allergies Allergy/AdvReac Type Severity Reaction Status Date / Time No Known Allergies Allergy Verified 12/03/24 19:57 Medications Home Medications Medication Instructions Recorded Confirmed Last Taken oxybutynin chloride 5 mg tablet 5 mg PO BID #180 tabs 02/17/24 12/11/24 12/03/24 08:00 nitroglycerin 0.4 mg sublingual 0.4 mg sublingual Q5M PRN Chest 03/10/24 12/11/24 Unknown tablet Pain #25 tabs epoetin ilana-epbx 2,000 unit/mL 0 unit IV DIRECTED PRN Anemia 05/02/24 12/11/24 2 Weeks Ago injection solution (Retacrit) ~08/25/24 aspirin 81 mg tablet,delayed 81 mg PO DAILY 09/08/24 12/11/24 12/03/24 release sennosides 8.6 mg tablet (Senokot) 8.6 mg PO HS 09/08/24 12/11/24 12/02/24 tamsulosin 0.4 mg capsule 0.4 mg PO HS 09/08/24 12/11/24 12/02/24 silver sulfadiazine 1 % topical 1 applic topical DIRECTED PRN 10/09/24 12/11/24 Unknown cream (Silvadene) Wound Care pravastatin 40 mg tablet 40 mg PO HS #90 tabs 11/02/24 12/11/24 12/02/24 buspirone 5 mg tablet 10 mg (2 x 5 mg) PO BID #60 tabs 11/25/24 12/11/24 12/03/24 08:00 clonazepam 0.5 mg tablet 0.5 mg PO HS #30 tabs 12/08/24 12/11/24 Unknown pantoprazole 40 mg tablet,delayed 40 mg PO QAM 12/11/24 12/11/24 Unknown release Active Medications Generic Name Dose Route Start Last Admin Trade Name Freq PRN Reason Stop Dose Admin Pantoprazole Sodium 40 mg/ 100 mls @ 20 mls/hr 12/11/24 09:00 12/11/24 14:49 Dextrose IV 01/10/25 08:59 8 mg/hr Q5H NORAH 20 mls/hr Administration 8 MG/HR Sodium Chloride 1,000 mls @ 80 mls/hr 12/11/24 13:30 12/11/24 14:22 Nss IV 12/14/24 13:29 80 mls/hr .[id number] NORAH Administration Past Medical History Medical History (Updated 12/11/24 @ 15:11 by Colby Mason MD) Encounter for pre-operative examination Acute cholecystitis NSTEMI (non-ST elevated myocardial infarction) Acute on chronic heart failure with preserved ejection fraction Acute kidney injury 08/08/22 Hx of bronchitis 10/2023 Depression Congestive heart failure Anemia blood transfusion ~06/16/24- [facility] [place] Pancytopenia Bilateral pleural effusion 05/2024 Dysphagia Acute cholecystitis 06/14/24 admitted to [place] and transferred to [facility] [place] History of non-ST elevation myocardial infarction (NSTEMI) 06/14/24- transferred from [facility] to [facility] [place] Elevated troponin 06/14/24 SOB (shortness of breath) History of recent blood transfusion 05/2024 [facility] [place] Kidney disease, chronic, stage IV (GFR 15-29 ml/min) Diverticulosis CAD (coronary artery disease) s/p 2 stents in 1999 and CABG x 1 1978 Chronic diastolic heart failure HTN (hypertension) Dyslipidemia PVD (peripheral vascular disease) Chronic cough History of Mohs micrographic surgery for skin cancer nose History of skin cancer Presence of Watchman left atrial appendage closure device (2020) Atrial fibrillation follows w/ Dr Shravan Huerta Hx of brachytherapy initial tx for prostate ca Hyperlipidemia GERD (gastroesophageal reflux disease) MDS (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) 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, [facility] [place] Anxiety History of prostate cancer 1999, brachy therapy and sx tx Past Family History Family History Father Heart disease Hypertension Mother Seizure Denies family history of Ovarian cancer Prostate cancer Myocardial infarction Breast cancer Colorectal cancer Past Surgical History Surgical History History of cholecystectomy History of esophagogastroduodenoscopy (EGD) Hx of colonoscopy Hx of tonsillectomy Hx of bilateral cataract extraction History of coronary artery bypass graft 1978, single bypass, [facility] in [place] History of heart artery stent ~1999, angina, [place], [place]; x2 stents; f/u shravan deanna History of cardiac cath ~1999, angina, [place]; x2 stents; f/u shravan huerta S/P TURP Social History Smoking Status: Former smoker Smoking cigarettes per day: 20 Do You Dip or Chew Tobacco: No Hx Alcohol Use: No Alcohol type: beer and wine alcohol intake frequency: holidays/special occasions only Hx Substance Use: No substance use type: does not use Physical Exam Vital Signs Last Vital Signs Temp 36.9 C 12/11/24 12:49 Pulse 84 12/11/24 12:49 Resp 20 12/11/24 12:49 BP 126/63 12/11/24 12:49 Pulse Ox 94 12/11/24 12:49 O2 Del Method Room Air 12/11/24 12:49 Testing Laboratory Results 12/11/24 08:42 12/11/24 08:42 Urine Color Yellow 12/11/24 12:24 Urine Appearance Clear (Clear) 12/11/24 12:24 Urine pH 6.0 (4.5-7.5) 12/11/24 12:24 Ur Specific [place] 1.035 (1.000-1.030) H 12/11/24 12:24 Urine Protein Negative (Negative) 12/11/24 12:24 Urine Glucose (UA) Negative (Negative) 12/11/24 12:24 Urine Ketones Negative (Negative) 12/11/24 12:24 Urine Nitrite Negative (Negative) 12/11/24 12:24 Ur Leukocyte Esterase Negative (Negative) 12/11/24 12:24 Blood Type O Positive 12/11/24 08:54 Antibody Screen NEGATIVE 12/11/24 08:54 12/11/24 12/11/24 13:03 08:48 POC Glucose 109 H POC Glucose (other) 104 H Electrocardiogram Date: 11/21/24 DICTATED BY: Ilya Coffman MD Test Reason : Blood Pressure : */* mmHG Vent. Rate : 71 BPM Atrial Rate : * BPM P-R Int : * ms QRS Dur : 90 ms QT Int : 394 ms P-R-T Axes : * 12 166 degrees QTcB Int : 428 ms Atrial fibrillation Anterior infarct (cited on or before 09-Oct-2024) Abnormal ECG When compared with ECG of 09-Oct-2024 14:20, Inverted T waves have replaced nonspecific T wave abnormality in Lateral leads Confirmed by Ilya Coffman ([id number]) on 11/23/2024 6:14:03 AM Echocardiogram Date: 06/15/24 Normal LV size and function. EF 60-65% No LVH No LV thrombus RV dilation with reduced systolic function
[2024-12-11] MEDS ORDERED: PROPOFOL IV EMULSION 10 MG/ML 20 ML VIAL IV ONE (15:23)
[2024-12-11] MEDS ORDERED: ONDANSETRON INJ 2 MG/ML 2 ML VIAL ONE (15:23)
[2024-12-11] MEDS ORDERED: DEXAMETHASONE SOD INJ 4 MG/ML VIAL ONE (15:23)
[2024-12-11] MEDS ORDERED: LIDOCAINE 2% 2 ML VIAL/AMP(20MG/ML) INFIL ONE (15:23)
[2024-12-11] MEDS ORDERED: SUCCINYLCHOLINE CHLORIDE 20 MG/ML 10 ML VIAL IV ONE (15:24)
--- NOTE | 2024-12-11 15:38 | History & Physical Report ---
Date of Service December 11, 2024 Assessment & Plan (1) GI bleed: Plan: -EGD scheduled -GI consult appreciated -NPO -protonix drip -IVF -h/h stable -f/u CBC (2) Coronary artery disease: Plan: -hold asa -con't pravastatin (3) MDS (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): Plan: -chronic pancytopenia -patient at baseline (4) Benign essential hypertension: Plan: -pt undercontrolled (5) Kidney disease, chronic, stage IV (GFR 15-29 ml/min): Plan: -cr 0.92 (6) Depression: Plan: -con't buspirone, clonazepam Plan Pt DNR/DNI Admission and Anticipated Discharge Date Admission Date: December 11, 2024 History of Present Illness Chief Complaint: Hematochezia, hematemesis Primary Care Provider: Osbaldo Sellers DO Pt is an 89 y/o male with pmh of CAD s/p CABG/PCI, afib, HTN, CKD, MDS, recent admission of post surgical cellulitis from lap cholecystectomy last month pres ents with episode of projectile vomiting of "coffee grounds" along episode noted melanotic stools over the past 3 days. In the ER his Hgb was stable at 8.4. CT a/p was negative for any acute pathology. Pt was placed on protonix drip and IVF. GI consulted for EGD and further evaluation of UGIB. Allergies Allergy/AdvReac Type Severity Reaction Status Date / Time No Known Allergies Allergy Verified 12/03/24 19:57 Home Medications Medication Instructions Recorded Confirmed Type oxybutynin chloride 5 mg tablet 5 mg PO BID #180 tabs 02/17/24 12/11/24 Rx nitroglycerin 0.4 mg sublingual 0.4 mg sublingual Q5M PRN Chest 03/10/24 12/11/24 Rx tablet Pain #25 tabs epoetin ilana-epbx 2,000 unit/mL 0 unit IV DIRECTED PRN Anemia 05/02/24 12/11/24 History injection solution (Retacrit) aspirin 81 mg tablet,delayed 81 mg PO DAILY 09/08/24 12/11/24 History release sennosides 8.6 mg tablet (Senokot) 8.6 mg PO HS 09/08/24 12/11/24 History tamsulosin 0.4 mg capsule 0.4 mg PO HS 09/08/24 12/11/24 History silver sulfadiazine 1 % topical 1 applic topical DIRECTED PRN 10/09/24 12/11/24 History cream (Silvadene) Wound Care pravastatin 40 mg tablet 40 mg PO HS #90 tabs 11/02/24 12/11/24 Rx buspirone 5 mg tablet 10 mg (2 x 5 mg) PO BID #60 tabs 11/25/24 12/11/24 Rx clonazepam 0.5 mg tablet 0.5 mg PO HS #30 tabs 12/08/24 12/11/24 Rx pantoprazole 40 mg tablet,delayed 40 mg PO QAM 12/11/24 12/11/24 History release Past Med/Surg History Problem List (Updated 12/11/24 @ 15:32 by Emre Traore DO) Thrombocytopenia (Acute) Anemia (Acute) Diarrhea (Acute) Vomiting (Acute) GI bleed (Acute) Coffee ground emesis Hematochezia Pleural effusion (Acute) Edema of abdominal wall (Acute) Edema of right lower extremity (Acute) Demand ischemia MDS (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) Cellulitis of right abdominal wall Acute hyponatremia Acute kidney injury (LEEROY) with acute tubular necrosis (ATN) Acute hypoxic respiratory failure Pancytopenia (Acute) Post-operative pain (Acute) Hypoxia (Acute) Pneumonia (Acute) Bilateral high frequency sensorineural hearing loss Recurrent epistaxis Pancytopenia (Acute) Depression Hypoxia Bilateral pleural effusion Chronic heart failure with preserved ejection fraction Chest pain Bronchitis Urethral 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 Prostate cancer Stage 3b chronic kidney disease Vitamin D deficiency Kidney disease, chronic, stage IV (GFR 15-29 ml/min) (Acute) GERD (gastroesophageal reflux disease) Peripheral vascular disease Myelodysplastic syndrome (Acute) Atherogenic dyslipidemia Benign essential hypertension Chronic diastolic heart failure Persistent atrial fibrillation Coronary artery disease s/p 2 stents in 1999 and CABG x 1 1978 Diverticulosis (Acute) Stented coronary artery TWO PER PT Hernia Medical History (Updated 12/11/24 @ 15:32 by Emre Traore DO) Encounter for pre-operative examination Acute cholecystitis NSTEMI (non-ST elevated myocardial infarction) Acute on chronic heart failure with preserved ejection fraction Acute kidney injury 08/08/22 Hx of bronchitis 10/2023 Depression Congestive heart failure Anemia blood transfusion ~06/16/24- [facility] [place] Pancytopenia Bilateral pleural effusion 05/2024 Dysphagia Acute cholecystitis 06/14/24 [place] and transferred to [facility] History of non-ST elevation myocardial infarction (NSTEMI) 06/14/24- transferred from [facility] to [facility] Elevated troponin 06/14/24 SOB (shortness of breath) History of recent blood transfusion 05/2024 [facility] Kidney disease, chronic, stage IV (GFR 15-29 ml/min) Diverticulosis CAD (coronary artery disease) s/p 2 stents in 1999 and CABG x 1 1978 Chronic diastolic heart failure HTN (hypertension) Dyslipidemia PVD (peripheral vascular disease) Chronic cough History of Mohs micrographic surgery for skin cancer nose History of skin cancer Presence of Watchman left atrial appendage closure device (2020) Atrial fibrillation follows w/ Dr Shravan Huerta Hx of brachytherapy initial tx for prostate ca Hyperlipidemia GERD (gastroesophageal reflux disease) 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, [facility] History of prostate cancer 1999, brachy therapy and sx tx Surgical History History of cholecystectomy History of esophagogastroduodenoscopy (EGD) Hx of colonoscopy Hx of tonsillectomy Hx of bilateral cataract extraction History of coronary artery bypass graft 1978, single bypass, [facility] in [place] History of heart artery stent ~1999, [place]; x2 stents; f/u shravan huerta History of cardiac cath ~1999, angina, [place], [place]; x2 stents; f/u shravan huerta S/P TURP Family History Father Heart disease Hypertension Mother Seizure Denies family history of Ovarian cancer Prostate cancer Myocardial infarction Breast cancer Colorectal cancer Social History Smoking Status: Former smoker Tobacco Type: Cigarettes Age Started Using Tobacco: 26; Age Quit Using Tobacco: 61; packs per day: 1; Cigarettes Per Day: 20; Second Hand Exposure: No; Do You Dip or Chew Tobacco: No; Hx Alcohol Use: No Hx Substance Use: No Preferred Language: Swedish Communication Ability: Effective Communication Ability Comment: short term memory impairment; can answer yes/no questions appropriately Visual Impairment: No Limitations Hearing Ability: Normal Bilingual Customer Service Specialist Required: No Beliefs That Will Affect Care: None marital status: / marital status details: LIVES WITH DAUGHTER AND SON IN LAW Current Living Situation: Family Current Living Situation Comment: home with daughter and son in law current occupational status: retired 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 How many Children do You have: 3 How many Children do You have Comment: 3 daughters, all alive and well Other Information That Helps Us Care for You: No other: [employer], [facility]. Feels Safe at Home: Yes Safety Concerns: Feels Safe At This Time Childhood Exposure to Second-Hand Smoke: No Diet: regular caffeine: Yes during the past year weight has: remained stable Dental Care, Regularly: No Physical Activity Frequency: Does not Exercise Seatbelt Use: always Sunscreen Use: Yes Assistive Devices: Denture - Upper, Denture - Lower, Glasses and Walker Review of Systems Review of Systems: CONST: Negative for fever, body aches and chills. HENT: Negative for neck pain/stiffness, headache, congestion, sore throat, swelling. EYES: Negative for discharge/pain or vision changes. RESP: Negative for cough/hemoptysis and shortness of breath. CV: Negative chest pain, difficulty breathing, palpitations. ABD: Negative pain, nausea, +hematemesis, hematochezia : Negative increase frequency, dysuria, blood in urine or stool. MUSC: Negative for muscle aches, edema. SKIN: Negative rash, lesions/sores. NEURO: Negative headache, dizziness, weakness. Physical Exam Physical Exam: GENERAL APPEARANCE NAD, activity normal for age, well developed/ well nourished, no cyanosis, pallor, or diaphoresis. EYES lids/conjunctiva normal. EARS/NOSE/THROAT Mucous membranes moist, nares normal, lips/teeth normal uvula midline without oral pharyngeal erythema, exudate or swelling TMs normal bilaterally. No lymphangitis/lymphedema. HEAD/NECK normocephalic atraumatic, no facial trauma, neck is supple. RESPIRATORY respiratory effort normal, speaks in full sentences, no tripod position, no accessory muscle use. Lungs clear to auscultation without rhonchi, wheezes, rales CARDIAC Regular rate and rhythm, no edema. ABDOMINAL Soft, ND/NT. No evidence of fluid wave. No pulsatile masses on exam, rebound tenderness, Frost sign or pain over Mcburney's point. MUSCLES/EXTREMITIES No abnormal range of motion, no swelling. SKIN Warm, pink and dry. No rashes, dermatoses, petechiae or lesions. NEUROLOGICAL Speech is clear and appropriate. Normal level of consciousness. Gait and coordination are normal. 5/5 strength in all extremities. PSYCH Normal mood and affect. Judgement/competence is appropriate Results & Data Results & Data Vital Signs (Past 12 Hours) Vital Signs Temp Pulse Pulse Resp BP BP Pulse Ox 12/11/24 15:17 37.1 C 73 16 112/54 L 93 12/11/24 12:49 36.9 C 84 20 126/63 94 12/11/24 12:45 36.9 C 84 126/63 94 12/11/24 12:11 123/51 L 12/11/24 11:38 81 22 108/49 L 12/11/24 10:59 81 28 H 125/55 L 97 12/11/24 10:32 70 17 115/50 L 94 12/11/24 10:08 70 20 94 12/11/24 10:05 72 21 96 12/11/24 10:00 114/49 L 12/11/24 09:44 74 25 H 117/56 L 97 12/11/24 09:05 78 34 H 12/11/24 09:00 101/61 12/11/24 08:36 77 12/11/24 08:24 36.9 C 81 19 100/43 L 94 O2 Del Method 12/11/24 15:17 Room Air 12/11/24 12:49 Room Air 12/11/24 12:45 Room Air 12/11/24 12:11 12/11/24 11:38 12/11/24 10:59 12/11/24 10:32 12/11/24 10:08 12/11/24 10:05 12/11/24 10:00 12/11/24 09:44 12/11/24 09:05 12/11/24 09:00 12/11/24 08:36 12/11/24 08:24 Room Air PG Care Time/CCT Total # of Minutes Spent Total Time Spent with Patient: Total time spent is greater than 50% in coordination of care (as documented) at patient's floor/unit and/or counseling patient: Coding Level of Care Code 95773 INT INP/OBS CARE MIN Diagnoses GI bleed K92.2 GI bleed type/associated pathology: unspecified gastrointestinal hemorrhage type Coronary artery disease involving chilkoot coronary artery of chilkoot heart without angina pectoris I25.10 Coronary Disease-Associated Artery/Lesion type: chilkoot artery [place] vs. transplanted heart: chilkoot heart Associated angina: without angina MDS (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) D46.9 Benign essential hypertension I10 Kidney disease, chronic, stage IV (GFR 15-29 ml/min) N18.4 Other depression F32.89 Depression Type: other depression (1) GI bleed GI bleed type/associated pathology: unspecified gastrointestinal hemorrhage type Qualified Code(s): K92.2 - Gastrointestinal hemorrhage, unspecified (2) Coronary artery disease Coronary Disease-Associated Artery/Lesion type: chilkoot artery [place] vs. transplanted heart: chilkoot heart Associated angina: without angina Qualified Code(s): I25.10 - Atherosclerotic heart disease of chilkoot coronary artery witho ut angina pectoris (6) Depression Depression Type: other depression Qualified Code(s): F32.89 - Other specified depressive episodes
[2024-12-11] MEDS ORDERED: ATROPINE SULFATE 0.1 MG/ML 10ML SYR IV PRN (15:48)
[2024-12-11] MEDS ORDERED: ePHEDrine sulfate 50 MG/5 ML SYR ONE (16:36)
[2024-12-11] MEDS ORDERED: PHENYLEPHRINE 100MCG/ML 5ML SYR ONE (16:36)
--- NOTE | 2024-12-11 16:47 | Communication Note ---
Date of Service: December 11, 2024 EGD OR general anesthesia Distal esophageal stricture. Ring partially disrupted by passing the endoscope. No blood noted in the stomach. There was significant deformity and edema in the duodenal And second part of the duodenum. 2 ulcers identified. The larger ulcer in the postbulbar area had a flat pigmented spot. This is likely the source of bleeding. Flat pigmented spots do not require endoscopic intervention we do not decrease bleeding in that situation. Biopsies done antrum for H. pylori Recommend IV Protonix drip x 24 to 48 hours. Discharged home on twice daily PPI therapy. Transfuse as needed. Clear liquids today.
--- NOTE | 2024-12-11 16:54 | GI REPORT ---
[facility] Patient: NORA HARRELL : 1935 Sex at : Male Age: 89 Years Procedure: Upper GI endoscopy Date: 12/11/2024 Attending Physician: Mani Huitron MD Referring MD: Referred Self; Tony Rose MD Indications: - Suspected upper gastrointestinal bleeding - Melena Medications: - General Anesthesia - See the Anesthesia note for documentation of the administered medications Complications: - No immediate complications. Estimated Blood Loss: - Estimated blood loss was minimal. Procedure: - The egd scope was introduced through the mouth and advanced to the second part of the duodenum. - The upper GI endoscopy was accomplished without difficulty. - The patient tolerated the procedure well. Findings: - One benign-appearing, intrinsic moderate stenosis was found in the distal esophagus. The stenosis was traversed. - The entire examined stomach was normal. - Significant deformity edema of the duodenal mucosa both bulb and postbulbar. There was a ulcer present in the duodenal That did not have any stigmata of bleeding. In the postbulbar area there is a large 2 x 3 cratered ulcer. This had a flat pigmented spot probable source of bleeding. Though there was significant deformity ulcer I did not identify any other ulcers or bleeding sites. Biopsies performed the antrum for H. pylori. Impression: - Benign-appearing esophageal stenosis. - Normal stomach. - Significant deformity edema of the duodenal mucosa both bulb and postbulbar. There was a ulcer present in the duodenal That did not have any stigmata of bleeding. In the postbulbar area there is a large 2 x 3 cratered ulcer. This had a flat pigmented spot probable source of bleeding. Though there was significant deformity ulcer I did not identify any other ulcers or bleeding sites. Biopsies performed the antrum for H. pylori. - No specimens collected. Recommendation: - Await pathology results. - Lifetime PPI therapy. Should remain on IV Protonix drip for minimum of 24 hours ideally for 48. Transfuse as needed. Procedure Code(s): - 56862, Esophagogastroduodenoscopy, flexible, transoral; diagnostic, including collection of specimen(s) by brushing or washing, when performed (separate procedure) Diagnosis Code(s): - K92.1, Melena (includes Hematochezia) - K22.2, Esophageal obstruction CPT(R) - 2023 copyright [employer]. All Rights Reserved. The CPT codes, CCI edits and ICD codes generated are intended as suggestions and were generated based on input data. These codes are preliminary and upon sales branch manager review may be revised to meet current compliance and payer requirements. The provider is responsible for the final determination of appropriate codes, and modifiers. Mani Huitron MD This document has been electronically signed. Note Initiated:12/11/2024 Note Completed:12/11/2024 4:53 PM \\[email or web address]\[email or web address]\[id number]
--- NOTE | 2024-12-11 17:24 | Anesthesiology Progress Note ---
Date of Service December 11, 2024 Anesthesia Post Procedure Vital Signs Vital Signs: Temp Pulse Pulse Pulse Resp BP BP 12/11/24 17:20 36.8 C 90 14 109/54 L 12/11/24 17:10 80 21 111/59 L 12/11/24 17:00 89 21 122/51 L 12/11/24 16:53 36.6 C 89 18 122/51 L 12/11/24 15:46 37.7 C H 70 123/53 L 12/11/24 15:17 37.1 C 73 16 112/54 L 12/11/24 12:49 36.9 C 84 20 126/63 12/11/24 12:45 36.9 C 84 126/63 12/11/24 12:11 123/51 L 12/11/24 11:38 81 22 108/49 L 12/11/24 10:59 81 28 H 125/55 L 12/11/24 10:32 70 17 115/50 L 12/11/24 10:08 70 20 12/11/24 10:05 72 21 12/11/24 10:00 114/49 L 12/11/24 09:44 74 25 H 117/56 L 12/11/24 09:05 78 34 H 12/11/24 09:00 101/61 12/11/24 08:36 77 12/11/24 08:24 36.9 C 81 19 100/43 L Pulse Ox O2 Del Method O2 Flow Rate 12/11/24 17:20 100 Nasal Cannula 3 12/11/24 17:10 99 Nasal Cannula 3 12/11/24 17:00 98 Oxymask 4 12/11/24 16:53 99 Oxymask 4 12/11/24 15:46 99 Room Air 12/11/24 15:17 93 Room Air 12/11/24 12:49 94 Room Air 12/11/24 12:45 94 Room Air 12/11/24 12:11 12/11/24 11:38 12/11/24 10:59 97 12/11/24 10:32 94 12/11/24 10:08 94 12/11/24 10:05 96 12/11/24 10:00 12/11/24 09:44 97 12/11/24 09:05 12/11/24 09:00 12/11/24 08:36 12/11/24 08:24 94 Room Air Transfer of Care Handoff Completed per policy Notes Mental Status: alert / awake / arousable and participated in evaluation Patient Amnestic to Procedure: Yes Nausea / Vomiting: adequately controlled Pain: adequately controlled Airway Patency, RR, SpO2: stable & adequate BP & HR: stable & adequate Hydration State: stable & adequate Anesthetic Complications: no major complications apparent and Pt Satisfied with anesthetic care
--- NOTE | 2024-12-11 18:25 | Anesthesiology Progress Note ---
Date of Service December 11, 2024 Anesthesia Post Procedure Vital Signs Vital Signs: Temp Pulse Pulse Pulse Resp BP BP 12/11/24 17:53 77 12/11/24 17:47 37 C 85 105/57 L 12/11/24 17:30 78 17 102/51 L 12/11/24 17:20 36.8 C 90 14 109/54 L 12/11/24 17:10 80 21 111/59 L 12/11/24 17:00 89 21 122/51 L 12/11/24 16:53 36.6 C 89 18 122/51 L 12/11/24 15:46 37.7 C H 70 123/53 L 12/11/24 15:17 37.1 C 73 16 112/54 L 12/11/24 12:49 36.9 C 84 20 126/63 12/11/24 12:45 36.9 C 84 126/63 12/11/24 12:11 123/51 L 12/11/24 11:38 81 22 108/49 L 12/11/24 10:59 81 28 H 125/55 L 12/11/24 10:32 70 17 115/50 L 12/11/24 10:08 70 20 12/11/24 10:05 72 21 12/11/24 10:00 114/49 L 12/11/24 09:44 74 25 H 117/56 L 12/11/24 09:05 78 34 H 12/11/24 09:00 101/61 12/11/24 08:36 77 12/11/24 08:24 36.9 C 81 19 100/43 L Pulse Ox O2 Del Method O2 Flow Rate 12/11/24 17:53 12/11/24 17:47 95 Room Air 12/11/24 17:30 100 Nasal Cannula 3 12/11/24 17:20 100 Nasal Cannula 3 12/11/24 17:10 99 Nasal Cannula 3 12/11/24 17:00 98 Oxymask 4 12/11/24 16:53 99 Oxymask 4 12/11/24 15:46 99 Room Air 12/11/24 15:17 93 Room Air 12/11/24 12:49 94 Room Air 12/11/24 12:45 94 Room Air 12/11/24 12:11 12/11/24 11:38 12/11/24 10:59 97 12/11/24 10:32 94 12/11/24 10:08 94 12/11/24 10:05 96 12/11/24 10:00 12/11/24 09:44 97 12/11/24 09:05 12/11/24 09:00 12/11/24 08:36 12/11/24 08:24 94 Room Air Transfer of Care Handoff Completed per policy Notes Mental Status: alert / awake / arousable and participated in evaluation Patient Amnestic to Procedure: Yes Nausea / Vomiting: adequately controlled Pain: adequately controlled Airway Patency, RR, SpO2: stable & adequate BP & HR: stable & adequate Hydration State: stable & adequate Anesthetic Complications: no major complications apparent and Pt Satisfied with anesthetic care
[2024-12-11] MEDS: TAMSULOSIN HCL 0.4 MG CAP PO SCH (20:09)
[2024-12-11] MEDS: clonazePAM 0.5 MG TAB PO SCH (20:09)
[2024-12-11] MEDS: busPIRone 5 MG TAB PO SCH (20:09)
[2024-12-11] MEDS ORDERED: PRAVASTATIN SOD 40 MG TAB PO SCH (21:00)
[2024-12-12 06:27] LABS: Hematocrit (blood only) 16.9 % (42.0-52.0); Hemoglobin 5.3 g/dl (14.0-18.0); Mean Corpuscular Hemoglobin 33.3 pg (25.0-34.0); Mean Corpuscular Volume 106.3 fL (80.0-100.0); Platelet Count 58 K/uL (130-400); RDW Standard Deviation 66.3 fL (36.4-46.3); Red Blood Count 1.59 M/uL (4.70-6.10); White Blood Count 1.72 K/ul (4.8-10.8)
[2024-12-12] MEDS ORDERED: SODIUM CHLORIDE 0.9% 100 ML IV PRN (06:32)
[2024-12-12 06:48] LABS: Anion Gap 7.0 (3-11); Blood Urea Nitrogen 45.0 mg/dl (6-23); Calcium 7.9 mg/dl (8.6-10.3); Carbon Dioxide 21.0 mmol/L (21-32); Chloride 108.0 mmol/L (98-107); Creatinine Clr Calc Pharmacy 31.7 ml/min; Glucose 130.0 mg/dl (70-99(Fasting)); Potassium 4.8 mmol/L (3.5-5.1); Sodium 136.0 mmol/L (136-145)
--- NOTE | 2024-12-12 11:23 | Hospitalist Progress Note ---
Date of Service December 12, 2024 Assessment & Plan (1) GI bleed: Plan: -EGD showing duodenal ulcers -GI consult appreciated -clear liquid diet -protonix drip -IVF -h/h dropped to 5.3 this am -PRBC transfusion ordered -f/u CBC (2) Coronary artery disease: Plan: -hold asa -con't pravastatin (3) MDS (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): Plan: -chronic pancytopenia -patient at baseline (4) Benign essential hypertension: Plan: -pt undercontrolled (5) Kidney disease, chronic, stage IV (GFR 15-29 ml/min): Plan: -cr 0.92 (6) Depression: Plan: -con't buspirone, clonazepam Plan Pt DNR/DNI Admission and Anticipated Discharge Date Admission Date: December 11, 2024 Subjective No events overnight. Pt noted to have lower h/h this am, PRBC transfusion ordered. Review of Systems Review of Systems: CONST: Negative for fever, body aches and chills. HENT: Negative for neck pain/stiffness, headache, congestion, sore throat, swelling. EYES: Negative for discharge/pain or vision changes. RESP: Negative for cough/hemoptysis and shortness of breath. CV: Negative chest pain, difficulty breathing, palpitations. ABD: Negative pain, nausea, +hematemesis, hematochezia : Negative increase frequency, dysuria, blood in urine or stool. MUSC: Negative for muscle aches, edema. SKIN: Negative rash, lesions/sores. NEURO: Negative headache, dizziness, weakness. Physical Exam Physical Exam: GENERAL APPEARANCE NAD, activity normal for age, well developed/ well nourished, no cyanosis, pallor, or diaphoresis. EYES lids/conjunctiva normal. EARS/NOSE/THROAT Mucous membranes moist, nares normal, lips/teeth normal uvula midline without oral pharyngeal erythema, exudate or swelling TMs normal bilaterally. No lymphangitis/lymphedema. HEAD/NECK normocephalic atraumatic, no facial trauma, neck is supple. RESPIRATORY respiratory effort normal, speaks in full sentences, no tripod position, no accessory muscle use. Lungs clear to auscultation without rhonchi, wheezes, rales CARDIAC Regular rate and rhythm, no edema. ABDOMINAL Soft, ND/NT. No evidence of fluid wave. No pulsatile masses on exam, rebound tenderness, Frost sign or pain over Mcburney's point. MUSCLES/EXTREMITIES No abnormal range of motion, no swelling. SKIN Warm, pink and dry. No rashes, dermatoses, petechiae or lesions. NEUROLOGICAL Speech is clear and appropriate. Normal level of consciousness. Gait and coordination are normal. 5/5 strength in all extremities. PSYCH Normal mood and affect. Judgement/competence is appropriate Results & Data Results & Data Vital Signs (Past 12 Hours) Vital Signs Temp Pulse Pulse Resp BP BP Pulse Ox 12/12/24 11:05 36.5 C 66 108/50 L 98 12/12/24 10:29 36.7 C 65 95/51 L 98 12/12/24 09:43 36.7 C 73 93/51 L 98 12/12/24 08:43 70 110/47 L 98 12/12/24 08:13 36.6 C 67 96/41 L 97 12/12/24 08:00 65 12/12/24 08:00 12/12/24 07:57 36.6 C 76 110/49 L 97 12/12/24 07:42 36.4 C L 73 16 94/51 L 97 12/12/24 02:45 36.4 C L 66 16 92/54 L 92 O2 Del Method O2 Flow Rate 12/12/24 11:05 12/12/24 10:29 12/12/24 09:43 12/12/24 08:43 12/12/24 08:13 12/12/24 08:00 12/12/24 08:00 Room Air 12/12/24 07:57 12/12/24 07:42 0 12/12/24 02:45 Room Air PG Care Time/CCT Total # of Minutes Spent Total Time Spent with Patient: Total time spent is greater than 50% in coordination of care (as documented) at patient's floor/unit and/or counseling patient: Coding Level of Care Code 77625 SUB INP/OBS CARE 2/35MIN Diagnoses GI bleed K92.2 GI bleed type/associated pathology: unspecified gastrointestinal hemorr yaw type Coronary artery disease involving [place] coronary artery of [place] heart without angina pectoris I25.10 Coronary Disease-Associated Artery/Lesion type: [place] artery [place] vs. transplanted heart: [place] heart Associated angina: without angina MDS (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) D46.9 Benign essential hypertension I10 Kidney disease, chronic, stage IV (GFR 15-29 ml/min) N18.4 Other depression F32.89 Depression Type: other depression (1) GI bleed GI bleed type/associated pathology: unspecified gastrointestinal hemorrhage type Qualified Code(s): K92.2 - Gastrointestinal hemorrhage, unspecified (2) Coronary artery disease Coronary Disease-Associated Artery/Lesion type: [place] artery [place] vs. transplanted heart: [place] heart Associated angina: without angina Qualified Code(s): I25.10 - Atherosclerotic heart disease of [place] coronary artery without angina pectoris (6) Depression Depression Type: other depression Qualified Code(s): F32.89 - Other specified depressive episodes
--- NOTE | 2024-12-12 16:16 | Communication Note ---
Date of Service: December 12, 2024 S/P EGD yesterday, had no bleeding overnight , tolerating diet, has MDS , dropped HB to 5 range. Suggest close monitoring for signs of bleeding and H/H , being transfused
[2024-12-12 16:32] LABS: Hematocrit (blood only) 24.5 % (42.0-52.0); Hemoglobin 7.6 g/dl (14.0-18.0); Mean Corpuscular Hemoglobin 30.6 pg (25.0-34.0); Mean Corpuscular Volume 98.8 fL (80.0-100.0); Platelet Count 69 K/uL (130-400); RDW Standard Deviation 75.5 fL (36.4-46.3); Red Blood Count 2.48 M/uL (4.70-6.10); White Blood Count 3.22 K/ul (4.8-10.8)
[2024-12-12 16:43] LABS: Anisocytosis Present; Immature Granulocytes # (auto) 0.01 K/uL (0.01-0.20); Immature Granulocytes % (auto) 0.3 %; Ovalocytes 1+; Polychromasia 1+
[2024-12-13 06:23] LABS: Hematocrit (blood only) 21.7 % (42.0-52.0); Hemoglobin 6.9 g/dl (14.0-18.0); Mean Corpuscular Hemoglobin 32.1 pg (25.0-34.0); Mean Corpuscular Volume 100.9 fL (80.0-100.0); Platelet Count 56 K/uL (130-400); RDW Standard Deviation 78.3 fL (36.4-46.3); Red Blood Count 2.15 M/uL (4.70-6.10); White Blood Count 1.99 K/ul (4.8-10.8)
[2024-12-13 06:24] LABS: Anion Gap 7.0 (3-11); Blood Urea Nitrogen 38.0 mg/dl (6-23); Calcium 8.0 mg/dl (8.6-10.3); Carbon Dioxide 22.0 mmol/L (21-32); Chloride 108.0 mmol/L (98-107); Creatinine Clr Calc Pharmacy 28.8 ml/min; Glucose 87.0 mg/dl (70-99(Fasting)); Potassium 4.2 mmol/L (3.5-5.1); Sodium 137.0 mmol/L (136-145)
[2024-12-13] MEDS ORDERED: SODIUM CHLORIDE 0.9% 100 ML IV PRN ×3 (06:28→08:06)
--- NOTE | 2024-12-13 10:32 | Hospitalist Progress Note ---
Date of Service December 13, 2024 Assessment & Plan (1) GI bleed: Plan: -EGD showing duodenal ulcers -GI consult appreciated -protonix drip -h/h dropped for 8.6 to 10/18 s/p EGD 5.3, s/p 2 units repeat 7.6, this am again dropped to 6.9 -PRBC transfusion ordered -f/u CBC -May need to consider repeat EGD if heme continues to drop (2) Coronary artery disease: Plan: -hold asa -con't pravastatin (3) MDS (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): Plan: -chronic pancytopenia -patient at baseline (4) Benign essential hypertension: Plan: -pt undercontrolled (5) Kidney disease, chronic, stage IV (GFR 15-29 ml/min): Plan: -cr 0.92 (6) Depression: Plan: -con't buspirone, clonazepam Plan Pt DNR/DNI Admission and Anticipated Discharge Date Admission Date: December 11, 2024 Subjective Pt noted to have melanotic stools and lower h/h this am, PRBC transfusion ordered. Review of Systems Review of Systems: CONST: Negative for fever, body aches and chills. HENT: Negative for neck pain/stiffness, headache, congestion, sore throat, swelling. EYES: Negative for discharge/pain or vision changes. RESP: Negative for cough/hemoptysis and shortness of breath. CV: Negative chest pain, difficulty breathing, palpitations. ABD: Negative pain, nausea, +hematemesis, hematochezia : Negative increase frequency, dysuria, blood in urine or stool. MUSC: Negative for muscle aches, edema. SKIN: Negative rash, lesions/sores. NEURO: Negative headache, dizziness, weakness. Physical Exam Physical Exam: GENERAL APPEARANCE NAD, activity normal for age, well developed/ well nourished, no cyanosis, pallor, or diaphoresis. EYES lids/conjunctiva normal. EARS/NOSE/THROAT Mucous membranes moist, nares normal, lips/teeth normal uvula midline without oral pharyngeal erythema, exudate or swelling TMs normal bilaterally. No lymphangitis/lymphedema. HEAD/NECK normocephalic atraumatic, no facial trauma, neck is supple. RESPIRATORY respiratory effort normal, speaks in full sentences, no tripod position, no accessory muscle use. Lungs clear to auscultation without rhonchi, wheezes, rales CARDIAC Regular rate and rhythm, no edema. ABDOMINAL Soft, ND/NT. No evidence of fluid wave. No pulsatile masses on exam, rebound tenderness, Frost sign or pain over Mcburney's point. MUSCLES/EXTREMITIES No abnormal range of motion, no swelling. SKIN Warm, pink and dry. No rashes, dermatoses, petechiae or lesions. NEUROLOGICAL Speech is clear and appropriate. Normal level of consciousness. Gait and coordination are normal. 5/5 strength in all extremities. PSYCH Normal mood and affect. Judgement/competence is appropriate Results & Data Results & Data Vital Signs (Past 12 Hours) Vital Signs Temp Pulse Pulse Resp BP BP Pulse Ox 12/13/24 09:30 36.3 C L 61 112/63 98 12/13/24 08:30 36.7 C 65 126/59 L 12/13/24 08:00 61 12/13/24 08:00 12/13/24 08:00 36.6 C 68 102/54 L 97 12/13/24 07:45 36.4 C L 71 119/52 L 98 12/13/24 07:45 36.4 C L 71 119/52 L 98 12/13/24 07:30 36.5 C 63 14 120/81 96 12/13/24 07:13 36.5 C 76 21 120/65 91 12/13/24 03:00 36.5 C 61 18 109/50 L 95 12/12/24 23:00 57 L 12/12/24 22:53 36.6 C 66 18 103/47 L 92 O2 Del Method 12/13/24 09:30 12/13/24 08:30 12/13/24 08:00 12/13/24 08:00 Room Air 12/13/24 08:00 12/13/24 07:45 12/13/24 07:45 12/13/24 07:30 12/13/24 07:13 Room Air 12/13/24 03:00 Room Air 12/12/24 23:00 12/12/24 22:53 Room Air PG Care Time/CCT Total # of Minutes Spent Total Time Spent with Patient: Total time spent is greater than 50% in coordination of care (as documented) at patient's floor/unit and/or counseling patient: Coding Level of Care Code 35307 SUB INP/OBS CARE MIN Diagnoses GI bleed K92.2 GI bleed type/associated pathology: unspecified gastrointestinal hemorrhage type Coronary artery disease involving [place] coronary artery of [place] heart without angina pectoris I25.10 Coronary Disease-Associated Artery/Lesion type: [place] artery [place] vs. transplanted heart: [place] heart Associated angina: without angina MDS (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) D46.9 Benign essential hypertension I10 Kidney disease, chronic, stage IV (GFR 15-29 ml/min) N18.4 Other depression F32.89 Depression Type: other depression (1) GI bleed GI bleed type/associated pathology: unspecified gastrointestinal hemorrhage type Qualified Code(s): K92.2 - Gastrointestinal hemorrhage, unspecified (2) Coronary artery disease Coronary Disease-Associated Artery/Lesion type: [place] artery [place] vs. transplanted heart: [place] heart Associated angina: without angina Qualified Code(s): I25.10 - Atherosclerotic heart disease of [place] coronary artery without angina pectoris (6) Depression Depression Type: other depression Qualified Code(s): F32.89 - Other specified depressive episodes
--- NOTE | 2024-12-13 13:56 | Communication Note ---
Date of Service: December 13, 2024 GI progress note Subjective: Still had some dark tarry stools between yesterday and this morning required additional 2 units of blood Vital signs stable Physical examination unchanged Labs revealed hemoglobin went down from 7.6-6.9 requiring 2 more units of blood Assessment and plan: Myelodysplastic syndrome Multiple duodenal ulcers At this point it appears to be a slow oozing still continuing to be from likely duodenal ulcers. Bleeding is not brisk enough and hemodynamically significant to suggest ordering repeat CTA. I would encourage to keep n.p.o. after midnight in case hemoglobin count drops further and repeat EGD procedure is warranted in the morning. I had a detailed discussion about these findings with patient's daughter and himself and they understand the plan.
[2024-12-13 16:09] LABS: Hematocrit (blood only) 30.6 % (42.0-52.0); Hemoglobin 9.7 g/dl (14.0-18.0); Immature Granulocytes # (auto) 0.01 K/uL (0.01-0.20); Immature Granulocytes % (auto) 0.3 %; Mean Corpuscular Hemoglobin 30.5 pg (25.0-34.0); Mean Corpuscular Volume 96.2 fL (80.0-100.0); Platelet Count 53 K/uL (130-400); RDW Standard Deviation 67.2 fL (36.4-46.3); Red Blood Count 3.18 M/uL (4.70-6.10); White Blood Count 3.33 K/ul (4.8-10.8)
[2024-12-13 16:26] LABS: Anisocytosis Present; Polychromasia 1+
--- NOTE | 2024-12-13 19:18 | Electrocardiogram Report ---
Test Reason : Blood Pressure : */* mmHG Vent. Rate : 61 BPM Atrial Rate : * BPM P-R Int : * ms QRS Dur : 86 ms QT Int : 418 ms P-R-T Axes : * 21 150 degrees QTcB Int : 420 ms Atrial fibrillation with premature ventricular or aberrantly conducted complexes Low voltage QRS Nonspecific T wave abnormality Abnormal ECG When compared with ECG of 21-Nov-2024 11:07, No significant change was found Confirmed by Genaro Welsh ([id number]) on 12/13/2024 7:18:34 PM Referred By: REFERRED SELF Confirmed By: Genaro Welsh
[2024-12-14 05:51] LABS: Hematocrit (blood only) 28.3 % (42.0-52.0); Hemoglobin 9.3 g/dl (14.0-18.0); Mean Corpuscular Hemoglobin 31.3 pg (25.0-34.0); Mean Corpuscular Volume 95.3 fL (80.0-100.0); Platelet Count 47 K/uL (130-400); RDW Standard Deviation 66.3 fL (36.4-46.3); Red Blood Count 2.97 M/uL (4.70-6.10); White Blood Count 3.02 K/ul (4.8-10.8)
[2024-12-14 06:06] LABS: Anion Gap 7.0 (3-11); Blood Urea Nitrogen 29.0 mg/dl (6-23); Calcium 8.1 mg/dl (8.6-10.3); Carbon Dioxide 21.0 mmol/L (21-32); Chloride 108.0 mmol/L (98-107); Creatinine Clr Calc Pharmacy 30.8 ml/min; Glucose 94.0 mg/dl (70-99(Fasting)); Potassium 4.0 mmol/L (3.5-5.1); Sodium 136.0 mmol/L (136-145)
--- NOTE | 2024-12-14 10:44 | Hospitalist Progress Note ---
Date of Service December 14, 2024 Assessment & Plan (1) GI bleed: (2) Acute blood loss anemia: (3) Pleural effusion: (4) MDS (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): Plan This patient is an 89-year-old male with a history of CAD s/p CABG and PCI, permanent atrial fibrillation s/p Watchman device, CKD stage IV, depression, chronic HFpEF, MDS with pancytopenia requiring transfusions, who is admitted with hematemesis and melena, acute GI blood loss. #GI bleed/acute blood loss anemia-Hgb baseline is 8-9 but Hgb dropped as low as 5.3 this admission and was transfused a total of 4 units PRBCs thus far. EGD showed large cratered duodenal ulcer with some evidence of recent bleeding but not actively bleeding-no indication for clipping or cautery as per GI. Biopsy taken for H. pylori is negative. Hemodynamically stable and Hgb stable from yesterday at 9.3. CT A/P with evidence of duodenitis and high-grade stenosis of the SMA incidentally noted. Duodenal ulcer could be from aspirin use versus recent stress of hospitalizations for recurrent cholecystitis and cholecystectomy - Appreciate GI consultation-advance to clear liquids today and monitor for bleeding-n.p.o. after midnight in case of need for repeat EGD on 12/15 - Continue IV Protonix and changed to 40 mg IV twice daily from drip - Follow CBC in the a.m. 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 Mobley - For SMA stenosis, seems to be asymptomatic but could follow-up with vascular surgery as an outpatient #CAD s/p CABG and PCI/chronic HFpEF/bilateral pleural effusion/possible RLL lung mass-most recent echo in 05/2024 with preserved EF 60-65%, reduced RV systolic function, mild MR. With what sounds like chronic pleural effusion right greater than left with no previous thoracentesis. Also with possible lung mass and R LL seen on CT abdomen/pelvis. Patient is not hypoxic and has no dyspnea on exertion, no peripheral edema. BPs are controlled on no antihypertensives and heart rates in A-fib are controlled without any AV radha blockers. - Check chest CT - Consult pulmonology due to pleural effusion which may be from heart failure - Holding home aspirin - Consider loop diuretics versus thoracentesis - Resume home pravastatin #Permanent atrial fibrillation-patient with bradycardia and rates in the 50s to 60s for the most part not on AV radha blockers. He has a Watchman device in place and is not on anticoagulation - Continue monitoring on telemetry #MDS/pancytopenia-with chronic pancytopenia and transfusions necessary, receives Retacrit. Follows with oncology Dr. Mendoza. - Planning for repeat bone marrow biopsy in the near future - Follow CBC #CKD stage IV-creatinine around baseline at 1.55 - Avoid nephrotoxins and renally dose medications - Follow BMP in the morning - Caution with #Depression-no acute issues -Continue buspirone, clonazepam #BPH s/p TURP-no acute issues - Continue home tamsulosin and oxybutynin DVT prophylaxis-add SCDs, avoid anticoagulation at this time due to GI bleeding Disposition-continued stay on PCU. Discussed all his care with his daughter on the phone and son at the bedside on 12/14 Admission and Anticipated Discharge Date Admission Date: December 11, 2024 Subjective Patient's denies shortness of breath, no melena overnight but nursing reports stool was darker but not black. No nausea. He thinks that he has had a spot on his lung for many years and was told that it was fine. He has had episodes of CHF. He reports he has never had a thoracentesis. He does not take any diuretics. Telemetry with atrial fibrillation with rates mostly in the 50s with some drops into the 30s overnight Physical Exam Constitutional: WD/WN, vitals as above Respiratory: normal respiratory effort; no cough Auscultation: + diminished lung sounds (At right lower and middle lung yoon); no crackles, no rhonchi and no wheezes Cardiovascular: Rate/Rhythm: regular rate and + irregularly irregular Heart Sounds: + click; no murmur Extremities: no edema Gastrointestinal (Abdomen): normal bowel sounds, soft, nontender, no hepatosplenomegaly Psychiatric: A+Ox3, euthymic affect Results & Data Results & Data Vital Signs (Past 12 Hours) Vital Signs Temp Pulse Pulse Resp BP Pulse Ox O2 Del Method 12/14/24 07:00 55 L 12/14/24 02:57 36.5 C 63 18 118/63 94 Room Air 12/13/24 22:53 36.6 C 63 18 124/47 L 93 Room Air Laboratory Results CBC, BMP, CT chest reviewed PG Care Time/CCT Total # of Minutes Spent Total Time Spent with Patient: Total time spent is greater than 50% in coordination of care (as documented) at patient's floor/unit and/or counseling patient: Coding Level of Care Code 72898 SUB INP/OBS CARE 3/50MIN Diagnoses GI bleed K92.2 GI bleed type/associated pathology: unspecified gastrointestinal hemorrhage type Acute blood loss anemia D62 Pleural effusion J90 MDS (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) D46.9 (1) GI bleed GI bleed type/associated pathology: unspecified gastrointestinal hemorrhage type Qualified Code(s): K92.2 - Gastrointestinal hemorrhage, unspecified
--- NOTE | 2024-12-14 11:42 | Gastroenterology Progress Note ---
Date of Service December 14, 2024 Assessment & Plan (1) GI bleed: Plan 89 year old male w/ history of HFpEF, afib, CAD s/o CABG and stents, NSTEMI, anxiety, dyslipidemia, HTN, HLD, CKD, BPH s/p TURP, MDS with pancytopenia, laparoscopic cholecystectomy (11/19/24) who presented to the ED w/ abd pain, nausea/vomiting - GI was asked to evaluate for GI bleed. EGD revealed ulcer in duodenal bulb. He required transfusions over the weekend, however today he reports he's feeling well. Melena is improving. No abdominal pain. Hgb 9.3g/dl from 9.7g/dl. (1) UGIB - Reviewed EGD findings and Hgb with in house Gastroenterology. - No visible vessel on EGD. Patient has been hemodynamically stable. - Hgb was more stable today then it was the last two days. - We'll re-introduce clear liquids with ongoing monitoring for bleeding. - Continue to monitor H/H and IV Protonix as ordered by per primary team. - If s/s fail if has another drop in H/H then would make NPO after midnight for repeat EGD and possible clip placement. - Thank you for allowing us to participate in the care of this patient. Please call with any acute changes, questions or concerns. Please see addendum below with additional recommendation from my supervising physician. Admission and Anticipated Discharge Date Admission Date: December 11, 2024 Supervising Physician Co-Signing Physician Notes I personally saw and examined the patient. I have reviewed the chart and agree with the documentation provided by the [employer] including discussion about the assessment, treatment and plan. Briefly, 1.5 to 2 cm duodenal ulcer. He had a brown stool today. Continue IV PPI twice daily and can start a liquid diet Subjective 89 year old male w/ history of HFpEF, afib, CAD s/o CABG and stents, NSTEMI, anxiety, dyslipidemia, HTN, HLD, CKD, BPH s/p TURP, MDS with pancytopenia, laparoscopic cholecystectomy (11/19/24) who presented to the ED w/ abd pain, nausea/vomiting - GI was asked to evaluate for GI bleed. Suggests he started with black loose stools three days ago. This AM woke up with abd pain, nausea and emesis. Reports three large bouts of coffee ground appearing emesis. His initial Hgb was 5 g/dl he was transfused and stabilized He underwent an EGD with Dr. Huitron 12/11/24 which revealed a 2x3 cratered ulcer. Recommended IV protonix drip for minimum of 24-48 hours. Since then he reports that he's done well. Hgb 9.3g/dl (9.7g/dl yesterday) Hct 28.3% today. He has no issues today. He states he had a bowel movement this morning that was mostly brown with a small amounts of melena. This is improving. He denies any fevers, chills, abdominal pain, vomiting, hematochezia. Pertinent findings EGD Dr. Huitron 12/11/24 Findings: - One benign-appearing, intrinsic moderate stenosis was found in the distal esophagus. The stenosis was traversed. - The entire examined stomach was normal. - Significant deformity edema of the duodenal mucosa both bulb and postbulbar. There was a ulcer present in the duodenal That did not have any stigmata of bleeding. In the postbulbar area there is a large 2 x 3 cratered ulcer. This had a flat pigmented spot probable source of bleeding. Though there was significant deformity ulcer I did not identify any other ulcers or bleeding sites. Biopsies performed the antrum for H. pylori. Impression: - Benign-appearing esophageal stenosis. - Normal stomach. - Significant deformity edema of the duodenal mucosa both bulb and postbulbar. There was a ulcer present in the duodenal That did not have any stigmata of bleeding. In the postbulbar area there is a large 2 x 3 cratered ulcer. This had a flat pigmented spot probable source of bleeding. Though there was significant deformity ulcer I did not identify any other ulcers or bleeding sites. Biopsies performed the antrum for H. pylori. - No specimens collected. Recommendation: - Await pathology results. - Lifetime PPI therapy. Should remain on IV Protonix drip for minimum of 24 hours ideally for 48. Transfuse as needed. Pathology pending. Review of Systems Review of Systems: See HPI Physical Exam Physical Exam: Constitutional: NAD. Alert. Answering questions appropriately. Respiratory: Breathing is even, non-labored. Lungs yoon are clear to auscultation anteriorly. Cardiovascular: Regular Rate and Rhythm, no murmurs, rubs or gallops appreciated. Gastrointestinal (Abdomen): Normoactive bowel sounds x4, soft, non-distended, non-tender. Musculoskeletal: Lying in bed comfortably. No peripheral edema. Results & Data Results & Data Vital Signs (Past 12 Hours) Vital Signs Temp Pulse Pulse Resp BP Pulse Ox O2 Del Method 12/14/24 10:56 98.1 F 56 L 20 115/58 L 94 Room Air 12/14/24 07:00 55 L 12/14/24 02:57 97.7 F 63 18 118/63 94 Room Air PG Care Time/CCT Total # of Minutes Spent Total Time Spent with Patient: Total time spent is greater than 50% in coordination of care (as documented) at patient's floor/unit and/or counseling patient: Coding Level of Care Code 57406 SUB INP/OBS CARE 2/35MIN Diagnoses GI bleed K92.2 GI bleed type/associated pathology: unspecified gastrointestinal hemorrhage type (1) GI bleed GI bleed type/associated pathology: unspecified gastrointestinal hemorrhage type Qualified Code(s): K92.2 - Gastrointestinal hemorrhage, unspecified
--- NOTE | 2024-12-14 12:12 | CT Scan Report ---
CT chest diagnostic wo con CT DOSE: 508.72 mGy.cm CLINICAL HISTORY: 89 years-old Male with f/u right lower lobe mass,pleural effusion. Acute shortness of breath TECHNIQUE: Multiaxial CT images of the chest were performed without contrast. A dose lowering techni que was utilized adhering to the principles of ALARA. COMPARISON: CT abdomen and pelvis of same day, CTA chest 06/14/2024 FINDINGS: Limited study without IV contrast. Unremarkable thyroid. Moderate cardiomegaly with pericar dial calcifications. [place] coronary artery calcifications are noted. Prior median sternotomy with CA BG. Atherosclerosis of the aorta without aneurysm. Left atrial exclusion device. 9 mm subcarinal lymp h node. Enlarged right hilar lymph nodes, difficult to measure without IV contrast. 4 x 3 mm ovoid structure within the right lower lobe again seen on image 144 series 4. Small left ple ural effusion is new from 12/11/2024. Moderate right pleural effusion is unchanged. Mild intralobular septal thickening. Right lower lobe consolidation with partial collapse. No acute upper abdominal abnormality. Soft tissues are within normal limits. Mild bilateral gynecomas tia. No acute fracture or destructive bone lesion. IMPRESSION: 1. Interstitial pulmonary edema with small left and moderate right pleural effusions. 2. Volume loss with partial collapse of the right lower lobe. 3. Right hilar lymphadenopathy with possible 4 cm lesion within the right lower lobe, suboptimally as sessed without IV contrast. Findings could be correlated with bronchoscopy. ACT 112: Positive. There are findings on this exam that require communication between the performing entity and the patient following Patient Test Result Information Act ([place] Act 112) guidelines. Electronically signed by: Rd Peoples M.D. 12/14/2024 12:11 PM
--- NOTE | 2024-12-14 12:32 | Palliative Care Consultation ---
Date of Consultation December 14, 2024 Assessment & Plan (1) Lethargy: (2) Palliative care by specialist: Met with pt at bedside and spoke with his daughter by phone. Introduced Palliative Medicine and explained our role in advanced care planning, symptom management and navigation through the progression of life limiting disease. Patient and his daughter were receptive to palliative services for goals of care discussions. Reviewed we are different from hospice, a home health nurse visiting service. (3) Counseling regarding goals of care: Spoke with pt and his daughter (by phone) from 11:30 - 12:00. We discussed at length the patient's acute and chronic medical conditions, general prognosis, treatment options, and goals of care. Pt's daughter had multiple questions about Palliative Care services and appropriate timing for involvement on Palliative Care in patients care plan. We discussed Palliative Care's role in advanced care planning, symptom management and navigation through the progression of life limiting disease. Discussed that palliative care can coexist with life prolonging treatments and helped Becca understand the difference between Palliative Care and Hospice Care. We discussed possible follow up with outpt Palliative Care clinic for assistance with symptom management and navigation. Becca was appreciative of information but shared that she feels Maged does not have any palliative needs at the present time. Discussed hospice benefit: an interdisciplinary program offered by nurses, nurses aides, social workers, chaplains and a registered medical assistant for patients with a terminal condition and a life expectancy of less than 6 months. This is covered by Medicare at 100%/no out of pocket expense to patient and all meds/supplies needed by patient for the reason they are on hospice are paid for/covered by hospice. The goal is assure quality of life of the patient in their home setting (home, senior care, inpatient hospice setting) by providing symptoms management, psychosocial and spiritual support. However, they cannot offer 24 hours care and if the family is unable to provide that care, they will have to consider personal care with out of pocket cost vs. senior care placement. We discussed the goals of hospice as a patient service and the goals of care; we discussed EOL trajectories and transitions bryant the emotional impact of realizing mortality as a concrete reality from prior abstract considerations. Pt was reassured that no matter where they are along this trajectory, they are not alone - their medical team will remain by their side through their journey. Discussed the pros/cons of accepting help when especially weakened and distressed by pain-which would also help provide relief/decrease caregiver burden/strain. Patient has clearly established goals of care are for DNR/DNI but continue all other life prolonging therapies, he shared that his most troubling symptom has been lethargy and he has good QOL. He shared that he has only had SOB 2/2 CHF; it has been managed well with lasix and does not limit his activity. He shared that he has had a poor appetite for several weeks. Ultimately, patient reinforced DNR/DNI, and would like to continue to pursue life extending treatments with his oncologist Dr Mendoza. Plan as above. History of Present Illness Reason for Consultation: goals of care Requesting Physician: Marisela Lindsey MD Attending Physician: Marisela Lindsey MD History of Present Illness Mr. Graves is a 89y male w/ history of HFpEF, afib, CAD s/o CABG and stents, NSTEMI, anxiety, dyslipidemia, HTN, HLD, CKD, BPH s/p TURP, MDS with pancytopenia, laparoscopic cholecystectomy (11/19/24) who presented to the ED w/ abd pain, nausea/vomiting and black loose stools for three days. He reported to ED after waking up with abd pain, nausea and emesis x3 (large coffee ground emesis). Allergies Allergy/AdvReac Type Severity Reaction Status Date / Time No Known Allergies Allergy Verified 12/03/24 19:57 Home Medications Medication Instructions Recorded Confirmed Type oxybutynin chloride 5 mg tablet 5 mg PO BID #180 tabs 02/17/24 12/11/24 Rx nitroglycerin 0.4 mg sublingual 0.4 mg sublingual Q5M PRN Chest 03/10/24 12/11/24 Rx tablet Pain #25 tabs epoetin ilana-epbx 2,000 unit/mL 0 unit IV DIRECTED PRN Anemia 05/02/24 12/11/24 History injection solution (Retacrit) aspirin 81 mg tablet,delayed 81 mg PO DAILY 09/08/24 12/11/24 History release sennosides 8.6 mg tablet (Senokot) 8.6 mg PO HS 09/08/24 12/11/24 History tamsulosin 0.4 mg capsule 0.4 mg PO HS 09/08/24 12/11/24 History silver sulfadiazine 1 % topical 1 applic topical DIRECTED PRN 10/09/24 12/11/24 History cream (Silvadene) Wound Care pravastatin 40 mg tablet 40 mg PO HS #90 tabs 11/02/24 12/11/24 Rx buspirone 5 mg tablet 10 mg (2 x 5 mg) PO BID #60 tabs 11/25/24 12/11/24 Rx clonazepam 0.5 mg tablet 0.5 mg PO HS #30 tabs 12/08/24 12/11/24 Rx pantoprazole 40 mg tablet,delayed 40 mg PO QAM 12/11/24 12/11/24 History release Patient History Medical History (Updated 12/14/24 @ 12:24 by CONSTANTINO Ramirez) Encounter for pre-operative examination Acute cholecystitis NSTEMI (non-ST elevated myocardial infarction) Acute on chronic heart failure with preserved ejection fraction Acute kidney injury 08/08/22 Hx of bronchitis 10/2023 Depression Congestive heart failure Anemia blood transfusion [place]06[place] [facility] [place]ancytopenia Bilateral pleural effusion 05/2024 Dysphagia Acute cholecystitis 06/14/24 admitted to [place] and transferred [place] [facility] [place] History of non-ST elevation myocardial infarction (NSTEMI) 06/14/24- transferred from [facility] [place] [facility] [place] Elevated troponin 06/14/24 SOB (shortness of breath) History of recent blood transfusion 05/2024 [facility] [place] Kidney disease, chronic, stage IV (GFR 15-29 ml/min) Diverticulosis CAD (coronary artery disease) s/p 2 stents in 1999 and CABG x 1 1978 Chronic diastolic heart failure HTN (hypertension) Dyslipidemia PVD (peripheral vascular disease) Chronic cough History of Mohs micrographic surgery for skin cancer nose History of skin cancer Presence of Watchman left atrial appendage closure device (2020) Atrial fibrillation follows w/ Dr Shravan Mobley Hx of brachytherapy initial tx for prostate ca Hyperlipidemia GERD (gastroesophageal reflux disease) MDS (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, [facility] History of prostate cancer 1999, brachy therapy and sx tx Surgical History History of cholecystectomy History of esophagogastroduodenoscopy (EGD) Hx of colonoscopy Hx of tonsillectomy Hx of bilateral cataract extraction History of coronary artery bypass graft 1978, single bypass, [facility] in [place] History of heart artery stent ~1999, angina, [place]; x2 stents; f/u shravan deanna History of cardiac cath ~1999, angina, [place]; x2 stents; f/u shravan deanna S/P TURP Family History Father Heart disease Hypertension Mother Seizure Denies family history of Ovarian cancer Prostate cancer Myocardial infarction Breast cancer Colorectal cancer Social History Smoking Status: Former smoker Tobacco Type: Cigarettes Age Started Using Tobacco: 26; Age Quit Using Tobacco: 61; packs per day: 1; Cigarettes Per Day: 20; Second Hand Exposure: No; Do You Dip or Chew Tobacco: No; Hx Alcohol Use: No Hx Substance Use: No Preferred Language: Bur[place]ian Communication Ability: Effective Communication Ability Comment: short term memory impairment; can answer yes/no questions appropriately Visual Impairment: No Limitations Hearing Ability: Normal [place] Knitter Required: No Beliefs That Will Affect Care: None marital status: / marital status details: LIVES WITH DAUGHTER AND SON IN LAW Current Living Situation: Family Current Living Situation Comment: home with daughter and son in law current occupational status: retired 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 How many Children do You have: 3 How many Children do You have Comment: 3 daughters, all alive and well Other Information That Helps Us Care for You: No other: [employer] [email or web address].[email or web address], [facility]. Feels Safe at Home: Yes Safety Concerns: Feels Safe At This Time Childhood Exposure to Second-Hand Smoke: No Diet: regular caffeine: Yes during the past year weight has: remained stable Dental Care, Regularly: No Physical Activity Frequency: Does not Exercise Seatbelt Use: always Sunscreen Use: Yes Assistive Devices: Walker Review of Systems Review of Systems: All systems reviewed & are unremarkable except as noted in HPI & below Physical Exam Constitutional: + ill appearing, + thin, cooperative and comfortable Eyes: PERRL, conjunctivae normal, anicteric sclerae Neck: trachea midline, no thyromegaly Respiratory: normal respiratory effort Cardiovascular: Rate/Rhythm: regular rate Gastrointestinal (Abdomen): normal bowel sounds, soft, nontender, no hepatosplenomegaly + right sided hematoma Skin: no rashes, warm and dry Results & Data Vital Signs (Past 12 Hours) Vital Signs Temp Pulse Pulse Resp BP Pulse Ox O2 Del Method 12/14/24 10:56 36.7 C 56 L 20 115/58 L 94 Room Air 12/14/24 07:00 55 L 12/14/24 02:57 36.5 C 63 18 118/63 94 Room Air Laboratory Results Abnormal lab results 12/11/24 12/13/24 12/14/24 Range/Units 08:54 15:47 05:28 WBC 3.33 L 3.02 L (4.8-10.8) K/ul RBC 3.18 L 2.97 L (4.70-6.10) M/uL Hgb 9.7 L 9.3 L (14.0-18.0) g/dl Hct 30.6 L 28.3 L (42.0-52.0) % MCHC 31.7 L (32.0-36.0) g/dL RDW Std Deviation 67.2 H 66.3 H (36.4-46.3) fL RDW Coeff of [place] 20.2 H 19.5 H (11.5-14.5) % Plt Count 53 L 47 L (130-400) K/uL Lymph # (Auto) 0.33 L (1.20-3.40) K/uL Chloride 108 H (98-107) mmol/L BUN 29 H (6-23) mg/dl Creatinine 1.55 H (0.6-1.4) mg/dl Calcium 8.1 L (8.6-10.3) mg/dl Crossmatch See Detail Diagnostic Findings Abdomen/Pelvis CT 12/11/24 08:28 CT SCAN OF THE ABDOMEN AND PELVIS WITH IV CONTRAST CLINICAL HISTORY: Generalized abdominal pain. Vomiting. COMPARISON STUDY: Prior abdominal CT scans, most recently dated 12/03/2024. TECHNIQUE: Following the IV administration of 94 cc of Optiray 320, CT scan of the abdomen and pelvis is performed from the lung bases to the proximal femora. Images are reviewed in the axial, sagittal, and coronal planes. IV contrast was administered without complication. A dose lowering technique was utilized adhering to the principles of ALARA. The examination is degraded by streak artifact from the arms which could not be elevated above the abdomen. CT DOSE: 1283.65 mGy.cm FINDINGS: Lung bases: The patient is status post midline sternotomy. The heart is large and without pericardial effusion. Pericardial calcification is unchanged. The coronary arteries are densely calcified. There is an indeterminant ovoid 4.2 x 3.0 cm low-attenuation structure in the right lower lobe as seen on axial image #14. There is a moderate right pleural effusion with consolidation of the right lower lung. Scarring/atelectasis is seen at the left lung base. Liver: The contrast-enhanced liver is normal in size, contour, and attenuation. There is minimal central intrahepatic biliary ductal dilatation. The hepatic veins and portal veins are patent. Gallbladder: The gallbladder is surgically absent. Mild stranding and fluid is s een in the gallbladder fossa. No organized/drainable fluid collection is identified. Spleen: Normal in size and attenuation. Pancreas: Moderately atrophic and grossly unremarkable. Adrenal glands: Unremarkable. Kidneys: The contrast enhanced kidneys demonstrate cortical atrophy and are without hydronephrosis. The kidneys enhance symmetrically. Small renal cysts measure up to 1.5 cm. Additional subcentimeter cortical hypodensities also likely represent cysts but are too small for definitive characterization. There are renovascular calcifications. No renal calculi are clearly seen. Abdominal vasculature: There is advanced atherosclerotic calcification and ectasia of the abdominal aorta. The abdominal aorta measures up to 2.9 cm. There is a least moderate stenosis at the origin of the celiac artery. High-grade stenosis seen at the origin of the superior mesenteric artery. The vessels are opacified distally. Bowel: There is advanced colonic diverticulosis without CT evidence of acute diverticulitis. No bowel obstruction is seen. There are mildly distended and fluid-filled loops of small bowel. Liquid stool is also seen throughout the colon. The appendix is well-visualized and normal. Mild infiltration around the proximal duodenum is again noted. Peritoneum: No intraperitoneal free air is identified. There is trace pelvic ascites. There is a small fat-containing umbilical hernia. Lymphadenopathy: None. Pelvic viscera: The prostate gland is diminutive and heterogeneous with brachytherapy implants in place. The bladder wall is thickened trabeculated indicating chronic outlet obstruction. There is a fat and fluid containing right groin hernia. Skeletal structures: The skeletal structures are osteopenic. There is mild to moderate lumbosacral spondylosis. Schmorl's node is seen in the superior endplate of L1. There are bilateral pars defects at L5 with severe disc space narrowing and 12 mm of anterolisthesis of L5 and S1. No lytic or blastic lesions are seen. IMPRESSION: 1. There are mildly distended and fluid-filled loops of small bowel with no CT evidence of high-grade obstruction. There is also liquid stool throughout the colon. The appearance favors a nonspecific enterocolitis. Clinical correlation will be essential. 2. There is mild stranding and trace fluid in the gallbladder fossa, as well as mild infiltration around the proximal duodenum. This was also seen on 12/03/2024 and may be related to prior surgery. Correlate clinically for evidence of a nonspecific duodenitis. 3. Cardiomegaly and right pleural effusion. This is similar to previous. 4. There is an approximately 4 x 3 cm ovoid low-attenuation structure seen in the lower lobe of the right lung. This is indeterminant, and suspicious for mass lesion or lymphadenopathy. A nonemergent follow-up contrast-enhanced chest CT is recommended for further assessment. 5. Small volume pelvic ascites. 6. Diverticulosis of the colon without CT evidence of acute diverticulitis. 7. 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 8. Additional findings as above. ACT 112: Negative or not required by law. Electronically signed by: Elvin Young M.D. 12/11/2024 10:[address] 12/14/24 10:42 CT chest diagnostic wo con CT DOSE: 508.72 mGy.cm CLINICAL HISTORY: 89 years-old Male with f/u right lower lobe mass,pleural effusion. Acute shortness of breath TECHNIQUE: Multiaxial CT images of the chest were performed without contrast. A dose lowering technique was utilized adhering to the principles of ALARA. COMPARISON: CT abdomen and pelvis of same day, CTA chest 06/14/2024 FINDINGS: Limited study without IV contrast. Unremarkable thyroid. Moderate cardiomegaly with pericardial calcifications. [place] coronary artery calcifications are noted. Prior median sternotomy with CABG. Atherosclerosis of the aorta without aneurysm. Left atrial exclusion device. 9 mm subcarinal lymph node. Enlarged right hilar lymph nodes, difficult to measure without IV contrast. 4 x 3 mm ovoid structure within the right lower lobe again seen on image 144 series 4. Small left pleural effusion is new from 12/11/2024. Moderate right pleural effusion is unchanged. Mild intralobular septal thickening. Right lower lobe consolidation with partial collapse. No acute upper abdominal abnormality. Soft tissues are within normal limits. Mild bilateral gynecomastia. No acute fracture or destructive bone lesion. IMPRESSION: 1. Interstitial pulmonary edema with small left and moderate right pleural e ffusions. 2. Volume loss with partial collapse of the right lower lobe. 3. Right hilar lymphadenopathy with possible 4 cm lesion within the right lower lobe, suboptimally assessed without IV contrast. Findings could be correlated with bronchoscopy. ACT 112: Positive. There are findings on this exam that require communication between the performing entity and the patient following Patient Test Result Information Act ([place] Act 112) guidelines. Electronically signed by: Rd Peoples M.D. 12/14/2024 12:11 PM Medications Administered Current Inpatient Medications Acetaminophen (Acetaminophen 325 Mg Tab) 650 mg PO Q4H PRN PRN Reason: pain/fever Stop: 01/10/25 11:16 Buspirone HCl (Buspirone 5 Mg Tab) 10 mg PO BID NORAH Stop: 01/10/25 20:59 Last Admin: 12/14/24 08:49 Dose: 10 mg Clonazepam (Clonazepam 0.5 Mg Tab) 0.5 mg PO HS NORAH Stop: 01/10/25 20:59 Last Admin: 12/13/24 22:04 Dose: 0.5 mg Pantoprazole Sodium 40 mg/ (Dextrose) 100 mls @ 20 mls/hr IV Q5H NORAH Stop: 01/10/25 08:59 Last Admin: 12/14/24 08:48 Dose: 8 mg/hr, 20 mls/hr Ondansetron HCl (Ondansetron Inj 2 Mg/Ml 2 Ml Vial) 4 mg IV Q6H PRN PRN Reason: Nausea Stop: 01/10/25 11:16 Oxybutynin Chloride (Oxybutynin Chloride 5 Mg Tab) 5 mg PO BID NORAH Stop: 01/10/25 20:59 Last Admin: 12/14/24 08:49 Dose: 5 mg Tamsulosin HCl (Tamsulosin Hcl 0.4 Mg Cap) 0.4 mg PO HS NORAH Stop: 01/10/25 20:59 Last Admin: 12/13/24 20:00 Dose: 0.4 mg PG Care Time/CCT Total # of Minutes Spent Total Time Spent with Patient: Total time spent is greater than 50% in coordination of care (as documented) at patient's floor/unit and/or counseling patient: Advanced Care Planning 86882 Advanced Care Planning 30 [place] [address] IN/OBS CONSULT LVL 3,45M Patient Type New History Expanded Problem Focused Exam Expanded Problem Focused Medical Decision Making Moderate Complexity Diagnoses Lethargy R53.83 Palliative care by specialist Z51.5 Counseling regarding goals of care Z71.89 Additional Codes Advanced Care Planning - 70235 Advanced Care Planning 30 Min: 70019 Advanced Care Planning 30 Min ([id number])
--- NOTE | 2024-12-14 12:36 | Pulmonary Consultation ---
Date of Consultation December 14, 2024 Assessment & Plan (1) Pleural effusion: (2) Abnormal chest CT: (3) Heart failure with preserved ejection fraction (HFpEF): (4) Ex-smoker: Plan CT chest 12/14/2024 personally reviewed: Moderate to large right-sided pleural effusion Atelectasis versus mass in the right lower lobe Paraseptal emphysema appreciated bilaterally Cardiomegaly with minimal subcarinal lymphadenopathy 2D echo 06/15/2024: EF 60-65%, RV dilation with reduced systolic function, mild MR, inconclusive data for diastolic dysfunction -- Pleural effusion with questionable right lower lobe mass Patient did have significant pleural effusion even dating back to May 2024 Etiology of fluid could be cardiac as well as reactive to the infection that he had in the right upper quadrant post cholecystectomy Malignancy always a possibility I am not sure about the mass in the right lower lobe it could very well be atelectatic lung He is at risk for cancer because of the smoking history Will do thoracentesis today --Ex-smoker [id number] smoking history --A-fib Not on anticoagulation after Watchman procedure Plan: Will consider thoracentesis, if thoracentesis fluid does not give us an answer then further measures could be thought of Platelets are 47, little bit lower than threshold of 50. Risk and benefit of the procedure explained to the patient as well as patient's daughter in depth. They both understand and wants to go ahead with the procedures Consent signed, witnessed and put in the chart I spent more than 75 minutes looking in the chart, images, discussing the plan of care with the patient, RN as well as primary team Please note the above document was generated using voice recognition software. It may contain grammatical, syntax or spelling errors.Any formal questions or concerns about the content, text or information contained within the body of this dictation should be directly addressed to the provider for clarification. History of Present Illness Attending Physician: Marisela Lindsey MD History of Present Illness 89-year-old male admitted to the hospital for hematemesis Past medical history: A-fib, coronary artery disease status post CABG, hypertension, MDS Pulmonary consulted for pleural effusion abnormal chest CT at the time of examination At the time of examination patient was not in any respite distress He was saturating 98% on room air with heart rate of 61-62. Patient's daughter was also on the phone which helped us with the history. Patient says that he is having some difficulty when he takes deep breath in. And he also coughs a lot when he takes a deep breath in Denies any fever or chills. No dysuria or diarrhea. No unusual headache or blurry vision. He has been having hematemesis as well as dark stools in the recent past. He has got multiple blood transfusions in the past for his hemoglobin. Has lost some weight unintentionally. Social history: Approximate [id number]-jemw smoking history quit in 1999. 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 No history of lung cancer in the family Allergies Allergy/AdvReac Type Severity Reaction Status Date / Time No Known Allergies Allergy Verified 12/03/24 19:57 Home Medications Medication Instructions Recorded Confirmed Type oxybutynin chloride 5 mg tablet 5 mg PO BID #180 tabs 02/17/24 12/11/24 Rx nitroglycerin 0.4 mg sublingual 0.4 mg sublingual Q5M PRN Chest 03/10/24 12/11/24 Rx tablet Pain #25 tabs epoetin ilana-epbx 2,000 unit/mL 0 unit IV DIRECTED PRN Anemia 05/02/24 12/11/24 History injection solution (Retacrit) aspirin 81 mg tablet,delayed 81 mg PO DAILY 09/08/24 12/11/24 History release sennosides 8.6 mg tablet (Senokot) 8.6 mg PO HS 09/08/24 12/11/24 History tamsulosin 0.4 mg capsule 0.4 mg PO HS 09/08/24 12/11/24 History silver sulfadiazine 1 % topical 1 applic topical DIRECTED PRN 10/09/24 12/11/24 History cream (Silvadene) Wound Care pravastatin 40 mg tablet 40 mg PO HS #90 tabs 11/02/24 12/11/24 Rx buspirone 5 mg tablet 10 mg (2 x 5 mg) PO BID #60 tabs 11/25/24 12/11/24 Rx clonazepam 0.5 mg tablet 0.5 mg PO HS #30 tabs 12/08/24 12/11/24 Rx pantoprazole 40 mg tablet,delayed 40 mg PO QAM 12/11/24 12/11/24 History release Patient History Medical History (Updated 12/14/24 @ 16:28 by Rigoberto Decker MD, [facility]) Encounter for pre-operative examination Acute cholecystitis NSTEMI (non-ST elevated myocardial infarction) Acute on chronic heart failure with preserved ejection fraction Acute kidney injury 08/08/22 Hx of bronchitis 10/2023 Depression Congestive heart failure Anemia blood [place] [facility]top[place] Bilateral pleural effusion 05/2024 Dysphagia Acute cholecystitis 06/14/24 admitted to [place] and [place] [facility] [place] of non-ST elevation myocardial infarction (NSTEMI) 06/14/24- transferred from [facility] [place] [facility] Elevated troponin 06/14/24 SOB (shortness of breath) History of recent blood transfusion 05/2024 [facility] Kidney disease, chronic, stage IV (GFR 15-29 ml/min) Diverticulosis CAD (coronary artery disease) s/p 2 stents in 1999 and CABG x 1 1978 Chronic diastolic heart failure HTN (hypertension) Dyslipidemia PVD (peripheral vascular disease) Chronic cough History of Mohs micrographic surgery for skin cancer nose History of skin cancer Presence of Watchman left atrial appendage closure device (2020) Atrial fibrillation follows w/ Dr Shravan Huerta Hx of brachytherapy initial tx for prostate ca Hyperlipidemia GERD (gastroesophageal reflux disease) MDS (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) 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, [place] [facility] History of prostate cancer 1999, brachy therapy and sx tx Surgical History History of cholecystectomy History of esophagogastroduodenoscopy (EGD) Hx of colonoscopy Hx of tonsillectomy Hx of bilateral cataract extraction History of coronary artery bypass graft 1978, single bypass, [facility] in [place] History of heart artery stent ~1999, angina, [place], [place]; x2 stents; f/u shravan huerta History of cardiac cath ~1999, angina, [place], [place]; x2 stents; f/u shravan huerta S/P TURP Family History Father Heart disease Hypertension Mother Seizure Denies family history of Ovarian cancer Prostate cancer Myocardial infarction Breast cancer Colorectal cancer Social History (Reviewed 12/03/24 @ 15:55 by RICK Alexis Smoking Status: Former smoker Tobacco Type: Cigarettes Age Started Using Tobacco: 26; Age Quit Using Tobacco: 61; packs per day: 1; Cigarettes Per Day: 20; Second Hand Exposure: No; Do You Dip or Chew Tobacco: No; Hx Alcohol Use: No Hx Substance Use: No Preferred Language: Maldivian Communication Ability: Effective Communication Ability Comment: short term memory impairment; can answer yes/no questions appropriately Visual Impairment: No Limitations Hearing Ability: Normal 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 How many Children do You have: 3 How many Children do You have Comment: 3 daughters, all alive and well Other Information That Helps Us Care for You: No other: [employer], [facility]. Feels Safe at Home: Yes Safety Concerns: Feels Safe At This Time Childhood Exposure to Second-Hand Smoke: No Diet: regular caffeine: Yes during the past year weight has: remained stable Dental Care, Regularly: No Physical Activity Frequency: Does not Exercise Seatbelt Use: always Sunscreen Use: Yes Assistive Devices: Walker Review of Systems 2 Review of Systems: All systems reviewed & are unremarkable except as noted in HPI & below Physical Exam 2 Physical Exam: Constitutional: No acute distress HEENT: EOMI, PERRLA Respiratory system: Decreased air entry on the right side, no wheeze, no rhonchi, positive crackles bilateral lower lobe CVS: S1-S2 positive, no murmurs or gallops, accentuated P2 Abdomen: Soft, nontender, nondistended, positive bowel sounds x4, induration 10 cm x 7 cm in the right upper quadrant, warm to touch Extremities: +2 pulses bilaterally radialis/ dorsalis pedis, no cyanosis, +1 ankle edema bilateral lower extremity Neuro: Awake alert oriented x3 Psych: Normal mood and affect G/U: No Laureano Skin: no rashes, warm and dry Lymphatic: no cervical or axillary lymphadenopathy Results & Data Results & Data Vital Signs (Past 12 Hours) Vital Signs Temp Pulse Pulse Resp BP Pulse Ox O2 Del Method 12/14/24 10:56 36.7 C 56 L 20 115/58 L 94 Room Air 12/14/24 07:00 55 L 12/14/24 02:57 36.5 C 63 18 118/63 94 Room Air Laboratory Results 12/14/24 05:28 12/14/24 05:28 PG Care Time/CCT Total # of Minutes Spent Total Time Spent with Patient: Total time spent is greater than 50% in coordination of care (as documented) at patient's floor/unit and/or counseling patient: Coding Level of Care Code 82797 INT INP/OBS CARE 3/75MIN Diagnoses Pleural effusion J90 Abnormal chest CT R93.89 Heart failure with preserved ejection fraction (HFpEF) I50.30 Ex-smoker Z87.891
--- NOTE | 2024-12-14 16:12 | Procedure Note ---
Procedure Note Date of Service December 14, 2024 Bedside Ultrasound: Lung: Right: Moderate hypoechoic effusion with atelectasis of right lower lobe Left: Small left pleural effusion Please note the above document was generated using voice recognition software. It may contain grammatical, syntax or spelling errors.Any formal questions or concerns about the content, text or information contained within the body of this dictation should be directly addressed to the provider for clarification. [facility] [place] Codes (Charges) Pulmonary/Thoracic Procedure 1: Pulmonary and Thoracic: 58515 US, Chest, real time with imaging documentation Coding CPT Codes Pulmonary/Thoracic - Pulmonary and Thoracic: 95692 US, Chest, real time with imaging documentation ([id number]) Additional Codes Date of Service (PG.SURGERY)
--- NOTE | 2024-12-14 16:17 | Procedure Note ---
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 Rigoberto Decker Indication: Right-sided pleural effusion Consent: Signed by patient and verified with timeout prior to procedure Anesthesia: 1% lidocaine without epinephrine local. Procedure: Consent was verified and timeout performed. Appropriate imaging studies were reviewed prior to the procedure. Patient was placed in a seated position and limited thoracic ultrasound was performed of the right chest. See separate imaging. Appropriate site above the diaphragm for thoracentesis was selected. The skin was prepped and draped in normal sterile fashion. Lidocaine was used for local analgesia. Fluid was aspirated via the finder needle under the guidance of ultrasound. A small skin everett was made with the scalpel and the catheter over the needle apparatus was advanced over the rib into the pleural space. Using the syringe one-way valve system, a total of 1700 mL's of dark serous fluid was removed. Procedure was terminated due to coughing. The catheter was removed and observed to be intact. A sterile dressing was applied. Post procedure chest x-ray was ordered. Fluid was sent for labs, culture and cytology. Complications: None Blood loss: Less than 1 cc [facility] [place] Codes (Charges) Pulmonary/Thoracic Procedure 1: Pulmonary and Thoracic: 38591 Thoracentesis w imaging Coding CPT Codes Pulmonary/Thoracic - Pulmonary and Thoracic: 84157 Thoracentesis w imaging ([id number]) Additional Codes Date of Service (PG.SURGERY)
--- NOTE | 2024-12-14 17:13 | XRay Report ---
Exam(s): XR CXR 1 VIEW EXAM: XR Chest, 1 View CLINICAL HISTORY: Status post Thoracentesis. TECHNIQUE: Frontal view of the chest. COMPARISON: Chest radiograph 11/21/2024 FINDINGS: Lungs: Interstitial prominence could represent atelectasis, pulmonary edema or atypical infection. Pleural space: Improved now small right pleural effusion. No pneumothorax. Heart: Cardiomegaly. Mediastinum: Unremarkable. Normal mediastinal contour. Bones/joints: There are degenerative changes of the spine. No acute fracture. IMPRESSION: 1. Interstitial prominence could represent atelectasis, pulmonary edema or atypical infection. 2. Improved now small right pleural effusion. 3. Cardiomegaly. Electronically signed by: Livia Jeong MD 12/14/24 17:11 PM
[2024-12-14 17:15] LABS: Appearance Pleural Fluid Hazy; Color Pleural Fluid Yellow; RBC Pleural Fluid Auto 6000 /uL; Source Pleural Fluid Right Lung; WBC Pleural Fluid Auto 249 /uL
[2024-12-14 17:44] LABS: Albumin Level 3.3 gm/dl (3.4-5.0); Bilirubin,Total 2.0 mg/dl (0.2-1.0); Total Protein 5.7 gm/dl (6.0-8.3)
[2024-12-14] MEDS: PRAVASTATIN SOD 40 MG TAB PO SCH (18:01)
[2024-12-14] MEDS: PANTOprazole 40 MG/10 ML SYR IV SCH (20:20)
[2024-12-14] MEDS: ACETAMINOPHEN 325 MG TAB PO PRN (20:20)
[2024-12-15 06:43] LABS: Hematocrit (blood only) 32.2 % (42.0-52.0); Hemoglobin 10.3 g/dl (14.0-18.0); Mean Corpuscular Hemoglobin 31.0 pg (25.0-34.0); Mean Corpuscular Volume 97.0 fL (80.0-100.0); Platelet Count 53 K/uL (130-400); RDW Standard Deviation 66.1 fL (36.4-46.3); Red Blood Count 3.32 M/uL (4.70-6.10); White Blood Count 3.21 K/ul (4.8-10.8)
[2024-12-15 07:05] LABS: Anion Gap 5.0 (3-11); Blood Urea Nitrogen 22.0 mg/dl (6-23); Calcium 8.0 mg/dl (8.6-10.3); Carbon Dioxide 24.0 mmol/L (21-32); Chloride 108.0 mmol/L (98-107); Creatinine Clr Calc Pharmacy 31.0 ml/min; Glucose 85.0 mg/dl (70-99(Fasting)); Potassium 3.7 mmol/L (3.5-5.1); Sodium 137.0 mmol/L (136-145)
[2024-12-15 07:35] LABS: Lymphocytes, Fluid 62 %; Mono,Macrophage,Mesothelial 35 %; Neutrophils, Fluid 3 %
--- NOTE | 2024-12-15 08:02 | Pulmonology Progress Note ---
Date of Service December 15, 2024 Assessment & Plan (1) Pleural effusion: (2) Abnormal chest CT: (3) Heart failure with preserved ejection fraction (HFpEF): (4) Ex-smoker: (5) Pulmonary mass: Plan Repeat CT chest 12/15/2024: Small right-sided pleural effusion Right lower lobe masslike opacity 4 cm x 3 cm around the major fissure Paraseptal emphysema appreciated bilaterally Cardiomegaly with subcarinal lymphadenopathy CT chest 12/14/2024 personally reviewed: Moderate to large right-sided pleural effusion Atelectasis versus mass in the right lower lobe Paraseptal emphysema appreciated bilaterally Cardiomegaly with minimal subcarinal lymphadenopathy 2D echo 06/15/2024: EF 60-65%, RV dilation with reduced systolic function, mild MR, inconclusive data for diastolic dysfunction --Right lower lobe mass It is persistently present on the repeat CT chest after thoracentesis was performed In someone with history of 92-blsc-[id number] smoking history the probability of it being cancer is high -- Pleural effusion Patient did have significant pleural effusion even dating back to May 2024 There is a component of HFpEF as well BNP 290 Etiology of fluid could be cardiac as well as reactive to the infection that he had in the right upper quadrant post cholecystectomy Malignancy always a possibility I am not sure about the mass in the right lower lobe it could very well be atelectatic lung He is at risk for cancer because of the smoking history S/p right-sided thoracentesis 12/14/2024, exudative as per lights criteria, 62% lymphocytes Follow-up cytology Pleural: LDH 110, protein <3, pH 7.45 Serum: LDH 178, protein 5.7 --Ex-smoker [id number]-[id number] smoking history --A-fib Not on anticoagulation after Watchman procedure Plan: Given the persistence of right lower lobe masslike opacity the probability of it being serious like cancer is high Follow-up cytology from the pleural fluid. If the cytology from the pleural fluid is negative then consideration for bronchoscopy and biopsy could be sought off which can be done as an outpatient if the patient and the family are willing to go ahead with it. Recommend to follow-up cytology Patient has daughter Becca [phone] was called and updated regarding patient's condition Case was discussed with primary team as well as RN at bedside. I spent more than 50 minutes looking in the chart, images, discussing the plan of care with the patient, RN as well as primary team Please note the above document was generated using voice recognition software. It may contain grammatical, syntax or spelling errors.Any formal questions or concerns about the content, text or information contained within the body of this dictation should be directly addressed to the provider for clarification. Admission and Anticipated Discharge Date Admission Date: December 11, 2024 Subjective Patient seen and examined at bedside. No acute distress, no adverse events overnight He was saturating well on room air He says he is feeling much better when it comes to his breathing after thoracentesis yesterday Denied any chest discomfort No chest pain Has been afebrile Appetite is not great. No nausea vomiting Review of Systems 2 Review of Systems: All systems reviewed & are unremarkable except as noted in Subjective Physical Exam 2 Physical Exam: Constitutional: No acute distress HEENT: EOMI, PERRLA Respiratory system: Decreased air entry on the right side, no wheeze, no rhonchi, positive crackles bilateral lower lobe CVS: S1-S2 positive, no murmurs or gallops, accentuated P2 Abdomen: Soft, nontender, nondistended, positive bowel sounds x4, induration 10 cm x 7 cm in the right upper quadrant, warm to touch Extremities: +2 pulses bilaterally radialis/ dorsalis pedis, no cyanosis, +1 ankle edema bilateral lower extremity Neuro: Awake alert oriented x3 Psych: Normal mood and affect G/U: No Laureano Skin: no rashes, warm and dry Lymphatic: no cervical or axillary lymphadenopathy Results & Data Results & Data Vital Signs (Past 12 Hours) Vital Signs Temp Pulse Pulse Resp BP Pulse Ox O2 Del Method 12/15/24 07:00 48 L 12/15/24 02:39 36.7 C 51 L 16 125/54 L 96 Room Air 12/14/24 22:27 36.6 C 50 L 16 119/60 96 12/14/24 22:00 47 L 12/14/24 20:03 36.9 C 54 L 16 127/68 96 Room Air 12/14/24 20:00 Room Air Laboratory Results 12/15/24 05:27 12/15/24 05:27 PG Care Time/CCT Total # of Minutes Spent Total Time Spent with Patient: Total time spent is greater than 50% in coordination of care (as documented) at patient's floor/unit and/or counseling patient: Coding Level of Care Code 83078 SUB INP/OBS CARE MIN Diagnoses Pleural effusion J90 Abnormal chest CT R93.89 Heart failure with preserved ejection fraction (HFpEF) I50.30 Ex-smoker Z87.891 Pulmonary mass R91.8
--- NOTE | 2024-12-15 10:17 | Gastroenterology Progress Note ---
Date of Service December 15, 2024 Assessment & Plan (1) GI bleed: Plan 89 year old male w/ history of HFpEF, afib, CAD s/o CABG and stents, NSTEMI, anxiety, dyslipidemia, HTN, HLD, CKD, BPH s/p TURP, MDS with pancytopenia, laparoscopic cholecystectomy (11/19/24) who presented to the ED w/ abd pain, nausea/vomiting - GI was asked to evaluate for GI bleed. EGD revealed ulcer in duodenal bulb. He required transfusions over the weekend, however today he reports he's feeling well. Melena is improving. No abdominal pain. Hgb 9.3g/dl increased to 10.3g/dl (1) UGIB - Reviewed EGD findings and Hgb with in house Gastroenterology. - No visible vessel on EGD. Patient has been hemodynamically stable. - Hgb was more improved to 10.3g/dl today. - Advance diet as tolerated from GI perspective. - May transition to oral Pantoprazole 40mg BID - Thank you for allowing us to participate in the care of this patient. Please call with any acute changes, questions or concerns. Please see addendum below with additional recommendation from my supervising physician. Admission and Anticipated Discharge Date Admission Date: December 11, 2024 Supervising Physician Co-Signing Physician Notes I personally saw and examined the patient. I have reviewed the chart and agree with the documentation provided by the PRACTICE ADMINISTRATOR including discussion about the assessment, treatment and plan. Briefly, doing better and tolerating diet. Hemoglobin is stable GI will sign off and expect gradual improvement with patient Subjective 89 year old male w/ history of HFpEF, afib, CAD s/o CABG and stents, NSTEMI, anxiety, dyslipidemia, HTN, HLD, CKD, BPH s/p TURP, MDS with pancytopenia, lapar oscopic cholecystectomy (11/19/24) who presented to the ED w/ abd pain, nausea/vomiting - GI was asked to evaluate for GI bleed. His initial Hgb was 5 g/dl he was transfused and stabilized. He continued to get multiple transfusions. He underwent an EGD with Dr. Huitron 12/11/24 which revealed a 2x3 cratered ulcer. Recommended IV Protonix drip for minimum of 24-48 hours. Yesterday morning he had a tinge of melena yesterday. No melena since then. Tolerating clear liquids well. Hgb has rised from 9.3g/dl to 10.3g/dl. He denies any fevers, chills, abdominal pain, vomiting and hematochezia. Pertinent findings EGD Dr. Huitron 12/11/24 Findings: - One benign-appearing, intrinsic moderate stenosis was found in the distal esophagus. The stenosis was traversed. - The entire examined stomach was normal. - Significant deformity edema of the duodenal mucosa both bulb and postbulbar. There was a ulcer present in the duodenal That did not have any stigmata of bleeding. In the postbulbar area there is a large 2 x 3 cratered ulcer. This had a flat pigmented spot probable source of bleeding. Though there was significant deformity ulcer I did not identify any other ulcers or bleeding sites. Biopsies performed the antrum for H. pylori. Impression: - Benign-appearing esophageal stenosis. - Normal stomach. - Significant deformity edema of the duodenal mucosa both bulb and postbulbar. There was a ulcer present in the duodenal That did not have any stigmata of bleeding. In the postbulbar area there is a large 2 x 3 cratered ulcer. This had a flat pigmented spot probable source of bleeding. Though there was significant deformity ulcer I did not identify any other ulcers or bleeding sites. Biopsies performed the antrum for H. pylori. - No specimens collected. Recommendation: - Await pathology results. - Lifetime PPI therapy. Should remain on IV Protonix drip for minimum of 24 hours ideally for 48. Transfuse as needed. Pathology pending. Review of Systems Review of Systems: See HPI Physical Exam Physical Exam: Constitutional: NAD. Alert. Answering questions appropriately. Respiratory: Breathing is even, non-labored. Lungs yoon are clear to ausc ultation anteriorly. Cardiovascular: Regular Rate and Rhythm, no murmurs, rubs or gallops appreciated. Gastrointestinal (Abdomen): Normoactive bowel sounds x4, soft, non-distended, non-tender. Musculoskeletal: Lying in bed comfortably. No peripheral edema. Results & Data Results & Data Vital Signs (Past 12 Hours) Vital Signs Temp Pulse Pulse Resp BP Pulse Ox O2 Del Method 12/15/24 08:14 98.2 F 58 L 18 122/54 L 96 Room Air 12/15/24 07:00 48 L 12/15/24 02:39 98.1 F 51 L 16 125/54 L 96 Room Air 12/14/24 22:27 97.9 F 50 L 16 119/60 96 PG Care Time/CCT Total # of Minutes Spent Total Time Spent with Patient: Total time spent is greater than 50% in coordination of care (as documented) at patient's floor/unit and/or counseling patient: Coding Level of Care Code 35867 SUB INP/OBS CARE 2/35MIN Diagnoses GI bleed K92.2 GI bleed type/associated pathology: unspecified gastrointestinal hemorrhage type (1) GI bleed GI bleed type/associated pathology: unspecified gastrointestinal hemorrhage type Qualified Code(s): K92.2 - Gastrointestinal hemorrhage, unspecified
--- NOTE | 2024-12-15 12:26 | CT Scan Report ---
CT SCAN OF THE CHEST WITHOUT IV CONTRAST CLINICAL HISTORY: Follow-up right lower lobe opacity. COMPARISON STUDY: Chest CT scans dated 12/14/2024 and 06/14/2024. TECHNIQUE: CT scan of the thorax was performed from the thoracic inlet to the upper abdomen. Images are reviewed in the axial, sagittal, and coronal planes. IV contrast was not administered for this ex amination. Note that the examination was performed and significant only suboptimal fashion without IV contrast. A dose lowering technique was utilized adhering to the principles of ALARA. CT DOSE: 321.32 mGy.cm FINDINGS: Thyroid: Imaged portions of the thyroid gland are normal in size and attenuation. Thoracic aorta: There is atherosclerotic calcification of the thoracic aorta, which is normal in jackie farhana and demonstrates standard 3-vessel arch anatomy. Heart: The patient is status post midline sternotomy. The heart is enlarged and without pericardial e ffusion. Pericardial calcifications are again noted. The coronary arteries are densely calcified. The re is diminished attenuation of the cardiac blood pool last compared to the myocardium suggesting ane monet. An atrial septal closure device is in place. The main pulmonary arteries are dilated suggesting pulmonary artery hypertension. Lungs and pleural spaces: There is mild emphysematous change. The trachea and central airways are franches[place] ar. Intralobular septal thickening suggests fluid overload/congestive change. There are small left an d moderate right pleural effusions with right basilar consolidation. An approximately 4 x 3 cm massli ke opacity is again seen in the right lower lobe along the major fissure on image #152. There are sca ttered calcified granulomas. Small pleural-based calcifications are unchanged. Lower neck: There are mildly enlarged bilateral subclavicular lymph nodes. A node on the right see im age #39 measures 1.4 x 1.0 cm, and a node on the left on image #36 measures 1.2 x 1.0 cm. Mediastinum: There are numerous subcentimeter mediastinal lymph nodes. No pathologically enlarged med iastinal nodes are seen. Kat: Right hilar adenopathy is again noted. The left hilum is grossly unremarkable The kat are not well assessed without IV contrast. Axillae: There is no axillary lymphadenopathy. Upper abdomen: Partially visualized upper abdominal viscera is gross unremarkable. Skeletal structures: The skeletal structures are osteopenic. Degenerative change is noted in the shou lders and thoracic spine. No lytic or blastic bony lesions are seen. IMPRESSION: 1. Small left and moderate right pleural effusions with right bibasilar consolidation. The right pleu ral effusion has modestly decreased in size from yesterday. 2. Right hilar adenopathy and a masslike opacity in the right lower lobe are unchanged and suboptimal ly assessed without IV contrast. A neoplastic process remains the diagnosis of exclusion. Tissue samp ling will likely be required for definitive characterization. 3. Cardiomegaly and mild emphysema with evidence of fluid overload/congestive change. 4. There are mildly enlarged bilateral supraclavicular nodes. 5. Additional findings as above. ACT 112: Negative or not required by law. Electronically signed by: Elvin Young M.D. 12/15/2024 12:25 PM
--- NOTE | 2024-12-15 15:03 | Hospitalist Progress Note ---
Date of Service December 15, 2024 Assessment & Plan (1) GI bleed: (2) Acute blood loss anemia: (3) Pleural effusion: (4) MDS (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): Plan This patient is an 89-year-old male with a history of CAD s/p CABG and PCI, permanent atrial fibrillation s/p Watchman device, CKD stage IV, depression, chronic HFpEF, MDS with pancytopenia requiring transfusions, who is admitted with hematemesis and melena, acute GI blood loss. #GI bleed/acute blood loss anemia-Hgb baseline is 8-9 but Hgb dropped as low as 5.3 this admission and was transfused a total of 4 units PRBCs thus far. EGD showed large cratered duodenal ulcer with some evidence of recent bleeding but not actively bleeding-no indication for clipping or cautery as per GI. Biopsy taken for H. pylori is negative. Hemodynamically stable and Hgb continues to improve now up to 10.3. CT A/P with evidence of duodenitis and high-grade stenosis of the SMA incidentally noted. Duodenal ulcer could be from aspirin use versus recent stress of hospitalizations for recurrent cholecystitis and cholecystectomy - Appreciate GI consultation -advance to regular diet and monitor for bleeding - Continue IV Protonix twice daily and transition to p.o. pantoprazole twice daily on 12/16 - Follow CBC in the a.m. 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 With what sounds like chronic pleural effusion right greater than left with no previous thoracentesis-noticed on imaging from several months prior. Also with possible lung mass and R LL seen on CT abdomen/pelvis. Patient is not hypoxic and has no dyspnea on exertion, no peripheral edema. BPs are controlled on no antihypertensives and heart rates in A-fib are controlled without any AV radha blockers. He had thoracentesis for 1700 mL of fluid that is exudative by lights criteria performed on 12/14-studies pending including cytology and culture. pH not consistent with empyema. Repeat chest CT now with residual pleural effusion right greater than left however now with obvious hilar lymphadenopathy and right sided lung mass. Pleural effusions are not from heart failure most likely. Appreciate pulmonology consultation - Await further discussions with pulmonology, palliative medicine, patient and his family to decide whether to pursue bronchoscopy for biopsy and PET scan as an outpatient - Holding home aspirin and plan to convert to Plavix once okay to resume blood thinners -Continue home pravastatin #Permanent atrial fibrillation-patient with bradycardia and rates in the 50s to 60s for the most part not on AV radha blockers. He has a Watchman device in place and is not on anticoagulation - Continue monitoring on telemetry #MDS/pancytopenia-with chronic pancytopenia and transfusions necessary, receives Retacrit. Follows with oncology Dr. Mendoza. - Planning for repeat bone marrow biopsy in the near future - Follow CBC #CKD stage IV-creatinine around baseline at 1.4-1.5 - Avoid nephrotoxins and renally dose medications - Follow BMP in the morning #Depression-no acute issues -Continue buspirone, clonazepam #BPH s/p TURP-no acute issues - Continue home tamsulosin and oxybutynin DVT prophylaxis-add SCDs, avoid anticoagulation at this time due to GI bleeding Disposition-continued stay on PCU. Discussed all his care with his daughter and son at the bedside on 12/15 Admission and Anticipated Discharge Date Admission Date: December 11, 2024 Subjective Patient reports feeling better, no melena overnight. Denies shortness of breath. He feels better after having the thoracentesis. We discussed his repeat CT chest scan results and the possibility of lung cancer. His daughter was at the bedside as well as his son and palliative medicine nurse practitioner. I discussed his care with pulmonology Telemetry with atrial fibrillation with rates in 50s to 60s Physical Exam Constitutional: WD/WN, vitals as above Respiratory: normal respiratory effort; no cough Auscultation: + diminished lung sounds (At right lower and middle lung yoon); no crackles, no rhonchi and no wheezes Cardiovascular: Rate/Rhythm: regular rate and + irregularly irregular Heart Sounds: + click; no murmur Extremities: no edema Gastrointestinal (Abdomen): normal bowel sounds, soft, nontender, no hepatosplenomegaly Psychiatric: A+Ox3, euthymic affect Results & Data Results & Data Vital Signs (Past 12 Hours) Vital Signs Temp Pulse Pulse Resp BP Pulse Ox O2 Del Method 12/15/24 11:46 36.9 C 52 L 18 113/60 97 Room Air 12/15/24 08:14 36.8 C 58 L 18 122/54 L 96 Room Air 12/15/24 07:00 48 L Laboratory Results CBC, BMP, pleural fluid studies reviewed Diagnostic Findings CT chest images personally reviewed by me PG Care Time/CCT Total # of Minutes Spent Total Time Spent with Patient: Total time spent is greater than 50% in coordination of care (as documented) at patient's floor/unit and/or counseling patient: Coding Level of Care Code 95831 SUB INP/OBS CARE 3/50MIN Diagnoses GI bleed K92.2 GI bleed type/associated pathology: unspecified gastrointestinal hemorrhage type Acute blood loss anemia D62 Pleural effusion J90 MDS (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) D46.9 (1) GI bleed GI bleed type/associated pathology: unspecified gastrointestinal hemorrhage type Qualified Code(s): K92.2 - Gastrointestinal hemorrhage, unspecified
--- NOTE | 2024-12-15 20:22 | Palliative Family Discussion ---
Date of Service December 15, 2024 Patient Directed Conference Time of Meetin-330pm Participants: Priti Alexander DNP Patient participation: y Patient Support System: y, dtr Other Healthcare Provider Participation: Jaci Islas RN Meeting Location: bedside face to face Advanced Directive available: Yes If yes, descriptors: DNR/DNI The patient's surrogate medical decision maker participated:dtr A face to face ACP meeting was held x 60min for NORA HARRELL III. This meeting was necessary for determining the appropriate course of treatment. Topics of Discussion Topics of Discussion: 1. Lung nodule increase in size - dtr spoke with Pulm who will be meeting with dtr and pt in AM 2. Reccs are bronch and PETCT, pt is agreeable but wants to know how this affects his MDS and is it curable. He also asks what if this lung nodule is leukemia, which was always "lurking" as the inevitable conversion of MDS? we discussed these are great ??s but need an med onc provider to answer given the complexity and nuance. He wants to speak with med onc after meeting with pulm tomorrow. 3. He states perhaps it is time to consider hospice and shares his memories from when his father was placed on hospice for a terminal ?ILD type lung disease and started morphine to make air hunger manageable Other Content of Meetin. Opportunity given for participants to speak and ask questions. Discussed how we are in an information seeking stage - no specific "choices' per se while awaiting info such as biopsy. He asks what would happen if he didn't do anything and we reviewed that while that is certainly a choice, it does not align with his high information seeking needs and would not be as answerable as we would like without knowing more about what we may be dealing with. 2. Participants were assured of attention to patient comfort. 3. Reassurance provided. 4. Support was provided for informed, [place] decisions. 5. Emotions expressed by family were acknowledged and addressed. 6. Follow-up Outpatient: within 2 weeks of dc 7. Plan of Care: He is meeting with pulm tomorrow morning, encouraged to write a list of his questions so he can get appropriate answers from appropriate specialists. Would like to speak with med onc after pulm - Dr Mendoza aware/will try to see pt after clinic tomorrow early evening Thank you for allowing us to participate in the ongoing care of this patient. Please page with any additional concerns. Brianna Alexander DNP Director, Palliative Medicine
[2024-12-16 08:34] VITALS: RESP 18
--- NOTE | 2024-12-16 11:50 | Pulmonology Progress Note ---
Date of Service December 16, 2024 Assessment & Plan (1) Pleural effusion: (2) Abnormal chest CT: (3) Heart failure with preserved ejection fraction (HFpEF): (4) Ex-smoker: (5) Pulmonary mass: Plan Repeat CT chest 12/15/2024: Small right-sided pleural effusion Right lower lobe masslike opacity 4 cm x 3 cm around the major fissure Paraseptal emphysema appreciated bilaterally Cardiomegaly with subcarinal lymphadenopathy CT chest 12/14/2024 personally reviewed: Moderate to large right-sided pleural effusion Atelectasis versus mass in the right lower lobe Paraseptal emphysema appreciated bilaterally Cardiomegaly with minimal subcarinal lymphadenopathy 2D echo 06/15/2024: EF 60-65%, RV dilation with reduced systolic function, mild MR, inconclusive data for diastolic dysfunction --Right lower lobe mass It is persistently present on the repeat CT chest after thoracentesis was performed In someone with history of [id number] smoking history the probability of it being cancer is high -- Pleural effusion Patient did have significant pleural effusion even dating back to May 2024 There is a component of HFpEF as well BNP 290 Etiology of fluid could be cardiac as well as reactive to the infection that he had in the right upper quadrant post cholecystectomy Malignancy always a possibility I am not sure about the mass in the right lower lobe it could very well be atelectatic lung He is at risk for cancer because of the smoking history S/p right-sided thoracentesis 12/14/2024, exudative as per lights criteria, 62% lymphocytes Cytology negative for malignancy Pleural: LDH 110, protein <3, pH 7.45 Serum: LDH 178, protein 5.7 --Ex-smoker [id number] smoking history --A-fib Not on anticoagulation after Watchman procedure Plan: Cytology of the fluid is negative for malignancy I had in-depth discussion with the patient as well as patient's daughter who was in the room today. If the cytology from the pleural fluid is negative then consideration for bronchoscopy and biopsy could be sought off which can be done as an outpatient if the patient and the family are willing to go ahead with it. My staff is already working to schedule PET scan as an outpatient Patient's daughter Becca [phone] Case was discussed with patient's daughter at bedside Case also discussed with primary team and RN I spent more than 50 minutes looking in the chart, images, discussing the plan of care with the patient, RN as well as primary team Please note the above document was generated using voice recognition software. It may contain grammatical, syntax or spelling errors.Any formal questions or concerns about the content, text or information contained within the body of this dictation should be directly addressed to the provider for clarification. Admission and Anticipated Discharge Date Admission Date: December 11, 2024 Subjective Patient seen and examined at bedside. No acute distress, no adverse events overnight Patient's daughter was in the room at the time of examination Patient denied any chest pain, no belly pain No nausea or vomiting He is tolerating diet well Has been afebrile No hematemesis or hematochezia Review of Systems 2 Review of Systems: All systems reviewed & are unremarkable except as noted in Subjective Physical Exam 2 Physical Exam: Constitutional: No acute distress HEENT: EOMI, PERRLA Respiratory system: Decreased air entry on the right side, no wheeze, no rhonchi, positive crackles bilateral lower lobe CVS: S1-S2 positive, no murmurs or gallops, accentuated P2 Abdomen: Soft, nontender, nondistended, positive bowel sounds x4, induration 10 cm x 7 cm in the right upper quadrant, warm to touch Extremities: +2 pulses bilaterally radialis/ dorsalis pedis, no cyanosis, +1 ankle edema bilateral lower extremity Neuro: Awake alert oriented x3 Psych: Normal mood and affect G/U: No [place] Skin: no rashes, warm and dry Lymphatic: no cervical or axillary lymphadenopathy Results & Data Results & Data Vital Signs (Past 12 Hours) Vital Signs Temp Pulse Pulse Resp BP Pulse Ox O2 Del Method 12/16/24 08:34 36.7 C 69 18 126/48 L 93 Room Air 12/16/24 02:48 36.7 C 58 L 16 132/61 96 Room Air Laboratory Results 12/16/24 12:22 12/16/24 12:22 PG Care Time/CCT Total # of Minutes Spent Total Time Spent with Patient: Total time spent is greater than 50% in coordination of care (as documented) at patient's floor/unit and/or counseling patient: Coding Level of Care Code 00594 SUB INP/OBS CARE 3/50MIN Diagnoses Pleural effusion J90 Abnormal chest CT R93.89 Heart failure with preserved ejection fraction (HFpEF) I50.30 Ex-smoker Z87.891 Pulmonary mass R91.8
[2024-12-16 12:45] LABS: Hematocrit (blood only) 28.6 % (42.0-52.0); Hemoglobin 9.5 g/dl (14.0-18.0); Immature Granulocytes # (auto) 0.01 K/uL (0.01-0.20); Immature Granulocytes % (auto) 0.3 %; Mean Corpuscular Hemoglobin 31.9 pg (25.0-34.0); Mean Corpuscular Volume 96.0 fL (80.0-100.0); Platelet Count 48 K/uL (130-400); RDW Standard Deviation 64.5 fL (36.4-46.3); Red Blood Count 2.98 M/uL (4.70-6.10); White Blood Count 3.01 K/ul (4.8-10.8)
[2024-12-16 13:01] LABS: Alanine Aminotransferase 15.0 U/L (7-52); Albumin Globulin Ratio 1.4 (0.9-2); Albumin Level 3.0 gm/dl (3.4-5.0); Alkaline Phosphatase 200.0 U/L (34-104); Anion Gap 6.0 (3-11); Bilirubin,Total 1.5 mg/dl (0.2-1.0); Blood Urea Nitrogen 20.0 mg/dl (6-23); Calcium 7.8 mg/dl (8.6-10.3); Carbon Dioxide 24.0 mmol/L (21-32); Chloride 107.0 mmol/L (98-107); Creatinine Clr Calc Pharmacy 34.6 ml/min; Globulin 2.2 gm/dl (2.5-4.0); Glucose 119.0 mg/dl (70-99(Fasting)); Magnesium 1.7 mg/dl (1.7-2.4); Potassium 3.8 mmol/L (3.5-5.1); Sodium 137.0 mmol/L (136-145); Total Protein 5.2 gm/dl (6.0-8.3)
--- NOTE | 2024-12-16 16:11 | Discharge Summary ---
Discharge Summary Date of Service December 16, 2024 Principal Dx & Hospital Course #1 = Principal Diagnosis (1) GI bleed: (2) Acute blood loss anemia: (3) Pleural effusion: (4) MDS (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): Plan This patient is an 89-year-old male with a history of CAD s/p CABG and PCI, permanent atrial fibrillation s/p Watchman device, CKD stage IV, depression, chronic HFpEF, MDS with pancytopenia requiring transfusions, who is admitted with hematemesis and melena, acute GI blood loss, also found to have large right pleural effusion and possible right lung mass. #GI bleed/acute blood loss anemia-Hgb baseline is 8-9 but Hgb dropped as low as 5.3 this admission and was transfused a total of 4 units PRBCs. EGD showed large cratered duodenal ulcer with some evidence of recent bleeding but not actively bleeding-no indication for clipping or cautery as per GI. Biopsy taken for H. pylori is negative. Hemodynamically stable and Hgb continues to improve now up to 9.5 on the day of discharge. CT A/P with evidence of duodenitis and high-grade stenosis of the SMA incidentally noted. Duodenal ulcer could be from aspirin use versus recent stress of hospitalizations for recurrent cholecystitis and cholecystectomy. He is tolerating a regular diet and has had no further melena for the last 2 to 3 days of admission. - Appreciate GI consultation -He received an IV Protonix drip and then converted to oral pantoprazole 40 mg p.o. twice daily on the day of discharge - Follow CBC as an outpatient in 1 week - Holding home aspirin and would consider switching to Plavix in the future but will hold off on any antiplatelets until after his bronchoscopy as an outpatient-I did discuss with his buying agent, Dr. Mobley-recommend follow-up with cardiology after discharge - For SMA stenosis, seems to be asymptomatic but could follow-up with vascular surgery as an outpatient #CAD s/p CABG and PCI/chronic HFpEF/bilateral pleural effusion/possible RLL lung mass-most recent echo in 05/2024 with preserved EF 60-65%, reduced RV systolic function, mild MR. With what sounds like chronic pleural effusion right greater than left with no previous thoracentesis-noticed on imaging from several months prior. Also with possible lung mass and R LL seen on CT abdomen/pelvis. Patient is not hypoxic and has no dyspnea on exertion, no peripheral edema. BPs are controlled on no antihypertensives and heart rates in A-fib are controlled without any AV radha blockers. He had thoracentesis for 1700 mL of fluid that is exudative by lights criteria performed on 12/14-studies pending including cytology and culture. pH not consistent with empyema. Repeat chest CT now with residual pleural effusion right greater than left however now with obvious hilar lymphadenopathy and right sided lung mass. Pleural effusions are not from heart failure most likely. Appreciate pulmonology consultation Pleural fluid cytology negative for malignancy -After discussion with pulmonology, patient and his family have decided to pursue bronchoscopy for biopsy and PET scan as an outpatient -Continue home pravastatin -Holding aspirin #Permanent atrial fibrillation-patient with bradycardia and rates in the 50s to 60s for the most part not on AV radha blockers. He has a Watchman device in place and is not on anticoagulation #MDS/pancytopenia-with chronic pancytopenia and transfusions necessary, receives Retacrit. Follows with oncology Dr. Mendoza. - Planning for repeat bone marrow biopsy in the near future - Follow CBC as an outpatient in 1 week #CKD stage IV-creatinine around baseline at 1.4-1.5 - Avoid nephrotoxins and renally dose medications - Follow BMP as an outpatient #Depression-no acute issues -Continue buspirone, clonazepam #BPH s/p TURP-no acute issues - Continue home tamsulosin and oxybutynin DVT prophylaxis- SCDs, avoid anticoagulation at this time due to GI bleeding Disposition-stable for discharge to home. Discussed all care with his daughter on the day of discharge. Also discussed care with pulmonology and cardiology Notes For Next Care Provider Follow-up CBC and BMP in 1 week Follow-up for bronchoscopy as scheduled with pulmonology in December Medication Changes From Visit Added Protonix 40 mg p.o. twice daily Admission HPI Per Admitting Provider Pt is an 89 y/o male with pmh of CAD s/p CABG/PCI, afib, HTN, CKD, MDS, recent admission of post surgical cellulitis from lap cholecystectomy last month presents with episode of projectile vomiting of "coffee grounds" along episode noted melanotic stools over the past 3 days. In the ER his Hgb was stable at 8.4. CT a/p was negative for any acute pathology. Pt was placed on protonix drip and IVF. GI consulted for EGD and further evaluation of UGIB. Discharge Exam Constitutional WD/WN, vitals as above Respiratory normal respiratory effort; no cough Auscultation: + diminished lung sounds (At right lower and middle lung yoon); no crackles, no rhonchi and no wheezes Cardiovascular Rate/Rhythm: regular rate and + irregularly irregular Heart Sounds: + click; no murmur Extremities: no edema Gastrointestinal (Abdomen) normal bowel sounds, soft, nontender, no hepatosplenomegaly Psychiatric A+Ox3, euthymic affect Discharge Plan Discharge Items Patient Disposition: Home - Home Health Services Reason For Visit: GI BLEED Discharge Diagnosis: Gastric ulcer with gastrointestinal bleeding Acute blood loss anemia on chronic anemia Right sided pleural effusion with right lung mass Condition on Discharge: Fair Activity: As commented below Lifting: Gradually increase as tolerated Exercise/Sports: Gradually increase as tolerated Exercise Comment: With home PT/OT Non-emergency contact: Primary Care Provider and Post Exchange Manager Call non-emergency contact if: you have any medication questions and your symptoms worsen Follow-up/Referrals: Osbaldo Sellers, [Primary Care Provider] - Diet: Regular Addtl Attending Provider Instructions: You were admitted with gastrointestinal bleed and had a blood transfusion. You were found to have an ulcer in your duodenum. The bleeding has resolved and your blood count has stabilized. Please continue on the Protonix twice a day indefinitely. Please remain off of your aspirin at this time. You were also found to have a large amount of fluid in the right lung and a possible mass in the right lung. You will need a bronchoscopy to have a biopsy to see if this is a cancer. The data security consultant will contact you with your appointment date and time for the bronchoscopy to have the biopsy. Please have your PCP or your drafter patent check your complete blood count in 1 week. Pending Studies at Discharge: Yes (Pleural fluid cultures) Stand-Alone Forms: [facility] Medications and DC Order Prescriptions: Continued oxybutynin chloride 5 mg tablet 5 mg PO BID Qty: 180 3RF pravastatin 40 mg tablet 40 mg PO HS Qty: 90 3RF clonazepam 0.5 mg tablet 0.5 mg PO HS Qty: 30 0RF nitroglycerin 0.4 mg tablet, sublingual 0.4 mg sublingual Q5M PRN (Reason: Chest Pain) Qty: 25 5RF Rx Instructions: do not exceed 3 doses per episode Retacrit 2,000 unit/mL Solution 0 unit IV DIRECTED PRN (Reason: Anemia) Rx Instructions: 05/02/24 : EVERY TWO WEEK INJECTION GIVEN AT [facility] FOR Hgb < 10. sennosides [Senokot] 8.6 mg Tablet 8.6 mg PO HS tamsulosin 0.4 mg capsule 0.4 mg PO HS buspirone 5 mg Tablet 10 mg PO BID Qty: 60 0RF silver sulfadiazine [Silvadene] 1 % cream 1 applic topical DIRECTED PRN (Reason: Wound Care) Rx Instructions: apply a 1.5 mm thickness Changed pantoprazole 40 mg tablet,delayed release (DR/EC) 40 mg PO BID Qty: 60 0RF Held aspirin 81 mg Tablet,Delayed Release (Dr/Ec) 81 mg PO DAILY Hold Instructions: Resume on 01/07/25. Hold until after your lung biopsy Discharge Orders: Discharge Order (Routine); Ordered 12/16/24 Ordered By: Marisela Lindsey Admission Data Admit Date/Time: 12/11/24 11:17 Attending Provider: Marisela Lindsey Admit Provider: Tony Rose Primary Care Provider: Osbaldo Sellers Other Providers: Tony Rose; Mani Huitron; [facility]; Elda Macias; Priti Alexander; Rigoberto Decker Hospital Stay Data Consultations 12/11/24 10:34 ED Decision to Admit Stat 12/11/24 13:15 Consult Gastroenterology Routine 12/13/24 10:32 Consult Palliative Care Routine 12/14/24 10:51 Consult Pulmonology Routine Procedures Performed Operation Date: 12/11/24 14:10 Actual Procedures p Esophagogastroduodenoscopy with biopsy to rule out h-pylori - Mani Huitron MD Diagnostic Imagining Performed 12/11/24 08:28 CT abd pelvis IV con only Stat 12/14/24 10:42 CT chest diagnostic wo con Routine 12/14/24 14:14 US point of care ultrasound Urgent 12/15/24 10:41 CT chest diagnostic wo con Routine Pending Results Patient Have Any Pending Studies at Discharge: Yes (Pleural fluid cultures) Discharge Instructions Given to Patient (Per Discharging Provider) You were admitted with gastrointestinal bleed and had a blood transfusion. You were found to have an ulcer in your duodenum. The bleeding has resolved and your blood count has stabilized. Please continue on the Protonix twice a day indefinitely. Please remain off of your aspirin at this time. You were also found to have a large amount of fluid in the right lung and a possible mass in the right lung. You will need a bronchoscopy to have a biopsy to see if this is a cancer. The data security consultant will contact you with your appointment date and time for the bronchoscopy to have the biopsy. Please have your PCP or your drafter patent check your complete blood count in 1 week. Total Time Total Time Spent Total Time Spent (In Minutes): 45 minutes Total Time Includes: Examination of the Patient, Discharge Planning, Medication Reconciliation and Communication With Other Providers Coding Level of Care Code 39238 INP/OBS DISCH >30 MIN Diagnoses GI bleed K92.2 GI bleed type/associated pathology: unspecified gastrointestinal hemorrhage type Acute blood loss anemia D62 Pleural effusion J90 MDS (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) D46.9
[2024-12-16 16:14] VITALS: BP 125/61; PULSE 66; TEMP 98.8; O2SAT 94
== END 2024-12-16 17:56 | disposition home health service (06) | DRG 378 ==
LOC: ED 08:23 → 4W 11:17 → SUATTDRO 11:17 → 4W 12:44